=== PATIENT | female | born 1960 | race Caucasian/White ===

== ENCOUNTER 2020-10-05 09:58 | Outpatient (CLI) | payer MEDICARE, MEDICAID, SELFPAY ==
[2020-10-05 11:24] LABS: Add Urine Microscopic? YES; Appearance Urine Clear (Clear); Bacteria Urine Trace /hpf; Bilirubin Urine Negative (Negative); Blood Urine Negative (Negative); Color Urine Yellow (Yellow); Glucose Urine UA Negative (Negative); Ketones Urine Negative (Negative); Leukocyte Esterase Ur 2+ LEU/UL (NEGATIVE); Nitrate Urine Negative (Negative); Protein Urine 3+ mg/dL (Negative); RBC Urine 0-2 /hpf (0-2); Specific Grav Ur 1.016 (1.001-1.035); Squamous Epithelial Cell Urine Rare /hpf (Few); Urobilinogen Urine Negative mg/dL (<2.0); WBC Urine 51-75 /hpf (0-3)
[2020-10-05 11:36] LABS: Anion Gap 4 mmol/L (8-16); Blood Urea Nitrogen 38 mg/dL (7-17); Calcium 8.7 mg/dL (8.4-10.2); Carbon Dioxide 32 mmol/L (22-30); Chloride 105 mmol/L (98-107); Estimated Glomerular Filt Rate 42; Glucose 157 mg/dL (65-105); Potassium 4.9 mmol/L (3.4-5.0); Sodium 141 mmol/L (137-145)
[2020-10-05 22:34] LABS: Creatinine Urine 92.1 mg/dL
[2020-10-06 00:41] LABS: Microalbumin Urine Random > 1140.0 mg/L (0-16.7)
== END 2020-10-05 09:59 | disposition home or self-care (01) ==
PROVIDERS: Visit Provider Internal Medicine Nephrology
DX: E11.21 Type 2 diabetes mellitus with diabetic nephropathy (principal); E78.5 Hyperlipidemia, unspecified; R80.9 Proteinuria, unspecified
CPT/HCPCS: 36415; 80048; 81001; 82043

== ENCOUNTER 2021-01-26 10:49 | Outpatient (CLI) | payer MEDICARE, MEDICAID, SELFPAY ==
--- NOTE | ~2021-01-26 | US_ITS ---
EXAMINATION: US carotid duplex BI DATE: 01/26/2021 11:21 INDICATION: Bilateral carotid bruits TECHNIQUE: Grayscale, color Doppler, and pulsed Doppler images of the cervical carotid arteries were obtained. The degree of vessel stenosis is placed in one of the following categories: normal, <50%, 5 0-69%, >=70% but less than near-occlusion, near-occlusion, or total occlusion. Note that percent sten osis relative to normal distal artery lumen diameter is indirectly measured from velocity measurement s as described by Marcus, et al. Radiology 2003; [id number]. COMPARISON: None. FINDINGS: Cardiac arrhythmias present. RIGHT: The right common carotid artery (CCA) peak systolic velocity (PSV) is 83 cm/s. The right internal car otid artery (ICA) PSV is 93 cm/s. The right ICA end-diastolic velocity (EDV) is 23 cm/s. The right IC A/CCA PSV ratio is 1.1. Grayscale and color Doppler images yield an estimate of <50% diameter reducti on from plaque in the ICA. The external carotid artery (ECA) PSV is 159 cm/s. There is antegrade flow in the right vertebral artery. LEFT: The left CCA PSV is 72 cm/s. The left ICA PSV is 139 cm/s. The left ICA EDV is 31 cm/s. The left ICA/ CCA PSV ratio is 1.9. Grayscale and color Doppler images yield an estimate of <50% diameter reduction from plaque in the ICA. The ECA PSV is 185 cm/s. There is antegrade flow in the left vertebral arter y. IMPRESSION: 1. <50% stenosis in the right internal carotid artery. 2. 50-69% stenosis in the left internal carotid artery. 3. Cardiac arrhythmia is present. Reviewed, dictated and finalized at location A.
== END 2021-01-26 10:50 | disposition home or self-care (01) ==
PROVIDERS: Visit Provider Internal Medicine Cardiovascular Disease
DX: R09.89 Other specified symptoms and signs involving the circulatory and respiratory systems (principal); I65.23 Occlusion and stenosis of bilateral carotid arteries; I49.9 Cardiac arrhythmia, unspecified
CPT/HCPCS: 93880

== ENCOUNTER 2021-02-03 13:31 | Outpatient (CLI) | payer MEDICARE, MEDICAID, SELFPAY ==
--- NOTE | 2021-02-03 17:50 | WPDPFTINT ---
PFT Interpretation This is a pulmonary function test with spirometry, plethysmography and diffusing capacity. The test was performed and results interpreted in accordance with the 2019 and 2005 ATS/ERS Task Force guidelines respectively using the Global Lung Function Initiative-2012 reference equations. Patient demonstrated good effort and cooperation. Reproducibility criteria were met. The quality of the pre bronchodilator spirometry maneuver was Grade A. Findings: Spirometry: There is decreased maximal expiratory airflow at low lung volumes with a mildly concave expiratory flow tracing. The FVC is 2.21 L, 67% predicted. The FEV1 is 1.74 L, 67% predicted. The FEV1: FVC ratio is 79%. Plethysmography: The total lung capacity is 4.39 L, 85% predicted. The functional residual capacity is 2.46 L, 83% predicted. The residual volume is 2.15 L, 107% predicted. Diffusing capacity: The absolute diffusion capacity is 12.5, 56% predicted. The diffusing capacity corrected for alveolar volume is 3.34, 76% predicted. Impression: There is a combined obstructive and restrictive ventilatory abnormality. There are no guidelines to assign the severity of obstruction and restriction with a combined abnormality. In my opinion, given the mildly concave expiratory flow tracing and normal FEV1:FVC ratio with a mild restrictive abnormality I would state there is a mild obstructive abnormality and a mild restrictive abnormality resulting in a moderately decreased FEV1. The diffusing capacity is moderately decreased but normalizes when corrected for alveolar volume. There are no prior studies for comparison PFT Procedure Performed PFT Procedure Performed Plethysmography (Lung Vol) Diffusing Cap (DLCO) Spirometry w/o Bronchodil
== END 2021-02-03 13:32 | disposition home or self-care (01) ==
LOC: ANHPFT 13:33
PROVIDERS: PCP Internal Medicine Cardiovascular Disease; Visit Provider Internal Medicine Cardiovascular Disease
DX: Z72.0 Tobacco use (principal); R94.2 Abnormal results of pulmonary function studies
CPT/HCPCS: 94375; 94726; 94729

== ENCOUNTER 2021-02-08 09:24 | Outpatient (CLI) | payer MEDICARE, MEDICAID, SELFPAY ==
[2021-02-08 10:12] LABS: Basophils Absolute Auto 0.1 K/mm3 (0.0-0.1); Basophils Percent Auto 0.5 % (0.2-1.2); Eosinophils Absolute Auto 0.4 K/mm3 (0-0.3); Eosinophils Percent Auto 4.3 % (0-4.4); Hematocrit 42.3 % (37.0-47.0); Hemoglobin 14.2 g/dL (12.0-15.0); Immature Granulocyte Absolute 0.07 K/mm3 (0.00-0.031); Immature Granulocyte Percent A 0.8 % (0-0.5); Lymphocytes Absolute Auto 1.11 K/mm3 (0.9-3.2); Mean Corpuscular HGB Conc 33.6 g/dl (32-36); Mean Corpuscular Hemoglobin 30.3 pg (26-34); Mean Corpuscular Volume 90.4 fl (80-100); Mean Platelet Volume 8.8 fl (7.4-10.4); Monocytes Absolute Auto 0.4 K/mm3 (0.1-0.6); Neutrophils Absolute Auto 7.3 K/mm3 (1.3-6.7); Neutrophils Percent Auto 78.4 % (45.5-73.1); Platelet Count Result 248 k/mm3 (150-375); Red Blood Count 4.68 M/mm3 (4.2-5.4); Red Cell Distribution Width 15.6 % (11.5-14.5); White Blood Count 9.3 K/mm3 (4.5-10.0)
[2021-02-08 10:13] LABS: Appearance Urine Clear (Clear); Bilirubin Urine Negative (Negative); Blood Urine Negative (Negative); Color Urine Yellow (Yellow); Glucose Urine UA Trace mg/dL (Negative); Ketones Urine Negative (Negative); Leukocyte Esterase Ur 1+ LEU/UL (NEGATIVE); Nitrate Urine Negative (Negative); Protein Urine 3+ mg/dL (Negative); Urobilinogen Urine 0.2 mg/dL (<2.0)
[2021-02-08 10:23] LABS: Anion Gap 6 mmol/L (8-16); Blood Urea Nitrogen 28 mg/dL (7-17); Calcium 9.6 mg/dL (8.4-10.2); Carbon Dioxide 33 mmol/L (22-30); Chloride 98 mmol/L (98-107); Estimated Glomerular Filt Rate 38; Glucose 274 mg/dL (65-105); Phosphorus 4.8 mg/dL (2.5-4.5); Potassium 4.4 mmol/L (3.4-5.0); Sodium 137 mmol/L (137-145)
[2021-02-08 10:28] LABS: Creatinine Urine 72.9 mg/dL
[2021-02-08 10:34] LABS: Parathyroid Intact 11.9 pg/mL (7.5-53.5)
[2021-02-08 11:11] LABS: Add Urine Microscopic? YES
[2021-02-08 11:19] LABS: Squamous Epithelial Cell Urine Rare /hpf (Few)
[2021-02-08 11:57] LABS: Microalbumin Urine Random > 1140.0 mg/L (0-16.7)
== END 2021-02-08 09:25 | disposition home or self-care (01) ==
PROVIDERS: PCP Internal Medicine Cardiovascular Disease
DX: N18.32 Chronic kidney disease, stage 3b (principal)
CPT/HCPCS: 36415; 80069; 81001; 82043; 83970; 85025

== ENCOUNTER 2021-06-05 09:02 | Emergency (ER) | payer MEDICARE, MEDICAID, SELFPAY ==
[2021-06-05 09:14] VITALS: BP 130/73; PULSE 50; RESP 20; TEMP 35.8; O2SAT 97
--- NOTE | 2021-06-05 10:18 | ED.NECK ---
HPI - Neck Pain/Injury General Chief Complaint: Neck Pain/Injury Stated Complaint: Stiff Neck Time Seen by Provider: 06/05/21 10:11 Source: patient and RN notes reviewed Mode of arrival: ambulatory Limitations: no limitations History of Present Illness HPI Narrative: Patient presents today complaining of neck pain and stiffness x2 weeks. Denies numbness or tingling in the arms or hands. States she does frequent crafts, and spends a lot of time looking at the TV and down at her phone because she is disabled, so she knows she has poor neck position for most of the day. She currently rates her pain 06/07 and has been taking ibuprofen and applying icy hot and Aspercreme without relief. MD complaint: neck pain Related Data Home Medications Medication Instructions Recorded Confirmed albuterol sulfate 2 inh INHALATION Q4-6H PRN 10/24/19 10/24/19 amlodipine [Norvasc] 10 mg PO DAILY 10/24/19 10/24/19 atenolol [Tenormin] 50 mg PO BID 10/24/19 10/24/19 atorvastatin 20 mg PO DAILY 10/24/19 10/24/19 fluticasone propionate [Flonase 1 spray INTRANASAL DAILY 10/24/19 10/24/19 Allergy Relief] furosemide [Lasix] 40 mg PO DAILY 10/24/19 10/24/19 gabapentin [Neurontin] 300 mg PO TID 10/24/19 10/24/19 glipizide 10 mg PO BID 10/24/19 10/24/19 hydralazine 25 mg PO BID 10/24/19 10/24/19 hydrocodone-acetaminophen 1 tablet PO Q6-8H PRN 10/24/19 10/24/19 levothyroxine 175 mcg PO DAILY 10/24/19 10/24/19 lisinopril 20 mg PO BID 10/24/19 10/24/19 metformin 1,000 mg PO BID 10/24/19 10/24/19 Allergies Allergy/AdvReac Type Severity Reaction Status Date / Time No Known Allergies Allergy Verified 10/24/19 12:26 Review of Systems Review of Systems: CONSTITUTIONAL: Denies body aches, fever, chills, or sweats. EYES: Denies visual changes, redness, or discharge. ENT: Denies rhinorrhea, congestion, sore throat, or otalgia. CARDIOVASCULAR: Denies chest pain, palpitations, or edema. RESPIRATORY: Denies cough or dyspnea. GASTROINTESTINAL: Denies abdominal pain, nausea, vomiting, or diarrhea. GENITOURINARY: Denies dysuria or hematuria. SKIN: Denies rash, itching, or wounds. MUSCULOSKELETAL: Denies back pain, joint pain, or myalgia.+ Neck pain and stiffness NEUROLOGIC: Denies headache, numbness, tingling, or weakness. PSYCH: Denies depression or anxiety. [facility] Past Medical History Medical History (Updated 06/05/21 @ 10:23 by Nadine Perdomo, [facility], ) Coronary artery disease CVA (cerebral vascular accident) Diabetes High cholesterol Hypertension Surgical History Surgical History (Updated 06/05/21 @ 10:20 by Nadine Perdomo, [facility], ) H/O thyroidectomy History of cholecystectomy Comments At time of signature, I have reviewed and agree with nursing past medical, surgical, social and family history unless otherwise noted. Please see nursing chart for further information. There is no relevant family history pertinent to the presenting complaint Exam Narrative: GENERAL: Well-appearing, well-nourished, and in no acute distress. HEAD: Normocephalic, atraumatic. EYES: EOMI. No redness or drainage. Conjunctivae normal. ENT: Mucous membranes pink and moist. NECK: Normal AROM in all directions. Tenderness to the left cervicals paraspinals muscles. Distal sensation intact bilaterally. Capillary refill normal. Radial pulses normal. CHEST: No respiratory distress. EXTREMITIES: Normal range of motion. No edema. SKIN: Warm, dry, no rash. Capillary refill normal. Normal skin turgor. NEURO: No focal deficits. Alert and oriented x3. Gait steady. PSYCH: Normal affect. No signs of depression or anxiety. Course Vital Signs Vital signs: Vital Signs Temperature 96.4 F L 06/05/21 09:14 Pulse Rate 50 L 06/05/21 09:14 Respiratory Rate 20 06/05/21 09:14 Blood Pressure 130/73 06/05/21 09:14 Pulse Oximetry 97 06/05/21 09:14 Temperature 96.4 F L 06/05/21 09:14 Pulse Rate 50 L 06/05/21 09:14 Respiratory Rate 20 06/05/21 09:
== END 2021-06-05 10:47 | disposition home or self-care (01) ==
PROVIDERS: Emergency Provider Nurse Practitioner; PCP Family Medicine
DX: S16.1XXA Strain of muscle, fascia and tendon at neck level, initial encounter (principal); X50.1XXA Overexertion from prolonged static or awkward postures, initial encounter; I25.10 Atherosclerotic heart disease of native coronary artery without angina pectoris; E78.00 Pure hypercholesterolemia, unspecified; I10 Essential (primary) hypertension; Z86.73 Personal history of transient ischemic attack (TIA), and cerebral infarction without residual deficits
CPT/HCPCS: 99213; G0463

== ENCOUNTER 2021-07-23 10:50 | Outpatient (CLI) | payer MEDICARE, SELFPAY ==
[2021-07-23 11:18] LABS: Basophils Percent Auto 0.5 % (0.2-1.2); Eosinophils Absolute Auto 0.3 K/mm3 (0-0.3); Eosinophils Percent Auto 3.1 % (0-4.4); Hematocrit 39.4 % (37.0-47.0); Hemoglobin 12.9 g/dL (12.0-15.0); Immature Granulocyte Absolute 0.05 K/mm3 (0.00-0.031); Immature Granulocyte Percent A 0.6 % (0-0.5); Lymphocytes Absolute Auto 1.04 K/mm3 (0.9-3.2); Lymphocytes Percent Auto 11.9 % (18.3-44.2); Mean Corpuscular HGB Conc 32.7 g/dl (32-36); Mean Corpuscular Hemoglobin 31.4 pg (26-34); Mean Corpuscular Volume 95.9 fl (80-100); Mean Platelet Volume 8.6 fl (7.4-10.4); Monocytes Absolute Auto 0.4 K/mm3 (0.1-0.6); Monocytes Percent Auto 4.8 % (2.6-8.5); Neutrophils Absolute Auto 6.9 K/mm3 (1.3-6.7); Neutrophils Percent Auto 79.1 % (45.5-73.1); Platelet Count Result 233 k/mm3 (150-375); Red Blood Count 4.11 M/mm3 (4.2-5.4); Red Cell Distribution Width 15.3 % (11.5-14.5); White Blood Count 8.7 K/mm3 (4.5-10.0)
[2021-07-23 11:29] LABS: Albumin Level 4.2 g/dL (3.5-5.1); Anion Gap 5 mmol/L (8-16); Blood Urea Nitrogen 33 mg/dL (7-17); Calcium 9.5 mg/dL (8.4-10.2); Carbon Dioxide 30 mmol/L (22-30); Chloride 105 mmol/L (98-107); Estimated Glomerular Filt Rate 38; Glucose 217 mg/dL (65-110); Phosphorus 4.4 mg/dL (2.5-4.5); Potassium 4.5 mmol/L (3.4-5.0); Sodium 140 mmol/L (137-145)
[2021-07-23 11:30] LABS: Add Urine Microscopic? YES; Appearance Urine Cloudy (Clear); Bacteria Urine Trace /hpf; Bilirubin Urine Negative (Negative); Blood Urine Negative (Negative); Color Urine Yellow (Yellow); Glucose Urine UA 1+ mg/dL (Negative); Ketones Urine Negative (Negative); Leukocyte Esterase Ur 3+ LEU/UL (NEGATIVE); Mucus Urine Rare /lpf; Nitrate Urine Negative (Negative); Protein Urine 3+ mg/dL (Negative); Specific Grav Ur 1.015 (1.001-1.035); Squamous Epithelial Cell Urine Many /hpf (Few); Urobilinogen Urine Negative mg/dL (<2.0); WBC Urine >75 /hpf (0-3)
[2021-07-23 11:41] LABS: Parathyroid Intact 17.4 pg/mL (7.5-53.5)
[2021-07-23 12:05] LABS: Creatinine Urine 108.2 mg/dL
[2021-07-23 13:58] LABS: MALB Creatinine Ratio 1053.6 mg/g (0-30); Microalbumin Urine Random > 1140.0 mg/L (0-16.7)
== END 2021-07-23 10:51 | disposition home or self-care (01) ==
PROVIDERS: PCP Family Medicine
DX: N18.32 Chronic kidney disease, stage 3b (principal); R80.9 Proteinuria, unspecified
CPT/HCPCS: 36415; 80069; 81001; 82043; 83970; 85025

== ENCOUNTER 2021-11-10 11:47 | Outpatient (CLI) | payer OTHER, SELFPAY ==
--- NOTE | ~2021-11-10 | XR_ITS ---
EXAMINATION: XR hip LT 2V w AP pelvis EXAM DATE: 11/10/2021 12:18 INDICATION: Chronic Pain In Left Hip, Posterior/Sciatic Pain, No Injury. TECHNIQUE: Left hip frontal, 'frog leg' projections for interpretation. Frontal projection pelvis. There is no prior study for comparison. FINDINGS: There is mild to moderate symmetric bilateral hip primary osteoarthritis. Advanced lower l umbar disc disease. 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 There are no acute pelvic or left hip fra ctures or dislocations identified. There is no subcutaneous gas. Some scattered arterial sclerosis. There are no radiopaque foreign bodies. IMPRESSION: 1. 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 2. Mild to moderate hip osteoarthritis. 3. Advanced lower lumbar spondylosis. Reviewed, dictated and finalized at location A. AND SADDLE REPAIR PERSON
[2021-11-10 12:04] LABS: Basophils Percent Auto 0.3 % (0.2-1.2); Eosinophils Absolute Auto 0.2 K/mm3 (0-0.3); Hematocrit 36.5 % (37.0-47.0); Hemoglobin 11.8 g/dL (12.0-15.0); Immature Granulocyte Absolute 0.04 K/mm3 (0.00-0.031); Immature Granulocyte Percent A 0.6 % (0-0.5); Lymphocytes Absolute Auto 1.09 K/mm3 (0.9-3.2); Lymphocytes Percent Auto 17.3 % (18.3-44.2); Mean Corpuscular HGB Conc 32.3 g/dl (32-36); Mean Corpuscular Hemoglobin 29.5 pg (26-34); Mean Corpuscular Volume 91.3 fl (80-100); Mean Platelet Volume 8.5 fl (7.4-10.4); Monocytes Absolute Auto 0.7 K/mm3 (0.1-0.6); Monocytes Percent Auto 10.3 % (2.6-8.5); Neutrophils Absolute Auto 4.3 K/mm3 (1.3-6.7); Neutrophils Percent Auto 68.5 % (45.5-73.1); Platelet Count Result 229 k/mm3 (150-375); Red Cell Distribution Width 16.4 % (11.5-14.5); White Blood Count 6.3 K/mm3 (4.5-10.0)
[2021-11-10 12:20] LABS: Anion Gap 11 mmol/L (8-16); Blood Urea Nitrogen 43 mg/dL (7-17); Carbon Dioxide 28 mmol/L (22-30); Chloride 99 mmol/L (98-107); Estimated Glomerular Filt Rate 31; Glucose 238 mg/dL (65-110); Phosphorus 3.8 mg/dL (2.5-4.5); Potassium 3.8 mmol/L (3.4-5.0); Sodium 138 mmol/L (137-145)
[2021-11-10 12:29] LABS: Parathyroid Intact 8.8 pg/mL (7.5-53.5)
== END 2021-11-10 11:48 | disposition home or self-care (01) ==
PROVIDERS: PCP Family Medicine
DX: N18.32 Chronic kidney disease, stage 3b (principal); S32.502 Unspecified fracture of left pubis; M16.12 Unilateral primary osteoarthritis, left hip; M47.816 Spondylosis without myelopathy or radiculopathy, lumbar region
CPT/HCPCS: 36415; 73502; 80069; 83970; 85025

== ENCOUNTER 2022-02-14 10:43 | Outpatient (CLI) | payer OTHER, SELFPAY ==
[2022-02-14 11:13] LABS: Basophils Percent Auto 0.5 % (0.2-1.2); Eosinophils Absolute Auto 0.2 K/mm3 (0-0.3); Eosinophils Percent Auto 3.2 % (0-4.4); Hematocrit 33.8 % (37.0-47.0); Hemoglobin 9.1 g/dL (12.0-15.0); Immature Granulocyte Absolute 0.02 K/mm3 (0.00-0.031); Immature Granulocyte Percent A 0.3 % (0-0.5); Lymphocytes Absolute Auto 0.68 K/mm3 (0.9-3.2); Lymphocytes Percent Auto 11.5 % (18.3-44.2); Mean Corpuscular HGB Conc 26.9 g/dl (32-36); Mean Corpuscular Hemoglobin 23.6 pg (26-34); Mean Corpuscular Volume 87.8 fl (80-100); Mean Platelet Volume 8.9 fl (7.4-10.4); Monocytes Absolute Auto 0.4 K/mm3 (0.1-0.6); Monocytes Percent Auto 6.6 % (2.6-8.5); Neutrophils Absolute Auto 4.6 K/mm3 (1.3-6.7); Neutrophils Percent Auto 77.9 % (45.5-73.1); Platelet Count Result 226 k/mm3 (150-375); Red Blood Count 3.85 M/mm3 (4.2-5.4); Red Cell Distribution Width 17.6 % (11.5-14.5); White Blood Count 5.9 K/mm3 (4.5-10.0)
[2022-02-14 11:28] LABS: Albumin Level 3.6 g/dL (3.5-5.1); Anion Gap 5 mmol/L (8-16); Blood Urea Nitrogen 35 mg/dL (7-17); Calcium 8.8 mg/dL (8.4-10.2); Carbon Dioxide 32 mmol/L (22-30); Chloride 102 mmol/L (98-107); Estimated Glomerular Filt Rate 38; Glucose 132 mg/dL (65-110); Phosphorus 4.6 mg/dL (2.5-4.5); Potassium 4.4 mmol/L (3.4-5.0); Sodium 139 mmol/L (137-145)
[2022-02-14 11:33] LABS: Appearance Urine Clear (Clear); Bilirubin Urine Negative (Negative); Blood Urine Negative (Negative); Color Urine Yellow (Yellow); Glucose Urine UA Negative (Negative); Ketones Urine Negative (Negative); Leukocyte Esterase Ur 1+ LEU/UL (NEGATIVE); Nitrate Urine Negative (Negative); Protein Urine Trace mg/dL (Negative); Specific Grav Ur 1.015 (1.001-1.035); Urobilinogen Urine 0.2 mg/dL (<2.0); pH Urine 6.5 (5.0-9.0)
[2022-02-14 11:36] LABS: Parathyroid Intact 31.3 pg/mL (7.5-53.5)
[2022-02-14 11:38] LABS: Mucus Urine Rare /lpf; RBC Urine 0-2 /hpf (0-2); Transitional Epi Cells Urine Rare /hpf (None Seen)
[2022-02-14 11:42] LABS: Hypochromasia 1+ (NORMAL); Platelet Estimate Adequate (Adequate)
[2022-02-14 11:43] LABS: Anisocytosis 1+ (NORMAL)
[2022-02-14 11:48] LABS: Add Urine Microscopic? YES; Creatinine Urine 20.6 mg/dL
[2022-02-14 11:53] LABS: MALB Creatinine Ratio 637.4 mg/g (0-30); Microalbumin Urine Random 131.3 mg/L (0-16.7)
== END 2022-02-14 10:44 | disposition home or self-care (01) ==
LOC: ANHLAB 10:49
PROVIDERS: PCP Family Medicine
DX: N18.32 Chronic kidney disease, stage 3b (principal)
CPT/HCPCS: 36415; 80069; 81001; 82043; 83970; 85025

== ENCOUNTER 2022-03-10 10:13 | Emergency (ER) | payer OTHER, SELFPAY ==
--- NOTE | ~2022-03-10 | XR_ITS ---
EXAMINATION: XR hip RT min 2V DATE: 03/10/2022 10:44 INDICATION: Right hip pain TECHNIQUE: Two views of right hip were obtained. COMPARISON: 11/10/2021 FINDINGS: There is moderate osteoarthritis of the right hip. No hip fracture is identified. There is a chronic fracture of the right pubic symphysis with nonunion. Phleboliths are noted in the pelvis. T here is calcified atherosclerosis. IMPRESSION: 1. No acute osseous abnormality. Reviewed, dictated and finalized at location A.
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
[2022-03-10 10:29] VITALS: BP 145/46; PULSE 66; RESP 18; TEMP 36.1; O2SAT 95
== END 2022-03-10 11:05 | disposition home or self-care (01) ==
PROVIDERS: Emergency Provider Nurse Practitioner; PCP Family Medicine
DX: M54.31 Sciatica, right side (principal); I25.10 Atherosclerotic heart disease of native coronary artery without angina pectoris; E11.9 Type 2 diabetes mellitus without complications; E78.00 Pure hypercholesterolemia, unspecified; I10 Essential (primary) hypertension; Z86.73 Personal history of transient ischemic attack (TIA), and cerebral infarction without residual deficits; E89.0 Postprocedural hypothyroidism
CPT/HCPCS: 73502; 99213; G0463

== ENCOUNTER 2022-10-08 08:43 | Emergency (ER) | payer OTHER, SELFPAY ==
[2022-10-08 08:49] VITALS: BP 201/88; PULSE 89; RESP 18; TEMP 36.4; O2SAT 93
[2022-10-08 08:59] VITALS: BP 201/88; PULSE 89; RESP 16; TEMP 36.3; O2SAT 92
--- NOTE | 2022-10-08 09:03 | ED.EXTPRO ---
HPI - Extremity Problem General Chief complaint: Extremity Injury, Lower Stated complaint: L ankle and foot pain and swelling Time Seen by Provider: 10/08/22 09:02 Source: patient and RN notes reviewed Mode of arrival: wheelchair Limitations: no limitations History of Present Illness MD Complaint: extremity pain and extremity swelling Onset (ago): day(s) (2) Pain Consistency: constant Location: left and lower extremity Severity scale (1-10): 4 Quality: burning, aching, dull and constant Radiation: distal Relieving factors: nothing Exacerbating factors: weight bearing, walking and palpation Associated symptoms: denies other symptoms Related Data Home Medications Medication Instructions Recorded Confirmed albuterol sulfate 90 mcg/actuation 1 inh inhalation DAILY 10/08/22 10/08/22 aerosol inhaler (Ventolin HFA) aspirin 81 mg tablet,delayed 90 mg PO DAILY 10/08/22 10/08/22 release bupropion HCl (smoking deter) 150 150 mg PO BID 10/08/22 10/08/22 mg tablet,12 hr sustained-release(smoking deterrent) carvedilol 25 mg tablet 25 mg PO BID 10/08/22 10/08/22 empagliflozin 10 mg tablet 10 mg PO DAILY 10/08/22 10/08/22 (Jardiance) furosemide 40 mg tablet 40 mg PO DAILY 10/08/22 10/08/22 glipizide 10 mg tablet 10 mg PO BID 10/08/22 10/08/22 hydralazine 25 mg tablet 25 mg PO BID 10/08/22 10/08/22 levothyroxine 175 mcg tablet 175 mcg PO DAILY 10/08/22 10/08/22 metformin 1,000 mg tablet 1,000 mg PO DAILY 10/08/22 10/08/22 ropinirole 1 mg tablet 1 mg PO TID 10/08/22 10/08/22 rosuvastatin 40 mg tablet 40 mg PO DAILY 10/08/22 10/08/22 sacubitril 97 mg-valsartan 103 mg 1 tablet PO BID 10/08/22 10/08/22 tablet (Entresto) tramadol 50 mg tablet 50 mg PO DAILY 10/08/22 10/08/22 Allergies Allergy/AdvReac Type Severity Reaction Status Date / Time No Known Allergies Allergy Verified 10/08/22 09:03 Review of Systems Review of Systems: All systems reviewed & are unremarkable except as noted in HPI and below Constitutional: Constitutional: Denies chills and Denies fatigue Gastrointestinal: Gastrointestinal: Denies nausea and Denies vomiting [facility] Past Medical History Medical History (Updated 10/08/22 @ 10:43 by Charly Byrne MD) Congestive heart failure Coronary artery disease CVA (cerebral vascular accident) Diabetes High cholesterol Hypertension Hypothyroidism Surgical History Surgical History H/O thyroidectomy History of cholecystectomy Exam Const: General: healthy appearing, no acute distress and alert Nutritional Appearance: well nourished and obese morbidly obese Orientation/consciousness: patient oriented x3 Limitations: no limitations HENMT: Head: normal to inspection Ears: external ears normal Face and sinus: normal facial exam Eyes: Conjunctivae: conjunctivae normal Pupils: Equal, round and reactive pupils present EOM: EOMs intact bilaterally Neck: Neck: normal visual inspection Resp: Effort & Inspection: normal respiratory effort Auscultation: clear to auscultation bilaterally Cardio: Rate: regular rate Rhythm: regular rhythm GI: GI Palp: Yes Soft to palpation and No Tenderness to palpation present (GI) Auscultation: normal bowel sounds Back/Spine/Pelvis: Cervical Spine: cervical ROM normal Thoracic/Lumbar Spine: thoraco-lumbar ROM normal Neuro: General: patient oriented x3, moves all extremities, no focal motor deficits and CN's II-XI intact bilaterally Speech: normal speech Gait exam (Neuro): Normal gait present Extrem: General: normal exam except as noted, no clubbing, cyanosis or edema and no calf tenderness bilaterally Left lower extremity: lower leg Details: erythema Location: of the mid lower leg and of the distal lower leg ( all the way down on the ankle to the dorsal foot), tenderness ( soft tissue mild tenderness), localized swelling Location: of the mid lower leg and of the distal lower leg ( including ankle and
--- NOTE | 2022-10-08 09:15 | PC.NURSE ---
patient states she has not taken her blood pressure medication today yet that is why it is elevated.
[2022-10-08] MEDS: IPRATROPIUM 0.5 MG/ALBUTEROL SULFATE 2.5 MG AMPUL.NEB 3 ML INHALATION (09:58)
[2022-10-08 10:01] VITALS: PULSE 81; RESP 16
[2022-10-08 10:03] LABS: Basophils Absolute Auto 0.05 K/mm3 (0.00-0.10); Basophils Percent Auto 0.4 % (0.0-1.0); Eosinophils Absolute Auto 0.17 K/mm3 (0.02-0.50); Eosinophils Percent Auto 1.4 % (1.0-6.0); Hematocrit 40.2 % (35.0-49.0); Hemoglobin 11.7 g/dL (12.0-15.0); Immature Granulocyte Absolute 0.08 K/mm3 (0.00-0.00); Immature Granulocyte Percent A 0.7 % (0.0-0.0); Lymphocytes Absolute Auto 0.89 K/mm3 (1.10-4.50); Lymphocytes Percent Auto 7.4 % (18.0-42.0); Mean Corpuscular HGB Conc 29.1 g/dL (32.0-36.0); Mean Corpuscular Hemoglobin 25.2 pg (27.0-31.0); Mean Corpuscular Volume 86.6 fL (78.0-102.0); Mean Platelet Volume 8.1 fl (9.2-11.8); Monocytes Absolute Auto 0.53 K/mm3 (0.10-0.90); Monocytes Percent Auto 4.4 % (2.0-11.0); Neutrophils Absolute Auto 10.4 K/mm3 (1.7-7.2); Neutrophils Percent Auto 85.7 % (50.0-70.0); Platelet Count Result 245 K/mm3 (150-420); Red Blood Count 4.64 M/mm3 (4.20-5.40); Red Cell Distribution Width 21.3 % (11.6-14.4); White Blood Count 12.1 K/mm3 (4.8-10.8)
[2022-10-08 10:06] VITALS: PULSE 70; RESP 12
[2022-10-08 10:19] LABS: Lactic Acid Reflex 0.7 mmol/L (0.4-2.0)
[2022-10-08 10:28] LABS: Alanine Aminotransferase 14 U/L (14-59); Albumin Level 2.6 g/dL (3.4-5.0); Alkaline Phosphatase 105 U/L (46-116); Anion Gap 6 mmol/L (8-16); Aspartate Amino Transferase 14 U/L (15-37); Bilirubin,Total 0.4 mg/dL (0.00-1.00); Blood Urea Nitrogen 23 mg/dL (7-18); CRP 1.5 mg/dL (0.0-0.9); Calcium 8.3 mg/dL (8.5-10.1); Carbon Dioxide 33 mmol/L (21-32); Chloride 106 mmol/L (98-108); Estimated CRCL calculation 52 ml/min; Estimated Glomerular Filt Rate 44; Glucose 173 mg/dL (70-99); Osmolality Calculated 307 mOsm/kg (285-295); Potassium 3.3 mmol/L (3.5-5.1); Sodium 145 mmol/L (136-145)
[2022-10-08 10:52] VITALS: BP 191/81; PULSE 79; RESP 18; TEMP 36.9; O2SAT 90
== END 2022-10-08 11:00 | disposition home or self-care (01) ==
PROVIDERS: Emergency Provider Emergency Medicine; PCP Family Medicine
DX: L03.116 Cellulitis of left lower limb (principal)
CPT/HCPCS: 36415; 80053; 83605; 85025; 86140; 87040; 94640; 99284

== ENCOUNTER 2022-11-17 09:57 | Emergency (ER) | payer OTHER, SELFPAY ==
--- NOTE | ~2022-11-17 | XR_ITS ---
Left wrist Technique: PA, oblique, lateral, and ulnar deviation views were obtained. Clinical History: Pain, status post fall Findings: No acute fracture or dislocation is seen. Osseous alignment is anatomic. Joint spaces are p reserved. Soft tissues are unremarkable. Impression: Unremarkable left wrist radiographs. Reviewed, dictated and finalized at [facility]. ENDER HELPER Impression: Unremarkable left wrist radiographs.
[2022-11-17 09:57] VITALS: BP 175/69; PULSE 60; RESP 16; TEMP 37; O2SAT 99
--- NOTE | 2022-11-17 10:13 | ED.FALL ---
HPI - Fall General Chief Complaint: Fall Stated Complaint: left wrist/fall Time Seen by Provider: 11/17/22 10:12 Source: patient and RN notes reviewed Mode of arrival: ambulatory Limitations: no limitations History of Present Illness HPI Narrative: patient states she was outside last night take care of something outdoors and using a flashlight on her phone to see and she tripped falling on her extended left arm. Today it is swollen hurts with movement and range of motion. Pain is located in her left wrist. She has no other injuries there was no loss of consciousness. MD complaint: fall Onset (ago): day(s) (1) Fall from: standing Fall witnessed: no Place fall occurred: home Loss of consciousness: none Prolonged down time: no Symptoms prior to fall: none Context: tripped/slipped Location of injury - extremities: Left: forearm (wrist) Severity: moderate Quality: dull and aching Associated symptoms (after fall): denies Related Data Home Medications Medication Instructions Recorded Confirmed albuterol sulfate 90 mcg/actuation 1 inh inhalation DAILY 10/08/22 11/17/22 aerosol inhaler (Ventolin HFA) aspirin 81 mg tablet,delayed 90 mg PO DAILY 10/08/22 11/17/22 release bupropion HCl (smoking deter) 150 150 mg PO BID 10/08/22 11/17/22 mg tablet,12 hr sustained-release(smoking deterrent) carvedilol 25 mg tablet 25 mg PO BID 10/08/22 11/17/22 empagliflozin 10 mg tablet 10 mg PO DAILY 10/08/22 11/17/22 (Jardiance) furosemide 40 mg tablet 40 mg PO DAILY 10/08/22 11/17/22 glipizide 10 mg tablet 10 mg PO BID 10/08/22 11/17/22 hydralazine 25 mg tablet 25 mg PO BID 10/08/22 11/17/22 levothyroxine 175 mcg tablet 175 mcg PO DAILY 10/08/22 11/17/22 metformin 1,000 mg tablet 1,000 mg PO DAILY 10/08/22 11/17/22 ropinirole 1 mg tablet 1 mg PO TID 10/08/22 11/17/22 rosuvastatin 40 mg tablet 40 mg PO DAILY 10/08/22 11/17/22 sacubitril 97 mg-valsartan 103 mg 1 tablet PO BID 10/08/22 11/17/22 tablet (Entresto) tramadol 50 mg tablet 50 mg PO DAILY 10/08/22 11/17/22 ropinirole 2 mg tablet 4 mg PO HS 11/17/22 11/17/22 Allergies Allergy/AdvReac Type Severity Reaction Status Date / Time No Known Allergies Allergy Verified 10/08/22 09:03 Review of Systems Review of Systems: All systems reviewed & are unremarkable except as noted in HPI and below PMFSH Past Medical History Medical History Congestive heart failure Coronary artery disease CVA (cerebral vascular accident) Diabetes High cholesterol Hypertension Hypothyroidism Surgical History Surgical History H/O thyroidectomy History of cholecystectomy Exam Const: General: healthy appearing, no acute distress and alert Nutritional Appearance: well nourished and obese morbidly obese Orientation/consciousness: patient oriented x3 Limitations: no limitations HENMT: Head: normal to inspection Ears: external ears normal Face/Nose/Sinus: Normal external nose present Face and sinus: normal facial exam Mouth: Yes moist mucous membranes Eyes: Conjunctivae: conjunctivae normal Pupils: Equal, round and reactive pupils present EOM: EOMs intact bilaterally Neck: Neck: normal visual inspection Resp: Effort & Inspection: normal respiratory effort Auscultation: clear to auscultation bilaterally Cardio: Rate: regular rate Rhythm: regular rhythm GI: GI Palp: Yes Soft to palpation and No Tenderness to palpation present (GI) Auscultation: normal bowel sounds Back/Spine/Pelvis: Cervical Spine: cervical ROM normal Thoracic/Lumbar Spine: thoraco-lumbar ROM normal Skin: General skin exam: normal color Rashes: no rashes Neuro: General: patient oriented x3, moves all extremities, no focal motor deficits and CN's II-XI intact bilaterally Speech: normal speech Gait exam (Neuro): Normal gait present Extrem: General: no clubbing, cyanosis or edema Left upper extre
--- NOTE | 2022-11-17 10:17 | PC.NURSE ---
assist Dr with patient exam
[2022-11-17 11:01] VITALS: BP 168/64; PULSE 62; RESP 20; TEMP 36.9; O2SAT 99
== END 2022-11-17 11:03 | disposition home or self-care (01) ==
LOC: CHSED 10:47
PROVIDERS: Emergency Provider Emergency Medicine; PCP Family Medicine
DX: S63.502A Unspecified sprain of left wrist, initial encounter (principal); I11.0 Hypertensive heart disease with heart failure; I50.9 Heart failure, unspecified; I25.10 Atherosclerotic heart disease of native coronary artery without angina pectoris; E03.9 Hypothyroidism, unspecified; Z86.73 Personal history of transient ischemic attack (TIA), and cerebral infarction without residual deficits; Z79.82 Long term (current) use of aspirin; Z79.84 Long term (current) use of oral hypoglycemic drugs; Z79.891 Long term (current) use of opiate analgesic; W01.0XXA Fall on same level from slipping, tripping and stumbling without subsequent striking against object, initial encounter
CPT/HCPCS: 29125; 73110; 99283

== ENCOUNTER 2022-11-23 11:13 | Outpatient (CLI) | payer OTHER, SELFPAY ==
--- NOTE | ~2022-11-23 | XR_ITS ---
AP and lateral views of the right hip Clinical history: Pain Findings: No acute fracture or dislocation is seen. Osseous alignment is anatomic. Right hip and righ t SI joint are preserved. Soft tissues are unremarkable. Impression: No significant abnormality is seen. Reviewed, dictated and finalized at [facility]. GRAILS DEVELOPER Impression: No significant abnormality is seen.
[2022-11-23 12:17] LABS: Basophils Percent Auto 0.4 % (0.2-1.2); Eosinophils Absolute Auto 0.2 K/mm3 (0-0.3); Eosinophils Percent Auto 1.9 % (0-4.4); Hematocrit 42.5 % (37.0-47.0); Hemoglobin 13.3 g/dL (12.0-15.0); Immature Granulocyte Absolute 0.03 K/mm3 (0.00-0.031); Immature Granulocyte Percent A 0.3 % (0-0.5); Lymphocytes Absolute Auto 0.95 K/mm3 (0.9-3.2); Lymphocytes Percent Auto 9.7 % (18.3-44.2); Mean Corpuscular HGB Conc 31.3 g/dl (32-36); Mean Corpuscular Hemoglobin 27.8 pg (26-34); Mean Corpuscular Volume 88.7 fl (80-100); Mean Platelet Volume 8.8 fl (7.4-10.4); Monocytes Absolute Auto 0.4 K/mm3 (0.1-0.6); Monocytes Percent Auto 4.4 % (2.6-8.5); Neutrophils Absolute Auto 8.2 K/mm3 (1.3-6.7); Neutrophils Percent Auto 83.3 % (45.5-73.1); Platelet Count Result 227 k/mm3 (150-375); Red Blood Count 4.79 M/mm3 (4.2-5.4); Red Cell Distribution Width 18.5 % (11.5-14.5); White Blood Count 9.8 K/mm3 (4.5-10.0)
[2022-11-23 12:26] LABS: Albumin Level 3.7 g/dL (3.5-5.1); Anion Gap 4 mmol/L (8-16); Blood Urea Nitrogen 29 mg/dL (7-17); Calcium 8.6 mg/dL (8.4-10.2); Carbon Dioxide 29 mmol/L (22-30); Chloride 105 mmol/L (98-107); Estimated Glomerular Filt Rate 33; Glucose 137 mg/dL (65-110); Phosphorus 4.4 mg/dL (2.5-4.5); Potassium 3.6 mmol/L (3.4-5.0); Sodium 138 mmol/L (137-145)
[2022-11-23 12:35] LABS: Appearance Urine Cloudy (Clear); Bilirubin Urine Negative (Negative); Blood Urine 2+ (Negative); Color Urine Yellow (Yellow); Glucose Urine UA 2+ mg/dL (Negative); Ketones Urine Negative (Negative); Leukocyte Esterase Ur 1+ LEU/UL (NEGATIVE); Nitrate Urine Negative (Negative); Protein Urine 3+ mg/dL (Negative); Urobilinogen Urine 0.2 mg/dL (<2.0)
[2022-11-23 12:37] LABS: Parathyroid Intact 64.1 pg/mL (7.5-53.5)
[2022-11-23 12:49] LABS: Bacteria Urine Trace /hpf; RBC Urine >75 /hpf (0-2); WBC Urine >75 /hpf (0-3)
[2022-11-23 12:50] LABS: Creatinine Urine 19.1 mg/dL
[2022-11-23 12:58] LABS: Add Urine Microscopic? YES
[2022-11-23 13:00] LABS: Hemoglobin A1C 6.1 % (<5.7)
[2022-11-23 13:02] LABS: Iron 53 ug/dL (37-170)
[2022-11-23 13:12] LABS: Percent Iron Saturation 14 % (20-50)
[2022-11-23 19:45] LABS: Microalbumin Urine Random > 1140.0 mg/L (0-16.7)
== END 2022-11-23 11:14 | disposition home or self-care (01) ==
LOC: ANHLAB 11:17
PROVIDERS: PCP Family Medicine; Visit Provider Internal Medicine Nephrology
DX: M25.551 Pain in right hip (principal); N18.32 Chronic kidney disease, stage 3b; D64.9 Anemia, unspecified; E11.22 Type 2 diabetes mellitus with diabetic chronic kidney disease
CPT/HCPCS: 36415; 73502; 80069; 81001; 82043; 82728; 83036; 83540; 83550; 83970; 85025

== ENCOUNTER 2022-12-04 12:54 | Outpatient (CLI) | payer OTHER, SELFPAY ==
--- NOTE | ~2022-12-04 | US_ITS ---
EXAMINATION: US carotid duplex BI DATE: 12/04/2022 13:41 INDICATION: Moderate stenosis TECHNIQUE: Grayscale, color Doppler, and pulsed Doppler images of the cervical carotid arteries were obtained. The degree of vessel stenosis is placed in one of the following categories: normal, <50%, 5 0-69%, >=70% but less than near-occlusion, near-occlusion, or total occlusion. Note that percent sten osis relative to normal distal artery lumen diameter is indirectly measured from velocity measurement s as described by Marcus, et al. Radiology 2003; [id number]. COMPARISON: 01/26/2021 FINDINGS: RIGHT: The right common carotid artery (CCA) peak systolic velocity (PSV) is 78 cm/s. The right internal car otid artery (ICA) PSV is 117 cm/s. The right ICA end-diastolic velocity (EDV) is 23 cm/s. The right I CA/CCA PSV ratio is 1.5. Grayscale and color Doppler images yield an estimate of <50% diameter reduct ion from plaque in the ICA. The external carotid artery (ECA) PSV is 220 cm/s. There is antegrade neda w in the right vertebral artery. LEFT: The left CCA PSV is 81 cm/s. The left ICA PSV is 170 cm/s. The left ICA EDV is 39 cm/s. The left ICA/ CCA PSV ratio is 2.1. Grayscale and color Doppler images yield an estimate of 50-69% diameter reducti on from plaque in the ICA. The ECA PSV is 168 cm/s. There is antegrade flow in the left vertebral art jason. IMPRESSION: 1. <50% stenosis in the right internal carotid artery. 2. 50-69% stenosis in the left internal carotid artery. Reviewed, dictated and finalized at location A. STOCK RECORDER
== END 2022-12-04 12:55 | disposition home or self-care (01) ==
PROVIDERS: PCP Family Medicine; Visit Provider Internal Medicine Cardiovascular Disease
DX: I65.23 Occlusion and stenosis of bilateral carotid arteries (principal)
CPT/HCPCS: 93880

== ENCOUNTER 2022-12-08 11:34 | Outpatient (CLI) | payer OTHER, SELFPAY ==
[2022-12-08 12:20] LABS: Add Urine Microscopic? YES; Appearance Urine Clear (Clear); Bilirubin Urine Negative (Negative); Blood Urine 3+ (Negative); Color Urine Light Yellow (Yellow); Glucose Urine UA 2+ (Negative); Ketones Urine Negative (Negative); Leukocyte Esterase Ur 2+ (Negative); Nitrate Urine Negative (Negative); Protein Urine 3+ (Negative); Urobilinogen Urine 0.2 mg/dL (0.2-1.0)
[2022-12-08 12:34] LABS: Bacteria Urine 1+ /hpf; Squamous Epithelial Cell Urine None seen /hpf (Few); WBC Urine >75 /hpf (0-3)
== END 2022-12-08 11:35 | disposition home or self-care (01) ==
LOC: CHSLAB 11:36
PROVIDERS: PCP Family Medicine; Visit Provider Family Medicine
DX: R30.0 Dysuria (principal)
CPT/HCPCS: 81001; 87077; 87086; 87088; 87186

== ENCOUNTER 2023-03-10 14:04 | Emergency (ER) | payer OTHER, SELFPAY ==
--- NOTE | ~2023-03-10 | XR_ITS ---
EXAM: XR forearm RT 2V DATE: 03/10/2023 14:45 HISTORY: FALL 1 WK AGO, KNOT TO MIDPOSTERIOR FOREARM, BRUSING THRUOUT . COMPARISON: None available. FINDINGS: Normal mineralization. No fracture or dislocation. No lytic or blastic lesion. Joint space s and physes are maintained. No erosion or periosteal change. Soft tissue contusion over the posterio r aspect of the forearm soft tissues. Anterior displacement of the elbow joint fat pad and visualizat ion of the posterior fat pad indicative of a joint effusion. IMPRESSION: No acute osseous finding in the right forearm. Posterior soft tissue contusion. Right elb ow joint effusion, if clinical symptoms or mechanism of injury suggest elbow injury, consider dedicat ed elbow radiographs. Reviewed, dictated and finalized at location K. IMPRESSION: No acute osseous finding in the right forearm. Posterior soft tissu e contusion. Right elbow joint effusion, if clinical symptoms or mechanism of i njury suggest elbow injury, consider dedicated elbow radiographs.
--- NOTE | ~2023-03-10 | XR_ITS ---
EXAM: XR elbow RT min 3V DATE: 03/10/2023 15:40 HISTORY: elbow injury- FALL 1 WK AGO, BRUISING/PAIN THROUGHOUT . COMPARISON: None available. FINDINGS: Normal mineralization. Nondisplaced transverse lucency of the distal humerus. Slightly imp acted fracture of the radial head. No lytic or blastic lesion. Mild degenerative change at the elbow joint. Medial and lateral enthesopathy. No erosion or periosteal change. Moderate elbow joint effusio n. IMPRESSION: Nondisplaced transverse condylar fracture of the distal right humerus. Slightly impacted right radial head fracture. Reviewed, dictated and finalized at location K. IMPRESSION: Nondisplaced transverse condylar fracture of the distal right humer us. Slightly impacted right radial head fracture.
[2023-03-10 14:19] VITALS: BP 164/51; PULSE 54; RESP 17; TEMP 36.2; O2SAT 94
--- NOTE | 2023-03-10 15:49 | ED.UPPEXIN ---
HPI - Extremity Injury (Upper) General Chief Complaint: Extremity Injury, Upper Stated Complaint: fall Time Seen by Provider: 03/10/23 14:25 Source: patient Mode of arrival: ambulatory Limitations: no limitations History of Present Illness HPI narrative: this is a 62-year-old female with a history of CHF, diabetes hypertension presents after she had a fall about a week ago and injured her right arm causing bruising and hematoma has good range of motion but has tenderness in the the mid right forearm and elbow area with palpation as no numbness or tingling and has a good strong brisk radial pulse on the right. complaint: injury to: right Onset (ago): day(s) Other Extremity Injury: Right: elbow ( with a contusion and hematoma) Place: outdoors Severity: moderate Related Data Home Medications Medication Instructions Recorded Confirmed aspirin 81 mg tablet,delayed 90 mg PO DAILY 10/08/22 03/10/23 release bupropion HCl (smoking deter) 150 150 mg PO BID 10/08/22 03/10/23 mg tablet,12 hr sustained-release(smoking deterrent) carvedilol 25 mg tablet 25 mg PO BID 10/08/22 03/10/23 empagliflozin 10 mg tablet 10 mg PO DAILY 10/08/22 03/10/23 (Jardiance) furosemide 40 mg tablet 40 mg PO DAILY 10/08/22 03/10/23 glipizide 10 mg tablet 10 mg PO BID 10/08/22 03/10/23 hydralazine 25 mg tablet 25 mg PO BID 10/08/22 03/10/23 levothyroxine 175 mcg tablet 175 mcg PO DAILY 10/08/22 03/10/23 metformin 1,000 mg tablet 1,000 mg PO DAILY 10/08/22 03/10/23 rosuvastatin 40 mg tablet 40 mg PO DAILY 10/08/22 03/10/23 sacubitril 97 mg-valsartan 103 mg 1 tablet PO BID 10/08/22 03/10/23 tablet (Entresto) tramadol 50 mg tablet 50 mg PO DAILY 10/08/22 03/10/23 ropinirole 2 mg tablet 4 mg PO HS 11/17/22 03/10/23 amlodipine 5 mg tablet 5 mg PO DAILY 03/10/23 03/10/23 Allergies Allergy/AdvReac Type Severity Reaction Status Date / Time No Known Allergies Allergy Verified 03/10/23 14:16 Review of Systems Review of Systems: All systems reviewed & are unremarkable except as noted in HPI and below PMFSH Past Medical History Medical History Congestive heart failure Coronary artery disease CVA (cerebral vascular accident) Diabetes High cholesterol Hypertension Hypothyroidism Surgical History Surgical History H/O thyroidectomy History of cholecystectomy Exam Const: General: healthy appearing HENMT: Head: normal to inspection Eyes: Conjunctivae: conjunctivae normal Pupils: Equal, round and reactive pupils present Neck: Neck: normal visual inspection Chest: Chest palpation & inspection: normal inspection of the chest Resp: Effort & Inspection: normal respiratory effort Cardio: Rate: regular rate Rhythm: regular rhythm GI: GI Palp: Yes Soft to palpation : General: Yes bladder normal to palpation Back/Spine/Pelvis: Back: no CVA tenderness Skin: General skin exam: normal color Wounds: wounds noted Other: Bruising and hematoma right elbow and forearm area Neuro: General: patient oriented x3 Cranial nerves: Yes Nystagmus not present Speech: normal speech Extrem: General: normal to inspection Psych: Mental Status: mental status grossly normal Affect: normal affect Course Course Emergency Course: patient declined any pain medicine as some she is not in any pain at this moment but there is some tenderness with palpation of the right forearm and right elbow area x-ray performed and reviewed with patient. Vital Signs Vital signs: Vital Signs Temperature 36.2 C L 03/10/23 14:19 Pulse Rate 54 L 03/10/23 14:19 Respiratory Rate 17 03/10/23 14:19 Blood Pressure 164/51 H 03/10/23 14:19 Pulse Oximetry 94 03/10/23 14:19 Temperature 36.2 C L 03/10/23 14:19 Pulse Rate 54 L 03/10/23 14:19 Respiratory Rate 17 03/10/23 14:19 Blood Pressure 164/51 H 03/10/23 14:19
[2023-03-10 16:20] VITALS: BP 158/63; PULSE 59; RESP 17; TEMP 36.6; O2SAT 95
== END 2023-03-10 16:20 | disposition home or self-care (01) ==
PROVIDERS: Emergency Provider Emergency Medicine
DX: S42.401A Unspecified fracture of lower end of right humerus, initial encounter for closed fracture (principal); I11.0 Hypertensive heart disease with heart failure; I50.9 Heart failure, unspecified; I25.10 Atherosclerotic heart disease of native coronary artery without angina pectoris; E11.9 Type 2 diabetes mellitus without complications; E03.9 Hypothyroidism, unspecified; Z79.82 Long term (current) use of aspirin; Z79.84 Long term (current) use of oral hypoglycemic drugs; Z79.891 Long term (current) use of opiate analgesic; W19.XXXA Unspecified fall, initial encounter
CPT/HCPCS: 29105; 73080; 73090; 99284; A4565

== ENCOUNTER 2023-04-13 08:06 | Outpatient (CLI) | payer OTHER, SELFPAY ==
[2023-04-13 08:22] LABS: Basophils Absolute Auto 0.05 K/mm3 (0.00-0.10); Basophils Percent Auto 0.7 % (0.0-1.0); Eosinophils Absolute Auto 0.24 K/mm3 (0.02-0.50); Eosinophils Percent Auto 3.3 % (1.0-6.0); Hematocrit 40.7 % (35.0-49.0); Hemoglobin 12.6 g/dL (12.0-15.0); Immature Granulocyte Absolute 0.03 K/mm3 (0.00-0.00); Immature Granulocyte Percent A 0.4 % (0.0-0.0); Lymphocytes Absolute Auto 0.78 K/mm3 (1.10-4.50); Lymphocytes Percent Auto 10.7 % (18.0-42.0); Mean Corpuscular Hemoglobin 28.9 pg (27.0-31.0); Mean Corpuscular Volume 93.3 fL (78.0-102.0); Mean Platelet Volume 8.8 fl (9.2-11.8); Monocytes Absolute Auto 0.48 K/mm3 (0.10-0.90); Monocytes Percent Auto 6.6 % (2.0-11.0); Neutrophils Absolute Auto 5.7 K/mm3 (1.7-7.2); Neutrophils Percent Auto 78.3 % (50.0-70.0); Platelet Count Result 214 K/mm3 (150-420); Red Blood Count 4.36 M/mm3 (4.20-5.40); Red Cell Distribution Width 15.5 % (11.6-14.4); White Blood Count 7.3 K/mm3 (4.8-10.8)
[2023-04-13 08:40] LABS: Appearance Urine Clear (Clear); Bilirubin Urine Negative (Negative); Blood Urine Trace-Intact (Negative); Color Urine Yellow (Yellow); Glucose Urine UA 3+ (Negative); Ketones Urine Negative (Negative); Leukocyte Esterase Ur Negative (Negative); Nitrate Urine Negative (Negative); Protein Urine 3+ (Negative); Urobilinogen Urine 0.2 mg/dL (0.2-1.0); pH Urine 6.5 (5.0-8.0)
[2023-04-13 08:45] LABS: Add Urine Microscopic? YES; Bacteria Urine Rare /hpf; RBC Urine None seen /hpf (0-2); Squamous Epithelial Cell Urine Few /hpf (Few); WBC Urine None seen /hpf (0-3)
[2023-04-13 09:43] LABS: Anion Gap 6 mmol/L (8-16); Blood Urea Nitrogen 29 mg/dL (7-18); Carbon Dioxide 31 mmol/L (21-32); Chloride 105 mmol/L (98-108); Estimated Glomerular Filt Rate 40; Ferritin 37 ng/mL (8-252); Glucose 213 mg/dL (70-99); Iron 46 ug/dL (50-170); Osmolality Calculated 305 mOsm/kg (285-295); Percent Iron Saturation 13 % (12-57); Phosphorus 4.9 mg/dL (2.6-4.7); Potassium 4.1 mmol/L (3.5-5.1); Sodium 142 mmol/L (136-145)
[2023-04-13 11:44] LABS: MALB Creatinine Ratio 725.9 mg/g (0-30); Microalbumin Urine Random > 400.0 mg/L
[2023-04-20 11:42] LABS: Parathyroid Intact 49 pg/mL (14-64)
== END 2023-04-13 08:07 | disposition home or self-care (01) ==
LOC: CHSLAB 08:10
PROVIDERS: PCP Family Medicine; Visit Provider Nurse Practitioner Family
DX: N18.32 Chronic kidney disease, stage 3b (principal); D63.1 Anemia in chronic kidney disease
CPT/HCPCS: 36415; 80069; 81001; 82043; 82728; 83540; 83550; 83970; 85025

== ENCOUNTER 2023-05-28 13:09 | Outpatient (RCR) | payer OTHER, SELFPAY ==
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
--- NOTE | 2023-05-28 13:31 | OPREHPOC ---
Outpatient Therapy Plan of Care This is a Multidisciplinary Plan of Care that may contain components documented by all disciplines (PT, OT, and ST.) PT Problem 1 PT Problem #1 Knowledge Deficit PT Goal 1 Goal Pt. will be independent with a HEP addressing trunk mobility and core strength Target Visit 2 PT Problem 2 PT Problem #2 Impaired Gait PT Goal 1 Goal Pt. will demonstrate the ability to ambulate for 200-300' without an AD with equal right and left stance independently over level surface. Target Visit 12 PT Problem 3 PT Problem #3 Impaired Functional Mobil PT Goal 1 Goal Pt. will report being able to stand for 30-45 minutes with 5/10 pain at worst to complete all ADL's and participate in activities such as grocery shopping. Target Visit 12 PT Problem 4 PT Problem #4 Impaired Strength PT Goal 1 Goal Pt. will increase bilateral l.e. strength to 4+/5 or greater in all mm. groups to allow for improved endurance and stability with standing ADL's. Target Visit 12 PT Problem 5 PT Problem #5 Impaired Balance PT Goal 1 Goal Pt. will improve her tinetti score to 20 or greater indicating improved safety. Target Visit 12
== END 2023-06-04 15:26 | disposition home or self-care (01) ==
LOC: CHSPT 13:09
PROVIDERS: Visit Provider Family Medicine
DX: M54.50 Low back pain, unspecified (principal)
CPT/HCPCS: 97014; 97110; 97161; G0283

== ENCOUNTER 2023-07-16 13:30 | Outpatient (CLI) | payer OTHER, SELFPAY ==
--- NOTE | ~2023-07-16 | US_ITS ---
EXAMINATION: US carotid duplex BI DATE: 07/16/2023 14:57 INDICATION: Left carotid stenosis TECHNIQUE: Grayscale, color Doppler, and pulsed Doppler images of the cervical carotid arteries were obtained. The degree of vessel stenosis is placed in one of the following categories: normal, <50%, 5 0-69%, >=70% but less than near-occlusion, near-occlusion, or total occlusion. Note that percent sten osis relative to normal distal artery lumen diameter is indirectly measured from velocity measurement s as described by Marcus, et al. Radiology 2003; 229:340-346. Notes: Normal: Peak systolic velocity <125 centimeters/sec and no plaque <50%. Peak systolic velocity <125 ( EDV <40; ICA/CCA PSV ratio <2.0; used these factors only a tandem lesions or low cardiac output or co ntralateral disease) 50-69 %: PSV 125-230 (EDV 40-100; ratio 2-4) >= 70% but less than near occlusion: PSV greater than 230 (EDV > 100; ratio> 4.0) Near Occlusion: PSV that is variable; markedly narrowed lumen Occlusion: Absent flow on color/spectral Doppler and no lumen on latham scale. COMPARISON: None. FINDINGS: RIGHT: The right common carotid artery (CCA) peak systolic velocity (PSV) is 67 cm/s. The right internal car otid artery (ICA) PSV is 129 cm/s. The right ICA end-diastolic velocity (EDV) is 30 cm/s. The right I CA/CCA PSV ratio is 1.9. The external carotid artery (ECA) PSV is 132 cm/s. There is antegrade flow i n the right vertebral artery. LEFT: The left CCA PSV is 111 cm/s. The left ICA PSV is 297 cm/s. The left ICA EDV is 73 cm/s. The left ICA /CCA PSV ratio is 2.7. The ECA PSV is 160 cm/s. There is antegrade flow in the left vertebral artery . IMPRESSION: 1. 50-69% stenosis in the right internal carotid artery by sonographic criteria. 2. Greater than or equal to 70% stenosis in the left internal carotid artery by sonographic criteria. Reviewed, dictated and finalized at location A. IMPRESSION: 1. 50-69% stenosis in the right internal carotid artery by sonographic criteria . 2. Greater than or equal to 70% stenosis in the left internal carotid artery by sonographic criteria.
--- NOTE | ~2023-07-16 | US_ITS ---
US art doppler w press LE BI INDICATION: Lower extremity pain TECHNIQUE: Segmental pressures and plethysmographic and Doppler waveforms of the brachial and lower e xtremity arteries were obtained. COMPARISON: None. FINDINGS: Right and left brachial artery pressures of 172 mm Hg and 177 mm Hg, respectively, are concordant (no rmal difference <= 30 mmHg). The right ankle-brachial index (DEVAN) is 0.97 (normal >= 0.9-1.0). The right great toe-brachial index (TBI) is 0.11 (normal >= 0.60). The left DEVAN is 1.03. The left TBI is 0.35. IMPRESSION: 1. Normal bilateral ankle-brachial indices. 2: Diminished bilateral toe brachial indices, consistent with peripheral arterial disease. Reviewed, dictated and finalized at location A. IMPRESSION: 1. Normal bilateral ankle-brachial indices. 2: Diminished bilateral toe brachial indices, consistent with peripheral arter ial disease.
[2023-07-16 16:07] LABS: Hematocrit 41.5 % (37.0-47.0); Hemoglobin 13.2 g/dL (12.0-15.0); Mean Corpuscular HGB Conc 31.8 g/dl (32-36); Mean Corpuscular Volume 91.2 fl (80-100); Mean Platelet Volume 8.4 fl (7.4-10.4); Platelet Count Result 244 k/mm3 (150-375); Red Blood Count 4.55 M/mm3 (4.2-5.4); Red Cell Distribution Width 16.4 % (11.5-14.5); White Blood Count 12.7 K/mm3 (4.5-10.0)
[2023-07-16 16:20] LABS: Albumin Level 3.9 g/dL (3.5-5.1); Anion Gap 9 mmol/L (8-16); Blood Urea Nitrogen 34 mg/dL (7-17); Calcium 9.5 mg/dL (8.4-10.2); Carbon Dioxide 29 mmol/L (22-30); Chloride 105 mmol/L (98-107); Estimated Glomerular Filt Rate 35; Glucose 127 mg/dL (65-110); Potassium 3.4 mmol/L (3.4-5.0); Sodium 143 mmol/L (137-145)
[2023-07-16 16:27] LABS: Appearance Urine Cloudy (Clear); Bacteria Urine 4+ /hpf; Bilirubin Urine Negative (Negative); Blood Urine 1+ (Negative); Color Urine Yellow (Yellow); Glucose Urine UA 3+ mg/dL (Negative); Ketones Urine Negative (Negative); Leukocyte Esterase Ur 1+ LEU/UL (NEGATIVE); Nitrate Urine Positive (Negative); Non Pathogenic Casts 0-2; Protein Urine 3+ mg/dL (Negative); Specific Grav Ur 1.018 (1.001-1.035); Squamous Epithelial Cell Urine None seen /hpf (Few); Urobilinogen Urine 0.2 mg/dL (<2.0); WBC Urine >100 /hpf (0-3)
[2023-07-16 16:32] LABS: Add Urine Microscopic? YES
[2023-07-16 16:57] LABS: Parathyroid Intact 29.3 pg/mL (7.5-53.5)
[2023-07-16 17:01] LABS: Creatinine Urine 42.5 mg/dL
[2023-07-16 17:28] LABS: Iron 53 ug/dL (37-170)
[2023-07-16 17:47] LABS: Percent Iron Saturation 13 % (20-50)
[2023-07-16 21:03] LABS: Microalbumin Urine Random > 1140.0 mg/L (0-16.7)
== END 2023-07-16 13:31 | disposition home or self-care (01) ==
PROVIDERS: PCP Family Medicine; Referring Provider Nurse Practitioner Family; Visit Provider Internal Medicine Cardiovascular Disease
DX: N18.32 Chronic kidney disease, stage 3b (principal); D50.9 Iron deficiency anemia, unspecified; N39.0 Urinary tract infection, site not specified; I65.23 Occlusion and stenosis of bilateral carotid arteries; M79.661 Pain in right lower leg; M79.662 Pain in left lower leg; I73.9 Peripheral vascular disease, unspecified
CPT/HCPCS: 36415; 80069; 81001; 82043; 82728; 83540; 83550; 83970; 85027; 87086; 87088; 93880; 93923

== ENCOUNTER 2023-09-21 09:18 | Outpatient (CLI) | payer OTHER, SELFPAY ==
[2023-09-21 09:32] LABS: Bilirubin Urine Negative (Negative); Blood Urine 1+ (Negative); Color Urine Light Yellow (Yellow); Glucose Urine UA 3+ (Negative); Ketones Urine Negative (Negative); Leukocyte Esterase Ur 1+ (Negative); Nitrate Urine Positive (Negative); Protein Urine 3+ (Negative); Urobilinogen Urine 0.2 mg/dL (0.2-1.0)
[2023-09-21 09:42] LABS: Add Urine Microscopic? YES; Appearance Urine Cloudy (Clear); RBC Urine 0-2 /hpf (0-2); Renal Epithelial Cells Urine Few /hpf; Squamous Epithelial Cell Urine Rare /hpf (Few); WBC Urine >75 /hpf (0-3)
[2023-09-21 09:43] LABS: Bacteria Urine 3+ /hpf
== END 2023-09-21 09:19 | disposition home or self-care (01) ==
LOC: CHSLAB 09:20
PROVIDERS: Visit Provider Nurse Practitioner Family
DX: N39.0 Urinary tract infection, site not specified (principal)
CPT/HCPCS: 81001; 87077; 87086; 87088; 87186

== ENCOUNTER 2023-10-10 10:59 | Outpatient (CLI) | payer OTHER, SELFPAY ==
[2023-10-10 11:38] LABS: Appearance Urine Cloudy (Clear); Bilirubin Urine Negative (Negative); Blood Urine 2+ (Negative); Color Urine Light Yellow (Yellow); Glucose Urine UA 3+ (Negative); Ketones Urine Negative (Negative); Leukocyte Esterase Ur 1+ LEU/UL (Negative); Nitrate Urine Negative (Negative); Protein Urine 3+ (Negative); Urobilinogen Urine 0.2 mg/dL (0.2-1.0); pH Urine 6.5 (5.0-8.0)
[2023-10-10 11:43] LABS: Add Urine Microscopic? YES
[2023-10-10 11:44] LABS: Bacteria Urine Trace /hpf; Squamous Epithelial Cell Urine Rare /hpf (Few); WBC Urine 21-30 /hpf (0-3)
== END 2023-10-10 11:00 | disposition home or self-care (01) ==
PROVIDERS: PCP Family Medicine; Visit Provider Nurse Practitioner Family
DX: R80.9 Proteinuria, unspecified (principal); N39.0 Urinary tract infection, site not specified; R82.90 Unspecified abnormal findings in urine
CPT/HCPCS: 81001; 87086

== ENCOUNTER 2023-11-12 11:52 | Outpatient (CLI) | payer OTHER, SELFPAY ==
[2023-11-12 12:17] LABS: Basophils Absolute Auto 0.06 K/mm3 (0.00-0.10); Basophils Percent Auto 0.7 % (0.0-1.0); Eosinophils Absolute Auto 0.43 K/mm3 (0.02-0.50); Hemoglobin 13.7 g/dL (12.0-15.0); Immature Granulocyte Absolute 0.06 K/mm3 (0.00-0.00); Immature Granulocyte Percent A 0.7 % (0.0-0.0); Lymphocytes Absolute Auto 1.11 K/mm3 (1.10-4.50); Lymphocytes Percent Auto 12.8 % (18.0-42.0); Mean Corpuscular HGB Conc 31.9 g/dL (32.0-36.0); Mean Corpuscular Hemoglobin 29.4 pg (27.0-31.0); Mean Corpuscular Volume 92.3 fL (78.0-102.0); Monocytes Absolute Auto 0.46 K/mm3 (0.10-0.90); Monocytes Percent Auto 5.3 % (2.0-11.0); Neutrophils Absolute Auto 6.6 K/mm3 (1.7-7.2); Neutrophils Percent Auto 75.5 % (50.0-70.0); Platelet Count Result 246 K/mm3 (150-420); Red Blood Count 4.66 M/mm3 (4.20-5.40); Red Cell Distribution Width 15.6 % (11.6-14.4); White Blood Count 8.7 K/mm3 (4.8-10.8)
[2023-11-12 12:18] LABS: Appearance Urine Clear (Clear); Bilirubin Urine Negative (Negative); Blood Urine Trace-Intact (Negative); Color Urine Light Yellow (Yellow); Glucose Urine UA 3+ (Negative); Ketones Urine Negative (Negative); Leukocyte Esterase Ur 1+ (Negative); Nitrate Urine Negative (Negative); Protein Urine 2+ (Negative); Specific Grav Ur 1.015 (1.010-1.020); Urobilinogen Urine 0.2 mg/dL (0.2-1.0)
[2023-11-12 12:26] LABS: Add Urine Microscopic? YES; RBC Urine 0-2 /hpf (0-2)
[2023-11-12 12:27] LABS: Bacteria Urine Rare /hpf; Squamous Epithelial Cell Urine Few /hpf (Few)
[2023-11-12 12:36] LABS: Creatinine Urine 26.23 mg/dL (40-278)
[2023-11-12 13:05] LABS: Albumin Level 3.4 g/dL (3.4-5.0); Anion Gap 8 mmol/L (8-16); Blood Urea Nitrogen 22 mg/dL (7-18); Calcium 8.8 mg/dL (8.5-10.1); Carbon Dioxide 29 mmol/L (21-32); Chloride 102 mmol/L (98-108); Estimated Glomerular Filt Rate 40; Ferritin 76 ng/mL (8-252); Glucose 148 mg/dL (70-99); Iron 61 ug/dL (50-170); Osmolality Calculated 294 mOsm/kg (285-295); Percent Iron Saturation 21 % (12-57); Potassium 4.3 mmol/L (3.5-5.1); Sodium 139 mmol/L (136-145)
[2023-11-12 13:15] LABS: MALB Creatinine Ratio 1524.9 mg/g (0-30); Microalbumin Urine Random > 400.0 mg/L
[2023-11-15 20:11] LABS: Parathyroid Intact 26 pg/mL (14-64)
== END 2023-11-12 11:53 | disposition home or self-care (01) ==
LOC: CHSLAB 11:55
PROVIDERS: PCP Family Medicine; Visit Provider Nurse Practitioner Family
DX: N18.32 Chronic kidney disease, stage 3b (principal); D50.9 Iron deficiency anemia, unspecified
CPT/HCPCS: 36415; 80069; 81001; 82043; 82728; 83540; 83550; 83970; 85025

== ENCOUNTER 2023-12-11 14:21 | Outpatient (CLI) | payer OTHER, SELFPAY ==
--- NOTE | 2023-12-12 16:54 | P.PCNPFT_ITS ---
PFT Procedure Performed PFT Procedure Performed Plethysmography (Lung Vol) Diffusing Cap (DLCO) Flow Vol Loop Spirometry w/o Bronchodil PFT Interpretation Lung volumes were measured with the body plethysmography method. Lung volumes are unremarkable. Spirometry showed normal expiratory flow rates and a normal FEV1 to FVC ratio 78%. No post bronchodilator study was conducted. The flow- volume loop is unremarkable. Lung diffusion capacity was diminished at 52% predicted. The reduced capacity for lung diffusion, combined with a normal alveolar volume, might be associated with pulmonary vascular anomalies like pulmonary hypertension, emphysema with maintained lung volume, anemia, or initial stages of interstitial lung disease. It is recommended to establish a clinical correlation for further understanding. Impression: Spirometry and lung volumes within normal range. Moderately reduced lung diffusion capacity.
== END 2023-12-11 14:22 | disposition home or self-care (01) ==
LOC: ANHPFT 14:23
PROVIDERS: PCP Family Medicine; Visit Provider Internal Medicine Cardiovascular Disease
DX: R06.00 Dyspnea, unspecified (principal); Z72.0 Tobacco use
CPT/HCPCS: 94375; 94726; 94729

== ENCOUNTER 2024-03-21 12:55 | Outpatient (CLI) | payer OTHER, SELFPAY ==
[2024-03-21 13:22] LABS: Basophils Absolute Auto 0.1 K/mm3 (0.0-0.1); Basophils Percent Auto 0.7 % (0.2-1.2); Eosinophils Absolute Auto 0.3 K/mm3 (0-0.3); Eosinophils Percent Auto 3.3 % (0-4.4); Hematocrit 38.3 % (37.0-47.0); Hemoglobin 12.1 g/dL (12.0-15.0); Immature Granulocyte Absolute 0.08 K/mm3 (0.00-0.031); Immature Granulocyte Percent A 0.8 % (0-0.5); Lymphocytes Absolute Auto 1.11 K/mm3 (0.9-3.2); Lymphocytes Percent Auto 11.4 % (18.3-44.2); Mean Corpuscular HGB Conc 31.6 g/dl (32-36); Mean Corpuscular Hemoglobin 29.2 pg (26-34); Mean Corpuscular Volume 92.3 fl (80-100); Mean Platelet Volume 8.4 fl (7.4-10.4); Monocytes Absolute Auto 0.6 K/mm3 (0.1-0.6); Monocytes Percent Auto 5.8 % (2.6-8.5); Neutrophils Absolute Auto 7.6 K/mm3 (1.3-6.7); Platelet Count Result 266 k/mm3 (150-375); Red Blood Count 4.15 M/mm3 (4.2-5.4); Red Cell Distribution Width 14.9 % (11.5-14.5); White Blood Count 9.7 K/mm3 (4.5-10.0)
[2024-03-21 13:26] LABS: Appearance Urine Turbid (Clear); Bacteria Urine 1+ /hpf; Bilirubin Urine Negative (Negative); Blood Urine Non-Hemolyzed Trace (Negative); Color Urine Yellow (Yellow); Glucose Urine UA 3+ mg/dL (Negative); Ketones Urine Negative (Negative); Leukocyte Esterase Ur 2+ LEU/UL (Negative); Nitrate Urine Negative (Negative); Protein Urine 3+ mg/dL (Negative); Specific Grav Ur 1.017 (1.001-1.035); Squamous Epithelial Cell Urine Few /hpf (Few); WBC Urine >100 /hpf (0-3)
[2024-03-21 13:49] LABS: Albumin Level 3.7 g/dL (3.5-5.1); Anion Gap 5 mmol/L (4-12); Blood Urea Nitrogen 34 mg/dL (7-17); Calcium 8.8 mg/dL (8.4-10.2); Carbon Dioxide 28 mmol/L (22-30); Chloride 107 mmol/L (98-107); Estimated Glomerular Filt Rate 29; Glucose 109 mg/dL (65-110); Phosphorus 3.8 mg/dL (2.5-4.5); Potassium 3.7 mmol/L (3.4-5.0); Sodium 140 mmol/L (137-145)
[2024-03-21 13:52] LABS: Add Urine Microscopic? YES; Creatinine Urine 91.2 mg/dL
[2024-03-21 13:56] LABS: Parathyroid Intact 80.8 pg/mL (7.5-53.5)
[2024-03-21 15:43] LABS: Microalbumin Urine Random > 1140.0 mg/L (0-16.7)
[2024-03-21 16:02] LABS: Iron 53 ug/dL (37-170)
[2024-03-21 16:12] LABS: Percent Iron Saturation 20 % (20-50)
== END 2024-03-21 12:56 | disposition home or self-care (01) ==
LOC: ANHLAB 12:59
PROVIDERS: PCP Family Medicine; Visit Provider Nurse Practitioner Family
DX: D50.9 Iron deficiency anemia, unspecified (principal); N18.32 Chronic kidney disease, stage 3b
CPT/HCPCS: 36415; 80069; 81001; 82043; 82728; 83540; 83550; 83970; 85025

== ENCOUNTER 2024-05-03 00:08 | Emergency (ER) | payer OTHER, SELFPAY ==
[2024-05-03] VITALS (25 sets, daily range): BP systolic 110–168; BP diastolic 48–95; PULSE 67–74; RESP 14–33; TEMP 36.9; O2SAT 86–97
--- NOTE | ~2024-05-03 | XR_ITS ---
EXAMINATION: XR chest 1V portable DATE: 05/03/2024 00:48 INDICATION: Shortness of breath. Cough. TECHNIQUE: A single frontal view of the chest was obtained. COMPARISON: Chest 2 views 10/24/2019, chest CT 05/03/2024 FINDINGS: There is a diffuse interstitial pattern, consistent mild pulmonary edema. No pleural effusi on or pneumothorax. The heart size is normal. IMPRESSION: 1. Mild pulmonary edema. Reviewed, dictated and finalized at location A. IMPRESSION: 1. Mild pulmonary edema.
--- NOTE | ~2024-05-03 | CT_ITS ---
EXAMINATION: CTA chest PE protocol DATE: 05/03/2024 04:32 INDICATION: Shortness of breath. TECHNIQUE: Computed tomography angiography (CTA) of the chest was performed with 100 mL Omnipaque-350 intravenous contrast timed to evaluate the pulmonary arteries. Coronal maximum intensity projection 3D-reconstructions were created by the technologist. Automated exposure control and iterative reconst ruction technique were employed. The dose-length product was 880.17 mGy-cm. COMPARISON: CT abdomen 08/09/2012 FINDINGS: There is smooth septal thickening in the lungs, consistent mild pulmonary edema. There is m ild atelectasis bilaterally. There are trace pleural effusions. The heart size is normal. No pericard ial effusion. There is no pulmonary embolus. There is a ventral hernia in the abdomen containing live r and bowel. There is mild thoracic spondylosis. IMPRESSION: 1. No pulmonary embolus. 2. Mild pulmonary edema. 3. Abdominal ventral hernia. Reviewed, dictated and finalized at location A.
--- NOTE | 2024-05-03 00:16 | ED.SOB ---
HPI - SOB/Dyspnea General Chief Complaint: Shortness of Breath/Dyspnea Stated Complaint: shortness of breath Time Seen by Provider: 05/03/24 00:16 Source: patient Mode of arrival: EMS Limitations: no limitations History of Present Illness HPI Narrative: patient is a 63-year-old female with some shortness of breath for the past 3 days. Patient called EMS and they brought her to the emergency room with 6 L of oxygen and albuterol. MD elicited complaint: shortness of breath and cough Pertinent past history: congestive heart failure Onset (ago): day(s) (3) Timing: constant Severity: moderate Exacerbating factors: lying flat, coughing and inspiration Relieving factors: nothing Known history of: congestive heart failure Associated symptoms: denies other symptoms Treatment prior to arrival: oxygen and bronchodilator Related Data Home oxygen amount: none Home Medications Medication Instructions Recorded Confirmed aspirin 81 mg tablet,delayed 90 mg PO DAILY 10/08/22 05/03/24 release carvedilol 25 mg tablet 25 mg PO BID 10/08/22 05/03/24 empagliflozin 10 mg tablet 10 mg PO DAILY 10/08/22 05/03/24 (Jardiance) furosemide 40 mg tablet 40 mg PO DAILY 10/08/22 05/03/24 hydralazine 25 mg tablet 25 mg PO BID 10/08/22 05/03/24 rosuvastatin 40 mg tablet 40 mg PO DAILY 10/08/22 05/03/24 ropinirole 2 mg tablet 4 mg PO HS 11/17/22 05/03/24 amlodipine 10 mg tablet 10 mg PO DAILY 05/03/24 05/03/24 glipizide 5 mg tablet 5 mg PO DAILY 05/03/24 05/03/24 levothyroxine 200 mcg tablet 200 mcg PO DAILY 05/03/24 05/03/24 sacubitril 97 mg-valsartan 103 mg 1 tablet PO BID 05/03/24 05/03/24 tablet (Entresto) Allergies Allergy/AdvReac Type Severity Reaction Status Date / Time No Known Allergies Allergy Verified 05/03/24 02:32 Review of Systems Review of Systems: All systems reviewed & are unremarkable except as noted in HPI and below Constitutional: Constitutional: Reports no additional constitutional complaints Eyes: Eyes: Reports no additional eye complaints ENT: Reports system reviewed and no additional complaints, except as documented Cardiovascular: Cardiovascular: Reports no additional cardiovascular complaints Respiratory: Respiratory: Reports no additional respiratory complaints Gastrointestinal: Gastrointestinal: Reports no additional gastrointestinal complaints Genitourinary: Genitourinary: Reports no additional female genitourinary complaints Musculoskeletal: Musculoskeletal: Reports no additional musculoskeletal complaints Integumentary/Breasts: Skin/Breast: Reports system reviewed and no additional complaints, except as docu Neurologic: Reports system reviewed and no additional complaints, except as documented Psychiatric: Psychiatric: Reports no additional psychiatric complaints Endocrine: Endocrine: Reports no additional endocrine complaints Hematologic/Lymphatic: Hematologic/Lymphatic: Reports no additional hematologic/lymphatic complaints Allergic/Immunologic: Allergic/Immunologic: Reports no additional allergic/immunologic complaints PMFSH Past Medical History Medical History Congestive heart failure Coronary artery disease CVA (cerebral vascular accident) Depression Diabetes High cholesterol Hx of blood clots Hypertension Hypothyroidism Surgical History Surgical History H/O thyroidectomy History of cholecystectomy Family History Family History Father Diabetes mellitus Heart disease Mother Kidney failure Diabetes mellitus Other Hypertension Social History Social History Smoking status: Current every day smoker Tobacco type: cigarettes Additional occupation/education comments: disabled Exam Const: General: ill appearing Nutritional Appearance: well nou
--- NOTE | 2024-05-03 00:17 | ECG_ITS ---
Test Date: 2024-05-03 00:15:08 Measurements Intervals [place] Rate: 73 P: 67 MS: 165 QRS: 83 QRSD: 101 T: 87 QT: 412 QTc: 456 Interpretive Statements SINUS RHYTHM WITH SINUS ARRHYTHMIA DELAYED PRECORDIAL R/S TRANSITION BORDERLINE ST-T WAVE ABNORMALITY- INF/LAT LEADS BASELINE ARTIFACT- I, II, III, AVR, AVL, AVF BORDERLINE ECG No previous ECG available for comparison Electronically Signed On 05-03-2024 07:57:39 CDT by Fady Pepe D.O.
[2024-05-03] MEDS: IPRATROPIUM 0.5 MG/ALBUTEROL SULFATE 2.5 MG AMPUL.NEB 3 ML INHALATION (00:30)
[2024-05-03 00:46] LABS: Base Excess ABG 1.5 mmol/L (0-2); HCO3 ABG 27.2 mmol/L (23-29); Oxygen Saturation ABG 88.5 % (95-97); Oxyhemoglobin 84.9 % (94-100); PCO2 ABG 47.5 mmHg (35-45); PO2 ABG 57.2 mmHg (80-90); Total Hemoglobin 11.7 g/dL (12.0-18.0); pH ABG 7.38 (7.35-7.45)
[2024-05-03 00:47] LABS: Device NASAL CANNULA; Modified Allen's Test Pass; Site Drawn RIGHT RADIAL
[2024-05-03 00:49] LABS: Basophils Absolute Auto 0.06 K/mm3 (0.00-0.10); Basophils Percent Auto 0.5 % (0.0-1.0); Eosinophils Absolute Auto 0.41 K/mm3 (0.02-0.50); Eosinophils Percent Auto 3.2 % (1.0-6.0); Hematocrit 33.5 % (35.0-49.0); Hemoglobin 10.4 g/dL (12.0-15.0); Immature Granulocyte Absolute 0.13 K/mm3 (0.00-0.00); Lymphocytes Absolute Auto 0.81 K/mm3 (1.10-4.50); Lymphocytes Percent Auto 6.4 % (18.0-42.0); Mean Corpuscular Hemoglobin 28.5 pg (27.0-31.0); Mean Corpuscular Volume 91.8 fL (78.0-102.0); Mean Platelet Volume 8.7 fl (9.2-11.8); Monocytes Absolute Auto 0.58 K/mm3 (0.10-0.90); Monocytes Percent Auto 4.6 % (2.0-11.0); Neutrophils Percent Auto 84.3 % (50.0-70.0); Platelet Count Result 264 K/mm3 (150-420); Red Blood Count 3.65 M/mm3 (4.20-5.40); Red Cell Distribution Width 16.6 % (11.6-14.4); White Blood Count 12.7 K/mm3 (4.8-10.8)
[2024-05-03] MEDS: methylPREDNISolone SOD SUCC 125 MG VIAL IV PUSH (00:49)
[2024-05-03 01:07] LABS: Lactic Acid Reflex 0.7 mmol/L (0.4-2.0)
[2024-05-03 01:09] LABS: Influenza A QL RT-PCR Negative (Negative); Influenza B QL RT-PCR Negative (Negative); RSV RNA, RT-PCR Negative (Negative); SARS-CoV-2 RNA PCR Negative (Negative)
[2024-05-03 01:14] LABS: Alanine Aminotransferase 7 U/L (14-59); Albumin Level 2.9 g/dL (3.4-5.0); Alkaline Phosphatase 96 U/L (46-116); Anion Gap 6 mmol/L (4-12); Aspartate Amino Transferase 11 U/L (15-37); Blood Urea Nitrogen 17 mg/dL (7-18); Calcium 8.3 mg/dL (8.5-10.1); Carbon Dioxide 32 mmol/L (21-32); Chloride 103 mmol/L (98-108); Estimated CRCL calculation 48 ml/min; Estimated Glomerular Filt Rate 40; Glucose 198 mg/dL (70-99); Osmolality Calculated 299 mOsm/kg (285-295); Potassium 2.9 mmol/L (3.5-5.1); Sodium 141 mmol/L (136-145); Total Protein 6.8 g/dL (6.4-8.2); Troponin I 23.8 ng/L (0.00-60.4)
[2024-05-03 01:16] LABS: NT Pro B Type Natriuretic Pept 4924 pg/mL (0-125)
[2024-05-03] MEDS: POTASSIUM CHLORIDE 20 MEQ ER TABLET 40 MEQ PO (01:39)
[2024-05-03] MEDS: FUROSEMIDE INJ 40 MG/4 ML VIAL IV PUSH (01:40)
--- NOTE | 2024-05-03 02:56 | PC.NURSE ---
pt taken to commode. had 325mls out
[2024-05-03] MEDS: NITROGLYCERIN OINTMENT 1 INCH DOSE 0.5 INCH TRANSDERM (03:29)
[2024-05-03] MEDS: PIPERACILLN/TAZ 3.375GM/NS50ML 3.375 GM/50 ML BAG IVPB (06:34)
--- NOTE | 2024-05-09 13:52 | PC.NURSE ---
Final blood culture report: no growth after 5 days, no further action or treatment needed.
== END 2024-05-03 06:41 | disposition short-term general hospital (02) ==
PROVIDERS: Emergency Provider Emergency Medicine; PCP Family Medicine
DX: E87.6 Hypokalemia (principal); J44.1 Chronic obstructive pulmonary disease with (acute) exacerbation; I11.0 Hypertensive heart disease with heart failure; I50.23 Acute on chronic systolic (congestive) heart failure; E11.9 Type 2 diabetes mellitus without complications; I25.10 Atherosclerotic heart disease of native coronary artery without angina pectoris; E03.9 Hypothyroidism, unspecified; F17.210 Nicotine dependence, cigarettes, uncomplicated; Z79.82 Long term (current) use of aspirin; Z79.899 Other long term (current) drug therapy; Z86.73 Personal history of transient ischemic attack (TIA), and cerebral infarction without residual deficits; Z20.822 Contact with and (suspected) exposure to COVID-19
CPT/HCPCS: 36415; 36600; 71045; 71275; 80053; 82805; 83605; 83735; 83880; 84484; 85025; 85380; 87040; 87637; 93005; 94640; 96374; 96375; 99285; A9270; J1940; J2543; J2919; Q9967

== ENCOUNTER 2024-05-03 07:16 | Observation (INO) | payer OTHER, SELFPAY ==
[2024-05-03] VITALS (15 sets, daily range): BP systolic 149–157; BP diastolic 55–59; PULSE 56–95; RESP 16–24; TEMP 36.6–36.8; O2SAT 95–100; BMI 37.7
--- NOTE | 2024-05-03 | ECHO_ITS ---
Patient Info Name: Marah Ro Age: 63 years : 1960 Gender: Female Ht: 65 in Wt: 240 lbs BSA: 2.29 m2 HR: 67 bpm BP: 143 / 60 mmHg Heart Rhythm: Sinus Rhythm Technical Quality: Fair Exam Date: 05/03/2024 10:55 AM Exam Location: Echo Lab Patient Status: Outpatient Admit Date: 05/03/2024 Staff Ordering Physician: Judah Zamora APRN Planting Material Carrier: Tray Garza RDCS Attending Provider: Shefali James MD Referring Physician: Noah FLORES; Exam Type: CA echo dop color flow w con Study Info Indications - decomensated CHF Complete two-dimensional, color flow and Doppler transthoracic echocardiogram is performed with contrast to opacify the left ventricle and to improve the deliniation of the left ventricle endocardial borders. Contrast/Agitated Saline Contrast/Ag. Saline: Definity Amount: 5.00 ml Existing IV Access: Yes Summary 1. Technically challenging echocardiogram because of obesity, definity contrast utilized. 2. Moderate left ventricular hypertrophy with hyperdynamic systolic function and grade 2 diastolic noncompliance. 3. Left atrial enlargement. 4. Sclerotic aortic valve which is not stenotic. Left Ventricle Left ventricular chamber dimension is normal. Left ventricular systolic function is hyperdynamic, estimated at >70%. There is moderate concentric increased left ventricular wall thickness. The left ventricular diastolic function is grade II diastolic dysfunction. Right Ventricle Right ventricular chamber dimension is normal. Left Atria Left atrial chamber dimension is moderately enlarged. Right Atria Right atrial chamber dimension is normal. Aortic Valve The aortic valve is trileaflet. There is mild aortic valve sclerosis. Pulmonic Valve The pulmonic valve is not well visualized. Mitral Valve The mitral valve has normal leaflets. Tricuspid Valve The tricuspid valve leaflets are not well visualized. Pericardium/Pleural The pericardium appears normal. Aorta The aortic root size at the sinus of Valsalva is normal. Left Ventricular Outflow Tract Name Value Normal LVOT 2D LVOT Diameter 2.15 cm LVOT Doppler LVOT Peak Gradient 3 mmHg LVOT Mean Gradient 2 mmHg LVOT VTI 22.00 cm LVOT VTI/AV VTI Ratio 0.47 LVOT Stroke Volume 79.67 ml LVOT CO 5.07 l/min LVOT CI 2.22 L/min/m2 Pulmonic Valve Name Value Normal PV Doppler PV Peak Gradient 9 mmHg Mitral Valve Name Value Normal MV Doppler MV Peak Gradi
--- NOTE | ~2024-05-03 | US_ITS ---
EXAMINATION: US venous doppler [facility] DATE: 05/04/2024 10:39 INDICATION: Lower limb edema. TECHNIQUE: Grayscale ultrasound images without and with compression and Doppler ultrasound images of the bilateral lower extremity veins were obtained. COMPARISON: None. FINDINGS: The visualized portions of right common femoral vein, profunda (deep) femoral vein, femoral vein, pop liteal vein, peroneal veins, posterior tibial veins, and greater saphenous vein outflow are patent. The visualized portions of left common femoral vein, profunda femoral vein, femoral vein, popliteal v ein, peroneal veins, posterior tibial veins, and greater saphenous vein outflow are patent. IMPRESSION: 1. No deep venous thrombosis. Reviewed, dictated and finalized at location E.
--- NOTE | 2024-05-03 07:15 | ADMGEN ---
This patient, Marah Ro, was admitted to IMU Room 231-01. Patient/family oriented to hospital policies and general routines including ID bracelet, bed and alarms, visiting hours, pain management, procedures, bathroom and other care routines, personal items, smoking policy, room service/diet, and visiting hours. Information on how to activate the Rapid Response Team has been discussed. Patient/Family are encouraged to report perceived risks to care and to ask questions if they do not understand what they are told or what they should do.
[2024-05-03 07:59] LABS: Basophils Percent Auto 0.2 % (0.2-1.2); Eosinophils Percent Auto 0.1 % (0-4.4); Hematocrit 38.5 % (37.0-47.0); Hemoglobin 11.7 g/dL (12.0-15.0); Immature Granulocyte Absolute 0.13 K/mm3 (0.00-0.031); Immature Granulocyte Percent A 1.3 % (0-0.5); Lymphocytes Absolute Auto 0.43 K/mm3 (0.9-3.2); Lymphocytes Percent Auto 4.5 % (18.3-44.2); Mean Corpuscular HGB Conc 30.4 g/dl (32-36); Mean Corpuscular Volume 92.1 fl (80-100); Mean Platelet Volume 8.8 fl (7.4-10.4); Monocytes Absolute Auto 0.1 K/mm3 (0.1-0.6); Monocytes Percent Auto 0.8 % (2.6-8.5); Neutrophils Percent Auto 93.1 % (45.5-73.1); Platelet Count Result 257 k/mm3 (150-375); Red Blood Count 4.18 M/mm3 (4.2-5.4); Red Cell Distribution Width 16.7 % (11.5-14.5); White Blood Count 9.7 K/mm3 (4.5-10.0)
[2024-05-03 08:08] LABS: Anion Gap 10 mmol/L (4-12); Blood Urea Nitrogen 21 mg/dL (7-17); Calcium 8.6 mg/dL (8.4-10.2); Carbon Dioxide 27 mmol/L (22-30); Chloride 105 mmol/L (98-107); Estimated Glomerular Filt Rate 38; Glucose 284 mg/dL (65-110); Magnesium 2.1 mg/dL (1.6-2.3); Potassium 3.8 mmol/L (3.4-5.0); Sodium 142 mmol/L (137-145)
--- NOTE | 2024-05-03 08:48 | PM.IMHP ---
H&P: HPI History of Present Illness Date/Time: 05/03/24 08:48 Chief Complaint: Dyspnea Narrative: This is a 63-year-old female patient longstanding history of hypertension diastolic congestive heart failure who was taken to an outside emergency department by EMS last night for difficulty breathing ongoing for the past 3 nights with associated orthopnea. Patient has smoked 1 pack per day for at least 20 years throughout lifetime, majority for the last 16 years as well as in early adulthood. She does not wear oxygen at home. Patient was on 6 L oxygen at outside facility. She was found to have pulmonary edema. ER workup also revealed elevated D-dimer, CTA chest negative PE shows some pulmonary edema. Patient was given Lasix and nitroglycerin paste at outlying facility with improvement in dyspnea and now we are able to titrate oxygen down to 4 liters/minute on arrival. Patient has been of her Entresto for a couple of weeks. She also a history kidney disease. Her renal function appears to be at baseline. Patient did receive a dose of IV Zosyn outlying facility for presumed COPD exacerbation/pneumonia. She does have wheezing noted. Patient has a history of diabetes and blood glucose is noted to be elevated. She is started on steroids for wheezing as well as DuoNebs. Cardiology consulted upon patient arrival. Echocardiogram ordered. Home medications restarted as able to be verified. Patient is a full code and elects her daughter Rylee Crowder as her surrogate decision maker. Encouraged patient to formalize these decisions with an Advance directive. Review of Systems Review of Systems: All systems reviewed & are unremarkable except as noted in HPI and below PMFSH Past Medical History Medical History Congestive heart failure Coronary artery disease CVA (cerebral vascular accident) Depression Diabetes High cholesterol Hx of blood clots Hypertension Hypothyroidism Surgical History Surgical History H/O thyroidectomy History of cholecystectomy Family History Family History Father Diabetes mellitus Heart disease Mother Kidney failure Diabetes mellitus Other Hypertension Social History Social History Social History: Patient is a full code and elects her daughter Rylee Crowder as her surrogate decision maker. Encouraged patient to formalize these decisions with an Advance directive. Smoking packs per day: 1 Smoking cigarettes per day: 20.0 Years smoked: 20 Smoking pack-years: 20.00 Smoking status: Current every day smoker Tobacco type: cigarettes Do You Feel Safe in your Home?: Yes Lack of Transportation: No Lack of Food: Never True Current Housing: I Have Housing Concerned About Future Housing: No Difficulty Paying Gas/Electric Bills: No Difficulty Paying for Meds: No Currently Unemployed: No Education: Don't Know Difficulty w/ Childcare or Family Care: No Living arrangements: with family Additional occupation/education comments: disabled Gender identity (if verbalized by the patient): Female Sexual Orientation (if Verbalized by the Patient): Straight or Heterosexual Spiritual care concerns: No Meds Home Medications and Allergies Home Medications Medication Instructions Recorded Confirmed Type aspirin 81 mg tablet,delayed 90 mg PO DAILY 10/08/22 05/03/24 History release carvedilol 25 mg tablet 25 mg PO BID 10/08/22 05/03/24 History empagliflozin 10 mg tablet 10 mg PO DAILY 10/08/22 05/03/24 History (Jardiance) furosemide 40 mg tablet 40 mg PO DAILY 10/08/22 05/03/24 History hydralazine 25 mg tablet 25 mg PO BID 10/08/22 05/03/24 History rosuvastatin 40 mg tablet 40 mg PO DAILY 10/08/22 05/03/24 History ropinirole 2 mg tablet
[2024-05-03] MEDS: IPRATROPIUM 0.5 MG/ALBUTEROL SULFATE 2.5 MG AMPUL.NEB 3 ML INHALATION ×3 (08:54→20:50)
[2024-05-03 09:02] LABS: Thyroid Stimulating Hormone Reflex 0.051 uIU/mL (0.465-4.68)
[2024-05-03 09:41] LABS: Free T4 Free Thyroxine Reflex 1.81 ng/dL (0.78-2.19)
[2024-05-03] MEDS: ASPIRIN 81 MG ENTERIC TABLET PO (09:43)
[2024-05-03] MEDS: carvediloL 25 MG TABLET PO ×2 (09:43→21:13)
[2024-05-03] MEDS: FUROSEMIDE INJ 40 MG/4 ML VIAL IV PUSH ×2 (09:43→17:28)
[2024-05-03] MEDS: EMPAGLIFLOZIN 10 MG TABLET PO (09:43)
[2024-05-03] MEDS: DOCUSATE SODIUM 100 MG CAPSULE PO (09:43)
[2024-05-03] MEDS: LEVOTHYROXINE SODIUM 100 MCG TABLET 200 MCG PO (09:43)
[2024-05-03] MEDS: rOPINIRole HCL 1 MG TABLET PO (09:43)
[2024-05-03] MEDS: methylPREDNISolone SOD SUCC 40 MG VIAL IV PUSH (09:43)
[2024-05-03 09:44] LABS: Glucose Point of Care 296 mg/dl (65-105)
[2024-05-03] MEDS: INSULIN ASPART (*BKC) 100 UNITS/ML SUB-Q ×3 (09:47→17:28)
[2024-05-03] MEDS: NITROGLYCERIN OINTMENT 1 INCH DOSE TRANSDERM (09:47)
[2024-05-03 10:24] LABS: Total Triiodothyronine (T3) 0.79 NG/ML (0.97-1.69)
[2024-05-03] MEDS: PERFLUTREN LIPID MICROSPHERES 1.5 ML VIAL DILUTED TO 10 ML TOTAL VOLUME IV PUSH (11:25)
--- NOTE | 2024-05-03 11:25 | IVDEFINITY ---
Prior to administration of IV Definity the patient was educated on the risks and benefits of the imaging enhancing agent including potential adverse side effects. The patient verbalized understanding. Allergies were verified. No exclusion criteria were identified and at least one of the following inclusion criteria were met: 1) physician request, 2) patient technically difficult to image (per the [place] [employer] guidelines of two or more segments not discernable within the apical view), or 3) questionable left ventricular function. ?
[2024-05-03 11:45] LABS: Glucose Point of Care 311 mg/dl (65-105)
--- NOTE | 2024-05-03 12:27 | PM.CNCAR ---
Assessment and Plan Assessment and plan (1) Acute exacerbation of CHF (congestive heart failure): Qualifiers: Heart failure type: systolic Qualified Code(s): I50.23 - Acute on chronic systolic (congestive) heart failure Code(s): I50.9 - Heart failure, unspecified Status: Acute Plan This is a 63-year-old patient who is followed by my partner for a history of diastolic heart failure who presents with an exacerbation of her CHF. The likelihood is that her exacerbation is related to being off her Entresto for a couple of weeks. She unfortunately has had no success in getting refills of her medication authorized through the office and therefore has been out of it for a couple of weeks. The medication has been appropriately resumed. She is receiving her furosemide intravenously which seems to be helping. At this point I would continue her medication and diuresis until she is achieved state of euvolemia which will probably be no more than 48 hours or so. I will ensure that timely follow-up in the office as scheduled and I will try to look into the issue regarding her medication refill when the office is open on Sunday so that this issue can be hopefully avoided in the future Cameron Talley MD [facility] History of Present Illness History of Present Illness Consult date/time: 05/03/24 12:27 Reason For Visit: pulmonary edema Narrative: This is a 63-year-old lady I am seeing at the request of the hospitalist today because of shortness of breath and evidence of a CHF decompensation with which she was admitted to the hospital last evening. Patient is unknown to me but apparently is known to and follows with my partner, Dr. Chen. She says that she came to the hospital because she has been gradually having difficulty with increasing dyspnea over the last week to 10 days this is associated with increasing lower extremity edema difficulty with orthopnea she has been having difficulty lying flat in bed to go to sleep in the last couple of nights has had to sleep in a recliner in her home. She is not having any chest pain pressure or heaviness she is not known to have coronary artery disease. Patient is feeling significantly better after receiving some intravenous furosemide in the emergency last evening. She still has some conversational dyspnea but is pleased that her breathing is seemingly improved. She follows with my partner, Dr. Villalpando for history of congestive heart failure that has been attributed to diastolic left ventricular dysfunction. She also has morbid obesity, type 2 diabetes and ongoing history of cigarette smoking. The patient is on a complex medical regimen for this and blood pressure control including amlodipine, carvedilol, Jardiance, furosemide, hydralazine, and Entresto. She is currently taking a high dose of Entresto and inform me that she has not been on the medication for about 2 weeks because her prescription ran out, she had no refills and was having no success in contacting the office to get refilled authorized. The rest of her medications she has been taking. Review of Systems Constitutional: Constitutional: Reports fatigue Eyes: Eyes: Reports no additional eye complaints ENT: Reports system reviewed and no additional complaints, except as documented Cardiovascular: Cardiovascular: Reports as per HPI and Reports leg edema Respiratory: Respiratory: Reports dyspnea Gastrointestinal: Gastrointestinal: Reports no additional gastrointestinal complaints Musculoskeletal: Musculoskeletal: Reports no additional musculoskeletal complaints Integumentary/Breasts: Skin/Breast: Reports system reviewed and no additional complaints, except as docu Neurologic: Reports system reviewed and no additional complaints, except as documented Endocrine: Endocrine: Reports no additional endocrine complaints Hematologic/Lymphatic: Hematologic/Lymphatic: Reports no additional hematologic/lymphatic complaints Allergic/
[2024-05-03] MEDS: glipiZIDE 5 MG TABLET PO ×2 (12:35→17:28)
[2024-05-03] MEDS: SACUBITRIL/VALSARTAN 97-103 MG TABLET 1 TAB PO ×2 (12:35→22:07)
[2024-05-03 16:03] LABS: Glucose Point of Care 390 mg/dl (65-105)
--- NOTE | 2024-05-03 21:10 | PC.NURSE ---
This patient, Marah Ro, was transferred to [facility] on 05/03/24 at 2015. Personal belongings sent with patient. Report given to My [facility]. Appropriate documentation sent with patient.
[2024-05-03] MEDS: rOPINIRole HCL 1 MG TABLET 4 MG PO (21:13)
[2024-05-03] MEDS: hydrALAZINE HCL 25 MG TABLET PO (21:14)
[2024-05-03] MEDS: ROSUVASTATIN 20 MG TABLET 40 MG PO (21:14)
[2024-05-03 22:10] LABS: Glucose Point of Care 358 mg/dl (65-105)
[2024-05-04] VITALS (18 sets, daily range): BP systolic 122–142; BP diastolic 45–52; PULSE 49–79; RESP 16–24; TEMP 36.4–36.7; O2SAT 92–99
[2024-05-04 05:10] LABS: Basophils Percent Auto 0.1 % (0.2-1.2); Hematocrit 32.4 % (37.0-47.0); Immature Granulocyte Percent A 0.9 % (0-0.5); Lymphocytes Absolute Auto 0.68 K/mm3 (0.9-3.2); Mean Corpuscular HGB Conc 30.9 g/dl (32-36); Mean Corpuscular Hemoglobin 28.4 pg (26-34); Mean Platelet Volume 9.1 fl (7.4-10.4); Monocytes Absolute Auto 0.7 K/mm3 (0.1-0.6); Monocytes Percent Auto 6.1 % (2.6-8.5); Neutrophils Absolute Auto 9.9 K/mm3 (1.3-6.7); Neutrophils Percent Auto 86.9 % (45.5-73.1); Platelet Count Result 263 k/mm3 (150-375); Red Blood Count 3.52 M/mm3 (4.2-5.4); Red Cell Distribution Width 16.5 % (11.5-14.5); White Blood Count 11.3 K/mm3 (4.5-10.0)
[2024-05-04 05:32] LABS: Alanine Aminotransferase 8 U/L (6-35); Albumin Level 3.5 g/dL (3.5-5.1); Alkaline Phosphatase 81 U/L (38-126); Anion Gap 3 mmol/L (4-12); Aspartate Amino Transferase 13 U/L (14-36); Bilirubin,Total 0.5 mg/dL (0.2-1.3); Blood Urea Nitrogen 33 mg/dL (7-17); Calcium 8.8 mg/dL (8.4-10.2); Carbon Dioxide 34 mmol/L (22-30); Chloride 102 mmol/L (98-107); Estimated CRCL calculation 42 ml/min; Estimated Glomerular Filt Rate 35; Glucose 208 mg/dL (65-110); Magnesium 2.3 mg/dL (1.6-2.3); Potassium 3.5 mmol/L (3.4-5.0); Sodium 139 mmol/L (137-145)
[2024-05-04] MEDS: LEVOTHYROXINE SODIUM 100 MCG TABLET 200 MCG PO (06:00)
[2024-05-04] MEDS: IPRATROPIUM 0.5 MG/ALBUTEROL SULFATE 2.5 MG AMPUL.NEB 3 ML INHALATION ×2 (07:16→13:43)
[2024-05-04 08:12] LABS: Glucose Point of Care 168 mg/dl (65-105)
--- NOTE | 2024-05-04 08:37 | PM.PNCARD ---
Progress Note: A&P Assessment and Plan (1) Congestive heart failure: Code(s): I50.9 - Heart failure, unspecified Status: Acute Plan 63-year-old lady with diastolic dysfunction admitted with a decompensation CHF. Suspect this is due to the fact that she was out of her Entresto for a couple of weeks. That needs to be looked into in my office. Since she appears to be euvolemic I will transition her back to her baseline p.o. dose of furosemide today. If she is well oxygenated later today on room air she can probably be discharged. If she still in the hospital I will see her again tomorrow. I will ensure that appropriate follow-up in my office occurs with Dr. Chen. Cameron Talley MD [facility] Subjective Date/time seen: date of service:05/04/24 08:37 Interval history: Follow-up visit in this 63-year-old lady with: Decompensation of congestive heart failure. She today feels better her edema has essentially resolved she is no longer short of breath. FiO2 is down to 1 L per nasal cannula. Exam Const: General: comfortable and no acute distress Other: Pleasant obese lady comfortable watching television in no distress HENMT: Mouth: Yes moist mucous membranes Eyes: Sclera: sclerae normal Neck: Neck: supple and no JVD Resp: Effort & Inspection: normal respiratory effort Auscultation: clear to auscultation bilaterally Other: pulmonary rales have resolved Cardio: Rate: regular rate Rhythm: regular rhythm Skin: General skin exam: normal color Neuro: Other: normal mentation Extrem: Other: no perceptible edema any longer Objective Data Vital Signs Vital Signs: Vital Signs - 24 hr 05/03/24 08:54 05/03/24 08:54 05/03/24 09:01 Temperature Pulse Rate 85 67 Respiratory Rate 20 20 Blood Pressure Pulse Oximetry 96 Oxygen Delivery High Flow Nasal Cannula Oxygen Flow Rate 4 05/03/24 09:43 05/03/24 11:46 05/03/24 12:00 Temperature Pulse Rate 67 Respiratory Rate Blood Pressure Pulse Oximetry 95 95 Oxygen Delivery Nasal Cannula Nasal Cannula Oxygen Flow Rate 4 4 05/03/24 12:00 05/03/24 12:00 05/03/24 13:32 Temperature 36.6 C Pulse Rate 60 67 68 Respiratory Rate 24 H 20 Blood Pressure 153/58 H Pulse Oximetry 95 Oxygen Delivery Oxygen Flow Rate 05/03/24 13:39 05/03/24 14:00 05/03/24 16:00 Temperature 36.8 C Pulse Rate 71 64 58 L Respiratory Rate 20 16 Blood Pressure 153/55 H Pulse Oximetry 100 Oxygen Delivery Oxygen Flow Rate 05/03/24 16:00 05/03/24 20:00 05/03/24 20:50 Temperature 36.7 C Pulse Rate 56 L 71 Respiratory Rate 18 Blood Pressure 149/58 H Pulse Oximetry 100 98 Oxygen Delivery High Flow Nasal Cannula Oxygen Flow Rate 4 05/03/24 20:50 05/03/24 20:57 05/03/24 21:13 Temperature Pulse Rate 95 91 88 Respiratory Rate 18 18 Blood Pressure Pulse Oximetry Oxygen Delivery Oxygen Flow Rate 05/03/24 21:23 05/03/24 20:00 05/04/24 00:00 Temperature 36.7 C Pulse Rate 70 69 51 L Respiratory Rate 20 Blood Pressure 157/59 H Pulse Oximetry 95 Oxygen Delivery Oxygen Flow Rate 05/04/24 04:00 05/04/24 04:00 05/04/24 07:17 Temperature 36.4 C L Pulse Rate 65 60 Respiratory Rate 18 Blood Pressure 122/45 L Pulse Oximetry 99 98 Oxygen Delivery High Flow Nasal Cannula Oxygen Flow Rate 4 05/04/24 07:17 05/04/24 07:30 05/04/24 08:00 Temperature 36.4 C L Pulse Rate 62 62 50 L Respiratory Rate 18 18 24 H Blood Pressure 142/48 H Pulse Oximetry 96 Oxygen Delivery Oxygen Flow Rate 05/04/24 08:00 05/04/24 08:25 Temperature Pulse Rate 50 L Respiratory Rate Blood Pressure Pulse Oximetry 97 Oxygen Delivery High Flow Nasal Cannula Oxygen Flow Rate 2 Intake/Output Intake/Output: Intake & Output 05/01/24 05/02/24 05/03/24 05/04/24 23:59 23:59 23:59 23:59 Intake Total 127
[2024-05-04] MEDS: ENOXAPARIN 40 MG/0.4 ML SYRINGE SUB-Q (09:19)
[2024-05-04] MEDS: glipiZIDE 5 MG TABLET PO (09:20)
[2024-05-04] MEDS: rOPINIRole HCL 1 MG TABLET 2 MG PO (09:20)
[2024-05-04] MEDS: carvediloL 25 MG TABLET PO (09:21)
[2024-05-04] MEDS: DOCUSATE SODIUM 100 MG CAPSULE PO (09:21)
[2024-05-04] MEDS: SACUBITRIL/VALSARTAN 97-103 MG TABLET 1 TAB PO (09:21)
[2024-05-04] MEDS: ASPIRIN 81 MG ENTERIC TABLET PO (09:21)
[2024-05-04] MEDS: EMPAGLIFLOZIN 10 MG TABLET PO (09:21)
[2024-05-04] MEDS: FUROSEMIDE 40 MG TABLET PO (10:30)
[2024-05-04 12:11] LABS: Glucose Point of Care 200 mg/dl (65-105)
--- NOTE | 2024-05-04 14:41 | PCRCNOTE ---
Home oxygen evaluation completed; Pt. does not require home oxygen. Brenda Chandler PA-C and Chris. both notified of the results.
--- NOTE | 2024-05-04 14:48 | PM.DS ---
DS: Admitting Diagnosis Discharge Date 05/04/24 Admitting Diagnosis Acute CHF exacerbation DS: Discharge Diagnosis Discharge Diagnosis (1) Acute exacerbation of CHF (congestive heart failure): Qualifiers: Heart failure type: diastolic Qualified Code(s): I50.33 - Acute on chronic diastolic (congestive) heart failure Code(s): I50.9 - Heart failure, unspecified Status: Inactive (2) Smoker: Code(s): F17.200 - Nicotine dependence, unspecified, uncomplicated Status: Acute (3) Diabetes: Code(s): E11.9 - Type 2 diabetes mellitus without complications Status: Acute (4) Hypertension: Code(s): I10 - Essential (primary) hypertension Status: Acute (5) Morbid obesity: Code(s): E66.01 - Morbid (severe) obesity due to excess calories Status: Acute DS: Summary Hospital Course Hospital Course: Patient is a 63-year-old female who has a past medical history of diastolic heart failure, diabetes and who smokes who presented emergency room for shortness of breath and orthopnea requiring multiple L of oxygen at outside facility. Her D-dimer was elevated and a CTA chest revealed no PE and the lower extremity ultrasounds did not reveal any blood. It did show some pulmonary edema and she was given Lasix which improved her symptoms greatly. She noted that she had been out of her Entresto for a couple weeks. She did have some wheezing on admission and she was given IV steroids and antibiotics but no pneumonia suspected and these were not continued. She was seen by Cardiology here in the hospital who recommended she go back on her home medications and I have refilled her Entresto. She did have some mild bradycardia that was not symptomatic specially at rest. She is going to talk to her primary care doctor about getting a sleep study. Her TSH was mildly abnormal (a little low) so I recommended that this get recheck in 4 weeks by her primary care provider and she is going to talk to him about that. She did a walking study to see if she needed any oxygen the day of discharge and she did well and did not become hypoxic during her walk. She is feeling back to her baseline and ready to go. She has an inhaler at home if she has problems with wheezing which is a chronic thing for her. We discussed the worrisome signs and symptoms to come back to emergency room for and patient was discharged in stable condition. She has follow-up scheduled with her primary care on the 10th of this month. We had a long discussion about quitting smoking and she said she is going to try. Time Spent with Patient Time attestation: Total time spent providing and/or coordinating discharge services: Exam Narrative: General: Well developed well nourished patient in NAD HEENT: normocephalic Neck: supple Neuro: Alert and oriented x4 CV:RRR Resp:slight expiratory wheeze on exam bilaterally. No crackles or rhonchi Abd: Soft, non distended. No pain to palpation. Positive bowel sounds Extremities: No swelling, erythema, or pain to palpation. DS: Data Data Completed and Pending Labs on day of discharge: Labs from last 24 hours 05/04/24 05/04/24 05/04/24 12:00 07:44 04:38 WBC 11.3 H RBC 3.52 L Hgb 10.0 L Hct 32.4 L MCV 92.0 MCH 28.4 MCHC 30.9 L RDW 16.5 H Plt Count 263 MPV 9.1 Immature Gran % (Auto) 0.9 H Neut % (Auto) 86.9 H Lymph % (Auto) 6.0 L [place] % (Auto) 6.1 Eos % (Auto) 0.0 Baso % (Auto) 0.1 L Lymph # (Auto) 0.68 L [place] # (Auto) 0.7 H Eos # (Auto) 0.0 Baso # (Auto) 0.0 Abs Immat Gran (auto) 0.10 H Absolute Neuts (auto) 9.9 H Absolute Nucleated RBC 0.000 Nucleated RBC % 0.0 Sodium 139 Potassium 3.5 Chloride 102 Carbon Dioxide 34 H Anion Gap 3 L BUN 33 H D Creatinine 1.50 H Estim Creat Clear Calc 42 Estimated GFR 35 L Glucose 208 H POC Capillary Glucose 200 H 168 H Ca
--- NOTE | 2024-05-04 14:49 | PC.NURSE ---
reviewed charting completed by Charly Sanchez RNLP.
== END 2024-05-04 15:50 | disposition home or self-care (01) ==
LOC: ANHIMU 15:08 → ANH2MED 05-04 06:51 → ANHIMU 05-06 08:12
PROVIDERS: Nurse Practitioner; Admitting Provider General Practice; PCP Family Medicine; Visit Provider Physician Assistant
DX: I11.0 Hypertensive heart disease with heart failure (principal); I50.33 Acute on chronic diastolic (congestive) heart failure; R06.02 Shortness of breath; E11.9 Type 2 diabetes mellitus without complications; E78.00 Pure hypercholesterolemia, unspecified; I25.10 Atherosclerotic heart disease of native coronary artery without angina pectoris; E89.0 Postprocedural hypothyroidism; Z86.73 Personal history of transient ischemic attack (TIA), and cerebral infarction without residual deficits; Z86.718 Personal history of other venous thrombosis and embolism; Z79.82 Long term (current) use of aspirin; Z79.84 Long term (current) use of oral hypoglycemic drugs; F17.210 Nicotine dependence, cigarettes, uncomplicated; E66.01 Morbid (severe) obesity due to excess calories; Z68.41 Body mass index [BMI] 40.0-44.9, adult
CPT/HCPCS: 36415; 80048; 80053; 82948; 83735; 84439; 84443; 84480; 85025; 93970; 94618; 94640; 96372; 96374; 96375; 96376; A9270; C8929; G0378; J1650; J1815; J1940; J2919; Q9957

== ENCOUNTER 2024-05-15 12:13 | Inpatient (IN) | payer OTHER, SELFPAY ==
[2024-05-15] VITALS (22 sets, daily range): BP systolic 146–175; BP diastolic 47–73; PULSE 61–77; RESP 16–29; TEMP 36.6; O2SAT 74–99; BMI 40.0
--- NOTE | ~2024-05-15 | CT_ITS ---
EXAMINATION: CTA chest PE protocol DATE: 05/15/2024 14:07 INDICATION: Shortness of breath. Elevated d-dimer. TECHNIQUE: Computed tomography (CT) pulmonary angiogram of the chest was performed with 100 mL Omnipa que-350 intravenous contrast. Additional 3D reconstructions utilizing coronal maximum intensity proje ction (MIP) were performed. Automated exposure control and iterative reconstruction technique were em ployed. The dose-length product was 902.74 mGy-cm. COMPARISON: None FINDINGS: No pulmonary embolism. Diffuse groundglass opacities throughout both lungs with some associated anais h septal line thickening primarily in the lower lungs consistent with mild pulmonary edema. There are small bilateral pleural effusions. Heart size is normal. Atherosclerotic coronary artery calcificati on. No pericardial effusion.Thoracic aorta is normal in caliber with no dissection. Mild mediastinal lymphadenopathy which is most likely reactive including a 2.6 x 1.5 cm lymph node at the AP window. P artially visualized large ventral hernia in the subcostal right upper quadrant which contains a porti on of the liver and segment of colon. Cholecystectomy clips the gallbladder fossa. Mild to moderate t horacic spondylosis. IMPRESSION: 1. No pulmonary embolism. 2. Diffuse mild pulmonary edema and small bilateral pleural effusions. 3. Nonspecific mild mediastinal lymphadenopathy most likely reactive differential including less like ly lymphoma or metastatic disease. 4. Large right upper quadrant ventral hernia containing portion of the liver and colon. Reviewed, dictated and finalized at location A. IMPRESSION: 1. No pulmonary embolism. 2. Diffuse mild pulmonary edema and small bilateral pleural effusions. 3. Nonspecific mild mediastinal lymphadenopathy most likely reactive differenti al including less likely lymphoma or metastatic disease. 4. Large right upper quadrant ventral hernia containing portion of the liver an d colon.
--- NOTE | ~2024-05-15 | XR_ITS ---
XR chest 1V portable 05/15/2024 12:34 Indication: Shortness of breath Procedure: AP portable chest Comparison: 05/03/2024 Findings: Borderline heart size. Mild interstitial edema. No pleural effusion or pneumothorax. Impression: 1: Mild interstitial edema. Reviewed, dictated and finalized at location B. Impression: 1: Mild interstitial edema.
--- NOTE | 2024-05-15 12:19 | ED.SOB ---
HPI - SOB/Dyspnea General Chief Complaint: Shortness of Breath/Dyspnea Stated Complaint: SOB History of Present Illness HPI Narrative: 63-year-old white female with history of CHF, diabetes, hypertension, hypercholesterolemia, longstanding and ongoing smoking, gets bronchospasm with bronchitis, uses metered-dose inhaler as needed, was seen about 2 weeks ago here for CHF, transferred to [facility] where he spent about 3 or 4 days in the hospital, and was discharged a week ago Sunday. She returns now with 3 day history of gradually worsening shortness of breath, dyspnea on exertion, and just can not catch her breath. She reports it is to the point today she had trouble getting to the bathroom due to her shortness of breath. She denies any episodes of chest pain, fever or chills, reports she has a smoker's cough. Denies abdominal pain, nausea vomiting, diarrhea or constipation, dysuria urgency or frequency. Related Data Home Medications Medication Instructions Recorded Confirmed aspirin 81 mg tablet,delayed 90 mg PO DAILY 10/08/22 05/15/24 release carvedilol 25 mg tablet 12.5 mg PO BID 10/08/22 05/15/24 empagliflozin 10 mg tablet 10 mg PO DAILY 10/08/22 05/15/24 (Jardiance) furosemide 40 mg tablet 40 mg PO DAILY 10/08/22 05/15/24 hydralazine 25 mg tablet 25 mg PO BID 10/08/22 05/15/24 rosuvastatin 40 mg tablet 40 mg PO DAILY 10/08/22 05/15/24 ropinirole 2 mg tablet 4 mg PO HS 11/17/22 05/15/24 amlodipine 10 mg tablet 10 mg PO DAILY 05/03/24 05/15/24 glipizide 5 mg tablet 5 mg PO BID 05/03/24 05/15/24 levothyroxine 200 mcg tablet 200 mcg PO DAILY 05/03/24 05/15/24 ropinirole 2 mg tablet 2 mg PO DAILY 05/03/24 05/15/24 Allergies Allergy/AdvReac Type Severity Reaction Status Date / Time No Known Allergies Allergy Verified 05/03/24 02:32 [facility] Past Medical History Medical History Congestive heart failure Coronary artery disease CVA (cerebral vascular accident) Depression Diabetes High cholesterol Hx of blood clots Hypertension Hypothyroidism Surgical History Surgical History H/O thyroidectomy History of cholecystectomy Family History Family History Father Diabetes mellitus Heart disease Mother Kidney failure Diabetes mellitus Other Hypertension Social History Social History Social History: Patient is a full code and elects her daughter Rylee Crowder as her surrogate decision maker. Encouraged patient to formalize these decisions with an Advance directive. Smoking packs per day: 0.5 Smoking cigarettes per day: 10.0 Years smoked: 16 Smoking pack-years: 8.00 Smoking status: Current some day smoker Tobacco type: cigarettes Alcohol intake: former Substance use: never Do You Feel Safe in your Home?: Yes Lack of Transportation: No Lack of Food: Never True Current Housing: I Have Housing Concerned About Future Housing: No Difficulty Paying Gas/Electric Bills: No Difficulty Paying for Meds: No Currently Unemployed: No Education: High School Diploma/GED Difficulty w/ Childcare or Family Care: No Living arrangements: with family Additional occupation/education comments: disabled Gender identity (if verbalized by the patient): Female Sexual Orientation (if Verbalized by the Patient): Straight or Heterosexual Spiritual care concerns: No Exam Narrative: patient is awake, alert, well oriented, pleasant, appears mildly dyspneic, morbidly obese, and has 2+ pitting edema of the lower extremity Const: General: healthy appearing, no acute distress, alert and well nourished Nutritional Appearance: well nourished Orientation/consciousness: patient oriented x3 Limitations: no limitations HENMT: Head: normal to inspection Ears: externa
--- NOTE | 2024-05-15 12:25 | ECG_ITS ---
Test Date: 2024-05-15 12:52:17 Measurements Intervals [place] Rate: 64 P: 74 [place]: 163 QRS: 85 QRSD: 110 T: 80 QT: 442 QTc: 457 Interpretive Statements SINUS RHYTHM WITH SINUS ARRHYTHMIA INCOMPLETE LEFT BUNDLE BRANCH BLOCK BORDERLINE ST ABNORMALITY- INF/LAT LEADS BASELINE ARTIFACT- V4-V6 ABNORMAL ECG Compared to ECG 05/03/2024 00:15:08 INCOMPLETE LEFT BUNDLE BRANCH BLOCK NOW PRESENT Electronically Signed On 05-15-2024 16:41:37 CDT by Fady Pepe D.O.
[2024-05-15] MEDS: IPRATROPIUM 0.5 MG/ALBUTEROL SULFATE 2.5 MG AMPUL.NEB 3 ML INHALATION (12:40)
[2024-05-15] MEDS: ALBUTEROL SULFATE NEB 2.5 MG/3 ML INH 7.5 MG INHALATION (12:40)
[2024-05-15 12:49] LABS: Basophils Absolute Auto 0.04 K/mm3 (0.00-0.10); Basophils Percent Auto 0.4 % (0.0-1.0); Eosinophils Absolute Auto 0.18 K/mm3 (0.02-0.50); Eosinophils Percent Auto 1.7 % (1.0-6.0); Hemoglobin 10.6 g/dL (12.0-15.0); Immature Granulocyte Absolute 0.14 K/mm3 (0.00-0.00); Immature Granulocyte Percent A 1.3 % (0.0-0.0); Lymphocytes Absolute Auto 0.77 K/mm3 (1.10-4.50); Lymphocytes Percent Auto 7.3 % (18.0-42.0); Mean Corpuscular HGB Conc 30.3 g/dL (32-36); Mean Corpuscular Hemoglobin 27.7 pg (27.0-31.0); Mean Corpuscular Volume 91.4 fL (78.0-102.0); Mean Platelet Volume 8.6 fl (9.2-11.8); Monocytes Absolute Auto 0.39 K/mm3 (0.10-0.90); Monocytes Percent Auto 3.7 % (2.0-11.0); Neutrophils Absolute Auto 9.09 K/mm3 (1.70-7.20); Neutrophils Percent Auto 85.6 % (50.0-70.0); Nucleated Red Blood Cells Absolute Auto 0.04 K/mm3 (0.00-0.00); Nucleated Red Blood Cells Perc 0.4 % (0-0.0); Platelet Count Result 242 K/mm3 (150-420); Red Blood Count 3.83 M/mm3 (4.20-5.40); Red Cell Distribution Width 18.3 % (11.6-14.4); White Blood Count 10.6 K/mm3 (4.8-10.8)
[2024-05-15] MEDS: FUROSEMIDE INJ 40 MG/4 ML VIAL 80 MG IV PUSH (12:56)
[2024-05-15 13:04] LABS: Partial Thromboplastin Time 25.6 Sec (23.9-30.70); Prothrombin Time 10.9 Seconds (9.50-12.1)
[2024-05-15 13:07] LABS: D Dimer 1.78 mg/L (0.19-0.50)
[2024-05-15 13:11] LABS: Lactic Acid Reflex 0.6 mmol/L (0.4-2.0)
[2024-05-15 13:17] LABS: Alanine Aminotransferase 11 U/L (14-59); Alkaline Phosphatase 102 U/L (46-116); Anion Gap 10 mmol/L (4-12); Aspartate Amino Transferase 10 U/L (15-37); Bilirubin,Total 1.1 mg/dL (0.00-1.00); Blood Urea Nitrogen 22 mg/dL (7-18); Calcium 9.4 mg/dL (8.5-10.1); Carbon Dioxide 31 mmol/L (21-32); Chloride 101 mmol/L (98-108); Estimated CRCL calculation 49 ml/min; Estimated Glomerular Filt Rate 42; Glucose 175 mg/dL (70-99); Magnesium 2.3 mg/dL (1.8-2.4); NT Pro B Type Natriuretic Pept 5940 pg/mL (0-125); Osmolality Calculated 301 mOsm/kg (285-295); Potassium 3.3 mmol/L (3.5-5.1); Sodium 142 mmol/L (136-145); Total Protein 7.1 g/dL (6.4-8.2); Troponin I 19.1 ng/L (0.00-60.4)
[2024-05-15 16:01] LABS: Troponin I 19.2 ng/L (0.00-60.4)
[2024-05-15 18:57] LABS: Appearance Urine Clear (Clear); Bilirubin Urine Negative (Negative); Blood Urine Trace-intact (Negative); Color Urine Light Yellow (Yellow); Glucose Urine UA 2+ (Negative); Ketones Urine Negative (Negative); Leukocyte Esterase Ur Negative LEU/UL (Negative); Nitrate Urine Positive (Negative); Protein Urine 2+ (Negative); Urobilinogen Urine 0.2 mg/dL (0.2-1.0)
--- NOTE | 2024-05-15 19:00 | PC.NURSE ---
assumed care. report received from Marycruz M[facility].
[2024-05-15 19:05] LABS: Add Urine Microscopic? YES; Bacteria Urine Trace /hpf; RBC Urine 0-2 /hpf (0-2); Squamous Epithelial Cell Urine Few /hpf (Few); WBC Urine 0-3 /hpf (0-3)
--- NOTE | 2024-05-15 20:10 | PC.NURSE ---
patient in resting on stretcher. reports that she is feeling better than when on arrival. Oxygen at 2L NC. WOB labored when moving. Denies any needs at this time. Call light is in reach
--- NOTE | 2024-05-15 20:12 | PC.NURSE ---
notified floor of admission status. Floor will call back with room assignment
--- NOTE | 2024-05-15 20:25 | PC.NURSE ---
room assignment 226. Registration was notified
--- NOTE | 2024-05-15 21:43 | ADMGEN ---
This patient, Marah Ro, was admitted to 2nd Floor Room 226-1. Patient oriented to hospital policies and general routines including ID bracelet, bed and alarms, visiting hours, pain management, procedures, bathroom and other care routines, personal items, smoking policy, room service/diet, and visiting hours. Information on how to activate the Rapid Response Team has been discussed. Patient are encouraged to report perceived risks to care and to ask questions if they do not understand what they are told or what they should do.
[2024-05-15] MEDS: rOPINIRole HCL 1 MG TABLET 4 MG PO (23:01)
[2024-05-16] VITALS (17 sets, daily range): BP systolic 99–150; BP diastolic 42–66; PULSE 59–86; RESP 16–18; TEMP 35.6–36.7; O2SAT 83–98
[2024-05-16 05:21] LABS: Basophils Absolute Auto 0.04 K/mm3 (0.00-0.10); Basophils Percent Auto 0.5 % (0.0-1.0); Eosinophils Absolute Auto 0.28 K/mm3 (0.02-0.50); Eosinophils Percent Auto 3.3 % (1.0-6.0); Hematocrit 31.2 % (35.0-49.0); Hemoglobin 9.2 g/dL (12.0-15.0); Immature Granulocyte Absolute 0.07 K/mm3 (0.00-0.00); Immature Granulocyte Percent A 0.8 % (0.0-0.0); Lymphocytes Absolute Auto 0.93 K/mm3 (1.10-4.50); Lymphocytes Percent Auto 10.9 % (18.0-42.0); Mean Corpuscular HGB Conc 29.5 g/dL (32-36); Mean Corpuscular Hemoglobin 27.3 pg (27.0-31.0); Mean Corpuscular Volume 92.6 fL (78.0-102.0); Mean Platelet Volume 8.4 fl (9.2-11.8); Monocytes Percent Auto 5.8 % (2.0-11.0); Neutrophils Absolute Auto 6.74 K/mm3 (1.70-7.20); Neutrophils Percent Auto 78.7 % (50.0-70.0); Platelet Count Result 219 K/mm3 (150-420); Red Blood Count 3.37 M/mm3 (4.20-5.40); Red Cell Distribution Width 18.5 % (11.6-14.4); White Blood Count 8.6 K/mm3 (4.8-10.8)
[2024-05-16 05:30] LABS: Anion Gap 7 mmol/L (4-12); Blood Urea Nitrogen 23 mg/dL (7-18); Calcium 8.4 mg/dL (8.5-10.1); Carbon Dioxide 32 mmol/L (21-32); Chloride 103 mmol/L (98-108); Estimated CRCL calculation 49 ml/min; Estimated Glomerular Filt Rate 41; Glucose 112 mg/dL (70-99); Osmolality Calculated 298 mOsm/kg (285-295); Potassium 2.9 mmol/L (3.5-5.1); Sodium 142 mmol/L (136-145)
[2024-05-16] MEDS: KCL 20 MEQ/SW 100 ML 100 ML 50 MEQ IVPB ×2 (07:28→09:06)
[2024-05-16] MEDS: ENOXAPARIN 40 MG/0.4 ML SYRINGE SUB-Q (09:07)
--- NOTE | 2024-05-16 09:46 | PCCPR ---
Received order for consultation and review of eligibility for enrollment into the cardiac rehab program. This patient is being treated for Chronic/Congestive Heart Failure. To qualify for enrollment under this diagnosis, the patient would be required to have an ejection fraction of 35% or less. Review of ECHO results from05/03/24 reveal an EF% of >70%. Unfortunately, this patient will not qualify for phase 2 cardiac rehab at this time.
[2024-05-16] MEDS: POTASSIUM CHLORIDE 20 MEQ PACKET (FOR LIQUID) 40 MEQ PO (11:20)
[2024-05-16] MEDS: FUROSEMIDE INJ 40 MG/4 ML VIAL IV PUSH (11:20)
[2024-05-16] MEDS: SACUBITRIL/VALSARTAN 97-103 MG TABLET 1 TAB PO ×2 (11:20→20:56)
[2024-05-16] MEDS: methylPREDNISolone SOD SUCC 40 MG VIAL IV PUSH ×2 (11:20→20:57)
[2024-05-16] MEDS: rOPINIRole HCL 1 MG TABLET 2 MG PO (11:21)
[2024-05-16] MEDS: AZITHROMYCIN 250 MG TABLET 500 MG PO (11:21)
[2024-05-16] MEDS: carvediloL 12.5 MG TABLET PO ×2 (11:21→20:56)
[2024-05-16] MEDS: ASPIRIN 81 MG ENTERIC TABLET PO (11:21)
--- NOTE | 2024-05-16 12:16 | PM.IMHP ---
H&P: HPI History of Present Illness Date/Time: 05/16/24 12:16 Chief Complaint: SOB Narrative: Patient is a 63-year-old female who presented to the emergency department with complaints shortness of breath. Patient states shortness breath began about 2 days prior to arrival and has gotten increasingly worse. Patient states symptoms are worse with exertion activity and has been taking her more time to recover at rest. The patient has a past medical history of CHF, diabetes, hypertension, hypercholesterolemia, tobacco dependency, and COPD. Patient was recently discharged from [facility] following treatment for acute on chronic diastolic heart failure. Patient reports she was compliant with her Entresto following discharge however day of admission she did not take it. Patient had reported she when outside and had a cigarette in upon entry back to her home she could barely make it to bathroom due to increased respiratory distress. Initial findings in the emergency department did shows some small bilateral pleural effusions and chest x-ray consistent with some pulmonary edema however on assessment wheezing was also noted on auscultation. BNP was mildly elevated and 1+ pitting edema BLE. Patient was also found to be hypoxic at Spo2 at 74%, CTA was negative for PE. Patient's UA was also nitrate positive initiated treatment for UTI pending cultures. Patient was given 1 dose of IV Lasix in the emergency department and was admitted to the medical unit for further evaluation treatment. Will continue treatment for acute respiratory failure with hypoxia multifocal CHF and COPD exacerbation. Review of Systems Review of Systems: All systems reviewed & are unremarkable except as noted in HPI and below PMFSH Past Medical History Medical History (Updated 05/16/24 @ 12:34 by Ruba Perez APRN) Congestive heart failure Coronary artery disease CVA (cerebral vascular accident) Depression Diabetes High cholesterol Hx of blood clots Hypertension Hypothyroidism Surgical History Surgical History H/O thyroidectomy History of cholecystectomy Family History Family History Father Diabetes mellitus Heart disease Mother Kidney failure Diabetes mellitus Other Hypertension Social History Social History Social History: Patient is a full code and elects her daughter Rylee Crowder as her surrogate decision maker. Encouraged patient to formalize these decisions with an Advance directive. Smoking packs per day: 0.5 Smoking cigarettes per day: 10.0 Years smoked: 16 Smoking pack-years: 8.00 Smoking status: Current some day smoker Tobacco type: cigarettes Alcohol intake: former Substance use: never Do You Feel Safe in your Home?: Yes Lack of Transportation: No Lack of Food: Never True Current Housing: I Have Housing Concerned About Future Housing: No Difficulty Paying Gas/Electric Bills: No Difficulty Paying for Meds: No Currently Unemployed: No Education: High School Diploma/GED Difficulty w/ Childcare or Family Care: No Living arrangements: with family Additional occupation/education comments: disabled Gender identity (if verbalized by the patient): Female Sexual Orientation (if Verbalized by the Patient): Straight or Heterosexual Spiritual care concerns: No Meds Home Medications and Allergies Home Medications Medication Instructions Recorded Confirmed Type aspirin 81 mg tablet,delayed 90 mg PO DAILY 10/08/22 05/15/24 History release carvedilol 25 mg tablet 12.5 mg PO BID 10/08/22 05/15/24 History empagliflozin 10 mg tablet 10 mg PO DAILY 10/08/22 05/15/24 History (Jardiance) furosemide 40 mg tablet 40 mg PO DAILY 10/08/22 05/15/24 History hydralazine 25 mg tablet 25 mg PO BID
[2024-05-16] MEDS: IPRATROPIUM 0.5 MG/ALBUTEROL SULFATE 2.5 MG AMPUL.NEB 3 ML INHALATION ×3 (12:42→23:52)
--- NOTE | 2024-05-16 13:51 | HOMEO2EVAL ---
Evaluation was performed at [facility] Home Oxygen Evaluation RC: Home Oxygen (O2) Evaluation Start: 05/16/24 13:19 Freq: ONCE Status: Active Protocol: RPE Activity Type Activity Date Activity User E-sign Co-sign Detail Recorded Client Recorded Date Recorded By Document 05/16/24 13:30 [email or web address] 05/16/24 13:51 SJB Document 05/16/24 13:31 [email or web address] 05/16/24 13:51 SJB Document 05/16/24 13:33 [email or web address] [email or web address] 05/16/24 13:51 SJB Document 05/16/24 13:37 [email or web address] [email or web address] 05/16/24 13:51 SJB 05/16/24 05/16/24 05/16/24 13:30 13:31 13:33 Home O2 Evaluation [Oxygen] -Test Phase Resting Resting Exercise -Oxygen Delivery Room Air Nasal Cannula Nasal Cannula -Oxygen Flow Rate (L/min) 1 1 [Pulse Oximetry] -Pulse Oximetry (90-100 %) 83 L 97 86 L [Pulse Rate] -Pulse Rate (60-100 beats/min) 63 60 73 [Evaluation] -Activity Tolerance Good -Rating of Perceived Dyspnea (PD) +1 Mild, Noticeable to the Participant but Not to an Observer -Rate of Perceived Exertion (PE) 11 Fairly light Query Text:Click the Protocol Button to View the RPE Scale [Exercise] -Ambulation Distance (feet) 100 -Ambulation Distance (meters) 30.47 [Comments] -Home Oxygen Evaluation Comments At rest Sp02 83 Will start walk After approx % on r/a. Will on 1 lpm 100 ft on 1 lpm start on 1 lpm pushing w/c. , patients Sp02 . dropped to 86% . Will increase to 2 lpm. PLB encouraged. [Charges] -Evaluation Charges 05/16/24 13:37 Home O2 Evaluation [Oxygen] -Test Phase Exercise -Oxygen Delivery Nasal Cannula -Oxygen Flow Rate (L/min) 2 [Pulse Oximetry] -Pulse Oximetry (90-100 %) 90 [Pulse Rate] -Pulse Rate (60-100 beats/min) 86 [Evaluation] -Activity Tolerance Good -Rating of Perceived Dyspnea (PD) +2 Mild, Some Difficulty, Noticeable to the Observer -Rate of Perceived Exertion (PE) 12 Query Text:Click the Protocol Button to View the RPE Scale [Exercise] -Ambulation Distance (feet) 300 -Ambulation Distance (meters) 91.43 [Comments] -Home Oxygen Evaluation Comments Pt walked a total of 400 ft , finishing on 2 lpm, with Sp02 staying at 90% and above. Tolerated PLB very well. Walks fast and has to be reminded to slow down. [Charges] -Evaluation Charges O2 Evaluation Charge
[2024-05-16] MEDS: hydrALAZINE HCL 25 MG TABLET PO (17:38)
--- NOTE | 2024-05-16 19:20 | PC.NURSE ---
Elevator Service Technician from [place] [facility] here with portable O2 tank to teach patient on use, will also go to patient home, where Ex- is available for education.
[2024-05-16] MEDS: rOPINIRole HCL 1 MG TABLET 4 MG PO (20:57)
[2024-05-17] VITALS (8 sets, daily range): BP systolic 140–149; BP diastolic 57–64; PULSE 60–65; RESP 16–18; TEMP 36.1–36.3; O2SAT 95–99
[2024-05-17 05:40] LABS: Hematocrit 32.9 % (35.0-49.0); Hemoglobin 9.7 g/dL (12.0-15.0); Mean Corpuscular HGB Conc 29.5 g/dL (32-36); Mean Corpuscular Hemoglobin 26.9 pg (27.0-31.0); Mean Corpuscular Volume 91.4 fL (78.0-102.0); Mean Platelet Volume 9.5 fl (9.2-11.8); Platelet Count Result 242 K/mm3 (150-420); White Blood Count 9.5 K/mm3 (4.8-10.8)
[2024-05-17] MEDS: IPRATROPIUM 0.5 MG/ALBUTEROL SULFATE 2.5 MG AMPUL.NEB 3 ML INHALATION (05:52)
[2024-05-17] MEDS: LEVOTHYROXINE SODIUM 100 MCG TABLET 200 MCG PO (05:52)
[2024-05-17 06:03] LABS: Alanine Aminotransferase 11 U/L (14-59); Albumin Level 2.8 g/dL (3.4-5.0); Alkaline Phosphatase 94 U/L (46-116); Anion Gap 5 mmol/L (4-12); Aspartate Amino Transferase < 10 U/L (15-37); Bilirubin,Total 0.7 mg/dL (0.00-1.00); Blood Urea Nitrogen 29 mg/dL (7-18); Calcium 8.7 mg/dL (8.5-10.1); Carbon Dioxide 31 mmol/L (21-32); Chloride 99 mmol/L (98-108); Estimated CRCL calculation 49 ml/min; Estimated Glomerular Filt Rate 41; Glucose 296 mg/dL (70-99); Osmolality Calculated 296 mOsm/kg (285-295); Potassium 4.5 mmol/L (3.5-5.1); Sodium 135 mmol/L (136-145); Total Protein 6.6 g/dL (6.4-8.2)
[2024-05-17] MEDS: FUROSEMIDE INJ 40 MG/4 ML VIAL IV PUSH (09:35)
[2024-05-17] MEDS: POTASSIUM CHLORIDE 20 MEQ PACKET (FOR LIQUID) 40 MEQ PO (09:36)
[2024-05-17] MEDS: rOPINIRole HCL 1 MG TABLET 2 MG PO (09:36)
[2024-05-17] MEDS: ENOXAPARIN 40 MG/0.4 ML SYRINGE SUB-Q (09:36)
[2024-05-17] MEDS: hydrALAZINE HCL 25 MG TABLET PO (09:36)
[2024-05-17] MEDS: methylPREDNISolone SOD SUCC 40 MG VIAL IV PUSH (09:36)
[2024-05-17] MEDS: SACUBITRIL/VALSARTAN 97-103 MG TABLET 1 TAB PO (09:36)
[2024-05-17] MEDS: EMPAGLIFLOZIN 10 MG TABLET PO (09:36)
[2024-05-17] MEDS: PANTOPRAZOLE 40 MG TABLET PO (09:37)
[2024-05-17] MEDS: ASPIRIN 81 MG ENTERIC TABLET PO (09:37)
[2024-05-17] MEDS: amLODIPine BESYLATE 5 MG TABLET 10 MG PO (09:37)
[2024-05-17] MEDS: DOCUSATE SODIUM 100 MG CAPSULE PO (09:37)
[2024-05-17] MEDS: AZITHROMYCIN 250 MG TABLET PO (09:37)
[2024-05-17] MEDS: carvediloL 12.5 MG TABLET PO (09:37)
[2024-05-17] MEDS: ROSUVASTATIN 10 MG TABLET 40 MG PO (09:37)
--- NOTE | 2024-05-17 09:51 | PM.DS ---
DS: Admitting Diagnosis Discharge Date Admitting Diagnosis Congestive Heart Failure, COPD exacerbation DS: Discharge Diagnosis Discharge Diagnosis (1) Chronic kidney disease: Code(s): N18.9 - Chronic kidney disease, unspecified Status: Acute (2) Hypokalemia: Code(s): E87.6 - Hypokalemia Status: Acute Assessment and Plan: sent home on oral potassium (3) Acute exacerbation of chronic obstructive pulmonary disease: Code(s): J44.1 - Chronic obstructive pulmonary disease with (acute) exacerbation Status: Acute Assessment and Plan: Albuterol inhaler (4) Acute respiratory failure with hypoxia: Code(s): J96.01 - Acute respiratory failure with hypoxia Status: Acute (5) UTI (urinary tract infection): Code(s): N39.0 - Urinary tract infection, site not specified Status: Acute Assessment and Plan: Azithromycin DS: Summary Hospital Course Reason for hospitalization: Hypoxia , Acute Kidney injury, Hospital Course: This is a year old female admitted with COPD exacerbation while here patient has continue to require oxygen. Oxygen walk study has revealed that patient is in need of home oxygen 1l at rest and 2l with activity. Patient has been given IV steroids, IV antibiotics, breathing treatment. Patient has continued to improve but she will go home on oral antibiotics and steroids. Patient will continue to use breathing treatments. Patient will follow up with Dr. Cornejo she has had oxygen delivered already and she will continue her oral medication. Patient she keep all previously scheduled appointments. Refilled all medication that patient was in need of refills of as well. Patient instructed on how to utilize pulse ox. Time Spent with Patient Time attestation: Total time spent providing and/or coordinating discharge services: Exam Narrative: Physical Exam: GENERAL: Pleasant obese female. Alert and oriented x 3. No acute distress. EYES: EOMI. No scleral icterus. PERRLA. HEENT: Moist mucous membranes. LUNGS: diminisheded throughout with crackles to bilateral lower lobe on auscultation . No accessory muscle use. CARDIOVASCULAR: Regular rate and rhythm. No murmur. No JVD. S1-S2 ABDOMEN: Soft, non tenderness and non-distended. No palpable masses. EXTREMITIES: 1+ BLE. Non-tender SKIN: No rashes or lesions. Skin warm, dry. NEUROLOGIC: No focal neurological deficits. CN II-XII grossly intact PSYCHIATRIC: Appropriate mood and affect. Good judgement and insight. No visual or auditory hallucinations. No suicidal or homicidal ideation. DS: Data Data Completed and Pending Labs on day of discharge: Labs from last 24 hours 05/17/24 05:13 WBC 9.5 RBC 3.60 L Hgb 9.7 L Hct 32.9 L MCV 91.4 MCH 26.9 L MCHC 29.5 L RDW 18.0 H Plt Count 242 MPV 9.5 Sodium 135 L Potassium 4.5 Chloride 99 Carbon Dioxide 31 Anion Gap 5 BUN 29 H Creatinine 1.32 H Estim Creat Clear Calc 49 Estimated GFR 41 L Glucose 296 H Calculated Osmolality 296 H Calcium 8.7 Total Bilirubin 0.7 AST < 10 L ALT 11 L Alkaline Phosphatase 94 Total Protein 6.6 Albumin 2.8 L Preliminary micro results at discharge 05/15/24 12:44 Blood Culture - Preliminary Blood 05/15/24 12:35 Blood Culture - Preliminary Blood Discharge Plan Discharge Attending physician on discharge: Narciso Calixto Consulting providers: Ruba Perez; Leora Ordoñez; Fady Pepe; Wesley Winston; Bautista Edmondson Discharging Clinician: Leora Ordoñez Anticipated Discharge Date/Time: 05/17/24 09:43 Patient Disposition: Home, Self-Care Activity: may shower and no preference Diet: regular and other - see discharge instructions Wound Care Instructions: follow printed instructions Discharge Instructions: I have discussed with you that you are not able to continue to smoke with oxygen on . Yo
--- NOTE | 2024-05-17 12:00 | PC.NURSE ---
Discharge instructions reviewed with patient and family, they verbalized understanding. Patient escorted out per wheelchair to private vehicle
--- NOTE | 2024-05-26 09:33 | PC.NURSE ---
discharge call back no answer
--- NOTE | 2024-05-29 10:50 | PC.NURSE ---
unable to complete dc call back due to no answer
== END 2024-05-17 12:05 | disposition home or self-care (01) | DRG 291 ==
LOC: CHSED 19:43 → CHS2ND 20:27
PROVIDERS: Admitting Provider Internal Medicine; Emergency Provider Emergency Medicine; PCP Family Medicine; Visit Provider Nurse Practitioner Family
DX: I11.0 Hypertensive heart disease with heart failure (principal); I50.9 Heart failure, unspecified; I25.10 Atherosclerotic heart disease of native coronary artery without angina pectoris; E78.00 Pure hypercholesterolemia, unspecified; E11.9 Type 2 diabetes mellitus without complications; E03.9 Hypothyroidism, unspecified; F32.A Depression, unspecified; Z79.82 Long term (current) use of aspirin; Z86.73 Personal history of transient ischemic attack (TIA), and cerebral infarction without residual deficits; Z79.899 Other long term (current) drug therapy; I50.33 Acute on chronic diastolic (congestive) heart failure; J96.01 Acute respiratory failure with hypoxia; J44.1 Chronic obstructive pulmonary disease with (acute) exacerbation; N39.0 Urinary tract infection, site not specified; Z68.41 Body mass index [BMI] 40.0-44.9, adult; N18.30 Chronic kidney disease, stage 3 unspecified; E11.22 Type 2 diabetes mellitus with diabetic chronic kidney disease; E87.6 Hypokalemia; E66.01 Morbid (severe) obesity due to excess calories; G25.81 Restless legs syndrome
CPT/HCPCS: 36415; 71045; 71275; 80048; 80053; 81001; 83605; 83735; 83880; 84484; 85025; 85027; 85380; 85610; 85730; 87040; 87086; 93005; 94618; 94640; 96374; 99285; A9270; J0696; J1650; J1940; J2919; J3480; Q9967

== ENCOUNTER 2024-06-30 13:55 | Emergency (ER) | payer OTHER, SELFPAY ==
--- NOTE | ~2024-06-30 | XR_ITS ---
EXAMINATION: XR tibia fibula RT 2V DATE: 06/30/2024 16:42 INDICATION: Right lower leg injury TECHNIQUE: AP and lateral views of the right tibia and fibula were obtained. COMPARISON: None. FINDINGS: Bone alignment is normal. No fracture. Tricompartmental osteoarthritis at the right knee. There appea rs to be moderate joint space. The medial lateral compartments on the lateral projection however the joint spaces not well profiled and could also be underestimated on nonweightbearing imaging. Right an kle joint space and visualized portion of the talonavicular and subtalar joints appear normal. No ank le or knee joint effusions. Prominent soft tissue swelling at the anteromedial aspect of the proximal right lower leg. IMPRESSION: 1. No acute osseous abnormality. 2. Tricompartmental osteoarthritis at the right knee likely of at least moderate severity. Reviewed, dictated and finalized at location [facility]. IMPRESSION: 1. No acute osseous abnormality. 2. Tricompartmental osteoarthritis at the right knee likely of at least moderat e severity.
[2024-06-30 14:15] VITALS: BP 142/54; PULSE 60; RESP 20; TEMP 36.4; O2SAT 94
--- NOTE | 2024-06-30 15:37 | ED.ANIMALBIT ---
HPI - Animal Bite General Stated Complaint: right leg pain Time Seen by Provider: 06/30/24 15:37 Related Data Home Medications Medication Instructions Recorded Confirmed aspirin 81 mg tablet,delayed 90 mg PO DAILY 10/08/22 05/15/24 release carvedilol 25 mg tablet 12.5 mg PO BID 10/08/22 05/15/24 empagliflozin 10 mg tablet 10 mg PO DAILY 10/08/22 05/15/24 (Jardiance) furosemide 40 mg tablet 40 mg PO DAILY 10/08/22 05/15/24 hydralazine 25 mg tablet 25 mg PO BID 10/08/22 05/15/24 rosuvastatin 40 mg tablet 40 mg PO DAILY 10/08/22 05/15/24 ropinirole 2 mg tablet 4 mg PO HS 11/17/22 05/15/24 amlodipine 10 mg tablet 10 mg PO DAILY 05/03/24 05/15/24 glipizide 5 mg tablet 5 mg PO BID 05/03/24 05/15/24 levothyroxine 200 mcg tablet 200 mcg PO DAILY 05/03/24 05/15/24 ropinirole 2 mg tablet 2 mg PO DAILY 05/03/24 05/15/24 Allergies Allergy/AdvReac Type Severity Reaction Status Date / Time No Known Allergies Allergy Verified 05/03/24 02:32 [facility] Past Medical History Medical History (Updated 05/17/24 @ 09:56 by Leora Ordoñez NP) Congestive heart failure Coronary artery disease CVA (cerebral vascular accident) Depression Diabetes High cholesterol Hx of blood clots Hypertension Hypothyroidism Surgical History Surgical History H/O thyroidectomy History of cholecystectomy Family History Family History Father Diabetes mellitus Heart disease Mother Kidney failure Diabetes mellitus Other Hypertension Social History Social History Social History: Patient is a full code and elects her daughter Rylee Crowder as her surrogate decision maker. Encouraged patient to formalize these decisions with an Advance directive. Smoking packs per day: 0.5 Smoking cigarettes per day: 10.0 Years smoked: 16 Smoking pack-years: 8.00 Smoking status: Current some day smoker Tobacco type: cigarettes Alcohol intake: former Substance use: never Do You Feel Safe in your Home?: Yes Lack of Transportation: No Lack of Food: Never True Current Housing: I Have Housing Concerned About Future Housing: No Difficulty Paying Gas/Electric Bills: No Difficulty Paying for Meds: No Currently Unemployed: No Education: High School Diploma/GED Difficulty w/ Childcare or Family Care: No Living arrangements: with family Additional occupation/education comments: disabled Gender identity (if verbalized by the patient): Female Sexual Orientation (if Verbalized by the Patient): Straight or Heterosexual Spiritual care concerns: No Course Vital Signs Vital signs: Vital Signs Temperature 36.4 C L 06/30/24 14:15 Pulse Rate 60 06/30/24 14:15 Respiratory Rate 20 06/30/24 14:15 Blood Pressure 142/54 H 06/30/24 14:15 Pulse Oximetry 94 06/30/24 14:15 Oxygen Delivery Room Air 06/30/24 14:15 Temperature 36.4 C L 06/30/24 14:15 Pulse Rate 60 06/30/24 14:15 Respiratory Rate 20 06/30/24 14:15 Blood Pressure 142/54 H 06/30/24 14:15 Pulse Oximetry 94 06/30/24 14:15 Oxygen Delivery Room Air 06/30/24 14:15 Discharge Plan Discharge Prescriptions: No Action furosemide 40 mg tablet 40 mg PO DAILY carvedilol 25 mg tablet 12.5 mg PO BID hydralazine 25 mg tablet 25 mg PO BID aspirin 81 mg tablet,delayed release (DR/EC) 90 mg PO DAILY rosuvastatin 40 mg tablet 40 mg PO DAILY Jardiance 10 mg tablet 10 mg PO DAILY ropinirole 2 mg tablet 4 mg PO HS amlodipine 10 mg tablet 10 mg PO DAILY levothyroxine 200 mcg tablet 200 mcg PO DAILY glipizide 5 mg tablet 5 mg PO BID azithromycin [Zithromax] 250 mg Tablet 250 mg PO DAILY Qty: 4 0RF potassium chloride 20 mEq Packet 20 meq PO DAILY Qty: 7 0RF sertraline
--- NOTE | 2024-06-30 15:54 | ED.LOWEXIN ---
HPI - Extremity Injury (Lower) General Chief Complaint: Extremity Injury, Lower Stated Complaint: right leg pain Time Seen by Provider: 06/30/24 15:37 Source: patient Mode of arrival: ambulatory Limitations: no limitations History of Present Illness HPI Narrative: 63-year-old female, with a history of COPD, CKD, hypertension was holding her dog and trying to separate him from getting into a fight. In the process the patient sustained -- right leg hematoma and swelling of the calf. No knee or ankle injury/ restriction. unsure as to how she got it. She thinks it was caused by the dog chain pushing on her knee. no head injury or loss of consciousness no leg or back pain MD complaint: leg injury Onset (ago): hour(s) ( ) Type of Injury: blunt Place: home Severity: moderate Relieving factors: nothing Exacerbating factors: nothing Related Data Home Medications Medication Instructions Recorded Confirmed aspirin 81 mg tablet,delayed 81 mg PO DAILY 10/08/22 06/30/24 release carvedilol 25 mg tablet 25 mg PO BID 10/08/22 06/30/24 empagliflozin 10 mg tablet 10 mg PO DAILY 10/08/22 06/30/24 (Jardiance) furosemide 40 mg tablet 40 mg PO DAILY 10/08/22 06/30/24 rosuvastatin 40 mg tablet 40 mg PO HS 10/08/22 06/30/24 ropinirole 2 mg tablet 4 mg PO HS 11/17/22 06/30/24 amlodipine 10 mg tablet 10 mg PO DAILY 05/03/24 06/30/24 glipizide 5 mg tablet 5 mg PO BID 05/03/24 06/30/24 levothyroxine 200 mcg tablet 200 mcg PO DAILY 05/03/24 06/30/24 ropinirole 2 mg tablet 2 mg PO DAILY 05/03/24 06/30/24 dulaglutide 4.5 mg/0.5 mL 4.5 mg subcut WEEKLY 06/30/24 06/30/24 subcutaneous pen injector (Trulicity) Allergies Allergy/AdvReac Type Severity Reaction Status Date / Time No Known Allergies Allergy Verified 06/30/24 15:58 Review of Systems Review of Systems: All systems reviewed & are unremarkable except as noted in HPI and below Constitutional: Constitutional: Reports as per HPI and Reports no additional constitutional complaints Eyes: Eyes: Reports as per HPI and Reports no additional eye complaints ENT: Reports system reviewed and no additional complaints, except as documented and Reports as per HPI Cardiovascular: Cardiovascular: Reports as per HPI and Reports no additional cardiovascular complaints Respiratory: Respiratory: Reports as per HPI and Reports no additional respiratory complaints Gastrointestinal: Gastrointestinal: Reports as per HPI and Reports no additional gastrointestinal complaints Genitourinary: Genitourinary: Reports no additional female genitourinary complaints Musculoskeletal: Musculoskeletal: Reports no additional musculoskeletal complaints Comments: Right leg pain /swelling Integumentary/Breasts: Comments: large contusion in right proximal leg over the hill Neurologic: Reports system reviewed and no additional complaints, except as documented and Reports as per HPI Psychiatric: Psychiatric: Reports no additional psychiatric complaints and Reports as per HPI Endocrine: Endocrine: Reports no additional endocrine complaints and Reports as per HPI Hematologic/Lymphatic: Hematologic/Lymphatic: Reports no additional hematologic/lymphatic complaints and Reports as per HPI Allergic/Immunologic: Allergic/Immunologic: Reports no additional allergic/immunologic complaints PMFSH Past Medical History Medical History Congestive heart failure Coronary artery disease CVA (cerebral vascular accident) Depression Diabetes High cholesterol Hx of blood clots Hypertension Hypothyroidism Surgical History Surgical History H/O thyroidectomy History of cholecystectomy Family History Family History Father Diabetes mellitus Heart disease Mother Kidney failure Diabetes mellitus Other Hypertension Social Histo
[2024-06-30 16:35] VITALS: BP 151/36; PULSE 70; RESP 18; O2SAT 97
[2024-06-30] MEDS: HYDROcodone/acetaminophen (*CRX) 5-325 MG TABLET 1 TAB PO (17:56)
== END 2024-06-30 18:02 | disposition home or self-care (01) ==
PROVIDERS: Emergency Provider Internal Medicine Critical Care Medicine; PCP Family Medicine
DX: S80.11XA Contusion of right lower leg, initial encounter (principal); J44.9 Chronic obstructive pulmonary disease, unspecified; I25.10 Atherosclerotic heart disease of native coronary artery without angina pectoris; I13.0 Hypertensive heart and chronic kidney disease with heart failure and stage 1 through stage 4 chronic kidney disease, or unspecified chronic kidney disease; I50.9 Heart failure, unspecified; N18.9 Chronic kidney disease, unspecified; E11.22 Type 2 diabetes mellitus with diabetic chronic kidney disease; E03.9 Hypothyroidism, unspecified; F17.210 Nicotine dependence, cigarettes, uncomplicated; Z86.73 Personal history of transient ischemic attack (TIA), and cerebral infarction without residual deficits; W22.8XXA Striking against or struck by other objects, initial encounter
CPT/HCPCS: 73590; 99283; A9270

== ENCOUNTER 2024-07-06 13:33 | Emergency (ER) | payer OTHER, SELFPAY ==
--- NOTE | ~2024-07-06 | CT_ITS ---
CT tibia/fibula RT wo con DATE: 07/06/2024 14:41 INDICATION: Lower leg pain and swelling for one week TECHNIQUE: Axial images through the lower leg, with sagittal and coronal reconstructions COMPARISON: 06/30/2024 tibia-fibula FINDINGS: There is an approximately 2 x 6 cm anteromedial subcutaneous soft tissue mass or hematoma a t the proximal lower leg. There is edema of the lower leg and foot. There is tricompartment osteoarthritis of the knee. Chondrocalcinosis is noted at the medial and lateral compartments of the knee joint. There is moderate knee joint effusion. No fracture, dislocation, periosteal reaction or bone destruction of the distal femur, patella or tib ia or fibula. The talus and calcaneus and included portions of the navicular and cuneiform bones are unremarkable. Prominent plantar and mild posterior calcaneal enthesopathy. IMPRESSION: Proximal anteromedial subcutaneous left lower lobe and probably 2 x 6 cm soft tissue mass or hematoma Edema of the lower leg and foot Tricompartment osteoarthritis Chondrocalcinosis of the knee joint Reviewed, dictated and finalized at [facility]. Reviewed, dictated and finalized at location [facility].
[2024-07-06 13:33] VITALS: BP 149/49; PULSE 70; RESP 20; TEMP 36.1; O2SAT 92
--- NOTE | 2024-07-06 13:47 | ED.LOWEXIN ---
HPI - Extremity Injury (Lower) General Chief Complaint: Extremity Injury, Lower Stated Complaint: right leg redness and swelling Time Seen by Provider: 07/06/24 13:41 Source: patient Mode of arrival: ambulatory Limitations: no limitations History of Present Illness HPI Narrative: patient is a 63-year-old female with an injury to the right lower extremity of the tib-fib mid shaft after stopping dogs from fighting and the injury occurred from leashes. she is here today due to a 2nd ER visit having some slight redness around the area and worsening hematoma formation. Pain is about the same. Pain is not worse and in fact could be slightly better. MD complaint: leg injury ( Right tib-fib midshaft) Onset (ago): week(s) (1) Type of Injury: blunt Place: home and street/outdoors Severity: mild Severity scale (1-10): 3 Relieving factors: nothing Exacerbating factors: nothing Context: direct blow Associated symptoms: swelling and ambulatory Other symptoms: none Treatments prior to arrival: cold therapy and NSAIDS Related Data Home Medications Medication Instructions Recorded Confirmed aspirin 81 mg tablet,delayed 81 mg PO DAILY 10/08/22 07/06/24 release carvedilol 25 mg tablet 25 mg PO BID 10/08/22 07/06/24 furosemide 40 mg tablet 40 mg PO DAILY 10/08/22 07/06/24 rosuvastatin 40 mg tablet 40 mg PO HS 10/08/22 07/06/24 amlodipine 10 mg tablet 5 mg PO DAILY 05/03/24 07/06/24 levothyroxine 200 mcg tablet 175 mcg PO DAILY 05/03/24 07/06/24 ropinirole 2 mg tablet 2 mg PO BID 05/03/24 07/06/24 dulaglutide 4.5 mg/0.5 mL 4.5 mg subcut WEEKLY 06/30/24 07/06/24 subcutaneous pen injector (Trulicity) hydralazine 25 mg tablet 25 mg PO BID 07/06/24 07/06/24 Allergies Allergy/AdvReac Type Severity Reaction Status Date / Time No Known Allergies Allergy Verified 07/06/24 13:42 Review of Systems Review of Systems: All systems reviewed & are unremarkable except as noted in HPI and below Constitutional: Constitutional: Reports no additional constitutional complaints Eyes: Eyes: Reports no additional eye complaints ENT: Reports system reviewed and no additional complaints, except as documented Cardiovascular: Cardiovascular: Reports no additional cardiovascular complaints Respiratory: Respiratory: Reports no additional respiratory complaints Gastrointestinal: Gastrointestinal: Reports no additional gastrointestinal complaints Genitourinary: Genitourinary: Reports no additional female genitourinary complaints Musculoskeletal: Musculoskeletal: Reports no additional musculoskeletal complaints Integumentary/Breasts: Skin/Breast: Reports system reviewed and no additional complaints, except as docu Neurologic: Reports system reviewed and no additional complaints, except as documented Psychiatric: Psychiatric: Reports no additional psychiatric complaints Endocrine: Endocrine: Reports no additional endocrine complaints Hematologic/Lymphatic: Hematologic/Lymphatic: Reports no additional hematologic/lymphatic complaints Allergic/Immunologic: Allergic/Immunologic: Reports no additional allergic/immunologic complaints PMFSH Past Medical History Medical History Congestive heart failure Coronary artery disease CVA (cerebral vascular accident) Depression High cholesterol Hx of blood clots Hypertension Hypothyroidism Surgical History Surgical History H/O thyroidectomy History of cholecystectomy Family History Family History Father Diabetes mellitus Heart disease Mother Kidney failure Diabetes mellitus Other Hypertension Social History Social History Social History: Patient is a full code and elects her daughter Rylee Crowder as her surrogate decision maker. Encouraged patient to formalize these
[2024-07-06 15:25] VITALS: BP 135/60; PULSE 64; RESP 18; O2SAT 93
[2024-07-06] MEDS: CEPHALEXIN 500 MG CAPSULE PO (16:34)
== END 2024-07-06 16:35 | disposition home or self-care (01) ==
PROVIDERS: Emergency Provider Emergency Medicine; PCP Family Medicine
DX: S80.11XA Contusion of right lower leg, initial encounter (principal); L03.115 Cellulitis of right lower limb; I25.10 Atherosclerotic heart disease of native coronary artery without angina pectoris; I11.0 Hypertensive heart disease with heart failure; I50.9 Heart failure, unspecified; E03.9 Hypothyroidism, unspecified; F17.210 Nicotine dependence, cigarettes, uncomplicated; Z79.899 Other long term (current) drug therapy; Z79.82 Long term (current) use of aspirin; W22.8XXA Striking against or struck by other objects, initial encounter; Y92.008 Other place in unspecified non-institutional (private) residence as the place of occurrence of the external cause
CPT/HCPCS: 73700; 99284; A9270

== ENCOUNTER 2024-08-19 11:47 | Inpatient (IN) | payer OTHER, SELFPAY ==
[2024-08-19] VITALS (22 sets, daily range): BP systolic 111–157; BP diastolic 55–62; PULSE 55–69; RESP 9–25; TEMP 36.1–36.4; O2SAT 88–100; BMI 41.1
--- NOTE | ~2024-08-19 | CT_ITS ---
EXAMINATION: CTA chest PE protocol DATE: 08/19/2024 13:43 INDICATION: Shortness of breath. TECHNIQUE: Computed tomography angiography (CTA) of the chest was performed with 100 mL Omnipaque-350 intravenous contrast timed to evaluate the pulmonary arteries. Coronal maximum intensity projection 3D-reconstructions were created by the technologist. Automated exposure control and iterative reconst ruction technique were employed. The dose-length product was 857.29 mGy-cm. COMPARISON: Chest CT 05/15/2024 FINDINGS: There are small pleural effusions. No pneumonia. The heart size is normal. There are hamilton ry artery calcifications. No pericardial effusion. There is no pulmonary embolus. There is mild media stinal lymphadenopathy, likely reactive. There is a small volume of perihepatic ascites. There are ch anges of thyroidectomy. There is mild thoracic spondylosis. IMPRESSION: 1. No pulmonary embolus. 2. Small pleural effusions. 3. Small volume of perihepatic ascites. Reviewed, dictated and finalized at location A.
--- NOTE | ~2024-08-19 | US_ITS ---
EXAMINATION: US venous doppler [facility] DATE: 08/19/2024 13:29 INDICATION: Left lower limb swelling. TECHNIQUE: Grayscale ultrasound images without and with compression and Doppler ultrasound images of the left lower extremity veins were obtained. COMPARISON: Ultrasound 05/04/2024 FINDINGS: The visualized portions of left common femoral vein, profunda (deep) femoral vein, femoral vein, popl iteal vein, peroneal veins, posterior tibial veins, and greater saphenous vein outflow are patent. IMPRESSION: 1. No deep venous thrombosis. Reviewed, dictated and finalized at location A.
--- NOTE | ~2024-08-19 | CT_ITS ---
EXAMINATION: CT tibia/fibula RT wo con DATE: 08/20/2024 09:29 INDICATION: Right lower leg nonhealing wound draining pus. TECHNIQUE: Computed tomography (CT) of the right lower leg was performed without intravenous contrast . Automated exposure control and iterative reconstruction technique were employed. The dose-length pr oduct was 824.46 mGy-cm. COMPARISON: CT 07/06/2024, radiographs 06/30/2024 FINDINGS: Bone alignment is normal. No fracture. Right knee demonstrates moderate osteoarthritis of t he medial and patellofemoral compartments and mild osteoarthritis of the lateral compartment. There i s a small knee joint effusion. There is widespread edema in the right lower leg. In the right lower l eg anteriorly, there is a 6.0 x 6.1 x 1.4 cm mass centered at the skin with irregularity of the super ficial margin. No drainable abscess. IMPRESSION: 1. Mass centered at the anterior skin of the right lower leg, likely chronic hematoma. No drainable a bscess. Malignancy is not excluded by imaging. Reviewed, dictated and finalized at location A. IMPRESSION: 1. Mass centered at the anterior skin of the right lower leg, likely chronic he matoma. No drainable abscess. Malignancy is not excluded by imaging.
--- NOTE | ~2024-08-19 | XR_ITS ---
EXAMINATION: XR chest 1V portable DATE: 08/19/2024 12:10 INDICATION: Shortness of breath. TECHNIQUE: A single frontal view of the chest was obtained. COMPARISON: Chest single view 05/15/2024, chest CT 05/15/2024 FINDINGS: There is no pneumonia, pleural effusion, or pneumothorax. The heart size is normal. IMPRESSION: 1. No acute cardiopulmonary disease. Reviewed, dictated and finalized at location A.
--- NOTE | 2024-08-19 12:00 | ED.GENADULT ---
HPI - General Adult General Chief complaint: Extremity Problem,Nontraumatic Stated complaint: leg swelling Time Seen by Provider: 08/19/24 12:00 Source: patient Mode of arrival: ambulatory Limitations: no limitations History of Present Illness HPI narrative: 64 YEARS OLD WHITE FEMALE CAME TO THE ED BY CAR COMPLAINING OF IS FEELING WELL, HER FRIEND TOLD HER THAT SHE LOOKS PALE WITH SWOLLEN FACE. PATIENT DENIES ANY FEVER, CHILLS, NAUSEA, VOMITING, OR CHEST PAIN. PATIENT REPORTS DYSPNEA ON EXERTION , MORE SWELLING AT THE LEFT LOWER EXTREMITY OVER THE LAST 2 WEEKS/ MONTHS WITHOUT PAIN. HISTORY OF DIABETES, HYPERTENSION, HYPERLIPIDEMIA, CHF, HYPOTHYROIDISM. PATIENT CURRENTLY ON BABY ASPIRIN ONCE A DAY, SHE DOES SMOKE CIGARETTES, DENIES ALCOHOL OR DRUG ABUSE PATIENT HAVE A WOUND AT THE RIGHT LOWER LEG ANTERIORLY FOR 2 MONTHS, WAS SEEN BY HER FAMILY PHYSICIAN NUMEROUS OF TIME FOR IT AND SCHEDULED TO GO TO [facility] COMING SUNDAY. PATIENT DENIES ANY NEW CHANGES ABOUT HER WOUND COMPARED TO LAST FEW WEEKS. PATIENT REPORTS HISTORY OF INCISIONAL ABDOMINAL HERNIA FOR YEARS AND WAS SCHEDULED FOR SURGERY IF SHE LOSE 40 LB. PATIENT IS SUPPOSED TO BE ON 2 L NASAL CANNULA NEEDED. CAME TO THE ED WITHOUT OXYGEN Related Data Home Medications Medication Instructions Recorded Confirmed aspirin 81 mg tablet,delayed 81 mg PO DAILY 10/08/22 07/10/24 release carvedilol 25 mg tablet 25 mg PO BID 10/08/22 07/10/24 furosemide 40 mg tablet 40 mg PO DAILY 10/08/22 07/10/24 rosuvastatin 40 mg tablet 40 mg PO HS 10/08/22 07/10/24 amlodipine 10 mg tablet 5 mg PO DAILY 05/03/24 08/19/24 levothyroxine 200 mcg tablet 175 mcg PO DAILY 05/03/24 07/10/24 ropinirole 2 mg tablet 2 mg PO BID 05/03/24 07/10/24 dulaglutide 4.5 mg/0.5 mL 4.5 mg subcut WEEKLY 06/30/24 07/10/24 subcutaneous pen injector ([facility]) hydralazine 25 mg tablet 25 mg PO BID 07/06/24 07/10/24 Allergies Allergy/AdvReac Type Severity Reaction Status Date / Time No Known Allergies Allergy Verified 08/19/24 11:48 Review of Systems Review of Systems: All systems reviewed & are unremarkable except as noted in HPI and below PMFSH Past Medical History Medical History Congestive heart failure Coronary artery disease CVA (cerebral vascular accident) Depression High cholesterol Hx of blood clots Hypertension Hypothyroidism Surgical History Surgical History H/O thyroidectomy History of cholecystectomy Family History Family History Father Diabetes mellitus Heart disease Mother Kidney failure Diabetes mellitus Other Hypertension Social History Social History Social History: Patient is a full code and elects her daughter Rylee Crowder as her surrogate decision maker. Encouraged patient to formalize these decisions with an Advance directive. Smoking packs per day: 0.5 Smoking cigarettes per day: 10.0 Years smoked: 16 Smoking pack-years: 8.00 Smoking status: Current some day smoker Tobacco type: cigarettes Alcohol intake: former Substance use: never Do You Feel Safe in your Home?: Yes Lack of Transportation: No Lack of Food: Never True Current Housing: I Have Housing Concerned About Future Housing: No Difficulty Paying Gas/Electric Bills: No Difficulty Paying for Meds: No Currently Unemployed: No Education: High School Diploma/GED Difficulty w/ Childcare or Family Care: No Living arrangements: with family Additional occupation/education comments: disabled Gender identity (if verbalized by the patient): Female Sexual Orientation (if Verbalized by the Patient): Straight or Heterosexual Spiritual care concerns: No Exam Narrative: GENERAL APPEARANCE: WELL-DEVELOPED, WELL-NOURISHED SKIN: P
--- NOTE | 2024-08-19 12:02 | ECG_ITS ---
Test Date: 2024-08-19 12:16:02 Measurements Intervals [place] Rate: 60 P: 85 NH: 170 QRS: 102 QRSD: 110 T: 91 QT: 425 QTc: 425 Interpretive Statements SINUS RHYTHM WITH OCCASIONAL SUPRAVENTRICULAR PREMATURE COMPLEXES PATTERN CONSISTENT WITH PULMONARY DISEASE POSSIBLE RIGHT VENTRICULAR HYPERTROPHY [SOME/ALL OF: PROMINENT R IN V1, LATE TRANSITION, RAD, VALENTIN, SSS] NONSPECIFIC ST & T-WAVE ABNORMALITY ABNORMAL ECG Compared to ECG 05/15/2024 12:52:17 T-wave abnormality now present Sinus arrhythmia no longer present Left bundle-branch block no longer present Electronically Signed On 08-20-2024 10:26:19 CDT by Andrew Hilton M.D.
[2024-08-19 12:31] LABS: HCO3 ABG 29.8 mmol/L (23-29); Oxygen Content ABG 12.1 %vol (16.0-22.0); Oxygen Saturation ABG 82.5 % (95-97); Oxyhemoglobin 76.6 % (94-100); PCO2 ABG 45.2 mmHg (35-45); PO2 ABG 46.8 mmHg (80-90); pH ABG 7.44 (7.35-7.45)
[2024-08-19 12:32] LABS: Basophils Absolute Auto 0.03 K/mm3 (0.00-0.10); Basophils Percent Auto 0.4 % (0.0-1.0); Eosinophils Absolute Auto 0.07 K/mm3 (0.02-0.50); Hematocrit 37.7 % (35.0-49.0); Hemoglobin 9.9 g/dL (12.0-15.0); Immature Granulocyte Absolute 0.05 K/mm3 (0.00-0.00); Immature Granulocyte Percent A 0.7 % (0.0-0.0); Lymphocytes Absolute Auto 0.56 K/mm3 (1.10-4.50); Lymphocytes Percent Auto 8.3 % (18.0-42.0); Mean Corpuscular HGB Conc 26.3 g/dL (32-36); Mean Corpuscular Hemoglobin 20.9 pg (27.0-31.0); Mean Corpuscular Volume 79.5 fL (78.0-102.0); Mean Platelet Volume 8.9 fl (9.2-11.8); Monocytes Absolute Auto 0.29 K/mm3 (0.10-0.90); Monocytes Percent Auto 4.3 % (2.0-11.0); Neutrophils Absolute Auto 5.72 K/mm3 (1.70-7.20); Neutrophils Percent Auto 85.3 % (50.0-70.0); Platelet Count Result 239 K/mm3 (150-420); Red Blood Count 4.74 M/mm3 (4.20-5.40); Red Cell Distribution Width 20.4 % (11.6-14.4); White Blood Count 6.7 K/mm3 (4.8-10.8)
[2024-08-19 12:37] LABS: Device ROOM AIR; Modified Allen's Test Pass; Site Drawn RIGHT RADIAL
[2024-08-19 12:44] LABS: INR 1.1; Partial Thromboplastin Time 25.1 Sec (23.9-30.70); Prothrombin Time 12.4 Seconds (9.50-12.1)
[2024-08-19 12:51] LABS: D Dimer 1.23 mg/L (0.19-0.50)
[2024-08-19 12:54] LABS: Alanine Aminotransferase 7 U/L (14-59); Albumin Level 2.8 g/dL (3.4-5.0); Alkaline Phosphatase 87 U/L (46-116); Anion Gap 8 mmol/L (4-12); Aspartate Amino Transferase < 10 U/L (15-37); Blood Urea Nitrogen 24 mg/dL (7-18); Calcium 8.3 mg/dL (8.5-10.1); Carbon Dioxide 33 mmol/L (21-32); Chloride 102 mmol/L (98-108); Estimated CRCL calculation 40 ml/min; Estimated Glomerular Filt Rate 32; Glucose 188 mg/dL (70-99); NT Pro B Type Natriuretic Pept 12712 pg/mL (0-125); Osmolality Calculated 305 mOsm/kg (285-295); Sodium 143 mmol/L (136-145); Total Protein 6.4 g/dL (6.4-8.2); Troponin I 30.6 ng/L (0.00-60.4)
[2024-08-19 12:55] LABS: Potassium 2.4 mmol/L (3.5-5.1)
[2024-08-19 13:08] LABS: SARS-CoV-2 RNA PCR Negative (Negative)
[2024-08-19 13:09] LABS: Influenza A QL RT-PCR Negative (Negative); Influenza B QL RT-PCR Negative (Negative); RSV RNA, RT-PCR Negative (Negative)
[2024-08-19] MEDS: POTASSIUM CHLORIDE 20 MEQ ER TABLET 40 MEQ PO (13:46)
[2024-08-19] MEDS: KCL 40 MEQ/0.9% SOD CHL 1,000 ML 100 ML IV CONT (13:47)
--- NOTE | 2024-08-19 15:27 | ADMGEN ---
This patient, Marah Ro, was admitted to 2nd Floor Room 204-2 as inpatient. Patient/family oriented to hospital policies and general routines including ID bracelet, bed and alarms, visiting hours, pain management, procedures, bathroom and other care routines, personal items, smoking policy, room service/diet, and visiting hours. Information on how to activate the Rapid Response Team has been discussed. Patient/Family are encouraged to report perceived risks to care and to ask questions if they do not understand what they are told or what they should do.
[2024-08-19] MEDS: KCL 20 MEQ/SW 100 ML 100 ML 50 MEQ IVPB ×2 (16:03→19:30)
[2024-08-19 16:05] LABS: Alanine Aminotransferase 7 U/L (14-59); Albumin Level 2.7 g/dL (3.4-5.0); Alkaline Phosphatase 82 U/L (46-116); Anion Gap 8 mmol/L (4-12); Aspartate Amino Transferase < 10 U/L (15-37); Bilirubin,Total 0.8 mg/dL (0.00-1.00); Blood Urea Nitrogen 23 mg/dL (7-18); Carbon Dioxide 32 mmol/L (21-32); Chloride 104 mmol/L (98-108); Estimated CRCL calculation 41 ml/min; Estimated Glomerular Filt Rate 33; Glucose 145 mg/dL (70-99); Osmolality Calculated 304 mOsm/kg (285-295); Sodium 144 mmol/L (136-145); Total Protein 6.1 g/dL (6.4-8.2)
[2024-08-19 16:08] LABS: Potassium 2.5 mmol/L (3.5-5.1)
[2024-08-19] MEDS: hydrALAZINE HCL 25 MG TABLET PO (16:30)
[2024-08-19] MEDS: FUROSEMIDE INJ 40 MG/4 ML VIAL IV PUSH (16:30)
[2024-08-19 16:43] LABS: Folic Acid 3.3 ng/mL (8.6->20); Iron 26 ug/dL (50-170); Percent Iron Saturation 6 % (12-57); Vitamin B12 488 pg/mL (193-986)
[2024-08-19] MEDS: rOPINIRole HCL 1 MG TABLET 2 MG PO (20:05)
[2024-08-19] MEDS: ROSUVASTATIN 10 MG TABLET 40 MG PO (20:05)
[2024-08-19] MEDS: carvediloL 12.5 MG TABLET 25 MG PO (20:06)
[2024-08-19] MEDS: SACUBITRIL/VALSARTAN 97-103 MG TABLET 1 TAB PO (20:07)
[2024-08-20] VITALS (8 sets, daily range): BP systolic 115–129; BP diastolic 50–68; PULSE 53–60; RESP 16–18; TEMP 35.8–36.3; O2SAT 90–97
[2024-08-20 05:09] LABS: Basophils Absolute Auto 0.03 K/mm3 (0.00-0.10); Basophils Percent Auto 0.4 % (0.0-1.0); Eosinophils Percent Auto 1.5 % (1.0-6.0); Hematocrit 33.9 % (35.0-49.0); Hemoglobin 8.9 g/dL (12.0-15.0); Immature Granulocyte Absolute 0.04 K/mm3 (0.00-0.00); Immature Granulocyte Percent A 0.6 % (0.0-0.0); Lymphocytes Percent Auto 10.4 % (18.0-42.0); Mean Corpuscular HGB Conc 26.3 g/dL (32-36); Mean Corpuscular Hemoglobin 21.2 pg (27.0-31.0); Mean Corpuscular Volume 80.9 fL (78.0-102.0); Mean Platelet Volume 8.6 fl (9.2-11.8); Monocytes Absolute Auto 0.42 K/mm3 (0.10-0.90); Monocytes Percent Auto 6.2 % (2.0-11.0); Neutrophils Absolute Auto 5.45 K/mm3 (1.70-7.20); Neutrophils Percent Auto 80.9 % (50.0-70.0); Platelet Count Result 185 K/mm3 (150-420); Red Blood Count 4.19 M/mm3 (4.20-5.40); Red Cell Distribution Width 20.2 % (11.6-14.4); White Blood Count 6.7 K/mm3 (4.8-10.8)
[2024-08-20 05:19] LABS: Hemoglobin A1C 6.8 % (<5.7)
[2024-08-20 05:21] LABS: Magnesium 2.1 mg/dL (1.8-2.4)
[2024-08-20] MEDS: LEVOTHYROXINE SODIUM 100 MCG TABLET 200 MCG PO (06:38)
[2024-08-20 08:05] LABS: Albumin Level 2.6 g/dL (3.4-5.0); Alkaline Phosphatase 77 U/L (46-116); Anion Gap 10 mmol/L (4-12); Aspartate Amino Transferase < 10 U/L (15-37); Bilirubin,Total 0.7 mg/dL (0.00-1.00); Blood Urea Nitrogen 23 mg/dL (7-18); Carbon Dioxide 30 mmol/L (21-32); Chloride 103 mmol/L (98-108); Estimated CRCL calculation 41 ml/min; Estimated Glomerular Filt Rate 32; Glucose 146 mg/dL (70-99); Osmolality Calculated 302 mOsm/kg (285-295); Potassium 3.1 mmol/L (3.5-5.1); Sodium 143 mmol/L (136-145); Total Protein 5.9 g/dL (6.4-8.2)
[2024-08-20 08:20] LABS: Alanine Aminotransferase 8 U/L (14-59)
[2024-08-20] MEDS: FLUTICASONE/UMECLIDIN/VILANTER 100-62.5-25 MCG ELLIPTA 1 PUFF INHALATION (09:58)
[2024-08-20] MEDS: SACUBITRIL/VALSARTAN 97-103 MG TABLET 1 TAB PO ×2 (10:00→20:36)
[2024-08-20] MEDS: carvediloL 12.5 MG TABLET 25 MG PO ×2 (10:00→20:37)
[2024-08-20] MEDS: hydrALAZINE HCL 25 MG TABLET PO ×2 (10:00→17:53)
[2024-08-20] MEDS: FOLIC ACID 1 MG TABLET PO (10:00)
[2024-08-20] MEDS: ASPIRIN 81 MG ENTERIC TABLET PO (10:00)
[2024-08-20] MEDS: rOPINIRole HCL 1 MG TABLET 2 MG PO ×2 (10:00→20:36)
[2024-08-20] MEDS: ENOXAPARIN 40 MG/0.4 ML SYRINGE SUB-Q (10:01)
[2024-08-20] MEDS: FERROUS SULFATE 325 MG TABLET DR PO ×2 (10:01→17:53)
[2024-08-20 12:20] LABS: Glucose Point of Care 187 mg/dl (65-105)
--- NOTE | 2024-08-20 13:40 | PM.IMHP ---
H&P: HPI History of Present Illness Date/Time: 08/20/24 13:40 Chief Complaint: Generalized weakness/SOB Narrative: Patient is a 64-year-old female who presented to the emergency department with complaints of generalized weakness patient states for the last few days she has had general malaise and decreased energy levels. Patient also stated she has had increased shortness breath and her face was swollen for about 2 days prior to arrival. Patient states symptoms are worse with exertion activity and has been taking her more time to recover at rest. The patient has a past medical history of CHF, diabetes, hypertension, hypercholesterolemia, tobacco dependency, and COPD. Patient does report she wears 2 L supplemental oxygen at home but still continues to smoke. In the emergency department patient was found to be in acute on chronic respiratory failure with hypoxia for recovered quickly after placing her back on her 2 L supplemental oxygen CTA showed no PE. Patient was also found to be hypokalemic with lower right nonhealing wound other labs unremarkable. Patient was admitted to medical unit for further treatment of acute on chronic respiratory failure with hypoxia. Review of Systems Review of Systems: All systems reviewed & are unremarkable except as noted in HPI and below PMFSH Past Medical History Medical History Congestive heart failure Coronary artery disease CVA (cerebral vascular accident) Depression High cholesterol Hx of blood clots Hypertension Hypothyroidism Surgical History Surgical History H/O thyroidectomy History of cholecystectomy Family History Family History Father Diabetes mellitus Heart disease Mother Kidney failure Diabetes mellitus Other Hypertension Social History Social History Social History: Patient is a full code and elects her daughter Rylee Crowder as her surrogate decision maker. Encouraged patient to formalize these decisions with an Advance directive. Smoking packs per day: 1 Smoking cigarettes per day: 20.0 Years smoked: 40 Smoking pack-years: 40.00 Smoking status: Current every day smoker Tobacco type: cigarettes Second hand tobacco smoke exposure: Yes Additional smoking assessment comments: off and on for last 40+ but continuios last 20 years Alcohol intake: never Substance use: never Do You Feel Safe in your Home?: Yes Lack of Transportation: No Lack of Food: Never True Current Housing: I Have Housing Concerned About Future Housing: No Difficulty Paying Gas/Electric Bills: No Difficulty Paying for Meds: No Currently Unemployed: No Education: High School Diploma/GED Difficulty w/ Childcare or Family Care: No Living arrangements: with family Additional occupation/education comments: disabled Gender identity (if verbalized by the patient): Female Sexual Orientation (if Verbalized by the Patient): Straight or Heterosexual Spiritual care concerns: No Meds Home Medications and Allergies Home Medications Medication Instructions Recorded Confirmed Type aspirin 81 mg tablet,delayed 81 mg PO DAILY 10/08/22 08/19/24 History release carvedilol 25 mg tablet 25 mg PO BID 10/08/22 08/19/24 History furosemide 40 mg tablet 40 mg PO DAILY 10/08/22 08/19/24 History rosuvastatin 40 mg tablet 40 mg PO HS 10/08/22 08/19/24 History amlodipine 10 mg tablet 5 mg PO DAILY 05/03/24 08/19/24 History levothyroxine 200 mcg tablet 175 mcg PO DAILY 05/03/24 08/19/24 History ropinirole 2 mg tablet 2 mg PO BID 05/03/24 08/19/24 History sacubitril 97 mg-valsartan 103 mg 1 tablet PO BID #60 tabs 05/04/24 08/19/24 Rx tablet (Entresto) albuterol sulfate 90 mcg/actuation 2 puff inhalation QID PRN
[2024-08-20] MEDS: COLLAGENASE OINT 30 GM TUBE 1 APPLIC TOPICAL (13:50)
[2024-08-20 17:06] LABS: Glucose Point of Care 137 mg/dl (65-105)
[2024-08-20] MEDS: ROSUVASTATIN 10 MG TABLET 40 MG PO (20:36)
[2024-08-20 20:46] LABS: Glucose Point of Care 187 mg/dl (65-105)
[2024-08-21] VITALS: BP 130/53; PULSE 60; PULSE 66; RESP 18; TEMP 36.6; O2SAT 90
[2024-08-21 04:00] VITALS: BP 122/57; PULSE 62; PULSE 69; RESP 16; TEMP 36.3; O2SAT 95
[2024-08-21 05:21] LABS: Basophils Absolute Auto 0.03 K/mm3 (0.00-0.10); Basophils Percent Auto 0.5 % (0.0-1.0); Eosinophils Absolute Auto 0.12 K/mm3 (0.02-0.50); Eosinophils Percent Auto 1.9 % (1.0-6.0); Hematocrit 34.1 % (35.0-49.0); Hemoglobin 8.9 g/dL (12.0-15.0); Immature Granulocyte Absolute 0.04 K/mm3 (0.00-0.00); Immature Granulocyte Percent A 0.6 % (0.0-0.0); Lymphocytes Absolute Auto 0.65 K/mm3 (1.10-4.50); Lymphocytes Percent Auto 10.1 % (18.0-42.0); Mean Corpuscular HGB Conc 26.1 g/dL (32-36); Mean Corpuscular Volume 80.6 fL (78.0-102.0); Mean Platelet Volume 9.4 fl (9.2-11.8); Monocytes Absolute Auto 0.31 K/mm3 (0.10-0.90); Monocytes Percent Auto 4.8 % (2.0-11.0); Neutrophils Percent Auto 82.1 % (50.0-70.0); Platelet Count Result 189 K/mm3 (150-420); Red Blood Count 4.23 M/mm3 (4.20-5.40); Red Cell Distribution Width 20.2 % (11.6-14.4); White Blood Count 6.5 K/mm3 (4.8-10.8)
[2024-08-21 05:39] LABS: Alanine Aminotransferase 10 U/L (14-59); Albumin Level 2.6 g/dL (3.4-5.0); Alkaline Phosphatase 86 U/L (46-116); Anion Gap 4 mmol/L (4-12); Aspartate Amino Transferase < 10 U/L (15-37); Bilirubin,Total 0.7 mg/dL (0.00-1.00); Blood Urea Nitrogen 22 mg/dL (7-18); Calcium 8.4 mg/dL (8.5-10.1); Carbon Dioxide 36 mmol/L (21-32); Chloride 103 mmol/L (98-108); Estimated CRCL calculation 40 ml/min; Estimated Glomerular Filt Rate 32; Glucose 135 mg/dL (70-99); Osmolality Calculated 301 mOsm/kg (285-295); Potassium 3.3 mmol/L (3.5-5.1); Sodium 143 mmol/L (136-145); Total Protein 6.1 g/dL (6.4-8.2)
[2024-08-21] MEDS: LEVOTHYROXINE SODIUM 100 MCG TABLET 200 MCG PO (06:06)
[2024-08-21 08:00] VITALS: BP 115/48; PULSE 56; PULSE 57; RESP 17; TEMP 35.8; O2SAT 90
[2024-08-21] MEDS: POTASSIUM CHLORIDE 20 MEQ ER TABLET 40 MEQ PO (09:08)
[2024-08-21] MEDS: SACUBITRIL/VALSARTAN 97-103 MG TABLET 1 TAB PO (09:08)
[2024-08-21 09:09] VITALS: PULSE 59
[2024-08-21] MEDS: ASPIRIN 81 MG ENTERIC TABLET PO (09:09)
[2024-08-21] MEDS: FOLIC ACID 1 MG TABLET PO (09:09)
[2024-08-21] MEDS: carvediloL 12.5 MG TABLET 25 MG PO (09:09)
[2024-08-21] MEDS: rOPINIRole HCL 1 MG TABLET 2 MG PO (09:09)
[2024-08-21] MEDS: hydrALAZINE HCL 25 MG TABLET PO (09:09)
[2024-08-21] MEDS: FERROUS SULFATE 325 MG TABLET DR PO (09:09)
[2024-08-21] MEDS: FLUTICASONE/UMECLIDIN/VILANTER 100-62.5-25 MCG ELLIPTA 1 PUFF INHALATION (09:10)
[2024-08-21] MEDS: COLLAGENASE OINT 30 GM TUBE 1 APPLIC TOPICAL (09:10)
--- NOTE | 2024-08-21 10:49 | PM.DS ---
DS: Admitting Diagnosis Discharge Date 08/21/2024 Admitting Diagnosis acute on chronic respiratory failure with hypoxia DS: Discharge Diagnosis Discharge Diagnosis (1) Acute and chronic respiratory failure with hypoxia: Code(s): J96.21 - Acute and chronic respiratory failure with hypoxia Status: Acute (2) Acute hypokalemia: Code(s): E87.6 - Hypokalemia Status: Acute (3) COPD (chronic obstructive pulmonary disease): Code(s): J44.9 - Chronic obstructive pulmonary disease, unspecified Status: Acute (4) Leg wound, right: Code(s): S81.801A - Unspecified open wound, right lower leg, initial encounter Status: Acute (5) Congestive heart failure: Code(s): I50.9 - Heart failure, unspecified Status: Acute (6) Smoker: Code(s): F17.200 - Nicotine dependence, unspecified, uncomplicated Status: Acute (7) Acute on chronic renal failure: Code(s): N17.9 - Acute kidney failure, unspecified; N18.9 - Chronic kidney disease, unspecified Status: Acute (8) Type II diabetes mellitus: Code(s): E11.9 - Type 2 diabetes mellitus without complications Status: Acute (9) Iron deficiency anemia: Code(s): D50.9 - Iron deficiency anemia, unspecified Status: Acute Plan Disposition: DS: Summary Hospital Course Reason for hospitalization: acute on chronic respiratory failure with hypoxia Hospital Course: Patient was a 64-year-old female who presented to the emergency department with complaints of generalized weakness patient states for the last few days she has had general malaise and decreased energy levels. Patient also stated she has had increased shortness breath and her face was swollen for about 2 days prior to arrival. Patient states symptoms are worse with exertion activity and has been taking her more time to recover at rest. The patient has a past medical history of CHF, diabetes, hypertension, hypercholesterolemia, tobacco dependency, and COPD. Patient does report she wears 2 L supplemental oxygen at home but still continues to smoke. In the emergency department patient was found to be in acute on chronic respiratory failure with hypoxia for recovered quickly after placing her back on her 2 L supplemental oxygen and given IV lasix. CTA showed no PE. Patient was also found to be hypokalemic with lower right nonhealing wound other labs unremarkable. Patient was admitted to medical unit for further treatment of acute on chronic respiratory failure with hypoxia. Patient was continued on IV lasix x 3 doses then transition back to her Entresto with improvement in respiratory status. I had spoke with general surgery regarding patient leg wound and no need for emergent I&D at this time she could go to her follow-up appointment at the wound clinic 08/24 fopr further wound care instructions but will need O/P debridement. Patient worked-well with PT/OT and felt back to her baseline, was weaned back to her 2L [place] supplemental oxygen she wears at home. Patient was discharged home with home health orders for continued physical therapy. Status at Discharge Functional status at discharge: uses cane/walker Time Spent with Patient Time attestation: Total time spent providing and/or coordinating discharge services: Time spent: Less than 30 minutes Exam Narrative: Physical Exam: GENERAL: Alert and oriented x 3 pleasant female. No acute distress. EYES: EOMI. No scleral icterus. PERRLA. HEENT: Moist mucous membranes. LUNGS: Clear to auscultation bilaterally. No accessory muscle use. CARDIOVASCULAR: Regular rate and rhythm. No murmur. No JVD. S1-S2 ABDOMEN: Soft, non tenderness and non-distended. No palpable masses. EXTREMITIES: 2+ bilateral edema. Non-tender SKIN: RT LE non-healing wound with purulent drainage, mild erythema, swelling and pain NEUROLOGIC: No focal neurological deficits. CN II-XII grossly intact PSY
[2024-08-21 12:00] VITALS: O2SAT 95
--- NOTE | 2024-08-21 12:01 | PC.NURSE ---
Discharge instructions reviewed with patient. All questions answered. Pt educated on dressing changes and wound care. Supplies sent with patient to last through the weekend. Pt transported via wheelchair and assisted into private vehicle.
== END 2024-08-21 11:40 | disposition home health service (06) | DRG 291 ==
LOC: CHSED 12:22 → CHS2ND 14:21
PROVIDERS: Nurse Practitioner Acute Care; Admitting Provider Internal Medicine; Emergency Provider Emergency Medicine; PCP Family Medicine; Visit Provider Nurse Practitioner Family
DX: I13.0 Hypertensive heart and chronic kidney disease with heart failure and stage 1 through stage 4 chronic kidney disease, or unspecified chronic kidney disease (principal); I11.0 Hypertensive heart disease with heart failure; J96.21 Acute and chronic respiratory failure with hypoxia; E11.9 Type 2 diabetes mellitus without complications; E78.5 Hyperlipidemia, unspecified; I50.9 Heart failure, unspecified; K43.2 Incisional hernia without obstruction or gangrene; I25.10 Atherosclerotic heart disease of native coronary artery without angina pectoris; N18.30 Chronic kidney disease, stage 3 unspecified; N17.9 Acute kidney failure, unspecified; E11.22 Type 2 diabetes mellitus with diabetic chronic kidney disease; E87.6 Hypokalemia; E03.9 Hypothyroidism, unspecified; Z20.822 Contact with and (suspected) exposure to COVID-19; Z79.82 Long term (current) use of aspirin; E78.00 Pure hypercholesterolemia, unspecified; J44.9 Chronic obstructive pulmonary disease, unspecified; S81.801A Unspecified open wound, right lower leg, initial encounter; D50.9 Iron deficiency anemia, unspecified; F32.A Depression, unspecified; F17.210 Nicotine dependence, cigarettes, uncomplicated; Z86.73 Personal history of transient ischemic attack (TIA), and cerebral infarction without residual deficits; Z99.81 Dependence on supplemental oxygen
CPT/HCPCS: 36415; 36600; 71045; 71275; 73700; 80053; 82607; 82746; 82805; 82948; 83036; 83540; 83550; 83735; 83880; 84484; 85018; 85025; 85380; 85610; 85730; 87070; 87181; 87205; 87637; 93005; 93971; 96365; 96366; 97161; 97165; 97530; 99285; A9270; J1650; J1940; J3480; Q9967

== ENCOUNTER 2024-08-29 12:43 | Outpatient (CLI) | payer OTHER, SELFPAY ==
[2024-08-29 12:56] LABS: Basophils Absolute Auto 0.03 K/mm3 (0.00-0.10); Basophils Percent Auto 0.5 % (0.0-1.0); Eosinophils Absolute Auto 0.12 K/mm3 (0.02-0.50); Eosinophils Percent Auto 1.9 % (1.0-6.0); Hematocrit 36.4 % (35.0-49.0); Hemoglobin 9.7 g/dL (12.0-15.0); Immature Granulocyte Absolute 0.05 K/mm3 (0.00-0.00); Immature Granulocyte Percent A 0.8 % (0.0-0.0); Lymphocytes Absolute Auto 0.59 K/mm3 (1.10-4.50); Lymphocytes Percent Auto 9.1 % (18.0-42.0); Mean Corpuscular HGB Conc 26.6 g/dL (32-36); Mean Corpuscular Hemoglobin 21.4 pg (27.0-31.0); Mean Corpuscular Volume 80.2 fL (78.0-102.0); Monocytes Absolute Auto 0.29 K/mm3 (0.10-0.90); Monocytes Percent Auto 4.5 % (2.0-11.0); Neutrophils Absolute Auto 5.38 K/mm3 (1.70-7.20); Neutrophils Percent Auto 83.2 % (50.0-70.0); Platelet Count Result 210 K/mm3 (150-420); Red Blood Count 4.54 M/mm3 (4.20-5.40); Red Cell Distribution Width 21.3 % (11.6-14.4); White Blood Count 6.5 K/mm3 (4.8-10.8)
[2024-08-29 13:58] LABS: Anion Gap 10 mmol/L (4-12); Carbon Dioxide 30 mmol/L (21-32); Chloride 105 mmol/L (98-108); Potassium 2.9 mmol/L (3.5-5.1); Sodium 145 mmol/L (136-145)
[2024-08-29 13:59] LABS: Blood Urea Nitrogen 23 mg/dL (7-18); Calcium 8.6 mg/dL (8.5-10.1); Estimated Glomerular Filt Rate 35; Glucose 146 mg/dL (70-99); Osmolality Calculated 306 mOsm/kg (285-295)
[2024-08-29 14:10] LABS: Alanine Aminotransferase 13 U/L (14-59); Albumin Level 2.9 g/dL (3.4-5.0); Alkaline Phosphatase 87 U/L (46-116); Aspartate Amino Transferase 10 U/L (15-37); Bilirubin,Total 0.9 mg/dL (0.00-1.00); Total Protein 6.3 g/dL (6.4-8.2)
[2024-08-29 15:32] LABS: Ferritin 36 ng/mL (8-252); Iron 25 ug/dL (50-170); Percent Iron Saturation 7 % (12-57)
== END 2024-08-29 12:44 | disposition home or self-care (01) ==
LOC: CHSLAB 12:46
PROVIDERS: PCP Family Medicine
DX: D50.9 Iron deficiency anemia, unspecified (principal); N18.9 Chronic kidney disease, unspecified; L97.212 Non-pressure chronic ulcer of right calf with fat layer exposed
CPT/HCPCS: 36415; 80053; 82728; 83540; 83550; 85025

== ENCOUNTER 2025-04-03 15:50 | Outpatient (CLI) | payer OTHER, SELFPAY ==
--- OUTSIDE RECORDS SUMMARY | 2025-04-03 15:55 | XMS_ITS | Encounter Summary ---
Author Organization [facility] Address [address] [place] [phone] Phone Care Team Providers Care Gypsum Calciner Name Role Phone Iker Mendez MD Primary Care Provider [phone] Reason for Visit * Reason Comments Med Refill Encounter Details Date Type Department Care Team ([facility] Contact Info) Description 10/11/2020 Refill [facility] [address] [place] [address] Anshul Miranda MD [address] [phone] Social History Tobacco Use Types Packs/Day Years Used Date Smoking Tobacco: Heavy Smoker Smokeless Tobacco: Never Alcohol Use Standard Drinks/Week Comments No 0 (1 standard drink = 0.6 oz pur e alcohol) Comments Unknown Sex and Gender Information Value Date Recorded Sex Assigned at Not on file Legal Sex Female 8:55 AM MST Gender Identity Not on file Sexual Orientation Not on file documented as of this encounter Plan of Treatment Upcoming Encounters Date Type Department Care Team ([facility] Contact Info) Description 05/07/2025 2:40 PM CDT Office Visit [facility] [address] [address] Alexandra Samuel NP [address] [address] documented as of this encounter Visit Diagnoses Not on filedocumented in this encounter Care Teams Gypsum Calciner Relationship Specialty Start Date End Date Iker Mendez MD [address] [place] [phone] PCP - General Family Medicine 03/05/19 documented as of this encounter
--- OUTSIDE RECORDS SUMMARY | 2025-04-03 15:55 | XMS_ITS | Encounter Summary ---
Author Organization [facility] Address [address] [place] [phone] Phone Care Team Providers Care Continuous Washer Operator Name Role Phone Iker Mendez MD Primary Care Provider Reason for Visit * Reason Comments Med Refill Encounter Details Date Type Department Care Team ([facility] Contact Info) Description 07/30/2019 Refill [facility] [address] [place] [address] Anshul Miranda MD [address] [phone] Social History Tobacco Use Types Packs/Day Years [...] Upcoming Encounters Date Type Department Care Team ([facility] Contact Info) Description 05/07/2025 2:40 PM CDT Office Visit [facility] [address] [place] [address] Alexandra Samuel NP [address] [address] documented as of this encounter Visit Diagnoses Not on filedocumented in this encounter Care Teams Continuous Washer Operator Relationship Specialty Start Date End Date Iker Mendez MD [address] [place] [phone] PCP - General Family Medicine 03/05/19 documented as of this encounter
--- OUTSIDE RECORDS SUMMARY | 2025-04-03 15:55 | XMS_ITS | Encounter Summary ---
Author Organization [facility] Address [address] [place] [address] Phone Care Team Providers Care Dope Mixer Name Role Phone Iker Mendez MD Primary Care Provider [phone] Reason for Visit * Reason Comments Med Refill Encounter Details Date Type Department Care Team ([facility] Contact Info) Description 09/12/2020 Refill [facility] [address] [address] Anshul Miranda MD [address] [address] Social History Tobacco Use Types Packs/Day Years [...] on file documented as of this encounter Miscellaneous Notes * Telephone Encounter - Amanda Quintero RN - 09/13/2020 8:54 AM CST Med refill denied pt needs to schedule an appt documented in this encounter Plan of Treatment Upcoming Encounters Date Type Department Care Team ([facility] Contact Info) Description 05/07/2025 2:40 PM CDT Office Visit [facility] [address] [facility] [place], [place] [phone] Alexandra Samuel, TOY PACKER [address] [address] documented as of this encounter Visit Diagnoses Not on filedocumented in this encounter Care Teams Dope Mixer Relationship Specialty Start Date End Date Iker Mendez MD [address] [place] [address] PCP - General Family Medicine 03/05/19 documented as of this encounter
--- OUTSIDE RECORDS SUMMARY | 2025-04-03 15:55 | XMS_ITS | Data Portability ---
Author Organization [facility] Lita [facility] Address [address] [place] [address] Care Team Providers Care Central Scheduler Name Role Phone SERJIO TORRES Primary Care Provider GANDHI OTOLARYNGOLOGY Artist Consultant KING SANDHU It Applications Developer [phone] ROXANN CONTRERAS Sponge Fisherman ABDIRIZAK AGUILAR Thinner Sprayer Assessment No assessment recorded. Plan of Treatment Reminders Order Date Submit Date Provider Last Modified By Organization Details Last Modified Time Details Appointments None recorded. Lab glucose, fingerstick , blood 2023 024 [email or web address] In-Office Order, Internal Use Only DO Not Attach Compendium DO Not Attach Compendium, Do Not Delete/merge, [id number] 4 17:15:38 glucose, fingerstick , blood 2023 024 [email or web address] In-Office Order, Internal Use Only DO Not Attach Compendium DO Not Attach Compendium, Do Not Delete/merge, [id number] 4 15:42:59 HbA1c (hemoglobin A1c), blood 2023 024 [facility], [address], [address], [place], [address], 4 08:24:58 TSH + free T4, serum 2023 024 [facility], [address] [facility], [address], [place], [address], 4 08:24:57 Referral general surgeon referral 2023 024 [facility] - General Surgery, [address] [place] [address] [address], [place], [address], 4 18:56:44 physical therapist referral - no images 2022 023 [facility] (Outpatient Physical Therapy), [address], [place], [address], 3 15:02:15 Procedures None recorded. Surgeries None recorded. Imaging None recorded. Medication Orders albuterol sulfate 2.5 mg/3 mL (0.083 %) solution for nebulizatio n 2023 024 [id number], [address] [place] [address], [address], 4 15:10:47 Trulicity 4.5 mg/0.5 mL subcutaneou s pen injector 2023 024 [id number], [address] [place] [address], [address], 4 17:15:40 ropinirole 2 mg tablet 2023 024 [facility], [address] [place], [address], 4 15:39:51 glipizide 5 mg tablet 2023 024 [facility], [address] [place], [address], 4 15:39:52 Trulicity 4.5 mg/0.5 mL subcutaneou s pen injector 2023 024 [facility] [address] [place], [address], 4 17:04:52 amlodipine 10 mg tablet 2023 024 [facility], [address] [place], [address], 4 17:10:59 levothyroxi ne 200 mcg tablet 2023 024 [facility], [address] , [place], [address], 4 17:04:45 Trulicity 0.75 mg/0.5 mL subcutaneou s pen injector 2022 023 dlebeau [facility], [facility] [place], [address], 3 17:40:00 Patient TargetsNo targets recorded. Patient Instructions Encounter Date Encounter Id Patient Instructions Last Modified By Organization Details Last Modified Time 05/16/2023 [id number] When You Want to Lose Weight: Care Instructions [email or web address] Not available 05/16/2023 15:42:58 learning about high blood pressure [email or web address] Not available 05/16/2023 15:42:58 Talk to your legal manager about starting lisinopril for better blood pressure control. [email or web address] Not available 05/16/2023 15:43:57 12/26/2023 [id number] hernia: care instructions [email or web address] Not available 12/26/2023 17:06:50 Follow up in one month for a blood pressure check. [email or web address] Not available 12/26/2023 17:09:55 01/23/2024 [id number] When You Want to Lose Weight: Care Instructions [email or web address] Not available 01/23/2024 15:39:44 learning about high blood pressure dlebeau Not available 01/23/2024 15:39:44 05/07/2024 [id number] When You Want to Lose Weight: Care Instructions [email or web address] Not available 05/07/2024 17:15:38 learning about high blood pressure dlebeau Not available 05/07/2024 17:15:38 hypothyroidism: care instructions [email or web address] Not available 05/07/2024 17:15:38 Follow up in 3 months for a blood pressure check. [email or web address] Not available 05/07/2024 17:16:17 05/22/2024 [id number] When You Want to Lose Weight: Care Instructions [email or web address] Not available 05/22/2024 15:10:45 learning about high blood pressure dlebeau Not available 05/22/2024 15:10:45 chronic obstructive pulmonary disease (COPD): care instructions dlebeau Not available 05/22/2024 15:10:45 learning about copd and how to prevent lung infections dlebeau Not available 05/22/2024 15:10:45 heart failure: care instructions dlebeau Not available 05/22/2024 15:10:45 learning about heart failure dlebeau Not available 05/22/2024 15:10:44 Reason for Referral Physical Therapist Referral for Chronic low back pain no images Referring Physician: Serjio Torres [facility], Encounter Date: 05/16/2023 General Surgeon Referral for Hernia of anterior abdominal wall Referring Physician: Serjio Torres [facility], Encounter Date: 12/26/2023 Results Created Date Observation Date Name Description Value Unit Range Abnormal Flag Note LastModifiedBy Organization Detail LastModifiedTime 12/26/1912/27/2023 TSH+F REE T4 TSH 4.500 uIU/m L 0.450- 4.500 Not Available [facility] ([facility]) [address] [place], [address], 12/27/2023 08:24:57 12/26/1912/27/2023 TSH+F REE T4 T4,free(dire ct) 1.20 NG/dL 0.82-1 .77 Not Available [facility] ([facility]) [address] [place], [address], 12/27/2023 08:24:57 12/26/19 24 12/27/2023 HEMOG LOBIN A1C hemoglobin A1C 7.2 % 4.8-5. 6 above high normal Predi abete s: 5.7 - 6.4 Diabe baljit: >6.4 Glyce sandra contr ol for adult s with diabe baljit: <7.0 Not Available [facility] ([facility]) [address] [facility], [place], [address], 12/27/2023 08:24:57 01/23/20 24 01/23/2024 gluco se, finge rstic k, blood Blood Glucose: mg/dl 111 Not Available In-Off ice Order Internal Use Only DO Not Attach Compendium DO Not Attach Compendium, Do Not Delete/merge, [id number] 01/23/2024 15:16:01 05/07/20 24 05/07/2024 gluco se, finge rstic k, blood Blood Glucose: mg/dl 169 Not Available In-Off ice Order Internal Use Only DO Not Attach Compendium DO Not Attach Compendium, Do Not Delete/merge, [id number] 05/07/2024 16:43:20 05/08/20 23 05/08/2023 elect romyo gram + nerve condu ction study No observ ation record ed. [facility] PT, OT, Speech Therapy [address] [facility] , [place], [address], 05/17/2023 12:38:36 07/16/20 23 07/16/2023 US, mikal x, bjornt id arter y No observ ation record ed. [address] [facility], [place], [address], 12/26/2023 16:53:04 07/16/20 23 07/16/2023 ankle brach ial index No observ ation record ed. [place] [id number] [facility] [address], [place], [address], 12/26/2023 16:53:04 12/12/19 24 12/12/2023 MAMMO , scree stephan, digit al, bilat eral No observ ation record ed. [facility] [address] [place], [address], 01/23/2024 15:25:22 12/12/19 24 12/11/2023 PFT, compl ete No observ ation record ed. [place] [id number] [facility] [address], [place], [address], 12/26/2023 16:53:03 05/03/20 24 05/03/2024 XR, chest No observ ation record ed. [facility] [address] [place], [address], 05/07/2024 17:08:14 05/03/20 24 05/03/2024 CT, angio gram, chest , w/ contr ast No observ ation record ed. [facility] [address] [place], [address], 05/07/2024 17:08:14 05/03/20 24 05/03/2024 US, doppl er echoc ardio gram, w/ color flow No observ ation record ed. [address], [place], [address], 05/07/2024 17:08:14 05/03/20 24 05/03/2024 US, doppl er echoc ardio gram, w/ color flow No observ ation record ed. [address], [place], [address], 05/07/2024 17:08:14 05/04/20 24 05/04/2024 US, doppl er, venou s No observ ation record ed. [place] [id number] [facility] [address], [place], [address], 05/07/2024 17:08:14 05/15/20 24 05/15/2024 XR, chest No observ [facility] ed[facility] [address] [place], [address], 05/22/2024 15:09:04 05/15/20 24 05/15/2024 CT, angio gram, chest , w/ contr ast No observ [facility]ion [facility] ed. [facility] [address] [place], [address], 05/22/2024 15:09:04 06/30/20 24 06/30/2024 XR, tibia + fibul a No observ ation record ed. [email or web address] [facility] [address] [place], [address], 07/03/2024 13:41:09 Result Notes None recorded. Problems Name Problem SNOMED Code Status Onset Date Resolution Date Notes Provider Name and Address Organization Details Recorded Time Diastasi s recti 67211840 Active 2019 Serjio Torres MD Attn: Mariana rajput,[address] [facility], [place], [address], [facility] 3 15:44:28 Restless legs 76202622 Active 2019 Serjio Torres MD Attn: Mariana rajput,[address] [place], [address], [facility] 3 15:44:28 Diabetes mellitus 94365678 Active Serjio Torres MD Attn: Mariana rajput,[address] [facility], [place], [address], [facility] 3 15:44:28 [facility]entia l hyperten robert 86852730 Active 2020 Serjio Torres MD Attn: Mariana rajput,[address] [place], [address], [facility] 2 11:44:56 Obesity 203565370 Active Serjio Torres MD Attn: Mariana rajput,[address] [facility], [place], [address], [place] [facility] 3 15:44:28 Hypercho lesterol emia 72061798 Active Serjio Torres MD Attn: Andidonya rajput,[address] [facility], [place], [address], [place] [facility] 3 15:44:28 Goiter 2194909 Active Serjio Torres MD Attn: Mariana regulo,[address] [facility], [place], [address], [place] [facility] 3 15:44:28 Diastoli c dysfunct ion 2423298 Active 2020 Serjio Torres MD Attn: Mariana regulo,[address] [facility], [place], [address], [place] [facility] 3 15:44:28 Multinod ular goiter 688752838 Completed 201401/13/2015 Serjio Torres MD Attn: Mariana regulo,[address] [facility], [place], [address], [place] [facility] 4 10:09:35 Renal impairme nt 988674147 Active 2020 Serjio Torres MD Attn: Mariana rajput,[address] [facility], [place], [address], [place] [facility] 1 12:13:43 Congesti ve heart failure 18869147 Active 2020 Serjio Torres MD Attn: Mariana rajput,[address] [facility], [place], [address], [place] [facility] 2 11:44:49 Dyspnea on exertion 82344977 Active 2020 Serjio Torres MD Attn: Mariana rajput,[address] [facility], [place], [address], [place] [facility] 1 12:13:44 Body mass index 30+ - obesity 744218935 Active 2020 Serjio Torres MD Attn: Mariana rajput,[address] [facility], [place], [address], [place] [facility] 1 12:13:44 Acute on chronic diastoli c heart failure 087243999 Active 2020 Serjio Torres MD Attn: Accountdonya g,[address] [facility], [place], [address], [place] [facility] 1 12:13:44 Mixed hyperlip idemia 116994654 Active 2020 Serjio Torres MD Attn: Accountin g,[address] [facility], [place], [address], [place] [facility] 1 12:13:44 Carotid artery stenosis 23661017 Completed 201404/06/2015 Serjio Torres MD Attn: Accountdonya g,[address] [facility], [place], [address], [place] [facility] 4 10:09:35 Body mass index 40+ - severely obese 180880790 Active 2021 Serjio Torres MD Attn: Accountin g,[address] [facility], [place], [address], [place] [facility] 2 10:39:35 Chronic kidney disease stage 3 751338228 Active 2021 Serjio Torres MD Attn: Accountdonya g,[address] [facility], [place], [address], [place] [facility] 2 10:39:36 Morbid obesity 155878719 Active 2021 Serjio Torres MD Attn: Accountin g,[address] [facility], [place], [address], [place] [facility] 2 10:39:36 Smoker 73930001 Active 2022 Serjio Torres MD Attn: Accountdonya g,[address] [facility], [place], [address], [place] [facility] 3 15:44:28 Cervical intraepi thelial neoplasi a grade III with severe dysplasi a 086229665 Active 2022 Serjio Torres MD Attn: Mariana rajput,[address] [facility], [place], [address] [place] [address] 2, [place] [facility] 3 15:44:28 Abnormal histolog ical finding in specimen from female genital organ 330422856 Active 2022 Serjio Torres MD Attn: Mariana rajput,[address] [facility], [place], [address] [place] [address] 2, [place] [facility] 3 15:44:28 History of procedur e 503209618 Active 2022 Serjio Torres MD Attn: Mariana rajput,[address] [place], [place], [address] [place] [address] 2, [place] [facility] 3 15:44:28 Recurren t urinary tract infectio n 108655398 Active 2023 Serjio Torres MD Attn: Mariana rajput,[address] [place], [place], [address] [place] [address] 2, [place] [facility] 4 10:09:18 Obesity caused by energy imbalanc e 163606085 Active 2021 Serjio Torres MD Attn: Mariana rajput,[address] [place], [place], [address] [place] [address] 2, [place] [facility] 4 10:09:19 Proteinu gardenia 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 Active 2017 Serjio Torres MD Attn: Mariana rajput,[address] [place], [address], [place] [facility] 4 15:05:50 Iron deficien cy anemia 22161839 Active 2022 Serjio Torres MD Attn: Mariana rajput,[address] [place], [address], [place] [facility] 4 15:05:50 Hypothyr oidism 76449528 Active Serjio Torres MD Attn: Mariana regulo,[address] [place], [place], [address] [place] [address] 2, [place] [facility] 3 15:44:28 Medullar y thyroid carcinom a 651377559 Active thyroidec nancy Serjio Torres MD Attn: Mariana rajput,[address] [facility], [place], [address], [place] [facility] 3 15:44:28 Foot-jeny p 3983665 Active Serjio Torres MD Attn: Mariana rajput,[address] [facility], [place], [address] [place] [address] 2, [place] [facility] 3 15:44:28 Pain of hip region 32852027 Active Serjio Torres MD Attn: Mariana rajput,[address] [facility], [place], [address] [place] [address] 2, [place] [facility] 3 15:44:28 HPV - Human papillom avirus test positive Active Serjio Torres MD Attn: Mariana rajput,[address] [facility], [place], [address] [place] [address] 2, [place] [facility] 3 15:44:28 Dysuria 22011101 Active Serjio Torres MD Attn: Mariana rajput,[address] [facility], [place], [address] [place] [address] 2, [place] [facility] 3 15:44:28 Urinary tract infectio us disease 93552082 Active Serjio Torres MD Attn: Mariana rajput,[address] [facility], [place], [address] [place] [address] 2, [place] [facility] 3 15:44:28 Tobacco dependen ce syndrome 80533386 Active Serjio Torres MD Attn: Mariana g,[address] [facility], [place], [address] [place] [address] 2, [place] [facility] 3 15:44:28 Cough 70711655 Active Serjio Torres MD Attn: Mariana g,[address] [facility], [place], [address] [place] [address] 2, [place] [facility] 3 15:44:28 Low back pain 317817496 Active Serjio Torres MD Attn: Mariana rajput,[address], [place], [address], [facility] 3 15:44:28 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 Please review this document and add these problems to the patient's chart manually as needed. Problem Notes None recorded. Procedures Surgical History Date Name Laterality Status Provider Name and Address Organization Details Recorded Time 03/20/20 23 Colposcopy completed ELEANOR MONTENEGRO Attn: Accounting,[address] [facility], [place], [address], [facility] 03/20/2023 17:21:22 10/13/20 15 Colposcopy completed Derrek Unger DO Attn: Accounting,[address] , [place], [address], [facility] 10/13/2015 13:11:08 04/06/20 15 Thyroid Surgery completed Manuel Nickerson RN [place] [facility] 05/04/2015 10:41:59 cataract surgery completed Elliott Adan MA [place] [facility] 10/11/2021 11:11:47 Cholecystectomy completed Amparo Che MA [place] [facility] 12/21/2014 11:23:48 Imaging Results None recorded. Procedure Notes None recorded. Medical Equipment None Reported. Allergies Allergen ID Allergen Name Allergen Category Reaction Reaction Severity Criticality Documentation Date Start Date Code Code System Note Provider Name and Address Organization Details Recorded Time [id number] metformin medicatio n Not available Not available Not available 02/23/2023 6809 RxNorm conta indic ated in ckd Serjio Torres MD Attn: Mariana rajput,[address] [facility], [place], [address], [facility] 3 15:44:11 Medications Name Sig Start Date Stop Date Status Note LastModified by Organization Details LastModified Time antacid chw 500mg active Not Available Not Available Not Available cyclobenzap rine 10 mg tablet TAKE 1 TABLET BY MOUTH THREE TIMES DAILY NEEDED FOR MUSCLE SPASM 11/20 completed Not Available Not Available Not Available amoxicillin 500 mg capsule 01/18 completed Not Available Not Available Not Available pramipexole 1 mg tablet TAKE 1 TABLET BY MOUTH ONCE DAILY IN THE MORNING 11/20 completed Not Available Not Available Not Available furosemide 40 mg tablet TAKE 1 TABLET BY MOUTH ONCE DAILY active Not Available Not Available No t Available atorvastati n 40 mg tablet 40 mg by oral route. 01/20 completed Not Available Not Available Not Available levothyroxi ne 175 mcg tablet TAKE 1 TABLET BY MOUTH ONCE DAILY 03/20 completed Not Available Not Available Not Available bupropion HCl SR 150 mg tablet,12 hr sustained-r elease Take 1 tablet twice a day by oral route. 12/26 completed Not Available Not Available Not Available atorvastati n 80 mg tablet TAKE ONE TABLET BY MOUTH ONCE DAILY. 08/31 completed Not Available Not Available Not Available carvedilol 25 mg tablet TAKE 1 TABLET BY MOUTH TWICE DAILY active Not Available Not Available No t Available doxycycline hyclate 100 mg capsule 01/18 completed Not Available Not Available Not Available atorvastati n 20 mg tablet Take 1 tablet by mouth once daily 05/12 completed Not Available Not Available Not Available carvedilol 12.5 mg tablet Take 1 tablet twice a day by oral route. 12/26 completed Not Available Not Available Not Available ropinirole 1 mg tablet TAKE 1 TABLET BY MOUTH THREE TIMES DAILY 11/20 completed Not Available Not Available Not Available clindamycin HCl 300 mg capsule TAKE 1 CAPSULE BY MOUTH EVERY 8 HOURS FOR 10 DAYS 11/20 completed Not Available Not Available Not Available albuterol sulfate 2.5 mg/3 mL (0.083 %) solution for nebulizatio n INHALE 3 ML 3 TIMES A DAY BY NEBULIZAT ION ROUTE NEEDED, FOR WHEEZING AND SHORTNESS OF BREATH. active Not Available Not Available No t Available lisinopril 20 mg-hydrochl orothiazide 12.5 mg tablet Take 2 tablets every day by oral route. 07/15 completed Not Available Not Available Not Available azithromyci n 250 mg tablet TAKE 2 TABLETS (500 MG) BY ORAL ROUTE ONCE DAILY FOR 1 DAY THEN 1 TABLET (250 MG) BY ORAL ROUTE ONCE DAILY FOR 4 DAYS 05/22 completed Not Available Not Available Not Available Lidocaine Viscous 2 % mucosal solution 12/03 completed Not Available Not Available Not Available ofloxacin 0.3 % eye drops INSTILL 1 DROP THREE TIMES DAILY BEGINNING 2 DAYS BEFORE SURGERY 11/20 completed Not Available Not Available Not Available levothyroxi ne 300 mcg tablet Take 1 tablet every day by oral route. 06/19 completed Not Available Not Available Not Available atenolol 100 mg tablet Take 1 tablet every day by oral route. 08/21 completed Not Available Not Available Not Available ampicillin 500 mg capsule 12/26 completed Not Available Not Available Not Available clarithromy chevy 500 mg tablet active Not Available Not Available Not Available hydrocodone 5 mg-acetamin ophen 325 mg tablet Take 1 tablet every 6 hours by oral route as needed. 01/18 completed Not Available Not Available Not Available sucralfate 1 gram tablet active Not Available Not Available Not Available lisinopril 20 mg tablet TAKE 1 TABLET BY MOUTH TWICE DAILY 11/21 completed Not Available Not Available Not Available glipizide 10 mg tablet TAKE 1 TABLET BY MOUTH TWICE DAILY 01/22 completed Not Available Not Available Not Available Pyridium 200 mg tablet Take 1 tablet 3 times a day by oral route for 2 days. 06/19 completed Not Available Not Available Not Available hydralazine 25 mg tablet TAKE 1 TABLET BY MOUTH TWICE DAILY active Not Available Not Available No t Available Klor-Con 20 mEq oral packet active Not Available Not Available Not Available amlodipine 5 mg tablet TAKE 1 TABLET BY MOUTH ONCE DAILY 12/26 completed Not Available Not Available Not Available ciprofloxac in 500 mg tablet Take 1 tablet every 12 hours by oral route for 7 days. 06/19 completed Not Available Not Available Not Available sulfamethox azole 800 mg-trimetho prim 160 mg tablet Take 1 tablet every 12 hours by oral route for 7 days. 02/14 completed Not Available Not Available Not Available aspirin 81 mg tablet,nicole yed release TAKE 1 TABLET BY MOUTH ONCE DAILY active Not Available Not Available No t Available tramadol 50 mg tablet TAKE 1 TABLET BY MOUTH ONCE DAILY AT BEDTIME 12/26 completed Not Available Not Available Not Available ketorolac 10 mg tablet active Not Available Not Available Not Available levothyroxi ne 75 mcg tablet Take 1 tablet every day by oral route. active Not Available Not Available No t Available ketorolac 0.5 % eye drops INSTILL 1 DROP INTO AFFECTED EYE 4 TIMES DAILY BEGINNING 2 DAYS BEFORE SURGERY 04/13 completed Not Available Not Available Not Available oxycodone-a cetaminophe n 5 mg-325 mg tablet active Not Available Not Available No t Available calcium 600 mg (as calcium carbonate 1,500 mg) tablet Take 2 tablets every day by oral route, for calcium deficienc y. 2023 active Not Available Not Available Not Avai lable clonidine HCl 0.2 mg tablet TAKE 1 TABLET BY MOUTH THREE TIMES DAILY 11/20 completed Not Available Not Available Not Available prednisolon e acetate 1 % eye drops,suspe nsion 04/13 completed Not Available Not Available Not Available furosemide 80 mg tablet TAKE 1 TABLET BY MOUTH ONCE DAILY 01/10 completed Not Available Not Available Not Available OneTouch Ultra Test strips USE DIRECTED ONCE DAILY active Not Available Not Available No t Available baclofen 10 mg tablet TAKE 1 TABLET BY MOUTH THREE TIMES DAILY 11/20 completed Not Available Not Available Not Available amlodipine 10 mg tablet TAKE 1 TABLET BY MOUTH ONCE DAILY active Not Available Not Available No t Available hydrocodone 7.5 mg-acetamin ophen 325 mg tablet active Not Available Not Available No t Available ropinirole 2 mg tablet TAKE 1 TABLET BY MOUTH IN THE MORNING AND 2 AT BEDTIME active Not Available Not Available No t Available cephalexin 500 mg capsule TAKE 1 CAPSULE BY MOUTH THREE TIMES A DAY FOR 10 DAYS active Not Available Not Available No t Available simvastatin 20 mg tablet Take 1 tablet every day by oral route. active Not Available Not Available No t Available metformin 1,000 mg tablet Take 1 tablet by mouth twice daily 02/23 completed Not Available Not Available Not Available polymyxin B sulfate 10,000 unit-trimet hoprim 1 mg/mL eye drops 06/19 completed Not Available Not Available Not Available levothyroxi ne 150 mcg tablet active Not Available Not Available Not Available gabapentin 300 mg capsule TAKE 1 CAPSULE BY MOUTH THREE TIMES DAILY DIRECTED 01/10 completed Not Available Not Available Not Available sertraline 25 mg tablet active Not Available Not Available Not Available omeprazole 20 mg capsule,del ayed release active Not Available Not Available Not Available levothyroxi ne 200 mcg tablet TAKE 1 TABLET BY MOUTH ONCE DAILY active Not Available Not Available No t Available hydrochloro thiazide 25 mg tablet TAKE 1 TABLET BY MOUTH ONCE DAILY 01/10 completed Not Available Not Available Not Available estradiol 0.01% (0.1 mg/gram) vaginal cream active Not Available Not Available Not Available albuterol sulfate HFA 90 mcg/actuati on aerosol inhaler INHALE 2 PUFFS 4 TIMES A DAY NEEDED FOR SHORTNESS OF BREATH OR FOR WHEEZE active Not Available Not Available No t Available lisinopril 40 mg tablet TAKE ONE TABLET BY MOUTH ONCE DAILY 12/03 completed Not Available Not Available Not Available fluticasone propionate 50 mcg/actuati on nasal spray,suspe nsion 01/18 completed Not Available Not Available Not Available sertraline 50 mg tablet TAKE 1 TABLET BY MOUTH EVERY DAY active Not Available Not Available No t Available dicyclomine 10 mg capsule active Not Available Not Available Not Available atenolol 50 mg tablet TAKE 1 TABLET BY MOUTH TWICE DAILY 07/12 completed Not Available Not Available Not Available glipizide 5 mg tablet TAKE 1 TABLET BY MOUTH TWICE DAILY active Not Available Not Available No t Available amoxicillin 500 mg-potassiu m clavulanate 125 mg tablet 12/26 completed Not Available Not Available Not Available nicotine 21mg/24hr-1 4mg/24hr-7m g/24hr daily transderm patches,seq uentl Apply 1 patch every day by transderm al route. 01/18 completed Not Available Not Available Not Available ciprofloxac in ER 500 mg tablet,exte nded release 24hr mphase Take 1 tablet every day by oral route for 3 days. 10/09 completed Not Available Not Available Not Available apple cider vinegar 500 mg tablet 500 mg twice a day by oral route. active Not Available Not Available No t Available rosuvastati n 40 mg tablet TAKE 1 TABLET BY MOUTH ONCE DAILY active Not Available Not Available No t Available Klor-Con M20 mEq tablet,exte nded release Take 1 tablet twice a day by oral route for 30 days. 09/10 completed Not Available Not Available Not Available Alcohol Prep Pads Apply 1 pad every day by topical route in the morning. 2020 active Not Available Not Available Not Avai lable nitrofurant oin monohydrate /macrocryst als 100 mg capsule Take 1 capsule every 12 hours by oral route for 7 days. 02/14 completed Not Available Not Available Not Available cinnamon bark 500 mg capsule 500 mg twice a day by oral route. 2017 active Not Available Not Available Not Avai lable calcium 500 mg (as carbonate)- vit D3 10 mcg (400 unit) chewable tablet Take 1 {tbl} twice a day by oral route. 12/26 completed Not Available Not Available Not Available potassium chloride active Not Available Not Available Not Available Chantix Starting Month Box 0.5 mg (11)-1 mg (42) tablets in dose pack TAKE BY MOUTH DIRECTED ON INSIDE OF PACKAGE 05/12 completed Not Available Not Available Not Available Anoro Ellipta 62.5 mcg-25 mcg/actuati on powder for inhalation INHALE 1 PUFF BY MOUTH ONCE DAILY 11/20 completed Not Available Not Available Not Available Jardiance 10 mg tablet TAKE 1 TABLET BY MOUTH EVERY DAY active Not Available Not Available No t Available Trulicity 1.5 mg/0.5 mL subcutaneou s pen injector Inject 0.5 mL every week by subcutane ous route. 07/10 completed Not Available Not Available Not Available Trulicity 0.75 mg/0.5 mL subcutaneou s pen injector Inject 0.5 mL every week by subcutane ous route. 06/12 completed Not Available Not Available Not Available Entresto 97 mg-103 mg tablet TAKE 1 TABLET BY MOUTH TWICE DAILY active Not Available Not Available No t Available Entresto 49 mg-51 mg tablet TAKE 1 TABLET BY MOUTH TWICE DAILY 11/20 completed Not Available Not Available Not Available bupropion HCl 150 mg tablet,12 hr sustained-r elease(smok ing deterrent) TAKE 1 TABLET BY MOUTH TWICE DAILY 12/26 completed Not Available Not Available Not Available OneTouch Ultra Blue Test Strip USE DIRECTED ONCE DAILY 04/13 completed Not Available Not Available Not Available OneTouch Delica Plus Lancet 33 gauge USE DIRECTED ONCE DAILY active Not Available Not Available No t Available Trulicity 3 mg/0.5 mL subcutaneou s pen injector Inject 0.5 mL every week by subcutane ous route. 08/15 completed Not Available Not Available Not Available Trulicity 4.5 mg/0.5 mL subcutaneou s pen injector INJECT 1 SYRINGE SUBCUTANE OUSLY ONCE A WEEK 2023 active Not Available Not Available Not Avai lable Vitals Date Recorded Body height Respiratory rate Body mass index (BMI) Body weight Heart rate Body temperature Oxygen saturation Oxygen saturation in Arterial blood by Pulse oximetry Systolic blood pressure Diastolic blood pressure Provider Name and Address Organization Details Last Updated DateTime 4 162.56 cm 18 /min 42.1 kg/m2 986389. 13 g 66 /min 97.7 [degF] 96 % 96 % 163 mm[Hg] 76 mm[Hg] Kelsey Samuel MA [facility] 4 16:34:49 Date Recorded Body height Body mass index (BMI) Body weight Respiratory rate Body temperature Heart rate Oxygen saturation Oxygen saturation in Arterial blood by Pulse oximetry Systolic blood pressure Diastolic blood pressure Provider Name and Address Organization Details Last Updated DateTime 4 162.56 cm 42.5 kg/m2 702579. 51 g 18 /min 97.9 [degF] 61 /min 99 % 99 % 132 mm[Hg] 81 mm[Hg] Elliott Adan MA [place] - [facility] 4 15:17:24 Date Recorded Body height Body mass index (BMI) Body weight Respiratory rate Body temperature Heart rate Systolic blood pressure Diastolic blood pressure Provider Name and Address Organization Details Last Updated DateTime 4 162.56 cm 41.2 kg/m2 827118. 57 g 18 /min 98.5 [degF] 68 /min 146 mm[Hg] 51 mm[Hg] Elliott Adan MA [facility] 4 16:45:49 Date Recorded Body height Body mass index (BMI) Body weight Respiratory rate Body temperature Heart rate Oxygen saturation Oxygen saturation in Arterial blood by Pulse oximetry Systolic blood pressure Diastolic blood pressure Provider Name and Address Organization Details Last Updated DateTime 3 162.56 cm 42.5 kg/m2 450173. 51 g 18 /min 97.6 [degF] 59 /min 91 % 91 % 168 mm[Hg] 69 mm[Hg] Elliott Adan MA [facility] 3 15:10:16 Date Recorded Body height Body mass index (BMI) Body weight Respiratory rate Oxygen saturation Oxygen saturation in Arterial blood by Pulse oximetry Heart rate Body temperature Systolic blood pressure Diastolic blood pressure Provider Name and Address Organization Details Last Updated DateTime 4 162.56 cm 40.2 kg/m2 042902. 01 g 16 /min 91 % 91 % 74 /min 97.7 [degF] 133 mm[Hg] 71 mm[Hg] Kelsey Samuel MA [facility] 4 14:26:49 Social History Question Answer Notes LastModified by Organizat ion Details LastModified Time Tobacco Smoking Status Current Some Day Smoker Kelsey Samuel MA [facility], [facility] 05/22/2024 14:24:44 Are You Blind Or Do You Have Difficulty Seeing? No Information not available 02/14/2023 What Is Your Level Of Caffeine Consumption? Occasional Coffee [email or web address] Information not available 12/21/2014 How Much Tobacco Do You Chew? None Information not available 12/21/2014 Are You Deaf Or Do You Have Serious Difficulty Hearing? No Information not available 02/14/2023 What Type Of Diet Are You Following? REGULAR Information not available 02/14/2023 Education 12 Information not available 12/21/2014 Hard Of Hearing Or Deaf In One Or Both Ears? No [email or web address] Information not available 12/21/2014 Legally Blind In One Or Both Eyes? No [email or web address] Information not available 12/21/2014 Live Alone Or With Others? With Others [email or web address] Information not available 12/21/2014 What Was The Date Of Your Most Recent Tobacco Screening? 05/22/2024 [email or web address] Information not available 05/22/2024 How Many Children Do You Have? 3 [email or web address] Information not available 12/21/2014 Do You Use Protection During Sex? No [email or web address] Information not available 12/21/2014 What Is Your Relationship Status? Information not available 02/14/2023 Are You Sexually Active? Yes [email or web address] Information not available 12/21/2014 Do You Have Smoke And Carbon Monoxide Detectors In Your Home? Yes Information not available 02/14/2023 Are You Passively Exposed To Smoke? Yes Information not available 02/14/2023 How Much Tobacco Do You Smoke? 0.25 PPD Information not available 05/07/2024 Has Tobacco Cessation Counseling Been Provided? Yes Information not available 02/14/2023 On What Date Was Tobacco Cessation Counseling Provided? 05/07/2024 Information not available 05/07/2024 Sex: Female Functional Status Question Answer Note LastModified by Organizat ion Details LastModified Time Do you use any illicit or recreational drugs? No Information not available 02/14/2023 Do you or have you ever used any other forms of tobacco or nicotine? Yes Information not available 01/23/2024 What is your level of alcohol consumption? None [email or web address] Information not available 12/21/2014 Do you or have you ever used smokeless tobacco? Never used smokeless tobacco Information not available 01/23/2024 Are you currently employed? No [email or web address] Information not available 12/21/2014 Are you able to care for yourself? Yes [email or web address] Information not available 12/21/2014 Do you or have you ever used e-cigarettes or vape? Former user of electronic cigarettes Information not available 01/23/2024 What is your exercise level? Occasional Information not available 02/14/2023 Mental Status None recorded. Family History Relationship Description Onset Age of this Age Resolved Age Notes LastModified by Organization Details LastModified Time Father Hypertensive disorder [email or web address] Not available 02/14 10:13:34 Father Diabetes mellitus [email or web address] Not available 02/14 10:13:41 Father Cardiopulmon renate bypass operation [email or web address] Not available 02/14 10:14:17 Father Heart disease [email or web address] Not available 02/14 10:14:24 Medical History Condition Response Coronary Artery Disease N Other Y Atrial Fibrillation N High Blood Pressure Y Kidney or Bladder Problems N Thyroid Problems Y GI Problems N Depression N COPD N Blood Clots N Skin Problems N Anemia N Heart Attack ([place]) N Anxiety Disorder N Diabetes Y Muscle, Joint, or Bone Problems N Seizures/Epilepsy N Acid Reflux (GERD) N Stroke Y Asthma N Allergies N High Cholesterol Y Hepatitis N Liver Disease N Headaches N Heart Failure N Osteoporosis N Gynecological History Statement/Question Response If Post Menopausal, Age at Menopause 53 Sexually Active? Y On BCP's at Conception? N Menses Monthly N STIs/STDs N HPV Vaccine N Sexual Problems? N Age at Menarche 14 Current Control Method Menopause Age at First Child 26 Obstetrics History GPAL:G 4 P 3 0 1 3 Type Value Multiple Births 0 Full Term 3 Induced 0 Spontaneous 1 Premature 0 Living 3 Ectopics 0 Total 4 Immunizations Vaccine Type Date Status Note Provider Nam e and Address Organization Details Recorded Time COVID-19, mRNA, LNP-S, PF, 100 mcg/0.5mL dose or 50 mcg/0.25mL dose 2 completed Serjio Torres MD Attn: [address] [place], [address], [place] [facility] 12/27/2023 10:10:09 pneumococcal polysaccharide PPV23 5 completed Serjio Torres MD Attn: [address] [place], [address], [place] [facility] 12/27/2023 10:10:09 Influenza, high-dose, trivalent, PF 7 completed Serjio Torres MD Attn: [address] [place], [address], [place] [facility] 05/22/2024 15:06:17 Influenza, split virus, trivalent, preservative 11/08/201 6 completed Serjio Torres MD Attn: [address]ing[address] [facility], [place], [address], [facility] 05/22/2024 15:06:17 Influenza, split virus, trivalent, preservative 4 completed Serjio Torres MD Attn: Accounting[address] [facility], [place], [address], [facility] 05/22/2024 15:06:17 pneumococcal polysaccharide PPV23 5 completed Not Available [facility] 12/10/2023 12:38:33 Influenza, split virus, quadrivalent, preservative 9 completed Not Available [facility] 11/15/2019 02:51:08 Influenza, split virus, quadrivalent, preservative 0 completed Diana Nickerson RN [facility], [facility] 07/12/2020 13:24:14 Influenza, split virus, quadrivalent, PF 2 completed Serjio Torres MD Attn: Accounting[address] [facility], [place], [address], [facility] 08/14/2022 17:40:51 Tdap 5 completed Not Available [facility] 11/15/2019 02:45:32 Past Encounters Encounter ID Performer Location Encounter Start Date Encounter Closed Date Diagnosis/Indication Diagnosis SNOMED-CT Code Diagnosis ICD10 Code Diagnosis Note [id number] LISETTE Wan e ([facility]) [address] [place] [address] 09/18/2014 11:06:43 09/18/2014 15:08:03 Low back pain [id number] MD Manuela Busby [facility] ([facility]) [address] [place] [address] 12/17/2014 09:51:44 12/22/2014 21:41:21 [id number] MD Manuela Busby e ([facility]) [address] [place] [address] 12/21/2014 10:41:41 12/22/2014 22:29:09 Diabetes mellitus 64350429 Essential hypertension 64597022 Obesity 981806420 Hypercholesterolemia 97333163 Adult heal th examination 571706079 Goiter 6014500 [id number] Serjio Torres MD [facility] ([facility]) [address] [place] [address] 8 03/03/2015 14:00:38 03/04/2015 10:41:58 Diabetes mellitus 54832812 Hypercholesterolemia 79459389 [id number] Serjio Torres MD [facility] (Family [facility]) [address] [place] [address] 8 04/26/2015 10:30:24 04/26/2015 13:16:16 [id number] Serjio Torres MD [facility] ([facility]) [address] [place] [address] 8 06/02/2015 14:26:23 06/03/2015 09:55:25 Diabetes mellitus 17386713 Essential hypertension 70750126 [id number] Serjio Torres MD [facility] ([facility]) [address] [place] [address] 8 07/12/2015 15:03:39 07/13/2015 13:05:00 Hypercholesterolemia 51157404 Essential hypertension 33873576 Diabetes mellitus 29657499 Low back pain 622235514 [id number] Derrek Unger DO [facility] ([employer]) [address] [place] [address] 8 09/21/2015 11:28:30 09/24/2015 12:39:04 Gynecologic examination 97230918 Z01.419 [id number] Serjio Torres MD [facility] ([facility]) [address] [place] [address] 10/04/2015 10:32:22 10/05/2015 10:26:35 Obesity 059537659 E66.9 Foot-drop 3355714 M21.37 9 Adult heal th examination 714300896 Z00.00 [id number] Serjio Torres MD [facility] ([facility]) [address] [place] [address] 8 10/11/2015 11:17:45 10/11/2015 14:39:40 Diabetes mellitus 39136365 E11.9 Obesity 889666790 E66.9 Foot-drop 4839828 M21.37 9 Pain of hip region 46603 002 M25.552 [id number] Derrek Unger [facility] ([employer]) [address] [place] [address] 8 10/13/2015 12:18:53 10/15/2015 12:18:35 HPV - Human papillomavirus test positive 654415543 R87.619 [id number] Serjio Torres MD [facility] (Family [facility]) [address] [place] [address] 8 01/10/2016 10:11:50 01/19/2016 15:43:00 Diabetes mellitus 56542376 E11.9 Hypercholesterolemia 136 09758 E78.0 Hypothyroidism 49424265 E03.9 [id number] Serjio Torres MD [facility] ([facility]) [address] [place] [address] 8 04/03/2016 10:33:36 04/03/2016 11:57:35 Dysuria 63933693 R30.0 [id number] Serjio Torres MD [facility] ([facility]) [address] [place] [address] 8 04/10/2016 10:32:03 04/13/2016 15:48:06 Diabetes mellitus 36477983 E11.9 Essential hypertension 04248107 I10 Hypothyroidism 02471331 E03.9 [id number] Serjio Torres MD [facility] ([facility]) [address] [place] [address] 8 05/17/2016 15:42:47 05/23/2016 03:47:44 Obesity 349316479 E66.9 Diabetes mellitus 199709 09 E11.9 Tobacco de pendence syndrome 22474826 F17.290 Cough 68580622 R05 [id number] MD Manuela Busby [facility] (Family Med) [address] [place] [address] 8 07/25/2016 09:57:08 07/25/2016 13:48:43 Dysuria 13271764 R30.0 [id number] MD Manuela Busby [facility] ([facility]) [address] [place] [address] 8 10/02/2016 10:28:27 10/02/2016 16:34:14 [id number] MD Manuela Busby [facility] ([facility]) [address] [place] [address] 8 10/09/2016 14:19:08 10/17/2016 15:34:43 Diabetes mellitus 68480329 E13.21 Obesity 835684747 E66.9 [id number] MD Manuela Busby [facility] ([facility]) [address] [place] [address] 02/12/2017 16:12:56 02/28/2017 12:31:19 Diabetes mellitus 67084715 E13.21 Chronic cough 81562836 R 05 Obesity 497214582 E66.9 Tobacco de pendence syndrome 43593786 F17.290 Essential hypertension 88639766 I10 [id number] MD Manuela Busby [facility] ([facility]) [address] [place] [address] 03/01/2017 11:04:17 03/06/2017 16:45:31 Diabetes mellitus 79958279 E13.21 Ventral in cisional hernia 532178788 K43.2 [id number] Himanshu Chand MD [facility] [address] [place] [phone] 05/31/2017 15:26:05 06/07/2017 15:38:56 Uncomplicated ventral incisional hernia 963956874 K43.2 PT HAS REDUCIBLE MILDLY SYMPTOMATI C RUQ SUBCOSTAL INCISIONAL HERNIA. SHE ALSO HAS DM AND HER HbA1C IS GENARO AT 7.5. SHE IS ALSO SMOKING AND HER BMI=44. ALL THESE RISK FACTORS FOR COMPLICATI ONS MAKE HER A HIGH RISK FOR ELECTIVE INCISIONAL HERNIA REPAIR WITH MESH AT THIS TIME. RECOMMED LOSING AT LEAST 50 LBS, GETTING DM UNDER CONTROL AND STOP SMOKING. IF SHE CAN DO THESE THINGS, THEN SHE CAN RETURN TO DISCUSS ELECTIVE INCISIONAL HERNIA REPAIR WITH MESH. [id number] MD Manuela Busby [facility] ([facility]) [address] [place] [address] 8 08/20/2017 09:59:23 08/20/2017 12:21:49 Type 2 diabetes mellitus 41647884 E11.9 Essential hypertension 56556576 I10 [id number] Serjio Torres MD [facility] ([facility]) [address] [place], [place] [address] 8 08/31/2017 11:56:56 09/13/2017 14:11:45 Diabetes mellitus 32430067 E11.9 Essential hypertension 56775924 I10 Hypothyroidism 51582240 E03.9 Obesity 980930409 E66.9 Weakness of back 3792122 07 M62.81 [id number] MD Manuela Busby [facility] ([facility]) [address] [place] [address] 8 11/26/2017 10:20:27 11/29/2017 16:55:51 [id number] MD Manuela Busby [facility] ([facility]) [address] [place] [address] 8 12/03/2017 10:33:09 12/19/2017 10:24:43 Diabetes mellitus 42728063 E13.21 Obesity 467349128 E66.9 Essential hypertension 54184063 I10 [id number] Serjio Torres MD [facility] ([facility]) [address] [place] [address] 8 03/06/2018 12:07:13 03/08/2018 10:56:43 Hypothyroidism 22327452 E03.9 Obesity 942770475 E66.9 Diabetes mellitus 733534 09 E13.21 Urinary tr act infectious disease 86541452 N39.0 [id number] MD Manuela Busby [facility] ([facility]) [address] [place], [place] [address] 8 06/19/2018 12:12:08 06/20/2018 15:41:04 Diabetes mellitus 71689419 E13.21 Hypothyroidism 36967698 E03.9 Adult heal th examination 368516209 Z00.00 Contusion of toe 3865899 0 S90.121A Postmenopausal state 764 58932 Z78.0 [id number] MD Manuela Busby [facility] ([facility]) [address] [address] 8 12/20/2018 15:27:07 12/23/2018 10:12:29 Type 2 diabetes mellitus 13670477 E11.9 Hypothyroidism 80168562 E03.9 [id number] Serjio Torres MD [facility] ([facility]) [address] [place] [address] 8 07/15/2019 15:16:03 07/16/2019 10:21:47 Diabetes mellitus 75576862 E13.21 Essential hypertension 38428005 I10 Hypothyroidism 78278795 E03.9 Hypercholesterolemia 136 75250 E78.00 Administra tion of influenza vaccine 47880614 Z23 Tobacco de pendence syndrome 05314360 F17.290 Strain of muscle of left shoulder 6536665177 0556669 S46.912A [id number] Serjio Torres MD [facility] ([facility]) [address] [place] [address] 8 08/14/2019 10:25:49 08/19/2019 11:36:48 Essential hypertension 31603650 I10 [id number] Serjio Torres MD [facility] ([facility]) [address] [place] [address] 8 09/10/2019 10:34:00 09/11/2019 11:16:52 Essential hypertension 74008325 I10 Tobacco de pendence syndrome 47930995 F17.290 Obesity 731790148 E66.9 Diabetes mellitus 271646 09 E13.21 [id number] Serjio Torres MD [facility] ([facility]) [address] [place] [address] 8 11/19/2019 14:20:33 11/20/2019 13:45:26 Exposure to streptococcal pharyngitis 8770816354 105 Z20.818 Tobacco de pendence syndrome 49605139 F17.290 Dyspnea on exertion 6084 5006 R06.09 Diabetes mellitus 599652 09 E13.21 Obesity 733184590 E66.9 Uniform ab dominal distention 697088772 R14.0 [id number] Serjio Torres MD [facility] ([facility]) [address] [place] [address] 8 01/19/2020 11:04:19 01/20/2020 11:56:22 Diabetes mellitus 40180472 E13.21 Essential hypertension 43968934 I10 Diastasis recti 92704319 M62.08 [id number] Serjio Torres MD [facility] ([facility]) [address] [place], [place] [address] 8 04/05/2020 10:50:03 04/06/2020 09:46:31 Essential hypertension 80248318 I10 Diabetes mellitus 366224 09 E13.21 [id number] Serjio Torres MD [facility] ([facility]) [address] [place] [address] 8 07/12/2020 11:07:49 07/13/2020 08:37:25 Diabetes mellitus 74998459 E13.21 Essential hypertension 21945007 I10 Tobacco de pendence syndrome 48951054 F17.290 Administra tion of influenza vaccine 60027867 Z23 Hypothyroidism 65034051 E03.9 [id number] Serjio Torres MD [facility] ([facility]) [address] [place] [address] 8 10/11/2020 11:10:59 10/12/2020 13:22:21 Essential hypertension 73648963 I10 Diabetes mellitus 037477 09 E13.21 Ventral in cisional hernia 115637660 K43.2 Restless legs 38293524 G 25.81 3+ pitting edema 0270820 05 R60.9 [id number] MD Manuela Busby [facility] ([facility]) [address] [place] [address] 8 01/10/2021 10:58:26 01/11/2021 11:30:04 Hypothyroidism 29492814 E03.9 Diabetes mellitus 716628 09 E13.21 Essential hypertension 00658029 I10 [id number] MD Manuela Busby [facility] ([facility]) [address] [place], [place] [address] 8 02/10/2021 10:46:53 02/13/2021 18:59:15 Diabetes mellitus 32864856 E13.21 Essential hypertension 34812527 I10 Screening for malignant neoplasm of breast 321425408 Z12.39 [id number] Serjio Torres MD [facility] ([facility]) [address] [place] [address] 05/12/2021 10:53:11 05/13/2021 11:02:42 Diabetes mellitus 22770186 E13.21 Essential hypertension 34364318 I10 Smoker 69092763 F17.488 [id number] Serjio Torres MD [facility] ([facility]) [address] [id number] 8 10/11/2021 11:01:49 10/12/2021 05:27:50 Hypothyroidism 94875723 E03.9 Obesity 997132732 E66.9 Tobacco de pendence syndrome 36506705 F17.290 Essential hypertension 67144420 I10 Diastolic dysfunction 35 31536 I51.9 Diabetes mellitus 688330 09 E13.21 Increased frequency of urination 349234987 R35.0 Pain of le ft hip joint 5902254014 13362 M25.552 Hepatitis C screening 41 7356743 Z11.59 [id number] Serjio Torres MD [facility] ([facility]) [address] [place] [address] 01/10/2022 11:04:04 01/11/2022 06:47:24 Diabetes mellitus 65736235 E13.21 Essential hypertension 07831739 I10 Pain of le ft hip joint 8926358519 12090 M25.552 Restless legs 05387141 G 25.81 [id number] Serjio Torres MD [facility] ([facility]) [address] [place] [address] 8 04/13/2022 11:19:47 04/14/2022 15:36:59 Body mass index 30+ - obesity 523188408 Z68.41 Diabetes mellitus 762247 09 E13.21 Essential hypertension 18818597 I10 Hypothyroidism 50725265 E03.9 Obesity [id number] E66.9 Smoker 17710504 F17.200 Pain of ri ght hip joint [id number] 11350 M25.654 [id number] Serjio Torres MD [facility] ([facility]) [address] [place] [address] 78504-810 8 08/14/2022 10:57:16 2022 08:18:36 Diabetes mellitus 95193565 E13.21 Obesity 221776530 E66.9 Pain of ri ght hip joint 0346076619 27806 M25.551 Smoker 11522406 F17.252 [id number] Serjio Torres MD [facility] ([facility]) [address] [place] [address] 17745-048 8 11/20/2022 15:07:28 11/21/2022 12:22:45 Diabetes mellitus 85132219 E13.21 Essential hypertension 50004162 I10 Type 2 nehemias betes mellitus 78215407 E11.9 Hypothyroidism 67122200 E03.9 Morbid obesity 179998549 E66.01 Smoker 65246700 F17.278 [id number] Dana Horne MD [facility] ([facility]) [address] [place] [address] 89820-472 8 02/14/2023 09:51:38 02/22/2023 09:52:32 Gynecologic examination 34740993 Z01.419 Normal gynecologi c exam today.Cerv ical cancer screening: Last Pap 09/21/2015 --NILM, +hrHPV. Updated todayBreas t cancer screening: Reviewed recommenda tions for initiation at age 40 with annual screening. Discussed SBEColonos copy: 01/26/2015S TI screening: Pt declines. Safe sex practices discussed. Contracept ion: MenopauseD iet/exerci se: Counseled regarding importance of physical activity, healthy diet and appropriat e calcium intake.RTC in 1yr Screening for malignant neoplasm of cervix 445496330 Z12.4 -Hx of abnormal-1 - -NILM, +hrHPV---N ILM, +hrHPV- colpo--no lesions, ECC with CHEVY 1 and 2. Offered LEEP or repeat pap in 1 year. Pt never followed up-Cervix grossly normal on exam-Tuan isidro updated today Screening for malignant neoplasm of breast 869617636 Z12.39 -Last mammogram 07/27/2021- -BIRADS 1-Denies breast complaints . No FMHx breast cancer-CBE unremarkab le-Mammogr am order provided. Morbid obesity 817928386 E66.01 BMI 41.5 [id number] Serjio Torres MD [facility] ([facility]) [address] [place] [address] 21495-390 8 02/22/2023 11:04:34 02/23/2023 15:06:44 Essential hypertension 91401356 I10 Smoker 55602141 F17.200 Diabetes mellitus 571664 09 E13.21 Hypothyroidism 35220052 E03.9 Morbid obesity 397227375 E66.01 Monoparesis - arm 608216 006 G83.21 [id number] Serjio Torres MD [facility] ([facility]) [address] [place] [address] 03/14/2023 13:55:20 03/15/2023 12:12:30 Diabetes mellitus 80572077 E13.21 Essential hypertension 62434188 I10 Obesity 646448679 E66.9 Closed fra cture of right elbow 8377757670 2835816 S42.401A [id number] [facility] ([facility]) [address] [place] [address] 55863-012 0 03/20/2023 12:18:58 03/21/2023 11:12:23 Atypical squamous cells of undetermined significance on cervical Papanicolaou smear 112113823 R87.610 Pap history:-- NILM, +hrHPV11/2 01/2015--NI LM, +hrHPV12/1 03/2015 colpo--no lesions, ECC with CHEVY 1 and 2. No treatment ASCUS, +hrHPVColp oscopy performed in office today with no complicati ons as detailed in the procedure note. Will call the patient with path results. Human lindsay lloma virus infection 746938722 B97.7 Counseled on HPV and safe sex practices. [id number] Serjio Torres MD [facility] ([facility]) [address] [place] [address] 04/17/2023 14:50:30 04/18/2023 10:11:15 Obesity 101536802 E66.9 Restless legs 75826028 G 25.81 Type 2 nehemias betes mellitus 87394284 E11.9 [id number] Serjio Torres MD [facility] ([facility]) [address] [place] [address] 34153-471 8 05/16/2023 14:54:29 05/17/2023 16:33:44 Essential hypertension 35195134 I10 Obesity 546480883 E66.9 Type 2 nehemias betes mellitus 04467046 E11.9 Chronic low back pain 27 0066199 M54.50 [id number] Serjio Torres MD [facility] ([facility]) [address] [place] [address] 61465-037 8 12/26/2023 16:13:13 12/27/2023 12:31:04 Type 2 diabetes mellitus 37671799 E11.9 Hypothyroidism 11392813 E03.9 Hernia of anterior abdominal wall 710510986 K43.9 Essential hypertension 19456350 I10 [id number] MD Manuela Busby [facility] ([facility]) [address] [place], [place] [address] 8 01/23/2024 14:54:45 01/24/2024 09:42:00 Essential hypertension 36001621 I10 Diabetes mellitus 534519 09 E13.21 Type 2 nehemias betes mellitus 46374521 E11.9 Restless legs 23840833 G 25.81 Obesity 655547150 E66.9 [id number] Serjio Torres MD [facility] ([facility]) [address] [place], [place] [address] 8 05/07/2024 15:53:59 05/08/2024 11:57:43 Essential hypertension 98036805 I10 Morbid obesity 816340339 E66.01 Mixed hyperlipidemia 267 091892 E78.2 Hypothyroidism 66841101 E03.9 Type 2 nehemias betes mellitus 30230989 E11.9 [id number] MD Manuela Busby [facility] ([facility]) [address] [place] [address] 05986-309 8 05/22/2024 13:42:48 05/26/2024 12:11:11 Congestive heart failure 92562087 I50.9 Essential hypertension 23305222 I10 Obesity 788678321 E66.9 Chronic ob structive pulmonary disease 17116493 J44.9 Health Concerns Section Related Observation LastModified by Organization Detai ls LastModified Time None Recorded Concern Status LastModified by Organization Details LastModified Time None Recorded Advance Directives Directive None Recorded Payers Encounter Date Sequence Insurance Name Policy Number Policy Arce Covered Member ID Arce Member ID Guarantor Name 05/16/2023 1 [employer] [facility] [place] (MEDICARE - MEDICAID REPLACEMENT HMO) [id number] Marah Mary Jane Jayjay [id number] Marah Mary Jane Jayjay 12/26/2023 1 [employer] [facility] [place] - MEDICAID REPLACEMENT HMO) [id number] Marah Mary Jane Jayjay [id number] Marah Mary Jane Jayjay 01/23/2024 1 [employer] [facility] [place] - MEDICAID REPLACEMENT HMO) [id number] Marah Mary Jane Jayjay [id number] Marah Mary Jane Jayjay 05/07/2024 1 [employer] [facility] [place]ARE - MEDICAID REPLACEMENT HMO) [id number] Marah Mary Jane Jayjay [id number] Marah Mary Jane Jayjay 05/22/2024 1 [employer] [facility] [place] - MEDICAID REPLACEMENT HMO) [id number] Marah Mary Jane Jayjay [id number] Marah Mary Jane Jayjay Notes Date Note Type Note Provider Name and Address Organization Details Recorded Time 05/16/2023 text/html Patient complain s of chronic low back pain., htn and diabetes. Serjio Torres MD Attn: Accounting, [address] [place], [address], [facility] 05/16/2023 16:09:45 12/26/2023 text/html Patient is here for htn and diabetes, hypothyroid. Abdominal hernia and needs to see a surgeon. Serjio Torres MD Attn: Accounting,[address] [place], [address], [facility] 12/27/2023 09:58:01 01/23/2024 text/html Patient is here for blood pressure check. Serjio Torres MD Attn: Accounting,[address] [place], [address], [place] [facility] 01/23/2024 15:41:37 05/07/2024 text/html Recently in the hospital for chf. No med changes, feeling much better. Htn and diabetes Serjio Torres MD Attn: Accounting,[address] [facility], [place], [address], [facility] 05/07/2024 17:20:13 05/22/2024 text/html Patient recently hospitalized for chf exacerbation and copd. On home oxygen but doing well. Serjio Torres MD Attn: Accounting,[address] [facility], [place], [address], [place] [facility] 05/22/2024 15:11:19 OBGyn Episode No OBEpisode recorded.
--- OUTSIDE RECORDS SUMMARY | 2025-04-03 15:55 | XMS_ITS | Encounter Summary ---
Author Organization [facility] Address [address] [place] [address] Phone Care Team Providers Care Refinery Operator Helper Cracking Unit Name Role Phone Iker Mendez MD Primary Care Provider [phone] Reason for Visit * Reason Comments Med Refill Encounter Details Date Type Department Care Team ([facility] Contact Info) Description 12/23/2019 Refill [facility] [address] [place] [address] Anshul Miranda MD [address] [id number] Social History Tobacco Use Types Packs/Day Years [...] Upcoming Encounters Date Type Department Care Team ([facility] Contact Info) Description 05/07/2025 2:40 PM CDT Office Visit [facility] [address] [place] [address] Alexandra Samuel NP [address] [address] documented as of this encounter Visit Diagnoses Not on filedocumented in this encounter Care Teams Refinery Operator Helper Cracking Unit Relationship Specialty Start Date End Date Iker Mendez MD [address] [place] [address] PCP - General Family Medicine 03/05/19 documented as of this encounter
--- OUTSIDE RECORDS SUMMARY | 2025-04-03 15:55 | XMS_ITS | Encounter Summary ---
Author Organization [facility] Address [address] [place] [address] Phone Care Team Providers Care Asphalt Distributor Operator Name Role Phone Iker Mendez MD Primary Care Provider [phone] Reason for Visit * Reason Comments Med Refill Encounter Details Date Type Department Care Team ([facility] Contact Info) Description 10/27/2020 Refill [facility] [address] [place] [address] Anshul Miranda MD [address] [phone] Social History Tobacco Use Types Packs/Day Years [...] Upcoming Encounters Date Type Department Care Team ([facility] Contact Info) Description 05/07/2025 2:40 PM CDT Office Visit [facility] [address] [address] Alexandra Samuel NP [address] [address] documented as of this encounter Visit Diagnoses Not on filedocumented in this encounter Care Teams Asphalt Distributor Operator Relationship Specialty Start Date End Date Iker Mendez MD [address] [place] [address] PCP - General Family Medicine 03/05/19 documented as of this encounter
--- OUTSIDE RECORDS SUMMARY | 2025-04-03 15:55 | XMS_ITS | Encounter Summary ---
Author Organization [facility] Address [address] [place] [address] Phone Care Team Providers Care Web Sizer Name Role Phone Iker Mendez MD Primary Care Provider [phone] Reason for Visit * Reason Comments Med Refill Encounter Details Date Type Department Care Team ([facility] Contact Info) Description 01/19/2022 Refill [facility] [address] [place] [address] Anshul Miranda MD [address] [phone] Social History Tobacco Use Types Packs/Day Years [...] Upcoming Encounters Date Type Department Care Team ([facility] Contact Info) Description 05/07/2025 2:40 PM CDT Office Visit [facility] [address] [address] Alexandra Samuel NP [address] [address] documented as of this encounter Visit Diagnoses Not on filedocumented in this encounter Care Teams Web Sizer Relationship Specialty Start Date End Date Iker Mendez MD [address] [place] [address] PCP - General Family Medicine 03/05/19 documented as of this encounter
--- OUTSIDE RECORDS SUMMARY | 2025-04-03 15:55 | XMS_ITS | Encounter Summary ---
Author Organization [facility] Address [address] [place] [address] Phone Care Team Providers Care Logistics Specialist Name Role Phone Iker Mendez MD Primary Care Provider [phone] Reason for Visit * Reason Comments Med Refill Encounter Details Date Type Department Care Team ([facility] Contact Info) Description 10/19/2021 Refill [facility] [address] [place] [address] Anshul Miranda MD [address] [phone] Social History Tobacco Use Types Packs/Day Years [...] Upcoming Encounters Date Type Department Care Team ([facility] Contact Info) Description 05/07/2025 2:40 PM CDT Office Visit [facility] [address] [address] Alexandra Samuel NP [address] [address] documented as of this encounter Visit Diagnoses Not on filedocumented in this encounter Care Teams Logistics Specialist Relationship Specialty Start Date End Date Iker Mendez MD [address] [place] [address] PCP - General Family Medicine 03/05/19 documented as of this encounter
--- OUTSIDE RECORDS SUMMARY | 2025-04-03 15:55 | XMS_ITS | Encounter Summary ---
Author Organization [facility] Address [address] [place] [address] Phone Care Team Providers Care Public Policy Associate Name Role Phone Iker Mendez MD Primary Care Provider [phone] Reason for Visit * Reason Comments Med Refill Encounter Details Date Type Department Care Team ([facility] Contact Info) Description 07/18/2021 Refill [facility] [address] [place] [address] Anshul Miranda MD [address] [phone] Social History Tobacco Use Types Packs/Day Years [...] Upcoming Encounters Date Type Department Care Team ([facility] Contact Info) Description 05/07/2025 2:40 PM CDT Office Visit [facility] [address] [address] Alexandra Samuel NP [address] [address] documented as of this encounter Visit Diagnoses Not on filedocumented in this encounter Care Teams Public Policy Associate Relationship Specialty Start Date End Date Iker Mendez MD [address] [place] [address] PCP - General Family Medicine 03/05/19 documented as of this encounter
--- OUTSIDE RECORDS SUMMARY | 2025-04-03 15:55 | XMS_ITS | Encounter Summary ---
Author Organization [facility] Address [address] [place] [address] Phone Care Team Providers Care Care Management Specialist Name Role Phone Iker Mendez MD Primary Care Provider [phone] Reason for Visit * Reason Comments Med Refill Encounter Details Date Type Department Care Team ([facility] Contact Info) Description 04/14/2021 Refill [facility] [address] [place] [address] Anshul Miranda MD [address] [phone] Social History Tobacco Use Types Packs/Day Years [...] Description 05/07/2025 2:40 PM CDT Office Visit [facility] [address] [address] Alexandra Samuel NP [address] [address] documented as of this encounter Visit Diagnoses Not on filedocumented in this encounter Care Teams Care Management Specialist Relationship Specialty Start Date End Date Iker Mendez MD [address] [place] [phone] PCP - General Family Medicine 03/05/19 documented as of this encounter
--- OUTSIDE RECORDS SUMMARY | 2025-04-03 15:55 | XMS_ITS | Encounter Summary ---
Author Organization [facility] Address [address] [place] [address] Phone Care Team Providers Care Marketing Writer Name Role Phone Iker Mendez MD Primary Care Provider Reason for Visit * Reason Comments Med Refill Encounter Details Date Type Department Care Team ([facility] Contact Info) Description 07/01/2019 Refill [facility] [address] [place] [address] Alexandra Samuel NP [address] [phone] Social History Tobacco Use Types Packs/Day Years [...] Department Care Team ([facility] Contact Info) Description 05/07/2025 2:40 PM CDT Office Visit [facility] [address] [place] [address] Alexandra Samuel NP [address] [address] documented as of this encounter Visit Diagnoses Not on filedocumented in this encounter Care Teams Marketing Writer Relationship Specialty Start Date End Date Iker Mendez MD [address] [place] [address] PCP - General Family Medicine 03/05/19 documented as of this encounter
--- OUTSIDE RECORDS SUMMARY | 2025-04-03 15:55 | XMS_ITS | Clinical Summary ---
Author Organization [facility] blackwell Address [address] [place] [address] Phone Care Team Providers Care [employer] Name Role Phone Iker Mendez MD Primary Care Provider [phone] Allergies No known active allergies Medications glipiZIDE (GLUCOTROL) 10 MG tablet 1 tablet two times daily 0 10/04/2016 Active aspirin (ASPIR-LOW) 81 MG EC tablet 1 tablet daily 0 10/04/2016 Active levothyroxine (SYNTHROID, LEVOTHROID) 175 MCG tablet 1 tab once daily 0 07/30/2018 Active Ventolin HFA 108 (90 Base) MCG/ACT inhaler INHALE 2 PUFFS BY MOUTH EVERY 4 HOURS 03/01/2021 Active carvedilol (COREG) 25 MG tablet Take 25 mg by mouth 2 (two) times a day 02/28/2021 Active hydrALAZINE (APRESOLINE) 25 MG tablet Take 25 mg by mouth 2 (two) times a day 03/22/2021 Active Entresto 97-103 MG per tablet Take 1 tablet by mouth in the morning and 1 tablet before bedtime. 01/01/2023 Active furosemide (LASIX) 40 MG tablet Take 1 tablet by mouth once daily 90 tablet 03/30/2023 Active metFORMIN (GLUCOPHAGE) 1000 MG tablet Take 1,000 mg by mouth in the morning and 1,000 mg in the evening. Take with meals. Active Empagliflozin (Jardiance) 10 MG tablet Take 10 mg by mouth 1 (one) time each day Active rosuvastatin (CRESTOR) 40 MG tablet Take 40 mg by mouth 1 (one) time each day Active amLODIPine (NORVASC) 5 MG tablet Take 5 mg by mouth 1 (one) time each day Active Calcium Carb-Cholecalci ferol (CALCIUM 600+D HIGH POTENCY PO) Take 600 mg by mouth 1 (one) time each day Active rOPINIRole (REQUIP) 2 MG tablet Take 4 mg by mouth every night Active Dulaglutide (Trulicity) 3 MG/0.5ML solution pen-injector Inject 3 mg under the skin per week Active Active Problems Problem Noted Date Diagnosed Date Iron deficiency anemia 07/16/2023 Stage 3b chronic kidney disease 06/06/2021 Proteinuria 07/30/2018 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 Resolved Problems Problem Noted Date Diagnosed Date Resolved Date Anemia in chronic kidney disease 05/19/2022 03/25/2024 Congestive heart failure 02/23/2022 Urinary tract infectious disease 02/20/2022 05/19/2022 Chronic kidney disease 03/04/202106/06 Hematuria of undiagnosed cause 04/26/2020 03/04/2021 Hyperkalemia 07/30/2018 03/04/2021 Edema 11/28/2017 04/26/2020 Stage 1 chronic kidney disease 11/08/2017 04/26/2020 Essential (primary) hypertension 10/04/2016 04/26/2020 Obesity 10/04/2016 04/26/2020 Immunizations Immunization Administration Dates Next Due Influenza Split High Dose Preservative Free IM 1 Influenza TIV (IM) 09/05/2016,10/07/2014 Family History Medical History Relation Comments Diabetes mellitus Father Diabetes mellitus Mother Relation Status Comments Father Mother Social History Tobacco Use Types Packs/Day Years Used Date Smoking Tobacco: Heavy Smoker Smokeless Tobacco: Never Tobacco Cessation:Ready to Q uit: Not Asked; Counseling Given: Not Answered Alcohol Use Standard Drinks/Week Comments No 0 (1 standard drink = 0.6 oz pur e alcohol) Comments Unknown Sex and Gender Information Value Date Recorded Sex Assigned at Not on file Legal Sex Female 8:55 AM [facility] Gender Identity Not on file Sexual Orientation Not on file Last Filed Vital Signs Vital Sign Reading Time Taken Comments Blood Pressure 163/72 03/27/2024 3:23 PM CDT Pulse 61 03/27/2024 3:23 PM CDT Temperature - - Respiratory Rate - - Oxygen Saturation 88% 04/19/2023 9:45 AM CDT provider aware Inhaled Oxygen Concentration - - Weight 108 kg (238 lb) 03/27/2024 3:23 PM CDT Height 165.1 cm (5' 5) 03/27/2024 3:23 PM CDT Body Mass Index 39.61 03/27/2024 3:23 PM CDT Plan of Treatment Upcoming Encounters Date Type Department Care Team (Late st Contact Info) Description 05/07/2025 2:40 PM CDT Office Visit [facility] [address] [facility] [place] [address] Alexandra Samuel, ROADS SUPERVISOR [address] [facility] [address] [place] [address] Health Maintenance Due Date Last Done Comments Diabetic Foot Exam 1971 Ophthalmology Exam 1971 Pneumococcal PPSV23 Highest Risk Adult (3 of 3 - PCV13) 04/15/2016 04/15/2015, 04/02/2015 COVID-19 Vaccine (2 - Modern a risk series) 04/14/2022 03/17/2022 Influenza Vaccine (Season Ended) 2025 08/14/2022, 07/12/2020, 07/15/2019, Additional history exists Insurance [facility] [place] [address] [address] [place] [address]/MEDIARE MULTIPLAN [facility]/MED[employer]ARE MULTIPLAN Care Teams [employer] Relationship Specialty Start Date End Date Iker Mendez MD [address] [place] [address] PCP - General Family Medicine 03/05/19
--- OUTSIDE RECORDS SUMMARY | 2025-04-03 15:55 | XMS_ITS | Encounter Summary ---
Author Organization [facility]ions Address [address] [place] [address] Phone Care Team Providers Care Dev Manager Name Role Phone Iker Mendez MD Primary Care Provider [phone] Reason for Visit * Reason Comments Med Refill Encounter Details Date Type Department Care Team ([facility] Contact Info) Description 04/03/2023 Refill [facility] [address] [place] [address] Anshul Miranda MD [address] [phone] Social History Tobacco Use Types Packs/Day Years [...] Upcoming Encounters Date Type Department Care Team ([facility] Contact Info) Description 05/07/2025 2:40 PM CDT Office Visit [facility] [address] [place] [address] Alexandra Samuel NP [address] [address] documented as of this encounter Visit Diagnoses Not on filedocumented in this encounter Care Teams Dev Manager Relationship Specialty Start Date End Date Iker Mendez MD [address] [place] [phone] PCP - General Family Medicine 03/05/19 documented as of this encounter
--- OUTSIDE RECORDS SUMMARY | 2025-04-03 15:55 | XMS_ITS | Encounter Summary ---
Author Organization [facility] Address [address] [place] [address] Phone Care Team Providers Care Adaptive Physical Educator Name Role Phone Iker Mendez MD Primary Care Provider [phone] Reason for Visit * Reason Comments Med Refill Encounter Details Date Type Department Care Team ([facility] Contact Info) Description 07/23/2019 Refill [facility] [address] [place] [address] Anshul Miranda MD [address] [phone] Social History Tobacco Use Types Packs/Day Years [...] Upcoming Encounters Date Type Department Care Team ([facility] Contact Info) Description 05/07/2025 2:40 PM CDT Office Visit [facility] [address] [address] Alexandra Samuel NP [address] [address] documented as of this encounter Visit Diagnoses Not on filedocumented in this encounter Care Teams Adaptive Physical Educator Relationship Specialty Start Date End Date Iker Mendez MD [address] [place] [address] PCP - General Family Medicine 03/05/19 documented as of this encounter
--- OUTSIDE RECORDS SUMMARY | 2025-04-03 15:55 | XMS_ITS | Encounter Summary ---
Author Organization [facility] Address [address] [place] [address] Phone Care Team Providers Care Mill Hand Name Role Phone Iker Mendez MD Primary Care Provider [phone] Reason for Visit * Reason Comments Med Refill Encounter Details Date Type Department Care Team ([facility] Contact Info) Description 04/25/2022 Refill [facility] [address] [place] [address] Alexandra Samuel NP [address] [phone] Social History Tobacco Use Types Packs/Day Years [...] Upcoming Encounters Date Type Department Care Team ([facility] Contact Info) Description 05/07/2025 2:40 PM CDT Office Visit [facility] [address] [address] Alexandra Samuel NP [address] [address] documented as of this encounter Visit Diagnoses Not on filedocumented in this encounter Care Teams Mill Hand Relationship Specialty Start Date End Date Iker Mendez MD [address] [place] [phone] PCP - General Family Medicine 03/05/19 documented as of this encounter
--- OUTSIDE RECORDS SUMMARY | 2025-04-03 15:55 | XMS_ITS | Clinical Summary ---
Author Organization [facility] Address [address] [facility] [address] Care Team Providers Care Earth Moving Technician Name Role Phone Unavailable Primary Care Provider Unavailabl e Source Comments [facility],non-owned Affiliates and Associated Physician Practices is amultiple site organization consisting of ambulatory clinics and hospital sitesin [place], [place], [place] and [place]. This disclosure is being madepursuant to the Care Everywhere program and may not contain all information available regarding this patient. Last updated 18.[employer] [facility] Allergies No known active allergies Medications * Be aware that medications may not be up to date on this document. Alwaysverify current medications with the patient. No known medications Active Problems Problem Noted Date Diagnosed Date Cerebral infarction 02/19/2015 Social History Tobacco Use Types Packs/Day Years Used Date Smoking Tobacco: Every Day Cigarettes Smokeless Tobacco: Never Alcohol Use Standard Drinks/Week Comments No 0 (1 standard drink = 0.6 oz pur e alcohol) AUDIT-C Answer Date Recorded Q1: How often do you have a drink containing alc ohol? Never 10/12/2021 Average Number of Drinks Not on file 021 Frequency of Binge Drinking Not on file 09/28 Comments No Sex and Gender Information Value Date Recorded Sex Assigned at Not on file Legal Sex Female 6:16 AM MECHANIC HELPER Gender Identity Not on file Sexual Orientation Not on file Last Filed Vital Signs Vital Sign Reading Time Taken Comments Blood Pressure 145/88 10/12/2021 4:45 PM MECHANIC HELPER Pulse 79 10/12/2021 4:45 PM MECHANIC HELPER Temperature 36.6 C (97.8 F) 10/12/2021 4:45 PM MECHANIC HELPER Respiratory Rate 16 10/12/2021 4:45 PM MECHANIC HELPER Oxygen Saturation 98% 10/12/2021 4:45 PM MECHANIC HELPER Inhaled Oxygen Concentration - - Weight 99.8 kg (220 lb) 10/12/2021 12:17 PM MECHANIC HELPER Height 165.1 cm (5' 5) 10/12/2021 12:17 PM MECHANIC HELPER Body Mass Index 36.61 10/12/2021 12:17 PM MECHANIC HELPER Plan of Treatment Health Maintenance Due Date Last Done Comments COLOGUARD (AGES 45-75) - COLON CA SCREENING 1961 COLON MONITORING 1961 COLONOSCOPY - COLON CA SCREENING 1961 CT COLONOGRAPHY - COLON CA SCREENING 1961 Colorectal Cancer Screening 1961 FIT - COLON CA SCREENING 1961 FLEX SIG - COLON CA SCREENING 1961 PAP SMEAR 1961 HIV SCREENING 1976 HEPATITIS C SCREENING 08/12/1979 DTAP/TDAP/TD VACCINES (1 - Tdap) 1980 PNEUMOCOCCAL VACCINE 50+ (1 of 2 - PCV) 1980 ZOSTER VACCINE (1 of 2) 2011 COVID-19 VACCINE (2 - season) 2024 03/17/2022 DEPRESSION SCREENING 10/29/2024 MEDICARE AWV CALENDAR YEAR 2024 INFLUENZA VACCINE (Season Ended) 2025 08/14/2022, 07/12/2020, 07/15/2019, Additional history exists MAMMOGRAM 12/12/2025 12/12/2023, 11/29, 07/27/2021, Additional history exists LIPID TESTING 11/21/2028 11/21/2023, 08/29, 02/19/2015 Respiratory Syncytial Virus (RSV) Vaccine Pt: or over 60 yrs (1 - 1-dose 75+ series) 2036 HEPATITIS B VACCINE Aged Out No longe r eligible based on patient's age to complete this topic HIB VACCINE Aged Out No longer eligi ble based on patient's age to complete this topic HPV VACCINE Aged Out No longer eligi ble based on patient's age to complete this topic MENINGOCOCCAL (Group B) VACCINE SHARED DECISION-MAKING Aged Out No longer eligible based on patient's age to complete this topic MENINGOCOCCAL GROUPS A/C/Y/W VACCINE Aged Out No longer eligible based on patient's age to complete this topic Procedures Procedure Name Priority Date/Time Associated Diagnosis Comments LIPID PROFILE Routine 02/19/2015 11:28 AM CDT from Last 3 Months or Most Recently Relevant to Health Maintenance Results * (ABNORMAL) LIPID PROFILE (02/19/2015 11:28 AM CDT) Cholesterol Total 152 <200 mg/dL [facility] HDL 36(L) >40 mg/dL [facility] Comment: ATP III Classification of HDL Cholesterol: <40 mg/dL: Considered a major risk factor. >60 mg/dL: Considered a negative risk factor. LDL Calculated 81 <100 mg/dL [facility] Comment: ATP III Classification of LDL Cholesterol: <100 mg/dL: Optimal 100 - 129 mg/dL: Near Optimal/Above Optimal 130 - 159 mg/dL: Borderline High 160 - 189 mg/dL: High >190 mg/dL: Very High Triglycerides 176(H) <150 mg/dL [facility] Comment: ATP III Classification of Triglycerides: <150 mg/dL: Normal 150 - 199 mg/dL: Borderline High 200 - 400 mg/dL: High >500 mg/dL: Very High Blood specimen (specimen) BLOOD SPECIMEN / Unknown 02/19/2015 11:28 AM CDT 02/19/2015 11:32 AM CDT Anya Isaac MD LAB - CHEMISTRY ORDERABLES Radha rendon Result Performing Organization Address [facility]/State/ZIP Co de Phone Number [address] [phone] from Last 3 Months or Most Recently Relevant to Health Maintenance Insurance [facility] [place] MEDICARE DUAL ADV [place]
--- OUTSIDE RECORDS SUMMARY | 2025-04-03 15:55 | XMS_ITS | Encounter Summary ---
Author Organization [facility] Address [address] [place] [address] Phone Care Team Providers Care Strip Tank Tender Name Role Phone Iker Mendez MD Primary Care Provider [phone] Reason for Visit * Reason Comments Med Refill Encounter Details Date Type Department Care Team ([facility] Contact Info) Description 03/09/2020 Refill [facility] [address] [place] [address] Anshul Miranda MD [address] [phone] Social History Tobacco Use Types Packs/Day Years [...] Upcoming Encounters Date Type Department Care Team ([facility] Contact Info) Description 05/07/2025 2:40 PM CDT Office Visit [facility] [address] [place] [address] Alexandra Samuel NP [address] [address] documented as of this encounter Visit Diagnoses Not on filedocumented in this encounter Care Teams Strip Tank Tender Relationship Specialty Start Date End Date Iker Mendez MD [address] [place] [phone] PCP - General Family Medicine 03/05/19 documented as of this encounter
--- OUTSIDE RECORDS SUMMARY | 2025-04-03 15:55 | XMS_ITS | Encounter Summary ---
Author Organization [facility] Address [address] [place] [address] Phone Care Team Providers Care Pit Slagman Name Role Phone Iker Mendez MD Primary Care Provider [phone] Reason for Visit * Reason Comments Med Refill Encounter Details Date Type Department Care Team ([facility] Contact Info) Description 12/08/2020 Refill [facility] [address] [place] [address] Anshul Miranda MD [address] [phone] Social History Tobacco Use Types Packs/Day Years [...] Upcoming Encounters Date Type Department Care Team ([facility] Contact Info) Description 05/07/2025 2:40 PM CDT Office Visit [facility] [address] [address] Alexandra Samuel NP [address] [address] documented as of this encounter Visit Diagnoses Not on filedocumented in this encounter Care Teams Pit Slagman Relationship Specialty Start Date End Date Iker Mendez MD [address] [place] [phone] PCP - General Family Medicine 03/05/19 documented as of this encounter
--- OUTSIDE RECORDS SUMMARY | 2025-04-03 15:55 | XMS_ITS | Encounter Summary ---
Author Organization [facility] Address [address] [place] [address] Phone Care Team Providers Care Rubber Belt Splicer Name Role Phone Iker Mendez MD Primary Care Provider [phone] Reason for Visit * Reason Comments Med Refill Encounter Details Date Type Department Care Team ([facility] Contact Info) Description 04/10/2020 Refill [facility] [address] [place] [address] Anshul Miranda MD [address] [phone] Social History Tobacco Use Types Packs/Day Years [...] Date Type Department Care Team ([facility] Contact Info) Description 05/07/2025 2:40 PM CDT Office Visit [facility] [address] [place] [address] Alexandra Samuel NP [address] [address] documented as of this encounter Visit Diagnoses Not on filedocumented in this encounter Care Teams Rubber Belt Splicer Relationship Specialty Start Date End Date Iker Mendez MD [address] [place] [phone] PCP - General Family Medicine 03/05/19 documented as of this encounter
--- OUTSIDE RECORDS SUMMARY | 2025-04-03 15:55 | XMS_ITS | Encounter Summary ---
Author Organization [facility] Address [address] [place] [address] Phone Care Team Providers Care Porcelain Waxer Name Role Phone Iker Mendez MD Primary Care Provider [phone] Reason for Visit * Reason Comments Med Refill Encounter Details Date Type Department Care Team ([facility] Contact Info) Description 12/24/2019 Refill [facility] [address] [place] [address] Anshul Miranda MD [address] [phone] Social History Tobacco Use Types Packs/Day Years [...] Upcoming Encounters Date Type Department Care Team ([facility] Contact Info) Description 05/07/2025 2:40 PM CDT Office Visit [facility] [address] [address] Alexandra Samuel NP [address] [address] documented as of this encounter Visit Diagnoses Not on filedocumented in this encounter Care Teams Porcelain Waxer Relationship Specialty Start Date End Date Iker Mendez MD [address] [place] [phone] PCP - General Family Medicine 03/05/19 documented as of this encounter
--- OUTSIDE RECORDS SUMMARY | 2025-04-03 15:55 | XMS_ITS | Encounter Summary ---
Author Organization [facility] Address [address] [place] [address] Phone Care Team Providers Care Calibrator Barometers Name Role Phone Iker Mendez MD Primary Care Provider [phone] Reason for Visit * Reason Comments Med Refill Encounter Details Date Type Department Care Team ([facility] Contact Info) Description 11/29/2019 Refill [facility] [address] [place] [address] Anshul Miranda MD [address] [phone] Social History Tobacco Use Types Packs/Day Years [...] Upcoming Encounters Date Type Department Care Team ([facility] Contact Info) Description 05/07/2025 2:40 PM CDT Office Visit [facility] [address] [address] Alexandra Samuel NP [address] [address] documented as of this encounter Visit Diagnoses Not on filedocumented in this encounter Care Teams Calibrator Barometers Relationship Specialty Start Date End Date Iker Mendez MD [address] [place] [phone] PCP - General Family Medicine 03/05/19 documented as of this encounter
[2025-04-03 16:22] LABS: Add Urine Microscopic? YES; Appearance Urine Clear (Clear); Basophils Absolute Auto 0.05 K/mm3 (0.00-0.10); Basophils Percent Auto 0.5 % (0.0-1.0); Bilirubin Urine Negative (Negative); Blood Urine Trace-intact (Negative); Color Urine Light Yellow (Yellow); Eosinophils Absolute Auto 0.41 K/mm3 (0.02-0.50); Eosinophils Percent Auto 4.2 % (1.0-6.0); Glucose Urine UA Trace (Negative); Hematocrit 36.5 % (35.0-49.0); Hemoglobin 11.2 g/dL (12.0-15.0); Immature Granulocyte Absolute 0.04 K/mm3 (0.00-0.00); Immature Granulocyte Percent A 0.4 % (0.0-0.0); Ketones Urine Negative (Negative); Leukocyte Esterase Ur 1+ (Negative); Lymphocytes Absolute Auto 1.19 K/mm3 (1.10-4.50); Lymphocytes Percent Auto 12.1 % (18.0-42.0); Mean Corpuscular HGB Conc 30.7 g/dL (32-36); Mean Corpuscular Hemoglobin 26.7 pg (27.0-31.0); Mean Corpuscular Volume 87.1 fL (78.0-102.0); Mean Platelet Volume 8.2 fl (9.2-11.8); Monocytes Absolute Auto 0.61 K/mm3 (0.10-0.90); Monocytes Percent Auto 6.2 % (2.0-11.0); Neutrophils Absolute Auto 7.53 K/mm3 (1.70-7.20); Neutrophils Percent Auto 76.6 % (50.0-70.0); Nitrate Urine Negative (Negative); Platelet Count Result 277 K/mm3 (150-420); Protein Urine 2+ (Negative); Red Blood Count 4.19 M/mm3 (4.20-5.40); Red Cell Distribution Width 19.3 % (11.6-14.4); Specific Grav Ur 1.015 (1.010-1.020); Urobilinogen Urine 0.2 mg/dL (0.2-1.0); White Blood Count 9.8 K/mm3 (4.8-10.8); pH Urine 5.5 (5.0-8.0)
[2025-04-03 16:30] LABS: Creatinine Urine 55.5 mg/dL; Total Protein Urine Random 120 mg/dL; Ur Ttl Prot Creatinine Ratio 2.16 mg/mg (0-0.20)
[2025-04-03 16:31] LABS: Bacteria Urine Trace /hpf; RBC Urine 0-2 /hpf (0-2); Squamous Epithelial Cell Urine Many /hpf (Few)
[2025-04-03 16:42] LABS: Anion Gap 8 mmol/L (4-12); Blood Urea Nitrogen 80 mg/dL (7-17); Calcium 9.1 mg/dL (8.4-10.2); Carbon Dioxide 24 mmol/L (22-30); Chloride 105 mmol/L (98-107); Estimated Glomerular Filt Rate 18; Glucose 74 mg/dL (65-110); Iron 54 ug/dL (37-170); Osmolality Calculated 307 mOsm/kg (285-295); Phosphorus 6.8 mg/dL (2.5-4.5); Potassium 5.5 mmol/L (3.4-5.0); Sodium 137 mmol/L (137-145)
[2025-04-03 16:51] LABS: Percent Iron Saturation 13 % (20-50)
[2025-04-05 04:23] LABS: Parathyroid Intact 68 pg/mL (16-77)
== END 2025-04-03 15:51 | disposition home or self-care (01) ==
PROVIDERS: PCP Nurse Practitioner Family; Visit Provider Nurse Practitioner Family
DX: N18.32 Chronic kidney disease, stage 3b (principal); D50.9 Iron deficiency anemia, unspecified
CPT/HCPCS: 36415; 80069; 81001; 82570; 82728; 83540; 83550; 83970; 84156; 85025

== ENCOUNTER 2025-07-02 10:00 | Outpatient (CLI) | payer OTHER, SELFPAY ==
[2025-07-02 10:19] LABS: Hematocrit 34.1 % (35.0-49.0); Hemoglobin 10.5 g/dL (12.0-15.0); Immature Granulocyte Percent A 0.5 % (0.0-0.0); Lymphocytes Absolute Auto 1.17 K/mm3 (1.10-4.50); Mean Corpuscular HGB Conc 30.8 g/dL (32-36); Mean Corpuscular Hemoglobin 28.2 pg (27.0-31.0); Mean Corpuscular Volume 91.4 fL (78.0-102.0); Nucleated Red Blood Cells Absolute Auto 0.00 K/mm3 (0.00-0.00); Nucleated Red Blood Cells Perc 0.0 % (0-0.0); Platelet Count Result 261 K/mm3 (150-420); Red Blood Count 3.73 M/mm3 (4.20-5.40); White Blood Count 10.3 K/mm3 (4.8-10.8)
--- OUTSIDE RECORDS SUMMARY | 2025-07-02 10:33 | XMS_ITS | Encounter Summary ---
Author Organization [facility] Address [address] [place] [address] Phone Care Team Providers Care Engineering Administrator Name Role Phone Iker Mendez MD Primary Care Provider [phone] Reason for Visit * Reason Comments Med Refill Encounter Details Date Type Department Care Team ([facility] Contact Info) Description 01/19/2022 Refill [facility] [address] [place] [address] Anshul Miranda MD [address] [address] Social History Tobacco Use Types [...] Encounters Date Type Department Care Team ([facility] Contact Info) Description 07/06/2025 9:00 AM CDT Clinical Support [facility] [address] [address] Alexandra Samuel NP [address] [address] documented as of this encounter Visit Diagnoses Not on filedocumented in this encounter Care Teams Engineering Administrator Relationship Specialty Start Date End Date Iker Mendez MD [address] [place] [phone] PCP - General Family Medicine 03/05/19 documented as of this encounter
--- OUTSIDE RECORDS SUMMARY | 2025-07-02 10:33 | XMS_ITS | Clinical Summary ---
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 (CMS/HCC HHS/HCC) Social History Tobacco Use Types Packs/Day Years Used Date Smoking Tobacco: Never Assessed Comments Unknown Sex and Gender Information Value Date Recorded Sex Assigned at Female 09/08/2024 2:54 PM ACADEMIC SERVICES COORDINATOR Legal Sex Female 5:36 PM CDT Gender Identity Female 09/08/2024 2:54 PM ACADEMIC SERVICES COORDINATOR Sexual Orientation Straight 09/08/2024 2: 54 PM ACADEMIC SERVICES COORDINATOR Plan of Treatment Health Maintenance Due Date Last Done Comments Cervical Cancer Screening Pa p Smear (Age 30 to 64) Every 3 Years 1961 Colorectal Cancer Screening Colonoscopy (10 Years) 1961 Annual Physical 1964 Hepatitis C 1979 Cervical Cancer Screening Pa p with HPV Testing (Age 30 to 64) Every 5 Years 1991 Cervical Cancer Screening wi th HPV 1991 Zoster Vaccines (1 of 2) 2011 Pneumococcal Vaccine: 50+ Years (2 of 2 - PCV) 04/15/2016 04/15/2015, 04/02/2015 COVID-19 Vaccine (2 - 2024-2 6 season) 2025 03/17/2022 DTaP, Tdap and Td Vaccines ( 2 - Td or Tdap) 10/04/2025 10/04/2015 Mammogram Screening 12/12/2025 12/12/2023, 07/27/2021, 06/25/2018 RSV Immunization or 60+ Years (1 - 1-dose 75+ series) 2036 Meningococcal B Vaccine Aged Out No l onger eligible based on patient's age to complete this topic Meningococcal Vaccine Aged Out No juan manuel janie eligible based on patient's age to complete this topic RSV Immunizations Under 20 Months Aged Out No longer eligible b ased on patient's age to complete this topic Additional Health Concerns Infection Onset Date Last Indicated MRSA 08/25/2024 08/25/2024 Insurance [employer] Member Subscriber Plan / Payer (Ef fective 2021-Present) Name:Marah Ro Relation to Subscriber:Self Name:Marah Ro Payer ID:[id number] ([facility]) Type:Not on file Address: [address] [address] Care Teams Industrial Production Manager Relationship Specialty Start Date End Date Iker Mendez MD PCP - General 11/19/15
--- OUTSIDE RECORDS SUMMARY | 2025-07-02 10:33 | XMS_ITS | Encounter Summary ---
Author Organization [facility] Address [address] [place] [address] Phone Care Team Providers Care Glass Products Inspector Name Role Phone Iker Mendez MD Primary Care Provider [phone] Reason for Visit * Reason Comments Med Refill Encounter Details Date Type Department Care Team ([facility] Contact Info) Description 04/25/2022 Refill [facility] [address] [place] [address] Alexandra Samuel NP [address] [address] Social History Tobacco Use Types [...] Description 07/06/2025 9:00 AM CDT Clinical Support [facility] [address] [place] [address] Alexandra Sameul NP [address] [address] documented as of this encounter Visit Diagnoses Not on filedocumented in this encounter Care Teams Glass Products Inspector Relationship Specialty Start Date End Date Iker Mendez MD [address] [place] [phone] PCP - General Family Medicine 03/05/19 documented as of this encounter
--- OUTSIDE RECORDS SUMMARY | 2025-07-02 10:33 | XMS_ITS | Clinical Summary ---
Author Organization [facility] [employer] Address [address] [facility] [place] [address] Care Team Providers Care Textile Colorist Dyer Name Role Phone Unavailable Primary Care Provider Unavailabl e Source Comments [facility] [employer],non-owned Affiliates and Associated Physician Practices is amultiple site organization consisting of ambulatory clinics and hospital sitesin [place], [place] and [place]. This disclosure is being madepursuant to the Care Everywhere program and may not contain all information available regarding this patient. Last updated [employer] Allergies No known active allergies Medications * [...] on file Legal Sex Female 6:16 AM PROGRAM ARCHITECT Gender Identity Not on file Sexual Orientation Not on file Last Filed Vital Signs Vital Sign Reading Time Taken Comments Blood Pressure 145/88 10/12/2021 4:45 PM PROGRAM ARCHITECT Pulse 79 10/12/2021 4:45 PM PROGRAM ARCHITECT Temperature 36.6 C (97.8 F) 10/12/2021 4:45 PM PROGRAM ARCHITECT Respiratory Rate 16 10/12/2021 4:45 PM PROGRAM ARCHITECT Oxygen Saturation 98% 10/12/2021 4:45 PM PROGRAM ARCHITECT Inhaled Oxygen Concentration - - Weight 99.8 kg (220 lb) 10/12/2021 12:17 PM PROGRAM ARCHITECT Height 165.1 cm (5' 5) 10/12/2021 12:17 PM PROGRAM ARCHITECT Body Mass Index 36.61 10/12/2021 12:17 PM PROGRAM ARCHITECT Plan of Treatment Health Maintenance Due Date Last Done Comments COLOGUARD (AGES 45-75) - COLON CA SCREENING 1961 COLON MONITORING 1961 COLONOSCOPY - COLON CA SCREENING 1961 CT COLONOGRAPHY - COLON CA SCREENING 1961 Colorectal Cancer Screening 1961 FIT - COLON CA SCREENING 1961 FLEX SIG - COLON CA SCREENING 1961 HIV SCREENING 1976 HEPATITIS C SCREENING 08/12/1979 DTAP/TDAP/TD VACCINES (1 - Tdap) 1980 PNEUMOCOCCAL VACCINE 50+ (1 of 2 - PCV) 1980 PAP SMEAR 1982 ZOSTER VACCINE (1 of 2) 2011 DEPRESSION SCREENING 10/29/2024 MEDICARE AWV CALENDAR YEAR 2024 COVID-19 VACCINE (2 - season) 2025 03/17/2022 INFLUENZA VACCINE (#1) 2025 , 07/12/2020, 07/15/2019, Additional history exists MAMMOGRAM 12/12/2025 [...] AM CDT) Cholesterol Total 152 <200 mg/dL [facility] HDL 36(L) >40 mg/dL [facility] Comment: ATP III Classification of HDL Cholesterol: <40 mg/dL: Considered a major risk factor. >60 mg/dL: Considered a negative risk factor. LDL Calculated 81 <100 mg/dL [facility] Comment: ATP III Classification of LDL Cholesterol: <100 mg/dL: Optimal 100 - 129 mg/dL: Near Optimal/Above Optimal 130 - 159 mg/dL: Borderline High 160 - 189 mg/dL: High >190 mg/dL: Very High Triglycerides 176(H) <150 mg/dL [facility] Comment: ATP III Classification of Triglycerides: <150 mg/dL: Normal 150 - 199 mg/dL: Borderline High 200 - 400 mg/dL: High >500 mg/dL: Very High Blood specimen (specimen) BLOOD SPECIMEN / Unknown 02/19/2015 11:28 AM CDT 02/19/2015 11:32 AM CDT Anya Isaac MD LAB - CHEMISTRY ORDERABLES Radha rendon Result [address] [phone] from Last 3 Months or Most Recently Relevant to Health Maintenance Insurance [facility] [place] MED[place]
--- OUTSIDE RECORDS SUMMARY | 2025-07-02 10:34 | XMS_ITS | Clinical Summary ---
Author Organization [facility] Address [address] [place] [address] Care Team Providers Care Cosmetic Surgeon Name Role Phone Iker Mendez MD Primary Care Provider [phone] Allergies No known active allergies Medications levothyroxine (SYNTHROID) 175 mcg tablet Take 1 tablet (175 mcg total) by mouth every morning 9 Active hydrALAZINE (APRESOLINE) 25 mg tablet Take 1 tablet (25 mg total) by mouth 2 (two) times a day 0 Active Ventolin HFA 90 mcg/actuation inhaler Inhale 2 puffs every 4 (four) hours as needed for wheezing or shortness of breath 0 Active carvediloL (COREG) 25 mg tablet Take 0.5 tablets (12.5 mg total) by mouth 2 (two) times a day with meals Take 1/2 tablet BID 1 Active calcium carbonate-vitam in D3 500 mg(1,250mg) -400 unit chewable tablet Take 1 tablet by mouth 2 (two) times a day Active empagliflozin (JARDIANCE) 10 mg tablet Take 1 tablet (10 mg total) by mouth daily 30 tablet 11 2 Active furosemide (LASIX) 40 mg tablet Take 1 tablet (40 mg total) by mouth every morning 2 Active rOPINIRole (REQUIP) 2 mg tablet Take 1 tablet (2 mg total) by mouth nightly 2 Active aspirin 81 mg enteric coated tablet Take 1 tablet by mouth once daily 100 tablet 3 2 Active Additional Information Patient taking differently: 81 mg oral Every morning, Indications: prevention of thrombosis, Informant: Self, Reported on 05/03/2023 amLODIPine (NORVASC) 5 mg tablet Take 1 tablet (5 mg total) by mouth daily 3 Active glipiZIDE (GLUCOTROL) 5 mg tablet Take 1 tablet (5 mg total) by mouth 2 (two) times a day before breakfast and lunch 4 Active sacubitriL-vals maxwell (Entresto) 97-103 mg tablet Take 1 tablet by mouth 2 (two) times a day 180 tablet 4 Active Trulicity 4.5 mg/0.5 mL pen injector 4 Active albuterol 2.5 mg /3 mL (0.083 %) nebulizer solution Take 3 mL (2.5 mg total) by nebulization every 4 (four) hours as needed for shortness of breath 4 Active rosuvastatin (CRESTOR) 40 mg tablet TAKE 1 TABLET BY MOUTH ONCE DAILY 90 tablet 5 Active Active Problems Problem Noted Date Diagnosed Date Recurrent UTI 11/09/2023 Overview (11/09/2023): Reports 4-5 UTIs this past year with persistent dysuria and urinary frequency. We discussed UTI prevention strategies including use of vaginal estrogen, voiding after intercourse, scheduled voiding every 2-3 hours. Prior culture data w/ pansusceptible E. 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 02/14/23: ASCUS/hrHPV+ 03/20/23: Colpo with CIN3 on cervical biopsy, CIN1 on ECC. 05/22/23: LEEP with CIN3 with positive ectocervical margins. 11/09/23: 6 mo post-LEEP NILM/HPV- Plan: [] 1 yr follow-up cotest (annually x 3 years) Morbid (severe) obesity due to excess calories 1 10/30/2021 Body mass index 40.0-44.9, adult ([facility]) 08/30 CKD (chronic kidney disease) stage 3, GFR 30-59 ml/min 04/17/2022 Dyspnea on exertion 09/14/2021 Acute on chronic diastolic congestive heart fail ure 09/14/2021 Essential hypertension 09/14/2021 Mixed hyperlipidemia 09/14/2021 Obesity (BMI 35.0-39.9 without comorbidity) 08/29 Renal insufficiency 09/14/2021 Congestive heart failure of unknown etiology Stenosis of carotid artery 04/06/2015 Multinodular goiter 01/13/2015 Surgical History Surgery Date Site/Laterality Comments IR FINE NEEDLE ASPIRATION W IMAGE GUIDANCE 01/27/2015 N/A biopsy thyriod CHOLECYSTECTOMY 10/29/1999 - 10/28/2000 THYROIDECTOMY 10/29/2017 - 10/28/2018 complete CATARACT EXTRACTION 10/29/2020 - 10/28/2021 Bilateral Medical History Medical History Date Comments Diabetes mellitus (HCC) Arthritis Thyroid disease Hypertension Thyroid cancer (HCC) Stroke (HCC) Family History Medical History Relation Name Comments Diabetes Father Hypertension Father Diabetes Mother Hypertension Mother Breast cancer Neg Hx Relation Name Status Comments Father Mother Social History Tobacco Use Types Packs/Day Years Used Date Smoking Tobacco: Every Day Cigarettes 0.7 48.7 Started: 1975 Smokeless Tobacco: Never Tobacco Cessation:Ready to Q uit: Not Asked; Counseling Given: Not Answered Alcohol Use Standard Drinks/Week Comments Not Currently 0 (1 standard drink = 0.6 oz pur e alcohol) Hunger Vital Sign Answer Date Recorded Within the past 12 months, y ou worried that your food would run out before you got the money to buy more. Patient declined Within the past 12 months, t he food you bought just didn't last and you didn't have money to get more. Patient declined 09/2024 Personal Safety Answer Date Recorded Have you ever been in or are you currently in a harmful physical or emotional relationship or is someone making you feel afraid or unsafe? Denies 05/22/2023 Comments No Sex and Gender Information Value Date Recorded Sex Assigned at Not on file Legal Sex Female 9:15 PM AGRICULTURAL EQUIPMENT DESIGN ENGINEER Gender Identity Not on file Sexual Orientation Not on file Obstetrics History Para Term AB IAB SAB Ectopic Multiple Livin g Live Births 3 3 3 Date Outcome GA Total Labor Labor/2nd/3rd Weight Sex Type Anes PTL Coby A1 A5 Name Clin Term Term Term Last Filed Vital Signs Vital Sign Reading Time Taken Comments Blood Pressure 130/58 06/20/2024 11:37 AM CDT Pulse 60 12/10/2023 9:26 AM AGRICULTURAL EQUIPMENT DESIGN ENGINEER Temperature 36.8 C (98.2 F) 12/10/2023 9:26 AM AGRICULTURAL EQUIPMENT DESIGN ENGINEER Respiratory Rate 16 05/22/2023 8:50 AM CDT Oxygen Saturation 95% 11/21/2023 11:43 AM AGRICULTURAL EQUIPMENT DESIGN ENGINEER Inhaled Oxygen Concentration - - Weight 108.9 kg (240 lb) 06/20/2024 11:10 AM CDT Height 165.1 cm (5' 5) 06/20/2024 11:10 AM CDT Body Mass Index 39.94 06/20/2024 11:10 AM CDT Plan of Treatment Health Maintenance Due Date Last Done Comments Colon Cancer Screening-Colonoscopy 1961 Depression Screening 1961 Hepatitis C Screening 1961 Hepatitis B Screening 1979 Regular Well Visit/Exam 18-64 1979 Zoster Vaccine (1 of 2) 2011 Pneumococcal vaccine <65 (3 of 3 - PCV20 or PCV21) 04/15/2020 04/15/2015, 04/15/2015, 04/02/2015 Cervical Cancer Screening 11/09/2024 11/09/2023, 09/2024 Breast Cancer Screening-Mammogram 12/12/2024 12/12/2023, 07/27/2021, 06/25/2018 Influenza Vaccine (#1) 2025 2, 07/12/2020, 07/15/2019, Additional history exists DTaP/Tdap/Td Vaccine (2 - Td or Tdap) 10/04/2025 10/04/2015 Procedures Procedure Name Priority Date/Time Associated Diagnosis Comments SCREENING MAMMOGRAM BILATERAL W ROME Schedule Routine, Read Routine (OP Routine) 12/12/2023 1:05 PM AGRICULTURAL EQUIPMENT DESIGN ENGINEER Screening mammogram, encounter for HIGH RISK HPV DNA DETECTION WITH GENOTYPING Routine 11/09/2023 1:30 PM AGRICULTURAL EQUIPMENT DESIGN ENGINEER High grade squamous intraepithelial lesion (HGSIL), grade 3 NELIA, on biopsy of cervix from Last 3 Months or Most Recently Relevant to Health Maintenance Results * Screening Mammogram Bilateral W [place] (12/12/2023 1:05 PM AGRICULTURAL EQUIPMENT DESIGN ENGINEER) Anatomical Region Laterality Modality Breast Bilateral Mammography Impressions 12/12/2023 1:10 PM AGRICULTURAL EQUIPMENT DESIGN ENGINEER BI-RADS ATLAS category (overall): 1 - Negative There is no mammographic evidence of malignancy. A 1 year screening mammogram is recommended. The patient has been or will be contacted. We recommend annual screening mammography for women at average risk of breast cancer beginning at age 40, based on guidelines of the [employer] (ACR Practice Parameter for the Performance of Screening and Diagnostic Mammography) and [employer]. For women with and elevated risk of breast cancer, please refer to the ACR Practice Parameter for specific screening recommendations. The patient will be entered into a reminder system with a target due date of 1 year for her next screening exam. Narrative 12/12/2023 1:10 PM AGRICULTURAL EQUIPMENT DESIGN ENGINEER Screening Mammogram Bilateral W Rome: 12/12/23 The study was acquired using full field digital technology and interpreted from soft copy. 2D digital mammographic views, as well as 3D digital tomosynthesis were performed in the CC and MLO projections. CLINICAL: Screening mammogram, encounter for Medical history includes thyroid cancer. History of breast cancer in Neg Hx. COMPARISONS: 07/27/2021 Screening Mammogram Bilateral W [place] 07/15/2018 Screening Mammogram Bilateral W [place] BREAST TISSUE: The breasts are almost entirely fatty. FINDINGS: There is no new suspicious finding in either breast on mammogram. us Iker Mendez MD IMG MAMMO PROCEDURES Final Re sult * High Risk HPV DNA Detection with Genotyping (Molecular component) (11/09/2023 1:30 PM AGRICULTURAL EQUIPMENT DESIGN ENGINEER) HPV HR 16 Not Detected Not Detected NELI TOUSSAINT HPV HR 18 Not Detected Not Detected NELI TOUSSAINT HPV HR Non 16/18 Not Detected Not Detected NELI TOUSSAINT Comment: Interpretive Data Nucleic acid amplification for detection of high-risk Human Papilloma virus (HPV) is performed by the Marcos Avinash 6800 HPV test. This assay specifically detects HPV-16 and HPV-18 genotypes. The following HPV genotypes are detected as high-risk HPV: HPV-31, 33, 35, ,39, 45, 51, 52, 56, 58, 59, 66, and 68. This assay has been approved by the [place] Food and Drug Administration for detection of HPV in cervical specimens collected by a physician using an endocervical brush/spatula or cervical broom and placed in the ThinPrep Pap Test PreservCyt collection containers. The performance characteristics of this test have been verified by the [facility] Molecular Infectious Disease laboratory. Correlate with separately reported cytology results, as applicable. Interpretive data last revised 23 Endocervical 11/09/2023 1:30 PM AGRICULTURAL EQUIPMENT DESIGN ENGINEER 11/12/2023 11:56 AM AGRICULTURAL EQUIPMENT DESIGN ENGINEER Narrative NELI [facility] - 11/12/2023 5:48 PM AGRICULTURAL EQUIPMENT DESIGN ENGINEER Clinical history and diagnosis->Hx LEEP with HSIL/CIN3 w/ +margins Testing type->Screening Last menstrual period (date if known)->unknown us Jannie Downs MD LAB BODY FLUIDS AND STOO LS ORDERABLES Final Result [facility] Department [place] [address] from Last 3 Months or Most Recently Relevant to Health Maintenance Insurance [facility] [place] Member Subscriber Plan / Payer (Ef fective 2021-Present) Name:Marah Ro Relation to Subscriber:Self Name:Jayjay Marah Jocelyne Payer ID:[id number] ([facility]) Type:MEDICARE RISK OTHER Address: [address] [facility] Member Subscriber Plan / Payer (Ef fective 2023-Present) Name:Jayjay Marah Jocelyne Relation to Subscriber:Self Name:Jayjay Marah Casanova Payer ID:[id number] ([facility]) Type:MEDICAID RISK OTHER Address: [address] [place] Care Teams Cosmetic Surgeon Relationship Specialty Start Date End Date Iker Mendez MD [address] [address] PCP - General 02/21/17
--- OUTSIDE RECORDS SUMMARY | 2025-07-02 10:34 | XMS_ITS | Encounter Summary ---
Author Organization [facility] Address [address] [place] [address] Phone Care Team Providers Care Tugger Operator Name Role Phone Iker Mendez MD Primary Care Provider [phone] Reason for Visit * Reason Comments Med Refill Encounter Details Date Type Department Care Team ([facility] Contact Info) Description 12/24/2019 Refill [facility] [address] [place] [address] Anshul Miranda MD [address] [phone] Social History Tobacco Use Types Packs/Day Years [...] Upcoming Encounters Date Type Department Care Team ([facility] Contact Info) Description 07/06/2025 9:00 AM CDT Clinical Support [facility] [address] [place] [address] Alexandra Samuel NP [address] [address] documented as of this encounter Visit Diagnoses Not on filedocumented in this encounter Care Teams Tugger Operator Relationship Specialty Start Date End Date Iker Mendez MD [address] [place] [phone] PCP - General Family Medicine 03/05/19 documented as of this encounter
--- OUTSIDE RECORDS SUMMARY | 2025-07-02 10:34 | XMS_ITS | Encounter Summary ---
Author Organization [facility] Address [address] [place] [address] Phone Care Team Providers Care Auto Rental Supervisor Name Role Phone Iker Mendez MD Primary Care Provider [phone] Reason for Visit * Reason Comments Med Refill Encounter Details Date Type Department Care Team ([facility] Contact Info) Description 04/03/2023 Refill [facility] [address] [place] [address] Anshul Miranda MD [address] [address] Social History Tobacco Use Types [...] Description 07/06/2025 9:00 AM CDT Clinical Support [facility] [address] [place] [address] Alexandra Samuel NP [address] [address] documented as of this encounter Visit Diagnoses Not on filedocumented in this encounter Care Teams Auto Rental Supervisor Relationship Specialty Start Date End Date Iker Mendez MD [address] [place] [phone] PCP - General Family Medicine 03/05/19 documented as of this encounter
--- OUTSIDE RECORDS SUMMARY | 2025-07-02 10:34 | XMS_ITS | Encounter Summary ---
Author Organization [facility] Address [address] [place] [address] Phone Care Team Providers Care Paper Processing Machine Helper Name Role Phone Iker Mendez MD Primary Care Provider [phone] Reason for Visit * Reason Comments Med Refill Encounter Details Date Type Department Care Team ([facility] Contact Info) Description 12/08/2020 Refill [facility] [address] [place] [address] Anshul Miranda MD [address] [address] Social History Tobacco Use Types [...] Description 07/06/2025 9:00 AM CDT Clinical Support [facility] [address] [address] Alexandra Samuel NP [address] [address] documented as of this encounter Visit Diagnoses Not on filedocumented in this encounter Care Teams Paper Processing Machine Helper Relationship Specialty Start Date End Date Iker Mendez MD [address] [place] [phone] PCP - General Family Medicine 03/05/19 documented as of this encounter
--- OUTSIDE RECORDS SUMMARY | 2025-07-02 10:34 | XMS_ITS | Clinical Summary ---
Author Organization [facility] Address [address] [place] [address] Phone Care Team Providers Care Rider Ticket Worker Name Role Phone Iker Mendez MD Primary Care Provider [phone] Allergies No known active allergies Medications aspirin (ASPIR-LOW) 81 MG EC tablet 1 tablet daily 0 10/04/2016 Active levothyroxine (SYNTHROID, LEVOTHROID) 175 MCG tablet 1 tab once daily 0 07/30/2018 Active Ventolin HFA 108 (90 Base) MCG/ACT inhaler 03/01/2021 Act tiffanie carvedilol (COREG) 25 MG tablet Take 25 mg by mouth in the morning and 25 mg before bedtime. 02/28/2021 Active hydrALAZINE (APRESOLINE) 25 MG tablet Take 25 mg by mouth in the morning and 25 mg before bedtime. 03/22/2021 Active Entresto 97-103 MG per tablet Take 1 tablet by mouth in the morning and 1 tablet before bedtime. 01/01/2023 Active furosemide (LASIX) 40 MG tablet Take 1 tablet by mouth once daily 90 tablet 03/30/2023 Active Empagliflozin (Jardiance) 10 MG tablet Take [...] mg under the skin per week Active ferrous sulfate 325 (65 Fe) MG tablet TAKE 1 TABLET BY MOUTH 1 TIME EACH DAY. 90 tablet 1 05/04/2025 Active Active Problems Problem Noted Date Diagnosed Date Iron deficiency anemia 07/16/2023 Stage 3b chronic kidney disease 06/06/2021 Chronic kidney disease stage 4 03/04/2021 Proteinuria 07/30/2018 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 Hypertension 10/04/2016 Resolved Problems Problem Noted Date Diagnosed Date Resolved Date Anemia in chronic kidney disease 05/19/2022 03/25/2024 Congestive heart failure 02/23/2022 Urinary tract infectious disease 02/20/2022 05/19/2022 Hematuria of undiagnosed cause 04/26/2020 03/04/2021 Hyperkalemia 07/30/2018 03/04/2021 Edema 11/28/2017 04/26/2020 Stage 1 chronic kidney disease 11/08/2017 04/26/2020 Obesity 10/04/2016 04/26/2020 Encounters Date Type Department Care Team Description 05/07/2025 2:40 PM CDT Office Visit [facility] [address] [place] [address] Alexandra Samuel NP Chronic kidney disease stage 4 ([facility]) (Primary Dx); Hypertension; Proteinuria, not otherwise specified; Type 2 diabetes mellitus with diabetic nephropathy ([facility]); Iron deficiency anemia, not otherwise specified 05/04/2025 Refill [facility] [address] [place] [address] Alexandra Samuel NP 04/09/2025 Refill [facility] [address] [place] [address] Amanda Chambers RN from Last 3 Months Immunizations Immunization Administration Dates Next Due Influenza [...] on file Legal Sex Female 8:55 AM [facility] Gender Identity Not on file Sexual Orientation Not on file Last Filed Vital Signs Vital Sign Reading Time Taken Comments Blood Pressure 138/49 05/07/2025 2:34 PM CDT Pulse 59 05/07/2025 2:34 PM CDT Temperature - - Respiratory Rate - - Oxygen Saturation 88% 04/19/2023 9:45 AM CDT provider aware Inhaled Oxygen Concentration - - Weight 108 kg (237 lb) 05/07/2025 2:34 PM CDT Height 165.1 cm (5' 5) 05/07/2025 2:34 PM CDT Body Mass Index 39.44 05/07/2025 2:34 PM CDT Plan of Treatment Upcoming Encounters Date Type Department Care Team ([facility] Contact Info) Description 07/06/2025 9:00 AM CDT Clinical Support [facility] [address] [facility] [address] [place] [address] Alexandra Samuel NP [address] [address] Health Maintenance Due Date Last Done Comments Diabetic Foot Exam 1971 Ophthalmology Exam 1971 Pneumococcal PPSV23 Highest Risk Adult (3 of 3 - PCV13) 04/15/2016 04/15/2015, 04/02/2015 COVID-19 Vaccine (2 - Modern a risk series) 04/14/2022 03/17/2022 Influenza Vaccine (#1) 2025 2, 07/12/2020, 07/15/2019, Additional history exists Insurance [facility] Care Teams Rider Ticket Worker Relationship Specialty Start Date End Date Iker Mendez MD [address] [place] [address] PCP - General Family Medicine 03/05/19
--- OUTSIDE RECORDS SUMMARY | 2025-07-02 10:34 | XMS_ITS ---
Author Organization [facility] Address [address] [place] [address] Care Team Providers Care Supervisor [place] Name Role Phone Iker Mendez MD Primary Care Provider [phone] Active Problems Problem Noted Date Diagnosed Date [...] 1 10/30/2021 Body mass index 40.0-44.9, adult ([facility]) 08/30 CKD (chronic kidney disease) stage 3, GFR 30-59 ml/min 04/17/2022 Dyspnea on exertion 09/14/2021 Acute on chronic diastolic congestive heart fail ure 09/14/2021 Essential hypertension 09/14/2021 Mixed hyperlipidemia 09/14/2021 Obesity (BMI 35.0-39.9 without comorbidity) 08/29 Renal insufficiency 09/14/2021 Congestive heart failure of unknown etiology Stenosis of carotid artery 04/06/2015 Multinodular goiter 01/13/2015 Current Treatment and Therapy Plans No current plan information found. Past Treatment and Therapy Plans No past plan information found. Lifetime Dose Tracking * Chemical Lifetime Dose Automatic Entry Manual Entr y DLP 482 mGycm 482 mGycm 0 mGycm
--- OUTSIDE RECORDS SUMMARY | 2025-07-02 10:34 | XMS_ITS | Encounter Summary ---
Author Organization [facility] Address [address] [place] [address] Phone Care Team Providers Care Strainer Mill Operator Name Role Phone Iker Mendez MD Primary Care Provider [phone] Reason for Visit * Reason Comments Med Refill Encounter Details Date Type Department Care Team ([facility] Contact Info) Description 07/23/2019 Refill [facility] [address] [place] [address] Anshul Miranda MD [address] [phone] Social History Tobacco Use Types Packs/Day Years [...] Upcoming Encounters Date Type Department Care Team ([facility] Contact Info) Description 07/06/2025 9:00 AM CDT Clinical Support [facility] [address] [place] [address] Alexandra Samuel NP [address] [address] documented as of this encounter Visit Diagnoses Not on filedocumented in this encounter Care Teams Strainer Mill Operator Relationship Specialty Start Date End Date Iker Mendez MD [address] [place] [phone] PCP - General Family Medicine 03/05/19 documented as of this encounter
--- OUTSIDE RECORDS SUMMARY | 2025-07-02 10:34 | XMS_ITS | Encounter Summary ---
Author Organization [facility] Address [address] [place] [address] Phone Care Team Providers Care Support Associate Name Role Phone Iker Mendez MD Primary Care Provider [phone] Reason for Visit * Reason Comments Med Refill Encounter Details Date Type Department Care Team ([facility] Contact Info) Description 07/30/2019 Refill [facility] [address] [place] [address] Anshul Miranda MD [address] [phone] Social History Tobacco Use Types Packs/Day Years [...] Upcoming Encounters Date Type Department Care Team ([facility] Contact Info) Description 07/06/2025 9:00 AM CDT Clinical Support [facility] [address] [place] [address] Alexandra Samuel NP [address] [address] documented as of this encounter Visit Diagnoses Not on filedocumented in this encounter Care Teams Support Associate Relationship Specialty Start Date End Date Iker Mendez MD [address] [place] [phone] PCP - General Family Medicine 03/05/19 documented as of this encounter
--- OUTSIDE RECORDS SUMMARY | 2025-07-02 10:34 | XMS_ITS | Encounter Summary ---
Author Organization [facility] Address [address] [place] [address] Phone Care Team Providers Care Supervisor Of Way Name Role Phone Iker Mendez MD Primary Care Provider [phone] Reason for Visit * Reason Comments Med Refill Encounter Details Date Type Department Care Team ([facility] Contact Info) Description 10/19/2021 Refill [facility] [address] [place] [address] Anshul Miranda MD [address] [address] Social History Tobacco Use Types [...] Description 07/06/2025 9:00 AM CDT Clinical Support [facility] [address] [address] Alexandra Samuel NP [address] [address] documented as of this encounter Visit Diagnoses Not on filedocumented in this encounter Care Teams Supervisor Of Way Relationship Specialty Start Date End Date Iker Mendez MD [address] [place] [phone] PCP - General Family Medicine 03/05/19 documented as of this encounter
--- OUTSIDE RECORDS SUMMARY | 2025-07-02 10:34 | XMS_ITS | Encounter Summary ---
Author Organization [facility] Address [address] [place] [address] Phone Care Team Providers Care Equipment Tech Name Role Phone Iker Mendez MD Primary Care Provider [phone] Reason for Visit * Reason Comments Med Refill Encounter Details Date Type Department Care Team ([facility] Contact Info) Description 11/29/2019 Refill [facility] [address] [place] [address] Anshul Miranda MD [address] [phone] Social History Tobacco Use Types Packs/Day Years [...] Upcoming Encounters Date Type Department Care Team ([facility] Contact Info) Description 07/06/2025 9:00 AM CDT Clinical Support [facility] [address] [place] [address] Alexandra Samuel NP [address] [address] documented as of this encounter Visit Diagnoses Not on filedocumented in this encounter Care Teams Equipment Tech Relationship Specialty Start Date End Date Iker Mendez MD [address] [place] [address] PCP - General Family Medicine 03/05/19 documented as of this encounter
--- OUTSIDE RECORDS SUMMARY | 2025-07-02 10:34 | XMS_ITS | Encounter Summary ---
Author Organization [facility] Address [address] [place] [address] Phone Care Team Providers Care Line Cook Name Role Phone Iker Mendez MD Primary Care Provider [phone] Reason for Visit * Reason Comments Med Refill Encounter Details Date Type Department Care Team ([facility] Contact Info) Description 10/27/2020 Refill [facility] [address] [place] [address] Anshul Miranda MD [address] [phone] Social History Tobacco Use Types Packs/Day Years [...] Department Care Team ([facility] Contact Info) Description 07/06/2025 9:00 AM CDT Clinical Support [facility] [address] [place] [address] Alexandra Samuel NP [address] [address] documented as of this encounter Visit Diagnoses Not on filedocumented in this encounter Care Teams Line Cook Relationship Specialty Start Date End Date Iker Mendez MD [address] [place] [address] PCP - General Family Medicine 03/05/19 documented as of this encounter
--- OUTSIDE RECORDS SUMMARY | 2025-07-02 10:34 | XMS_ITS | Encounter Summary ---
Author Organization [facility] Address [address] [place] [address] Phone Care Team Providers Care Brownfield Redevelopment Specialist Name Role Phone Iker Mendez MD Primary Care Provider [phone] Reason for Visit * Reason Comments Med Refill Encounter Details Date Type Department Care Team ([facility] Contact Info) Description 10/11/2020 Refill [facility] [address] [place] [address] Anshul Miranda MD [address] [phone] Social History Tobacco Use Types Packs/Day Years [...] Upcoming Encounters Date Type Department Care Team ([facility] Contact Info) Description 07/06/2025 9:00 AM CDT Clinical Support [facility] [address] [place] [address] Alexandra Samuel NP [address] [address] documented as of this encounter Visit Diagnoses Not on filedocumented in this encounter Care Teams Brownfield Redevelopment Specialist Relationship Specialty Start Date End Date Iker Mendez MD [address] [place] [address] PCP - General Family Medicine 03/05/19 documented as of this encounter
--- OUTSIDE RECORDS SUMMARY | 2025-07-02 10:34 | XMS_ITS | Encounter Summary ---
Author Organization [facility] Address [address] [place] [address] Phone Care Team Providers Care Credit Union Manager Name Role Phone Iker Mendez MD Primary Care Provider [phone] Reason for Visit * Reason Comments Med Refill Encounter Details Date Type Department Care Team ([facility] Contact Info) Description 04/14/2021 Refill [facility] [address] [place] [address] Anshul Miranda MD [address] [address] Social History Tobacco Use Types [...] Description 07/06/2025 9:00 AM CDT Clinical Support [facility] [address] [address] Alexandra Samuel NP [address] [address] documented as of this encounter Visit Diagnoses Not on filedocumented in this encounter Care Teams Credit Union Manager Relationship Specialty Start Date End Date Iker Mendez MD [address] [place] [address] PCP - General Family Medicine 03/05/19 documented as of this encounter
--- OUTSIDE RECORDS SUMMARY | 2025-07-02 10:34 | XMS_ITS | Encounter Summary ---
Author Organization [facility] Address [address] [place] [address] Phone Care Team Providers Care Electrical Assembly Supervisor Name Role Phone Iker Mendez MD Primary Care Provider [phone] Reason for Visit * Reason Comments Med Refill Encounter Details Date Type Department Care Team ([facility] Contact Info) Description 03/09/2020 Refill [facility] [address] [place] [address] Anshul Miranda MD [address] [phone] Social History Tobacco Use Types Packs/Day Years [...] Encounters Date Type Department Care Team ([facility] Contact Info) Description 07/06/2025 9:00 AM CDT Clinical Support [facility] [address] [place] [address] Alexandra Samuel NP [address] [address] documented as of this encounter Visit Diagnoses Not on filedocumented in this encounter Care Teams Electrical Assembly Supervisor Relationship Specialty Start Date End Date Iker Mendez MD [address] [place] [address] PCP - General Family Medicine 03/05/19 documented as of this encounter
--- OUTSIDE RECORDS SUMMARY | 2025-07-02 10:34 | XMS_ITS | Encounter Summary ---
Author Organization [facility] Address [address] [place] [address] Phone Care Team Providers Care Sales Facilitator Name Role Phone Iker Mendez MD Primary Care Provider [phone] Reason for Visit * Reason Comments Med Refill Encounter Details Date Type Department Care Team ([facility] Contact Info) Description 12/23/2019 Refill [facility] [address] [place] [address] Anshul Miranda MD [address] [phone] Social History Tobacco Use Types Packs/Day Years [...] Department Care Team ([facility] Contact Info) Description 07/06/2025 9:00 AM CDT Clinical Support [facility] [address] [place] [address] Alexandra Samuel NP [address] [address] documented as of this encounter Visit Diagnoses Not on filedocumented in this encounter Care Teams Sales Facilitator Relationship Specialty Start Date End Date Iker Mendez MD [address] [place] [address] PCP - General Family Medicine 03/05/19 documented as of this encounter
--- OUTSIDE RECORDS SUMMARY | 2025-07-02 10:34 | XMS_ITS | Encounter Summary ---
Author Organization [facility]ions Address [address] [place] [address] Phone Care Team Providers Care Color Expert Name Role Phone Iker Mendez MD Primary Care Provider [phone] Reason for Visit * Reason Comments Med Refill Encounter Details Date Type Department Care Team ([facility] Contact Info) Description 04/10/2020 Refill [facility] [address] [place] [address] Anshul Miranda MD [address] [phone] Social History Tobacco Use Types Packs/Day Years [...] Upcoming Encounters Date Type Department Care Team ([facility] Contact Info) Description 07/06/2025 9:00 AM CDT Clinical Support [facility] [address] [place] [address] Alexandra Samuel NP [address] [address] documented as of this encounter Visit Diagnoses Not on filedocumented in this encounter Care Teams Color Expert Relationship Specialty Start Date End Date Iker Mendez MD [address] [place] [address] PCP - General Family Medicine 03/05/19 documented as of this encounter
--- OUTSIDE RECORDS SUMMARY | 2025-07-02 10:34 | XMS_ITS | Encounter Summary ---
Author [facility] Address [address] [place] [address] Phone Care Team Providers Care Boarding Mother Name Role Phone Iker Mendez MD Primary Care Provider Reason for Visit * Reason Comments Med Refill Encounter Details Date Type Department Care Team ([facility] Contact Info) Description 07/01/2019 Refill [facility] [address] [place] [address] Alexandra Samuel NP [address] [phone] Social History Tobacco Use Types Packs/Day Years [...] Department Care Team ([facility] Contact Info) Description 07/06/2025 9:00 AM CDT Clinical Support [facility] [address] [place] [address] Alexandra Samuel NP [address] [address] documented as of this encounter Visit Diagnoses Not on filedocumented in this encounter Care Teams Boarding Mother Relationship Specialty Start Date End Date Iker Mendez MD [address] [place] [address] PCP - General Family Medicine 03/05/19 documented as of this encounter
--- OUTSIDE RECORDS SUMMARY | 2025-07-02 10:34 | XMS_ITS | Encounter Summary ---
Author Organization [facility]ions Address [address] [place] [address] Phone Care Team Providers Care Tree Scout Name Role Phone Iker Mendez MD Primary Care Provider Reason for Visit * Reason Comments Med Refill Encounter Details Date Type Department Care Team ([facility] Contact Info) Description 09/12/2020 Refill [facility] [address] [address] Anshul Miranda MD [address] [address] Social History Tobacco Use Types [...] Upcoming Encounters Date Type Department Care Team ([facility] Contact Info) Description 07/06/2025 9:00 AM CDT Clinical Support [facility] [address] [facility] [address] [place] [address] Alexandra Samuel, GHULAM [address] [address] documented as of this encounter Visit Diagnoses Not on filedocumented in this encounter Care Teams Tree Scout Relationship Specialty Start Date End Date Iker Mendez MD [address] [place] [address] PCP - General Family Medicine 03/05/19 documented as of this encounter
--- OUTSIDE RECORDS SUMMARY | 2025-07-02 10:34 | XMS_ITS | Encounter Summary ---
Author Organization [facility]ions Address [address] [place] [address] Phone Care Team Providers Care Molder Floor Name Role Phone Iker Mendez MD Primary Care Provider [phone] Reason for Visit * Reason Comments Med Refill Encounter Details Date Type Department Care Team ([facility] Contact Info) Description 07/18/2021 Refill [facility] [address] [place] [address] Anshul Miranda MD [address] [address] Social History Tobacco Use Types [...] Description 07/06/2025 9:00 AM CDT Clinical Support [facility] [address] [address] Alexandra Samuel NP [address] [address] documented as of this encounter Visit Diagnoses Not on filedocumented in this encounter Care Teams Molder Floor Relationship Specialty Start Date End Date Iker Mendez MD [address] [place] [address] PCP - General Family Medicine 03/05/19 documented as of this encounter
[2025-07-02 10:40] LABS: Iron 37 ug/dL (37-170)
[2025-07-02 10:42] LABS: Albumin Level 4.3 g/dL (3.5-5.1); Anion Gap 12 mmol/L (4-12); Blood Urea Nitrogen 65 mg/dL (7-17); Calcium 9.9 mg/dL (8.4-10.2); Carbon Dioxide 22 mmol/L (22-30); Chloride 112 mmol/L (98-107); Estimated Glomerular Filt Rate 29; Glucose 112 mg/dL (65-110); Osmolality Calculated 321 mOsm/kg (285-295); Potassium 5.0 mmol/L (3.4-5.0); Sodium 146 mmol/L (137-145)
[2025-07-02 10:50] LABS: Percent Iron Saturation 9 % (20-50)
[2025-07-02 11:17] LABS: Ferritin 20.00 ng/mL (11.1-264)
== END 2025-07-02 10:01 | disposition home or self-care (01) ==
LOC: CHSLAB 10:03
PROVIDERS: PCP Family Medicine; Visit Provider Nurse Practitioner Family
DX: N18.4 Chronic kidney disease, stage 4 (severe) (principal); D50.9 Iron deficiency anemia, unspecified
CPT/HCPCS: 36415; 80069; 82310; 82728; 83540; 83550; 83970; 85025

== ENCOUNTER 2025-07-16 09:00 | Outpatient (CLI) | payer OTHER, SELFPAY ==
[2025-07-16 09:05] VITALS: BMI 39.2
[2025-07-16 09:20] VITALS: BP 149/74; PULSE 68; RESP 14; TEMP 36.6; O2SAT 98
[2025-07-16] MEDS: IRON SUCROSE COMPLEX 300 MG in SODIUM CHLORIDE 0.9% IV 235 ML 125 MG IVPB (09:24)
--- OUTSIDE RECORDS SUMMARY | 2025-07-16 09:26 | XMS_ITS | Encounter Summary ---
Author Organization [facility]ions Address [address] [place] [address] Phone Care Team Providers Care Teachers Assistant Name Role Phone Iker Mendez MD Primary Care Provider [phone] Reason for Visit * Reason Comments Med Refill Encounter Details Date Type Department Care Team ([facility] Contact Info) Description 07/30/2019 Refill [facility] [address] [place] [address] Anshul Miranda MD [address] [phone] Social History Tobacco Use Types Packs/Day Years [...] Upcoming Encounters Date Type Department Care Team ([facility] Contact Info) Description 11/12/2025 1:20 PM BASEBALL SCOUT Office Visit [facility] [address] [place] [address] Alexandra Samuel NP [address] [address] documented as of this encounter Visit Diagnoses Not on filedocumented in this encounter Care Teams Teachers Assistant Relationship Specialty Start Date End Date Iker Mendez MD [address] [place] [address] PCP - General Family Medicine 03/05/19 documented as of this encounter
--- OUTSIDE RECORDS SUMMARY | 2025-07-16 09:26 | XMS_ITS | Encounter Summary ---
Author Organization [facility] utions Address [address] [place] [address] Phone Care Team Providers Care Tire Repair Mechanic Name Role Phone Iker Mendez MD Primary Care Provider [phone] Reason for Visit * Reason Comments Med Refill Encounter Details Date Type Department Care Team ([facility] Contact Info) Description 12/24/2019 Refill [facility] [address] [place] [address] Anshul Miranda MD [address] [phone] Social History Tobacco Use Types Packs/Day Years [...] ([facility] Contact Info) Description 11/12/2025 1:20 PM WIRE BRUSH MAKER Office Visit [facility] [address] [address] Alexandra Samuel NP [address] [address] documented as of this encounter Visit Diagnoses Not on filedocumented in this encounter Care Teams Tire Repair Mechanic Relationship Specialty Start Date End Date Iker Mendez MD [address] [place] [address] PCP - General Family Medicine 03/05/19 documented as of this encounter
--- OUTSIDE RECORDS SUMMARY | 2025-07-16 09:26 | XMS_ITS | Encounter Summary ---
Author Organization [facility]ions Address [address] [place] [address] Phone Care Team Providers Care Odd Bundle Worker Name Role Phone Iker Mendez MD Primary Care Provider [phone] Reason for Visit * Reason Comments Med Refill Encounter Details Date Type Department Care Team ([facility] Contact Info) Description 07/01/2019 Refill [facility] [address] [place] [phone] Alexandra Samuel NP [address] [address] Social History Tobacco Use Types [...] Care Team ([facility] Contact Info) Description 11/12/2025 1:20 PM RATE CLERK PASSENGER Office Visit [facility] [address] [place] [address] [phone] Alexandra Samuel NP [address] [address] documented as of this encounter Visit Diagnoses Not on filedocumented in this encounter Care Teams Odd Bundle Worker Relationship Specialty Start Date End Date Iker Mendez MD [address] [place] [address] PCP - General Family Medicine 03/05/19 documented as of this encounter
--- OUTSIDE RECORDS SUMMARY | 2025-07-16 09:26 | XMS_ITS | Encounter Summary ---
Author Organization [facility]ions Address [address] [place] [address] Phone Care Team Providers Care Automatic Spooler Operator Name Role Phone Iker Mendez MD Primary Care Provider [phone] Reason for Visit * Reason Comments Med Refill Encounter Details Date Type Department Care Team ([facility] Contact Info) Description 01/19/2022 Refill [facility] [address] [address] Anshul Miranda MD [address] [phone] Social History Tobacco Use Types Packs/Day Years [...] Encounters Date Type Department Care Team ([facility] Contact Info) Description 11/12/2025 1:20 PM WHOLESALE ACCOUNT EXECUTIVE Office Visit [facility] [address] [address] Alexandra Samuel NP [address] [address] documented as of this encounter Visit Diagnoses Not on filedocumented in this encounter Care Teams Automatic Spooler Operator Relationship Specialty Start Date End Date Iker Mendez MD [address] [place] [address] PCP - General Family Medicine 03/05/19 documented as of this encounter
--- OUTSIDE RECORDS SUMMARY | 2025-07-16 09:26 | XMS_ITS | Encounter Summary ---
Author Organization [facility]ions Address [address] [place] [address] Phone Care Team Providers Care Family Medicine Physician Name Role Phone Iker Mendez MD Primary Care Provider [phone] Reason for Visit * Reason Comments Med Refill Encounter Details Date Type Department Care Team ([facility] Contact Info) Description 07/23/2019 Refill [facility] [address] [place] [address] Anshul Miranda MD [address] [phone] Social History Tobacco Use Types Packs/Day Years [...] Upcoming Encounters Date Type Department Care Team ([facility] Contact Info) Description 11/12/2025 1:20 PM INSPECTOR PRECISION Office Visit [facility] [address] [address] Alexandra Samuel NP [address] [address] documented as of this encounter Visit Diagnoses Not on filedocumented in this encounter Care Teams Family Medicine Physician Relationship Specialty Start Date End Date Iker Mendez MD [address] [place] [address] PCP - General Family Medicine 03/05/19 documented as of this encounter
--- OUTSIDE RECORDS SUMMARY | 2025-07-16 09:26 | XMS_ITS | Encounter Summary ---
Author Organization [facility] utions Address [address] [place] [address] Phone Care Team Providers Care Relocation Specialist Name Role Phone Iker Mendez MD Primary Care Provider [phone] Reason for Visit * Reason Comments Med Refill Encounter Details Date Type Department Care Team ([facility] Contact Info) Description 12/23/2019 Refill [facility] [address] [place] [address] Anshul Miranda MD [address] [phone] Social History Tobacco Use Types Packs/Day Years [...] Encounters Date Type Department Care Team ([facility] Contact Info) Description 11/12/2025 1:20 PM EVENTS DIRECTOR Office Visit [facility] [address] [place] [address] Alexandra Samuel NP [address] [address] documented as of this encounter Visit Diagnoses Not on filedocumented in this encounter Care Teams Relocation Specialist Relationship Specialty Start Date End Date Iker Mendez MD [address] [place] [address] PCP - General Family Medicine 03/05/19 documented as of this encounter
--- OUTSIDE RECORDS SUMMARY | 2025-07-16 09:26 | XMS_ITS | Clinical Summary ---
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 (CMS/HCC HHS/HCC) Social History Tobacco Use Types Packs/Day Years Used Date Smoking Tobacco: Never Assessed Comments Unknown Sex and Gender Information Value Date Recorded Sex Assigned at Female 09/08/2024 2:54 PM PROJECT MANAGER RETAIL Legal Sex Female 5:36 PM CDT Gender Identity Female 09/08/2024 2:54 PM PROJECT MANAGER RETAIL Sexual Orientation Straight 09/08/2024 2: 54 PM PROJECT MANAGER RETAIL Plan of Treatment Health Maintenance Due Date [...] Last Indicated MRSA 08/25/2024 08/25/2024 Insurance [facility] Care Teams Inventory Control/Shipping Receiving Relationship Specialty Start Date End Date Iker Menedz MD PCP - General 11/19/15
--- OUTSIDE RECORDS SUMMARY | 2025-07-16 09:26 | XMS_ITS ---
Author Organization [facility] Address [address] [place] [address] Care Team Providers Care Senior Education Specialist Name Role Phone Iker Mendez MD Primary Care Provider [phone] Active Problems Problem Noted Date Diagnosed Date [...] 1 10/30/2021 Body mass index 40.0-44.9, adult ([facility]) 08/30 CKD (chronic kidney disease) stage [...]
--- OUTSIDE RECORDS SUMMARY | 2025-07-16 09:26 | XMS_ITS | Encounter Summary ---
Author Organization [facility] Address [address] [place] [address] Phone Care Team Providers Care Spool Salvager Name Role Phone Iker Mendez MD Primary Care Provider [phone] Reason for Visit * Reason Comments Med Refill Encounter Details Date Type Department Care Team ([facility] Contact Info) Description 04/25/2022 Refill [facility] [address] [place] [address] [phone] Alexandra Samuel NP [address] [phone] Social History Tobacco Use Types Packs/Day Years [...] Upcoming Encounters Date Type Department Care Team ([facility] Contact Info) Description 11/12/2025 1:20 PM QUAHOGGER Office Visit [facility] [address] [place] [address] [phone] Alexandra Samuel NP [address] [address] documented as of this encounter Visit Diagnoses Not on filedocumented in this encounter Care Teams Spool Salvager Relationship Specialty Start Date End Date Iker Mendez MD [address] [place] [address] PCP - General Family Medicine 03/05/19 documented as of this encounter
--- OUTSIDE RECORDS SUMMARY | 2025-07-16 09:26 | XMS_ITS | Clinical Summary ---
Author Organization [facility] [employer] Address [address] [facility] [place] [address] Care Team Providers Care Air Brush Decorator Name Role Phone Unavailable Primary Care Provider Unavailabl e Source Comments [facility] [employer],non-owned Affiliates and Associated Physician Practices is amultiple site organization consisting of ambulatory clinics and hospital sitesin [place], [place], [place] and [place]. This disclosure is being madepursuant to the Care Everywhere program and may not contain all information available regarding this patient. Last updated 18.[employer] Allergies No known active allergies Medications * [...] on file Legal Sex Female 6:16 AM TENNIS CAMP INSTRUCTOR Gender Identity Not on file Sexual Orientation Not on file Last Filed Vital Signs Vital Sign Reading Time Taken Comments Blood Pressure 145/88 10/12/2021 4:45 PM TENNIS CAMP INSTRUCTOR Pulse 79 10/12/2021 4:45 PM TENNIS CAMP INSTRUCTOR Temperature 36.6 C (97.8 F) 10/12/2021 4:45 PM TENNIS CAMP INSTRUCTOR Respiratory Rate 16 10/12/2021 4:45 PM TENNIS CAMP INSTRUCTOR Oxygen Saturation 98% 10/12/2021 4:45 PM TENNIS CAMP INSTRUCTOR Inhaled Oxygen Concentration - - Weight 99.8 kg (220 lb) 10/12/2021 12:17 PM TENNIS CAMP INSTRUCTOR Height 165.1 cm (5' 5) 10/12/2021 12:17 PM TENNIS CAMP INSTRUCTOR Body Mass Index 36.61 10/12/2021 12:17 PM TENNIS CAMP INSTRUCTOR Plan of Treatment Health Maintenance Due Date [...] AM CDT) Cholesterol Total 152 <200 mg/dL [facility] HDL 36(L) >40 mg/dL [facility] Comment: ATP III Classification of HDL Cholesterol: <40 mg/dL: Considered a major risk factor. >60 mg/dL: Considered a negative risk factor. LDL Calculated 81 <100 mg/dL [facility] Comment: ATP III Classification of LDL Cholesterol: <100 mg/dL: Optimal 100 - 129 mg/dL: Near Optimal/Above Optimal 130 - 159 mg/dL: Borderline High 160 - 189 mg/dL: High >190 mg/dL: Very High Triglycerides 176(H) <150 mg/dL [facility] Comment: ATP III Classification of Triglycerides: <150 mg/dL: Normal 150 - 199 mg/dL: Borderline High 200 - 400 mg/dL: High >500 mg/dL: Very High Blood specimen (specimen) BLOOD SPECIMEN / Unknown 02/19/2015 11:28 AM CDT 02/19/2015 11:32 AM CDT Anya Isaac MD LAB - CHEMISTRY ORDERABLES Radha rendon Result [address] [phone] from Last 3 Months or Most Recently Relevant to Health Maintenance Insurance [facility] [place] MEDICARE D[place]V [place]
--- OUTSIDE RECORDS SUMMARY | 2025-07-16 09:26 | XMS_ITS | Encounter Summary ---
Author Organization [facility] Address [address] [place] [address] Phone Care Team Providers Care Medical Physiologist Name Role Phone Iker Mendez MD Primary Care Provider [phone] Reason for Visit * Reason Comments Med Refill Encounter Details Date Type Department Care Team ([facility] Contact Info) Description 11/29/2019 Refill [facility] [address] [place] [address] Anshul Miranda MD [address] [phone] Social History Tobacco Use Types Packs/Day Years [...] Department Care Team ([facility] Contact Info) Description 11/12/2025 1:20 PM PRINTED CIRCUIT BOARDS INSPECTOR Office Visit [facility] [address] [place] [address] Alexandra Samuel NP [address] [address] documented as of this encounter Visit Diagnoses Not on filedocumented in this encounter Care Teams Medical Physiologist Relationship Specialty Start Date End Date Iker Mendez MD [address] [place] [phone] PCP - General Family Medicine 03/05/19 documented as of this encounter
--- OUTSIDE RECORDS SUMMARY | 2025-07-16 09:27 | XMS_ITS | Encounter Summary ---
Author Organization [facility] Address [address] [place] [address] Phone Care Team Providers Care It Technical Specialist Name Role Phone Iker Mendez MD Primary Care Provider [phone] Reason for Visit * Reason Comments Med Refill Encounter Details Date Type Department Care Team ([facility] Contact Info) Description 10/11/2020 Refill [facility] [address] [place] [address] Anshul Miranda MD [address] [phone] Social History Tobacco Use Types Packs/Day Years [...] Upcoming Encounters Date Type Department Care Team ([facility] Contact Info) Description 11/12/2025 1:20 PM CARPET RENOVATOR Office Visit [facility] [address] Alexandra Samuel NP [address] [address] documented as of this encounter Visit Diagnoses Not on filedocumented in this encounter Care Teams It Technical Specialist Relationship Specialty Start Date End Date Iker Mendez MD [address] [place] [phone] PCP - General Family Medicine 03/05/19 documented as of this encounter
--- OUTSIDE RECORDS SUMMARY | 2025-07-16 09:27 | XMS_ITS | Encounter Summary ---
Author Organization [facility] Address [address] [place] [address] Phone Care Team Providers Care Market Maker Name Role Phone Iker Mendez MD Primary Care Provider [phone] Reason for Visit * Reason Comments Med Refill Encounter Details Date Type Department Care Team ([facility] Contact Info) Description 07/18/2021 Refill [facility] [address] [place] [address] Anshul Miranda MD [address] [phone] Social History Tobacco Use Types Packs/Day Years [...] Upcoming Encounters Date Type Department Care Team ([facility] Contact Info) Description 11/12/2025 1:20 PM CUSTODIAL LABORER Office Visit [facility] [address] [address] Alexandra Samuel NP [address] [address] documented as of this encounter Visit Diagnoses Not on filedocumented in this encounter Care Teams Market Maker Relationship Specialty Start Date End Date Iker Mendez MD [address] [place] [phone] PCP - General Family Medicine 03/05/19 documented as of this encounter
--- OUTSIDE RECORDS SUMMARY | 2025-07-16 09:27 | XMS_ITS | Clinical Summary ---
Author Organization [facility] Address [address] [place] [address] Phone Care Team Providers Care Research Program Intern Name Role Phone Iker Mendez MD Primary Care Provider [phone] Allergies No known active allergies Medications aspirin (ASPIR-LOW) 81 MG EC tablet 1 tablet daily 0 6 Active Ventolin HFA 108 (90 Base) MCG/ACT inhaler 1 Active carvedilol (COREG) 25 MG tablet Take 25 mg by mouth in the morning and 25 mg before bedtime. 1 Active Entresto 97-103 MG per tablet Take 1 tablet by mouth in the morning and 1 tablet before bedtime. 3 Active Empagliflozin (Jardiance) 10 MG tablet Take 10 mg by mouth in the morning and 10 mg in the evening. Active rosuvastatin (CRESTOR) 40 MG tablet Take 40 mg by mouth 1 (one) time each day Active amLODIPine (NORVASC) 10 MG tablet Take 10 mg by mouth 1 (one) time each day Active rOPINIRole (REQUIP) 2 MG tablet Take 2 mg by mouth every night Active Dulaglutide (Trulicity) 3 MG/0.5ML solution pen-injector Inject 3 mg under the skin per week Active spironolactone (ALDACTONE) 50 MG tablet Take 50 mg by mouth 1 (one) time each day Active rOPINIRole (REQUIP) 5 MG tablet Take 5 mg by mouth every night Active torsemide (DEMADEX) 20 MG tablet Take 20 mg by mouth 1 (one) time each day Active levothyroxine (SYNTHROID) 200 MCG tablet Take 200 mcg by mouth 1 (one) time each day Active glipiZIDE (GLUCOTROL) 5 MG tablet Take 5 mg by mouth in the morning and 5 mg in the evening. Take before meals. Active sertraline (ZOLOFT) 50 MG tablet Take 50 mg by mouth 1 (one) time each day Active atorvastatin (LIPITOR) 40 MG tablet Take 40 mg by mouth 1 (one) time each day Active levothyroxine (SYNTHROID, LEVOTHROID) 175 MCG tablet 1 tab once daily 0 8 07/06/20 25 Discontinued hydrALAZINE (APRESOLINE) 25 MG tablet Take 25 mg by mouth in the morning and 25 mg before bedtime. 1 07/06/20 25 Discontinued furosemide (LASIX) 40 MG tablet Take 1 tablet by mouth once daily 90 tablet 3 07/06/20 25 Discontinued Calcium Carb-Cholecalc iferol (CALCIUM 600+D HIGH POTENCY PO) Take 600 mg by mouth 1 (one) time each day 07/06/20 25 Discontinued ferrous sulfate 325 (65 Fe) MG tablet TAKE 1 TABLET BY MOUTH 1 TIME EACH DAY. 90 tablet 1 5 07/06/20 25 Discontinued Active Problems Problem Noted Date Diagnosed Date [...] Encounters Date Type Department Care Team Description 07/06/2025 9:00 AM CDT Clinical Support [facility] [address] [place] [address] Alexandra Samuel, GHULAM Chronic kidney disease stage 4 (CMS-HCC) (Primary Dx); Proteinuria, not otherwise specified; Iron deficiency anemia, not otherwise specified; Hypertension; Type 2 diabetes mellitus with diabetic nephropathy ([facility]) 05/07/2025 2:40 PM CDT Office Visit [facility] [address] [place] [address] Alexandra Samuel NP Chronic kidney disease stage 4 ([facility]) (Primary Dx); Hypertension; Proteinuria, not otherwise specified; Type 2 diabetes mellitus with diabetic nephropathy ([facility]); Iron deficiency anemia, not otherwise specified 05/04/2025 Refill [facility] [address] [place] [address] Alexandra Samuel NP from Last 3 Months Immunizations Immunization Administration [...] on file Legal Sex Female 8:55 AM [facility] Gender Identity Not on file Sexual Orientation Not on file Last Filed Vital Signs Vital Sign Reading Time Taken Comments Blood Pressure 155/65 07/06/2025 9:15 AM CDT Pulse 78 07/06/2025 9:15 AM CDT Temperature - - Respiratory Rate - - Oxygen Saturation 88% 04/19/2023 9:45 AM CDT provider aware Inhaled Oxygen Concentration - - Weight 104 kg (230 lb) 07/06/2025 9:15 AM CDT pe r pt Height 165.1 cm (5' 5) 07/06/2025 9:15 AM CDT Body Mass Index 38.27 07/06/2025 9:15 AM CDT Plan of Treatment Upcoming Encounters Date Type Department Care Team (Late st Contact Info) Description 11/12/2025 1:20 PM LOCK UP WORKER Office Visit [facility] [address] [place] [address] Alexandra Samuel, GHULAM [address] [address] Health Maintenance Due Date Last Done Comments Diabetic Foot Exam 1971 Ophthalmology Exam 1971 Pneumococcal PPSV23 Highest Risk Adult (3 of 3 - PCV13) 04/15/2016 04/15/2015, 04/02/2015 COVID-19 Vaccine (2 - Modern a risk series) 04/14/2022 03/17/2022 Influenza Vaccine (#1) 2025 2, 07/12/2020, 07/15/2019, Additional history exists Insurance [facility] [employer]ARE MULT[employer]LAN Care Teams Research Program Intern Relationship Specialty Start Date End Date Iker Mendez MD [address] [place] [address] PCP - General Family Medicine 03/05/19
--- OUTSIDE RECORDS SUMMARY | 2025-07-16 09:27 | XMS_ITS | Clinical Summary ---
Author Organization [facility] Address [address] [place] [address] Care Team Providers Care Interstate Bus Driver Name Role Phone Iker Mendez MD Primary Care Provider [phone] Allergies No known active allergies Medications levothyroxine [...] 1 10/30/2021 Body mass index 40.0-44.9, adult ([facility]) 08/30 CKD (chronic kidney disease) stage 3, [...] on file Legal Sex Female 9:15 PM DIRECTOR ATHLETIC Gender Identity Not on file Sexual Orientation [...] AM CDT Pulse 60 12/10/2023 9:26 AM DIRECTOR ATHLETIC Temperature 36.8 C (98.2 F) 12/10/2023 9:26 AM DIRECTOR ATHLETIC Respiratory Rate 16 05/22/2023 8:50 AM CDT Oxygen Saturation 95% 11/21/2023 11:43 AM DIRECTOR ATHLETIC Inhaled Oxygen Concentration - - Weight 108.9 [...] Read Routine (OP Routine) 12/12/2023 1:05 PM DIRECTOR ATHLETIC Screening mammogram, encounter for HIGH RISK HPV DNA DETECTION WITH GENOTYPING Routine 11/09/2023 1:30 PM DIRECTOR ATHLETIC High grade squamous intraepithelial lesion (HGSIL), grade 3 NELIA, on biopsy of cervix from Last 3 Months or Most Recently Relevant to Health Maintenance Results * Screening Mammogram Bilateral W [place] (12/12/2023 1:05 PM DIRECTOR ATHLETIC) Anatomical Region Laterality Modality Breast Bilateral Mammography Impressions 12/12/2023 1:10 PM DIRECTOR ATHLETIC BI-RADS ATLAS category (overall): 1 - Negative There is no mammographic evidence of malignancy. A 1 year screening mammogram is recommended. The patient has been or will be contacted. We recommend annual screening mammography for women at average risk of breast cancer beginning at age 40, based on guidelines of the [place] [employer] (ACR Practice Parameter for the Performance of Screening and Diagnostic Mammography) and [place] [employer]etric[employer]nec[employer]. For women with and elevated risk of breast cancer, please refer to the ACR Practice Parameter for specific screening recommendations. The patient will be entered into a reminder system with a target due date of 1 year for her next screening exam. Narrative 12/12/2023 1:10 PM DIRECTOR ATHLETIC Screening Mammogram Bilateral W Rome: 12/12/23 The [...] with Genotyping (Molecular component) (11/09/2023 1:30 PM DIRECTOR ATHLETIC) HPV HR 16 Not Detected Not Detected [...] this test have been verified by the [facility] Molecular Infectious Disease laboratory. Correlate with separately reported cytology results, as applicable. Interpretive data last revised 23 Endocervical 11/09/2023 1:30 PM DIRECTOR ATHLETIC 11/12/2023 11:56 AM DIRECTOR ATHLETIC Narrative [facility] - 11/12/2023 5:48 PM DIRECTOR ATHLETIC Clinical history and diagnosis->Hx LEEP with HSIL/CIN3 w/ +margins Testing type->Screening Last menstrual period (date if known)->unknown us Jannie Downs MD LAB BODY FLUIDS AND STOO LS ORDERABLES Final Result [facility] Department [place] [address] from Last 3 Months or Most Recently Relevant to Health Maintenance Insurance [facility] [place]UAL [place] Member Subscriber Plan / Payer (Ef fective 2021-Present) Name:Marah Ro Relation to Subscriber:Self Name:Jayjay Marah Jocelyne Payer ID:[id number] ([facility]) Type:MEDICARE RISK OTHER Address: [address] [facility] Member Subscriber Plan / Payer (Ef fective 2023-Present) Name:Jayjay Marah Jocelyne Relation to Subscriber:Self Name:Jayjay Marah Casanova Payer ID:[id number] ([facility]) Type:MEDICAID RISK OTHER Address: [address] [place] Care Teams Interstate Bus Driver Relationship Specialty Start Date End Date Iker Mendez MD [address] [address] PCP - General 02/21/17
--- OUTSIDE RECORDS SUMMARY | 2025-07-16 09:27 | XMS_ITS | Encounter Summary ---
Author Organization [facility] Address [address] [place] [address] Phone Care Team Providers Care Assembly Manager Name Role Phone Iker Mendez MD Primary Care Provider [phone] Reason for Visit * Reason Comments Med Refill Encounter Details Date Type Department Care Team ([facility] Contact Info) Description 04/10/2020 Refill [facility] [address] [place] [address] Anshul Miranda MD [address] [phone] Social History Tobacco Use Types Packs/Day Years [...] Hospital Contact Info) Description 11/12/2025 1:20 PM COMMERCIAL HORTICULTURE INSTRUCTOR Office Visit [facility] [address] [place] [address] Alexandra Samuel NP [address] [address] documented as of this encounter Visit Diagnoses Not on filedocumented in this encounter Care Teams Assembly Manager Relationship Specialty Start Date End Date Iker Mendez MD [address] [place] [phone] PCP - General Family Medicine 03/05/19 documented as of this encounter
--- OUTSIDE RECORDS SUMMARY | 2025-07-16 09:27 | XMS_ITS | Encounter Summary ---
Author Organization [facility] Address [address] [place] [address] Phone Care Team Providers Care Supervisor Boat Outfitting Name Role Phone Iker Mendez MD Primary Care Provider Reason for Visit * Reason Comments Med Refill Encounter Details Date Type Department Care Team ([facility] Contact Info) Description 04/14/2021 Refill [facility] [address] [address] Anshul Miranda MD [address] [phone] Social History Tobacco Use Types Packs/Day Years [...] Upcoming Encounters Date Type Department Care Team ([facility] Contact Info) Description 11/12/2025 1:20 PM CAR RENTAL SERVICE ATTENDANT Office Visit [facility] [address] [address] Alexandra Samuel NP [address] [address] documented as of this encounter Visit Diagnoses Not on filedocumented in this encounter Care Teams Supervisor Boat Outfitting Relationship Specialty Start Date End Date Iker Mendez MD [address] [place] [phone] PCP - General Family Medicine 03/05/19 documented as of this encounter
--- OUTSIDE RECORDS SUMMARY | 2025-07-16 09:27 | XMS_ITS | Encounter Summary ---
Author Organization [facility] Address [address] [place] [address] Phone Care Team Providers Care Cloth Printer Name Role Phone Iker Mendez MD Primary Care Provider [phone] Reason for Visit * Reason Comments Med Refill Encounter Details Date Type Department Care Team ([facility] Contact Info) Description 12/08/2020 Refill [facility] [address] [address] Anshul Miranda MD [address] [phone] Social History Tobacco Use Types Packs/Day Years [...] ([facility] Contact Info) Description 11/12/2025 1:20 PM WAX COATING MACHINE TENDER Office Visit [facility] [address] [address] Alexandra Samuel NP [address] [address] documented as of this encounter Visit Diagnoses Not on filedocumented in this encounter Care Teams Cloth Printer Relationship Specialty Start Date End Date Iker Mendez MD [address] [place] [phone] PCP - General Family Medicine 03/05/19 documented as of this encounter
--- OUTSIDE RECORDS SUMMARY | 2025-07-16 09:27 | XMS_ITS | Encounter Summary ---
Author Organization [facility] Address [address] [place] [address] Phone Care Team Providers Care Line Maintenance Technician Name Role Phone Iker Mendez MD Primary Care Provider [phone] Reason for Visit * Reason Comments Med Refill Encounter Details Date Type Department Care Team ([facility] Contact Info) Description 10/19/2021 Refill [facility] [address] [address] Anshul Miranda MD [address] [phone] Social History Tobacco Use Types Packs/Day Years [...] Health Contact Info) Description 11/12/2025 1:20 PM KILN DOOR BUILDER Office Visit [facility] [address] [address] Alexandra Samuel NP [address] [address] documented as of this encounter Visit Diagnoses Not on filedocumented in this encounter Care Teams Line Maintenance Technician Relationship Specialty Start Date End Date Iker Mendez MD [address] [place] [address] PCP - General Family Medicine 03/05/19 documented as of this encounter
--- OUTSIDE RECORDS SUMMARY | 2025-07-16 09:27 | XMS_ITS | Encounter Summary ---
Author Organization [facility] Address [address] [place] [address] Phone Care Team Providers Care Matlab Developer Name Role Phone Iker Mendez MD Primary Care Provider [phone] Reason for Visit * Reason Comments Med Refill Encounter Details Date Type Department Care Team ([facility] Contact Info) Description 09/12/2020 Refill [facility] [address] [address] Anshul Miranda MD [address] [address] Social History Tobacco Use Types [...] Upcoming Encounters Date Type Department Care Team ([facility] Contact Info) Description 11/12/2025 1:20 PM FREIGHT SERVICE INSPECTOR Office Visit [facility] [address] [facility] [address] [place] [address] Alexandra Samuel, SHROUD LINE TIER [address] [address] documented as of this encounter Visit Diagnoses Not on filedocumented in this encounter Care Teams Matlab Developer Relationship Specialty Start Date End Date Iker Mendez MD [address] [place] [address] PCP - General Family Medicine 03/05/19 documented as of this encounter
--- OUTSIDE RECORDS SUMMARY | 2025-07-16 09:27 | XMS_ITS | Encounter Summary ---
Author Organization [facility] Address [address] [place] [address] Phone Care Team Providers Care Showroom Sales Consultant Name Role Phone Iker Mendez MD Primary Care Provider [phone] Reason for Visit * Reason Comments Med Refill Encounter Details Date Type Department Care Team ([facility] Contact Info) Description 10/27/2020 Refill [facility] [address] [place] [address] Anshul Miranda MD [address] [phone] Social History Tobacco Use Types Packs/Day Years [...] Date Type Department Care Team ([facility] Contact Info) Description 11/12/2025 1:20 PM BINDER SELECTOR Office Visit [facility] [address] [place] [address] Alexandra Samuel NP [address] [address] documented as of this encounter Visit Diagnoses Not on filedocumented in this encounter Care Teams Showroom Sales Consultant Relationship Specialty Start Date End Date Iker Mendez MD [address] [place] [phone] PCP - General Family Medicine 03/05/19 documented as of this encounter
--- OUTSIDE RECORDS SUMMARY | 2025-07-16 09:27 | XMS_ITS | Encounter Summary ---
Author Organization [facility] Address [address] [place] [address] Phone Care Team Providers Care Choke Reamer Name Role Phone Iker Mendez MD Primary Care Provider [phone] Reason for Visit * Reason Comments Med Refill Encounter Details Date Type Department Care Team ([facility] Contact Info) Description 04/03/2023 Refill [facility] [address] [place] [address] Anshul Miranda MD [address] [phone] Social History Tobacco Use Types Packs/Day Years [...] [facility] Description 11/12/2025 1:20 PM APPLICATION SECURITY CONSULTANT Office Visit [facility] [address] [place] [address] Alexandra Samuel NP [address] [address] documented as of this encounter Visit Diagnoses Not on filedocumented in this encounter Care Teams Choke Reamer Relationship Specialty Start Date End Date Iker Mendez MD [address] [place] [phone] PCP - General Family Medicine 03/05/19 documented as of this encounter
--- OUTSIDE RECORDS SUMMARY | 2025-07-16 09:27 | XMS_ITS | Encounter Summary ---
Author Organization [facility] Address [address] [place] [address] Phone Care Team Providers Care Sanitary Engineering Teacher Name Role Phone Iker Mendez MD Primary Care Provider [phone] Reason for Visit * Reason Comments Med Refill Encounter Details Date Type Department Care Team ([facility] Contact Info) Description 03/09/2020 Refill [facility] [address] [place] [address] Anshul Miranda MD [address] [phone] Social History Tobacco Use Types Packs/Day Years [...] Upcoming Encounters Date Type Department Care Team ([facility] Contact Info) Description 11/12/2025 1:20 PM BESSEMER BOTTOM MAKER Office Visit [facility] [address] [place] [address] Alexandra Samuel NP [address] [address] documented as of this encounter Visit Diagnoses Not on filedocumented in this encounter Care Teams Sanitary Engineering Teacher Relationship Specialty Start Date End Date Iker Mendez MD [address] [place] [id number] PCP - General Family Medicine 03/05/19 documented as of this encounter
[2025-07-16 11:45] VITALS: BP 123/62; PULSE 60; RESP 16; O2SAT 97
--- NOTE | 2025-07-16 12:29 | PC.NURSE ---
Tolerated #1 of 3 Venofer infusion well. SEE MAR/patient care notes.
== END 2025-07-16 09:01 | disposition home or self-care (01) ==
PROVIDERS: PCP Family Medicine
DX: D50.9 Iron deficiency anemia, unspecified (principal)
CPT/HCPCS: 96365; 96366; J1756; J7050

== ENCOUNTER 2025-07-23 08:55 | Outpatient (CLI) | payer OTHER, SELFPAY ==
[2025-07-23 09:02] VITALS: BMI 39.2
[2025-07-23] MEDS: IRON SUCROSE COMPLEX 300 MG in SODIUM CHLORIDE 0.9% IV 235 ML 125 MG IVPB (09:15)
--- OUTSIDE RECORDS SUMMARY | 2025-07-23 09:20 | XMS_ITS | Encounter Summary ---
Author Organization [facility] Address [address] [place] [address] Phone Care Team Providers Care Mannequin Sander And Finisher Name Role Phone Iker Mendez MD Primary Care Provider [phone] Reason for Visit * Reason Comments Med Refill Encounter Details Date Type Department Care Team ([facility] Contact Info) Description 10/11/2020 Refill [facility] [address] [place] [address] Anshul Miranda MD [address] [phone] Social History Tobacco Use Types Packs/Day Years [...] Upcoming Encounters Date Type Department Care Team ([facility] Contact Info) Description 11/12/2025 1:20 PM DIRECTOR OF STRATEGY & MOBILE Office Visit [facility] [address] [place] [address] Alexandra Samuel NP [address] [address] documented as of this encounter Visit Diagnoses Not on filedocumented in this encounter Care Teams Mannequin Sander And Finisher Relationship Specialty Start Date End Date Iker Mendez MD [address] [place] [phone] PCP - General Family Medicine 03/05/19 documented as of this encounter
--- OUTSIDE RECORDS SUMMARY | 2025-07-23 09:20 | XMS_ITS | Encounter Summary ---
Author Organization [facility] Address [address] [place] [address] Phone Care Team Providers Care Art History Professor Name Role Phone Iker Mendez MD Primary Care Provider [phone] Reason for Visit * Reason Comments Med Refill Encounter Details Date Type Department Care Team ([facility] Contact Info) Description 04/10/2020 Refill [facility] [address] [place] [address] Anshul Miranda MD [address] [phone] Social History Tobacco Use Types Packs/Day Years [...] [facility] Description 11/12/2025 1:20 PM BASEBALL PLAYER Office Visit [facility] [address] [place] [address] Alexandra Samuel NP [address] [address] documented as of this encounter Visit Diagnoses Not on filedocumented in this encounter Care Teams Art History Professor Relationship Specialty Start Date End Date Iker Mendez MD [address] [place] [address] PCP - General Family Medicine 03/05/19 documented as of this encounter
--- OUTSIDE RECORDS SUMMARY | 2025-07-23 09:20 | XMS_ITS | Encounter Summary ---
Author Organization [facility] Address [address] [place] [address] Phone Care Team Providers Care Base Brander Name Role Phone Iker Mendez MD Primary Care Provider [phone] Reason for Visit * Reason Comments Med Refill Encounter Details Date Type Department Care Team ([facility] Contact Info) Description 10/27/2020 Refill [facility] [address] [place] [address] Anshul Miranda MD [address] [phone] Social History Tobacco Use Types Packs/Day Years [...] Upcoming Encounters Date Type Department Care Team ([facility] Contact Info) Description 11/12/2025 1:20 PM MANAGER BILLING Office Visit [facility] [address] [place] [address] Alexandra Samuel NP [address] [address] documented as of this encounter Visit Diagnoses Not on filedocumented in this encounter Care Teams Base Brander Relationship Specialty Start Date End Date Iker Mendez MD [address] [place] [address] PCP - General Family Medicine 03/05/19 documented as of this encounter
--- OUTSIDE RECORDS SUMMARY | 2025-07-23 09:20 | XMS_ITS | Encounter Summary ---
Author Organization [facility] Address [address] [place] [address] Phone Care Team Providers Care Real Estate Sales Supervisor Name Role Phone Iker Mendez MD Primary Care Provider [phone] Reason for Visit * Reason Comments Med Refill Encounter Details Date Type Department Care Team ([facility] Contact Info) Description 07/30/2019 Refill [facility] [address] [place] [address] Anshul Miranda MD [address] [phone] Social History Tobacco Use Types Packs/Day Years [...] Date Type Department Care Team ([facility] Contact Info) Description 11/12/2025 1:20 PM PERMACULTURE DESIGNER Office Visit [facility] [address] [place] [address] Alexandra Samuel NP [address] [address] documented as of this encounter Visit Diagnoses Not on filedocumented in this encounter Care Teams Real Estate Sales Supervisor Relationship Specialty Start Date End Date Iker Mendez MD [address] [place] [address] PCP - General Family Medicine 03/05/19 documented as of this encounter
--- OUTSIDE RECORDS SUMMARY | 2025-07-23 09:20 | XMS_ITS | Encounter Summary ---
Author Organization [facility] Address [address] [place] [address] Phone Care Team Providers Care Client Specialist Name Role Phone Iker Mendez MD Primary Care Provider [phone] Reason for Visit * Reason Comments Med Refill Encounter Details Date Type Department Care Team ([facility] Contact Info) Description 12/24/2019 Refill [facility] [address] [place] [address] Anshul Miranda MD [address] [phone] Social History Tobacco Use Types Packs/Day Years [...] Hospital Contact Info) Description 11/12/2025 1:20 PM METAL PLATER Office Visit [facility] [address] [place] [address] Alexandra Samuel NP [address] [address] documented as of this encounter Visit Diagnoses Not on filedocumented in this encounter Care Teams Client Specialist Relationship Specialty Start Date End Date Iker Mendez MD [address] [place] [address] PCP - General Family Medicine 03/05/19 documented as of this encounter
--- OUTSIDE RECORDS SUMMARY | 2025-07-23 09:20 | XMS_ITS | Encounter Summary ---
Author Organization [facility] Address [address] [place] [address] Phone Care Team Providers Care Language Specialist Name Role Phone Iker Mendez MD Primary Care Provider [phone] Reason for Visit * Reason Comments Med Refill Encounter Details Date Type Department Care Team ([facility] Contact Info) Description 03/09/2020 Refill [facility] [address] [place] [address] Anshul Miranda MD [address] [phone] Social History Tobacco Use Types Packs/Day Years [...] ([facility] Contact Info) Description 11/12/2025 1:20 PM DIGITAL MARKETING COORDINATOR Office Visit [facility] [address] [place] [address] Alexadnra Samuel NP [address] [address] documented as of this encounter Visit Diagnoses Not on filedocumented in this encounter Care Teams Language Specialist Relationship Specialty Start Date End Date Iker Mendez MD [address] [place] [address] PCP - General Family Medicine 03/05/19 documented as of this encounter
--- OUTSIDE RECORDS SUMMARY | 2025-07-23 09:20 | XMS_ITS | Encounter Summary ---
Author Organization [facility] Address [address] [place] [address] Phone Care Team Providers Care Cut File Clerk Name Role Phone Iker Mendez MD Primary Care Provider [phone] Reason for Visit * Reason Comments Med Refill Encounter Details Date Type Department Care Team ([facility] Contact Info) Description 07/18/2021 Refill [facility] [address] [place] [address] Anshul Miranda MD [address] [phone] Social History Tobacco Use Types Packs/Day Years [...] Upcoming Encounters Date Type Department Care Team ([facility] Contact Info) Description 11/12/2025 1:20 PM TURF FARM WORKER Office Visit [facility] [address] [address] Alexandra Samuel NP [address] [address] documented as of this encounter Visit Diagnoses Not on filedocumented in this encounter Care Teams Cut File Clerk Relationship Specialty Start Date End Date Iker Mendez MD [address] [place] [address] PCP - General Family Medicine 03/05/19 documented as of this encounter
--- OUTSIDE RECORDS SUMMARY | 2025-07-23 09:20 | XMS_ITS | Encounter Summary ---
Author Organization [facility] Address [address] [place] [address] Phone Care Team Providers Care Patient Intake Coordinator Name Role Phone Iker Mendez MD Primary Care Provider [phone] Reason for Visit * Reason Comments Med Refill Encounter Details Date Type Department Care Team ([facility] Contact Info) Description 12/23/2019 Refill [facility] [address] [place] [address] Anshul Miranda MD [address] [phone] Social History Tobacco Use Types Packs/Day Years [...] [place] Contact Info) Description 11/12/2025 1:20 PM SENIOR ESTIMATOR Office Visit [facility] [address] [place] [address] Alexandra Samuel NP [address] [address] documented as of this encounter Visit Diagnoses Not on filedocumented in this encounter Care Teams Patient Intake Coordinator Relationship Specialty Start Date End Date Iker Mendez MD [address] [place] [address] PCP - General Family Medicine 03/05/19 documented as of this encounter
--- OUTSIDE RECORDS SUMMARY | 2025-07-23 09:20 | XMS_ITS | Clinical Summary ---
Author Organization [facility] Address [address] [place] [address] Care Team Providers Care Automatic Door Mechanic Name Role Phone Iker Mendez MD Primary Care Provider [phone] Allergies No known active allergies Medications levothyroxine [...] 1 10/30/2021 Body mass index 40.0-44.9, adult ([facility]) 08/30 CKD (chronic kidney disease) stage [...] History Medical History Date Comments Diabetes mellitus Arthritis Thyroid disease Hypertension Thyroid cancer (HCC) Stroke (HCC) Family History Medical History Relation Name Comments Diabetes Father Hypertension Father Diabetes Mother Hypertension Mother Breast cancer Neg Hx Relation Name Status Comments Father Mother Social History Tobacco Use Types Packs/Day Years Used Date Smoking Tobacco: Every Day Cigarettes 0.8 48.7 Started: 1975 Smokeless Tobacco: Never Tobacco [...] on file Legal Sex Female 9:15 PM GRINDER SET UP OPERATOR Gender Identity Not on file Sexual Orientation [...] AM CDT Pulse 60 12/10/2023 9:26 AM GRINDER SET UP OPERATOR Temperature 36.8 C (98.2 F) 12/10/2023 9:26 AM GRINDER SET UP OPERATOR Respiratory Rate 16 05/22/2023 8:50 AM CDT Oxygen Saturation 95% 11/21/2023 11:43 AM GRINDER SET UP OPERATOR Inhaled Oxygen Concentration - - Weight 108.9 [...] Read Routine (OP Routine) 12/12/2023 1:05 PM GRINDER SET UP OPERATOR Screening mammogram, encounter for HIGH RISK HPV DNA DETECTION WITH GENOTYPING Routine 11/09/2023 1:30 PM GRINDER SET UP OPERATOR High grade squamous intraepithelial lesion (HGSIL), grade 3 NELIA, on biopsy of cervix from Last 3 Months or Most Recently Relevant to Health Maintenance Results * Screening Mammogram Bilateral W [place] (12/12/2023 1:05 PM GRINDER SET UP OPERATOR) Anatomical Region Laterality Modality Breast Bilateral Mammography Impressions 12/12/2023 1:10 PM GRINDER SET UP OPERATOR BI-RADS ATLAS category (overall): 1 - Negative There is no mammographic evidence of malignancy. A 1 year screening mammogram is recommended. The patient has been or will be contacted. We recommend annual screening mammography for women at average risk of breast cancer beginning at age 40, based on guidelines of the [employer] (ACR Practice Parameter for the Performance of Screening and Diagnostic Mammography) and [employer]. For women with and elevated risk of breast cancer, please refer to the ACR Practice Parameter for specific screening recommendations. The patient will be entered into a reminder system with a target due date of 1 year for her next screening exam. Narrative 12/12/2023 1:10 PM GRINDER SET UP OPERATOR Screening Mammogram Bilateral W Rome: 12/12/23 The [...] with Genotyping (Molecular component) (11/09/2023 1:30 PM GRINDER SET UP OPERATOR) HPV HR 16 Not Detected Not Detected [facility] HPV HR 18 Not Detected Not Detected [...] this test have been verified by the [facility] Molecular Infectious Disease laboratory. Correlate with separately reported cytology results, as applicable. Interpretive data last revised 23 Endocervical 11/09/2023 1:30 PM GRINDER SET UP OPERATOR 11/12/2023 11:56 AM GRINDER SET UP OPERATOR Narrative [facility] - 11/12/2023 5:48 PM GRINDER SET UP OPERATOR Clinical history and diagnosis->Hx LEEP with HSIL/CIN3 w/ +margins Testing type->Screening Last menstrual period (date if known)->unknown us Jannie Downs MD LAB BODY FLUIDS AND STOO LS ORDERABLES Final Result [facility] Department [place] [address] from Last 3 Months or Most Recently Relevant to Health Maintenance Insurance [facility] [place] Member Subscriber Plan / Payer (Ef fective 2021-Present) Name:Marah Ro Relation to Subscriber:Self Name:Marah Ro Payer ID:[id number] (NAIC) Type:MEDICARE RISK OTHER Address: [address] [facility] [place] Care Teams Automatic Door Mechanic Relationship Specialty Start Date End Date Iker Mendez MD [address] [address] PCP - General 02/21/17
--- OUTSIDE RECORDS SUMMARY | 2025-07-23 09:20 | XMS_ITS ---
Author Organization [facility] Address [address] [place] [address] Care Team Providers Care Manufacturing Supervisor 2Nd Shift Name Role Phone Iker Mendez MD Primary Care Provider [phone] Active Problems Problem Noted Date Diagnosed Date [...] 1 10/30/2021 Body mass index 40.0-44.9, adult ([facility]) 08/30 CKD (chronic kidney disease) [...]
--- OUTSIDE RECORDS SUMMARY | 2025-07-23 09:20 | XMS_ITS | Encounter Summary ---
Author Organization [facility] Address [address] [place] [address] Phone Care Team Providers Care Regional Director Of Finance Name Role Phone Iker Mendez MD Primary Care Provider [phone] Reason for Visit * Reason Comments Med Refill Encounter Details Date Type Department Care Team ([facility] Contact Info) Description 11/29/2019 Refill [facility] [address] [place] [address] Anshul Miranda MD [address] [phone] Social History Tobacco Use Types Packs/Day Years [...] Upcoming Encounters Date Type Department Care Team ([facility] Contact Info) Description 11/12/2025 1:20 PM HEALTH CARE SANITARY TECHNICIAN Office Visit [facility] [address] [place] [address] Alexandra Samuel NP [address] [address] documented as of this encounter Visit Diagnoses Not on filedocumented in this encounter Care Teams Regional Director Of Finance Relationship Specialty Start Date End Date Iker Mendez MD [address] [place] [address] PCP - General Family Medicine 03/05/19 documented as of this encounter
--- OUTSIDE RECORDS SUMMARY | 2025-07-23 09:20 | XMS_ITS | Encounter Summary ---
Author Organization [facility] Address [address] [place] [address] Phone Care Team Providers Care Fisheries Technical Officer Name Role Phone Iker Mendez MD Primary Care Provider [phone] Reason for Visit * Reason Comments Med Refill Encounter Details Date Type Department Care Team ([facility] Contact Info) Description 09/12/2020 Refill [facility] [address] [address] Anshul Miranda MD [address] [address] Social History Tobacco Use Types [...] Team ([facility] Contact Info) Description 11/12/2025 1:20 PM DINING MANAGER Office Visit [facility] [address] [facility] [address] [place] [address] Alexandra Samuel, COMMUNICATIONS FIELD TECHNICIAN [address] [address] documented as of this encounter Visit Diagnoses Not on filedocumented in this encounter Care Teams Fisheries Technical Officer Relationship Specialty Start Date End Date Iker Mendez MD [address] [place] [address] PCP - General Family Medicine 03/05/19 documented as of this encounter
--- OUTSIDE RECORDS SUMMARY | 2025-07-23 09:20 | XMS_ITS | Encounter Summary ---
Author Organization [facility] Address [address] [place] [address] Phone Care Team Providers Care Accounts Receivable Representative Name Role Phone Iker Mendez MD Primary Care Provider [phone] Reason for Visit * Reason Comments Med Refill Encounter Details Date Type Department Care Team ([facility] Contact Info) Description 07/23/2019 Refill [facility] [address] [place] [address] Anshul Miranda MD [address] [phone] Social History Tobacco Use Types Packs/Day Years [...] Upcoming Encounters Date Type Department Care Team ([facility] Contact Info) Description 11/12/2025 1:20 PM FALSEWORK BUILDER Office Visit [facility] [address] [place] [address] Alexandra Samuel NP [address] [address] documented as of this encounter Visit Diagnoses Not on filedocumented in this encounter Care Teams Accounts Receivable Representative Relationship Specialty Start Date End Date Iker Mendez MD [address] [place] [address] PCP - General Family Medicine 03/05/19 documented as of this encounter
--- OUTSIDE RECORDS SUMMARY | 2025-07-23 09:20 | XMS_ITS | Encounter Summary ---
Author Organization [facility] Address [address] [place] [address] Phone Care Team Providers Care Seam Rubber Name Role Phone Iker Mendez MD Primary Care Provider [phone] Reason for Visit * Reason Comments Med Refill Encounter Details Date Type Department Care Team ([facility] Contact Info) Description 07/01/2019 Refill [facility] [address] [place] [phone] Alexandra Samuel NP [address] [address] Social History Tobacco Use Types [...] Upcoming Encounters Date Type Department Care Team ([facility] Contact Info) Description 11/12/2025 1:20 PM SUPERVISOR OF OFFICIALS Office Visit [facility] [address] [place] [address] [phone] Alexandra Samuel NP [address] [address] documented as of this encounter Visit Diagnoses Not on filedocumented in this encounter Care Teams Seam Rubber Relationship Specialty Start Date End Date Iker Mendez MD [address] [place] [address] PCP - General Family Medicine 03/05/19 documented as of this encounter
--- OUTSIDE RECORDS SUMMARY | 2025-07-23 09:21 | XMS_ITS | Encounter Summary ---
Author Organization [facility] Address [address] [place] [address] Phone Care Team Providers Care Drive In Theater Attendant Name Role Phone Iker Mendez MD Primary Care Provider [phone] Reason for Visit * Reason Comments Med Refill Encounter Details Date Type Department Care Team ([facility] Contact Info) Description 10/19/2021 Refill [facility] [address] [address] Anshul Miranda MD [address] [phone] Social History Tobacco Use Types Packs/Day Years [...] Upcoming Encounters Date Type Department Care Team ([facility] Contact Info) Description 11/12/2025 1:20 PM STERILIZER MACHINE OPERATOR Office Visit [facility] [address] [address] Alexandra Samuel NP [address] [address] documented as of this encounter Visit Diagnoses Not on filedocumented in this encounter Care Teams Drive In Theater Attendant Relationship Specialty Start Date End Date Iker Mendez MD [address] [place] [address] PCP - General Family Medicine 03/05/19 documented as of this encounter
--- OUTSIDE RECORDS SUMMARY | 2025-07-23 09:21 | XMS_ITS | Clinical Summary ---
Author Organization [facility] [employer] Address [address] [place] [address] Care Team Providers Care Volunteer Services Supervisor Name Role Phone Unavailable Primary Care Provider Unavailabl e Source Comments [facility] [employer],non-owned Affiliates and Associated Physician Practices is amultiple site organization consisting of ambulatory clinics and hospital sitesin [place], [place], [place]. This disclosure is being madepursuant to the Care Everywhere program and may not contain all information available regarding this patient. Last updated 18.[employer] Allergies No known active allergies Medications * [...] on file Legal Sex Female 6:16 AM MEDICARE SPECIALIST Gender Identity Not on file Sexual Orientation Not on file Last Filed Vital Signs Vital Sign Reading Time Taken Comments Blood Pressure 145/88 10/12/2021 4:45 PM MEDICARE SPECIALIST Pulse 79 10/12/2021 4:45 PM MEDICARE SPECIALIST Temperature 36.6 C (97.8 F) 10/12/2021 4:45 PM MEDICARE SPECIALIST Respiratory Rate 16 10/12/2021 4:45 PM MEDICARE SPECIALIST Oxygen Saturation 98% 10/12/2021 4:45 PM MEDICARE SPECIALIST Inhaled Oxygen Concentration - - Weight 99.8 kg (220 lb) 10/12/2021 12:17 PM MEDICARE SPECIALIST Height 165.1 cm (5' 5) 10/12/2021 12:17 PM MEDICARE SPECIALIST Body Mass Index 36.61 10/12/2021 12:17 PM MEDICARE SPECIALIST Plan of Treatment Health Maintenance Due Date [...] AM CDT) Cholesterol Total 152 <200 mg/dL [facility] HDL 36(L) >40 mg/dL [facility] Comment: ATP III Classification of HDL Cholesterol: <40 mg/dL: Considered a major risk factor. >60 mg/dL: Considered a negative risk factor. LDL Calculated 81 <100 mg/dL [facility] Comment: ATP III Classification of LDL Cholesterol: <100 mg/dL: Optimal 100 - 129 mg/dL: Near Optimal/Above Optimal 130 - 159 mg/dL: Borderline High 160 - 189 mg/dL: High >190 mg/dL: Very High Triglycerides 176(H) <150 mg/dL [facility] Comment: ATP III Classification of Triglycerides: <150 mg/dL: Normal 150 - 199 mg/dL: Borderline High 200 - 400 mg/dL: High >500 mg/dL: Very High Blood specimen (specimen) BLOOD SPECIMEN / Unknown 02/19/2015 11:28 AM CDT 02/19/2015 11:32 AM CDT Anya Isaac MD LAB - CHEMISTRY ORDERABLES Radha rendon Result [address] [phone] from Last 3 Months or Most Recently Relevant to Health Maintenance Insurance [facility] [place] MEDIC[place]V [place]
--- OUTSIDE RECORDS SUMMARY | 2025-07-23 09:21 | XMS_ITS | Encounter Summary ---
Author Organization [facility] Address [address] [place] [address] Care Team Providers Care Hopper Feeder Name Role Phone Iker Mendez MD Primary Care Provider [phone] Encounter Details Date Type Department Care Team ([facility] Contact Info) Description 10/08/2022 Orders Only 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 Gender Identity Not on file Sexual Orientation Not on file documented as of this encounter Plan of Treatment Not on file documented as of this encounter Procedures Procedure Name Priority Date/Time Associated Diagnosis Comments SCAN - LABS 10/08/2022 documented in this encounter Results * SCAN - LABS (10/08/2022) us Provider Scanning Final Result documented in this encounter Visit Diagnoses Not on filedocumented in this encounter Care Teams Hopper Feeder Relationship Specialty Start Date End Date Iker Mendez MD [address] [address] PCP - General 02/21/17 documented as of this encounter
--- OUTSIDE RECORDS SUMMARY | 2025-07-23 09:21 | XMS_ITS | Encounter Summary ---
Author Organization [facility] Address [address] [place] [phone] Phone Care Team Providers Care Gristmill Operator Name Role Phone Iker Mendez MD Primary Care Provider [phone] Reason for Visit * Reason Comments Med Refill Encounter Details Date Type Department Care Team ([facility] Contact Info) Description 12/08/2020 Refill [facility] [address] [address] Anshul Miranda MD [address] [phone] Social History Tobacco Use Types Packs/Day Years [...] Upcoming Encounters Date Type Department Care Team ([facility] Contact Info) Description 11/12/2025 1:20 PM [place] Office Visit [facility] [address] [address] Alexandra Samuel NP [address] [address] documented as of this encounter Visit Diagnoses Not on filedocumented in this encounter Care Teams Gristmill Operator Relationship Specialty Start Date End Date Iker Mendez MD [address] [place] [id number] PCP - General Family Medicine 03/05/19 documented as of this encounter
--- OUTSIDE RECORDS SUMMARY | 2025-07-23 09:21 | XMS_ITS | Data Portability ---
Author Organization [facility] Address [address] [place] [address] Care Team Providers Care Individual Pension Consultant Name Role Phone SERJIO TORRES Primary Care Provider [phone] [facility] Electrician Control Equipment KING SANDHU Applications Engineering Manager ROXANN CONTRERAS Tobacco Curer ABDIRIZAK AGUILAR It Operations Specialist Assessment No assessment recorded. Plan of Treatment Reminders Order Date Submit Date Provider Last Modified By Organization Details Last Modified Time Details Appointments None recorded. Lab glucose, fingerstick , blood 2023 024 [email or web address] In-Office Order, Internal Use Only DO Not Attach Compendium DO Not Attach Compendium, Do Not Delete/merge, [id number] 4 17:15:38 glucose, fingerstick , blood 2023 024 [email or web address] In-Office Order, Internal Use Only DO Not Attach Compendium DO Not Attach Compendium, Do Not Delete/merge, [id number] 4 15:42:59 HbA1c (hemoglobin A1c), blood 2023 024 [facility], [address] [place] [address], [address], [place], [address], 4 08:24:58 TSH + free T4, serum 2023 024 [facility], [address] [facility], [address], [place], [address], 4 08:24:57 Referral general surgeon referral 2023 024 [facility] - General Surgery, [address], [place], [address], 4 18:56:44 physical therapist referral - no images 2022 023 [facility] (Outpatient Physical Therapy), [address], [place], [address], 3 15:02:15 Procedures None recorded. Surgeries None recorded. Imaging None recorded. Medication Orders albuterol sulfate 2.5 mg/3 mL (0.083 %) solution for nebulizatio n 2023 024 [id number], [address] [place], [address], 4 15:10:47 Trulicity 4.5 mg/0.5 mL subcutaneou s pen injector 2023 024 [id number], [address] [place], [address], 4 17:15:40 ropinirole 2 mg tablet 2023 024 [facility], [address] [place], [address], 4 15:39:51 glipizide 5 mg tablet 2023 024 [facility], [address] [place], [address], 4 15:39:52 Trulicity 4.5 mg/0.5 mL subcutaneou s pen injector 2023 024 [facility], [address], [place], [address], 4 17:04:52 amlodipine 10 mg tablet 2023 024 [facility], [address], [place], [address], 4 17:10:59 levothyroxi ne 200 mcg tablet 2023 024 [facility], [address], [place], [address], 17:04:45 Trulicity 0.75 mg/0.5 mL subcutaneou s pen injector 2022 023 dlebeau [facility], [address] [place], [address], 17:40:00 Patient TargetsNo targets recorded. Patient Instructions Encounter Date Encounter Id Patient Instructions Last Modified By Organization Details Last Modified Time 05/16/2023 [id number] When You Want to Lose Weight: Care Instructions [email or web address] Not available 05/16/2023 15:42:58 learning about high blood pressure [email or web address] Not available 05/16/2023 15:42:58 Talk to your environmental programs manager about starting lisinopril for better blood pressure control. [email or web address] Not available 05/16/2023 15:43:57 12/26/2023 [id number] hernia: care instructions [email or web address] Not available 12/26/2023 17:06:50 Follow up in one month for a blood pressure check. [email or web address] Not available 12/26/2023 17:09:55 01/23/2024 [id number] When You Want to Lose Weight: Care Instructions [email or web address] Not available 01/23/2024 15:39:44 learning about high blood pressure dlebeau Not available 01/23/2024 15:39:44 05/07/2024 [id number] When You Want to Lose Weight: Care Instructions [email or web address] Not available 05/07/2024 17:15:38 learning about high blood pressure dlebeau Not available 05/07/2024 17:15:38 hypothyroidism: care instructions [email or web address] Not available 05/07/2024 17:15:38 Follow up in 3 months for a blood pressure check. [email or web address] Not available 05/07/2024 17:16:17 05/22/2024 [id number] When You Want to Lose Weight: Care [...] pain no images Referring Physician: Serjio Torres [facility], Encounter Date: 05/16/2023 General Surgeon Referral for Hernia of anterior abdominal wall Referring Physician: Serjio Torres [facility], Encounter Date: 12/26/2023 Results Created Date Observation Date Name Description Value Unit Range Abnormal Flag Note LastModifiedBy Organization Detail LastModifiedTime 12/26/19 24 12/27/2023 TSH+F REE T4 TSH 4.500 uIU/m L 0.450- 4.500 Not Available [facility] ([facility]) [address] [place], [address], 12/27/2023 08:24:57 12/26/1912/27/2023 TSH+F REE T4 T4,free(dire ct) 1.20 NG/dL 0.82-1 .77 Not Available [facility] ([facility]) [address] [place], [address], 12/27/2023 08:24:57 02/28/20 24 12/27/2023 HEMOG LOBIN A1C hemoglobin A1C 7.2 % 4.8-5. 6 above high normal Predi abete s: 5.7 - 6.4 Diabe baljit: >6.4 Glyce sandra contr ol for adult s with diabe baljit: <7.0 Not Available [facility] ([facility]) [address] [facility], [place], [address], 12/27/2023 08:24:57 01/23/20 24 01/23/2024 gluco se, finge rstic k, blood Blood Glucose: mg/dl 111 Not Available In-Off ice Order Internal Use Only DO Not Attach Compendium DO Not Attach Compendium, Do Not Delete/merge, [id number] 01/23/2024 15:16:01 05/07/20 24 05/07/2024 gluco se, finge rstic k, blood Blood Glucose: mg/dl 169 Not Available In-Off ice Order Internal Use Only DO Not Attach Compendium DO Not Attach Compendium, Do Not Delete/merge, [id number] 05/07/2024 16:43:20 08/25/2008/29/2024 Bacte gardenia ident ified in Wound by Aerob e cultu re specimen source identified LEG,RI GHT Not Available Not Available 10:35:09 08/25/20 24 08/29/2024 Bacte gardenia ident ified in Wound by Aerob e cultu re service comment NO SPECIA L REQUES T Not Available Not Available 10:35:09 08/25/20 24 08/29/2024 Bacte gardenia ident ified in Wound by Aerob e cultu re microscopic observation [identifier] in specimen by gram stain FEW GRAM POSITI VE COCCI Not Available Not Available 10:35:09 08/25/20 24 08/29/2024 Bacte gardenia ident ified in Wound by Aerob e cultu re bacteria identified in specimen by culture MODERA TE ENTERO COCCUS FAECAL IS Not Available Not Available 10:35:09 08/25/20 24 08/29/2024 Bacte gardenia ident ified in Wound by Aerob e cultu re bacteria identified in specimen by culture FEW METHIC ILLIN RESIST ANT STAPHY LOCOCC US AUREUS abnormal Not Available Not Available 10:35:09 08/25/20 24 08/29/2024 Bacte gardenia ident ified in Wound by Aerob e cultu re bacteria identified in specimen by culture MODERA TE BETA STREPT OCOCCU S GROUP B Not Available Not Available 10:35:09 08/25/20 24 08/29/2024 Bacte gardenia ident ified in Wound by Aerob e cultu re bacteria identified in specimen by culture MODERA TE PASTEU RELLA PNEUMO TROPIC A Not Available Not Available 10:35:09 08/25/20 24 08/29/2024 Bacte gardenia ident ified in Wound by Aerob e cultu re bacteria identified in specimen by culture MODERA TE STAPHY LOCOCC US, COAGUL ASE NEGATI VE Not Available Not Available 10:35:09 08/25/20 24 08/29/2024 Bacte gardenia ident ified in Wound by Aerob e cultu re interpretati on and review of laboratory results Abnorm al Not Available Not Available 10:35:09 05/08/20 23 05/08/2023 elect romyo gram + nerve condu ction study No observ ation record ed. [facility] [address] [facility] , [place], [address], 05/17/2023 12:38:36 07/16/20 23 07/16/2023 US, duple x, carot id arter y No observ ation record ed. [address], [place], [address], 12/26/2023 16:53:04 07/16/20 23 07/16/2023 ankle brach ial index No observ ation record ed. [place] [id number] [facility] [address], [place], [address], 12/26/2023 16:53:04 12/12/19 24 12/12/2023 MAMMO , scree stephan, digit al, bilat eral No observ ation record ed. [facility] [address] [place], [address], 01/23/2024 15:25:22 12/12/19 24 12/11/2023 PFT, compl ete No observ ation record ed. [address], [place], [address], 12/26/2023 16:53:03 05/03/20 24 05/03/2024 XR, chest No observ ation record ed. [facility] [address] [place], [address], 05/07/2024 17:08:14 05/03/20 24 05/03/2024 CT, angio gram, chest , w/ contr ast No observ ation record ed. [facility] [address] [place], [address], 05/07/2024 17:08:14 05/03/20 24 05/03/2024 US, doppl er echoc ardio gram, w/ color flow No observ ation record ed. [address], [place], [address], 05/07/2024 17:08:14 05/03/20 24 05/03/2024 US, doppl er echoc ardio gram, w/ color flow No observ ation record ed. [address], [place], [address], 05/07/2024 17:08:14 05/04/20 24 05/04/2024 US, doppl er, venou s No observ ation record ed. [place] [id number] [facility] [address], [place], [address], 05/07/2024 17:08:14 05/15/20 24 05/15/2024 XR, chest No observ ation record ed. [facility] [address] [place], [address], 05/22/2024 15:09:04 05/15/20 24 05/15/2024 CT, angio gram, chest , w/ contr ast No observ ation record ed. [facility] [address] [place], [address], 05/22/2024 15:09:04 06/30/20 24 06/30/2024 XR, tibia + fibul a No observ ation record ed. [email or web address] [address] [place], [address], 07/03/2024 13:41:09 Result Notes None recorded. Problems Name Problem SNOMED Code Status Onset Date Resolution Date Notes Provider Name and Address Organization Details Recorded Time Diabetes mellitus 30837914 Active Serjio Torres MD Attn: Mariana rajput,[address], [place], [address], [facility] 3 15:44:28 Obesity 830066079 Active Serjio Torres MD Attn: Mariana g,[address], [place], [address], [facility] 3 15:44:28 Hypercho lesterol emia 19701566 Active Serjio Torres MD Attn: Mariana g,[address], [place], [address], [facility] 3 15:44:28 Goiter 0030324 Active Serjio Torres MD Attn: Mariana g,[address], [place], [address], [facility] 3 15:44:28 Hypothyr oidism 13582754 Active Serjio Torres MD Attn: Mariana rajput,[address], [place], [address], [place] [facility] 3 15:44:28 Medullar y thyroid carcinom a 550968376 Active thyroidec nancy Serjio Torres MD Attn: Mariana rajput,[address], [place], [address], [place] [facility] 3 15:44:28 Foot-jeny p 7462894 Active Serjio Torres MD Attn: Mariana rajput,[address], [place], [address], [place] [facility] 3 15:44:28 Pain of hip region 28192674 Active Serjio Torres MD Attn: Mariana rajput,[address], [place], [address], [place] [facility] 3 15:44:28 HPV - Human papillom avirus test positive Active Serjio Torres MD Attn: Mariana rajput,[address], [place], [address] [place] [address], [place] [facility] 3 15:44:28 Dysuria 76934414 Active Serjio Torres MD Attn: Mariana rajput,[address], [place], [address], [place] [facility] 3 15:44:28 Urinary tract infectio us disease 71524775 Active Serjio Torres MD Attn: Mariana rajput,[address], [place], [address], [place] [facility] 3 15:44:28 Tobacco dependen ce syndrome 10888653 Active Serjio Torres MD Attn: Mariana rajput,[address], [place], [address], [place] [facility] 3 15:44:28 Cough 10783983 Active Serjio Torres MD Attn: Mariana rajput,[address], [place], [address], [place] [facility] 3 15:44:28 Low back pain 790339386 Active Serjio Torres MD Attn: Mariana rajput,[address] [place] [address], [address], [place] [facility] 3 15:44:28 Multinod ular goiter 006882939 Completed 201401/13/2015 Serjio Torres MD Attn: Mariana rajput,[address] [place] [address], [address], [place] [facility] 4 10:09:35 Carotid artery stenosis 85218376 Completed 201404/06/2015 Serjio Torres MD Attn: Mariana rajput,[address] [place] [address], [address], [place] [facility] 4 10:09:35 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 265433348 Active 2016 Serjio Torres MD Attn: Mariana rajput,[address] [place] [address], [address], [place] [facility] 3 15:44:28 Ventral incision al hernia 747876525 Active 2016 Serjio Torres MD Attn: Mariana rajput,[address] [place] [address], [address], [place] [facility] 3 15:44:28 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 2017 Serjio Torres MD Attn: Andidonya rajput,[address] [place] [address], [address], [place] [facility] 4 15:05:50 Diastasi s recti 26115683 Active 2019 Serjio Torres MD Attn: Andidonya rajput,[address] [place] [address], [address], [place] [facility] 3 15:44:28 Restless legs 50385657 Active 2019 Serjio Torres MD Attn: Mariana regulo,[address] [place] [address], [address], [place] [facility] 3 15:44:28 Essentia l hyperten robert 77502151 Active 2020 Serjio Torres MD Attn: Andidonya rajput,[address], [place], [address], [place] [facility] 2 11:44:56 Renal impairme nt 312277972 Active 2020 Serjio Torres MD Attn: Andidonya rajput,[address], [place], [address], [place] [facility] 1 12:13:43 Congesti ve heart failure 94798909 Active 2020 Serjio Torres MD Attn: Mariana rajput,[address], [place], [address], [place] [facility] 2 11:44:49 Dyspnea on exertion 37290272 Active 2020 Serjio Torres MD Attn: Mariana rajput,[address], [place], [address], [place] [facility] 1 12:13:44 Body mass index 30+ - obesity 185220620 Active 2020 Serjio Torres MD Attn: Mariana rajput,[address], [place], [address], [place] [facility] 1 12:13:44 Acute on chronic diastoli c heart failure 036554879 Active 2020 Serjio Torres MD Attn: Mariana rajput,[address], [place], [address], [place] [facility] 1 12:13:44 Mixed hyperlip idemia 469909404 Active 2020 Serjio Torres MD Attn: Mariana rajput,[address], [place], [address], [place] [facility] 1 12:13:44 Diastoli c dysfunct ion 5909289 Active 2020 Serjio Torres MD Attn: Mariana rajput,[address], [place], [address], [place] [facility] 3 15:44:28 Chronic kidney disease stage 3 196382154 Active 2021 Serjio Torres MD Attn: Mariana g,[address], [place], [address], [place] [facility] 2 10:39:36 Body mass index 40+ - severely obese 637402146 Active 2021 Serjio Torres MD Attn: Andidonya g,[address], [place], [address], [place] [facility] 2 10:39:35 Morbid obesity 930666928 Active 2021 Serjio Torres MD Attn: Mariana regulo,[address], [place], [address], [place] [facility] 2 10:39:36 Obesity caused by energy imbalanc e 893906342 Active 2021 Serjio Torres MD Attn: Andidonya g,[address], [place], [address], [place] [facility] 4 10:09:19 Smoker 58995522 Active 2022 Serjio Torres MD Attn: Mariana regulo,[address], [place], [address], [place] [facility] 3 15:44:28 Cervical intraepi thelial neoplasi a grade III with severe dysplasi a 297288336 Active 2022 Serjio Torres MD Attn: Accountdonya g,[address], [place], [address], [place] [facility] 3 15:44:28 Abnormal histolog ical finding in specimen from female genital organ 345459613 Active 2022 Serjio Torres MD Attn: Andidonya g,[address], [place], [address], [place] [facility] 3 15:44:28 History of procedur e 046319912 Active 2022 Serjio Torres MD Attn: Mariana rajput,[address], [place], [address], [facility] 3 15:44:28 Iron deficien cy anemia 83517170 Active 2022 Serjio Torres MD Attn: Mariana rajput,[address], [place], [address], [facility] 4 15:05:50 Recurren t urinary tract infectio n 414584335 Active 2023 eSrjio Torres MD Attn: Mariana rajput,[address], [place], [address], [facility] 4 10:09:18 Notes:Some problems listed i n Documents: #[id number], #[id number], #[id number] could not be added to this patient's chart. Please review these documents and add these problems to the patient's chart manually as needed. Problem Notes Documentation Provider Name and Address Organization Details Recorded Time Cardiology Note : This document (1 of 1) was received from [email or web address] [address] [employer] on 06/20/2024 through Direct Message along with the following message body content: Patient Name: ROSIAT GERMAN. Patient : 1960. Patient . Rachelle Hancock [facility] 07/29/2024 10:15:45 Procedures Surgical History Date Name Laterality Status Provider Name and Address Organization Details Recorded Time 03/20/20 23 Colposcopy completed ELEANOR MONTENEGRO Attn: Accounting,[address], [place], [address], [facility] 03/20/2023 17:21:22 10/13/20 15 Colposcopy completed Derrek Unger DO Attn: Accounting,[address], [place], [address], [facility] 10/13/2015 13:11:08 04/06/20 15 Thyroid Surgery completed Manuel Nickerson RN [facility] 05/04/2015 10:41:59 cataract surgery completed Elliott Adan MA [facility] 10/11/2021 11:11:47 Cholecystectomy completed Amparo Che MA [facility] 12/21/2014 11:23:48 Imaging Results None recorded. Procedure Notes None recorded. Medical Equipment None Reported. Allergies Allergen ID Allergen Name Allergen Category Reaction Reaction Severity Criticality Documentation Date Start Date Code Code System Note Provider Name and Address Organization Details Recorded Time 064885 metformin medicatio n Not available Not available Not available 02/23/2023 6809 RxNorm conta indic ated in ckd Serjio Torres MD Attn: Mariana rajput,[address], [place], [address], [facility] 15:44:11 Medications Name Sig Start Date Stop [...] tablet TAKE 1 TABLET BY MOUTH TWICE DAILYn o refill without an office visit 2024 active Not Available Not Available Not Avai lable doxycycline hyclate 100 mg capsule 01/18 completed [...] tablet TAKE 1 TABLET BY MOUTH ONCE DAILYN O REFILL WITHOUT AN OFFICE VISIT active Not Available Not Available No t Available hydrocodone 7.5 mg-acetamin ophen 325 mg tablet active Not Available Not Available No t Available ropinirole 2 mg tablet TAKE 1 TABLET BY MOUTH IN THE MORNING AND 2 AT BEDTIME *NO REFILL WITHOUT AN OFFICE VISIT active Not Available Not Available No t [...] tablet TAKE 1 TABLET BY MOUTH ONCE DAILYN O REFILL WITHOUT AN OFFICE VISIT active Not Available Not Available No t [...] in Arterial blood by Pulse oximetry Systolic And Diastolic Provider Name and Address Organization Details Last Updated DateTime 4 162.56 cm 18 /min 42.1 kg/m2 454067. 13 g 66 /min 97.7 [degF] 96 % 96 % 163/76 mm[Hg] Kelsey Samuel MA [facility] 4 16:34:49 Date Recorded Body height Body mass index (BMI) Body weight Respiratory rate Body temperature Heart rate Oxygen saturation Oxygen saturation in Arterial blood by Pulse oximetry Systolic And Diastolic Provider Name and Address Organization Details Last Updated DateTime 4 162.56 cm 42.5 kg/m2 973344. 51 g 18 /min 97.9 [degF] 61 /min 99 % 99 % 132/81 mm[Hg] Elliott Adan MA [facility] 4 15:17:24 Date Recorded Body height Body mass index (BMI) Body weight Respiratory rate Body temperature Heart rate Systolic And Diastolic Provider Name and Address Organization Details Last Updated DateTime 4 162.56 cm 41.2 kg/m2 736350. 57 g 18 /min 98.5 [degF] 68 /min 146/51 mm[Hg] Elliott Adan MA [facility] 4 16:45:49 Date Recorded Body height Body mass index (BMI) Body weight Respiratory rate Body temperature Heart rate Oxygen saturation Oxygen saturation in Arterial blood by Pulse oximetry Systolic And Diastolic Provider Name and Address Organization Details Last Updated DateTime 3 162.56 cm 42.5 kg/m2 845420. 51 g 18 /min 97.6 [degF] 59 /min 91 % 91 % 168/69 mm[Hg] Elliott Adan MA [facility] 3 15:10:16 Date Recorded Body height Body mass index (BMI) Body weight Respiratory rate Oxygen saturation Oxygen saturation in Arterial blood by Pulse oximetry Heart rate Body temperature Systolic And Diastolic Provider Name and Address Organization Details Last Updated DateTime 4 162.56 cm 40.2 kg/m2 387787. 01 g 16 /min 91 % 91 % 74 /min 97.7 [degF] 133/71 mm[Hg] Kelsey Samuel MA [facility] 4 14:26:49 Social History Question Answer Notes LastModified by Organizat ion Details LastModified Time Tobacco Smoking Status Current Some Day Smoker Kelsey Samuel MA null, [facility] 05/22/2024 14:24:44 Are You Blind Or Do You Have Difficulty Seeing? No Information not available 02/14/2023 What Is Your Level Of Caffeine Consumption? Occasional Coffee Information not available 12/21/2014 How Much Tobacco Do You Chew? None [email or web address] Information not available 12/21/2014 Are You Deaf Or Do You Have Serious Difficulty Hearing? No Information not available 02/14/2023 What Type Of Diet Are You Following? REGULAR Information not available 02/14/2023 Education 12 Information not available 12/21/2014 Hard Of Hearing Or Deaf In One Or Both Ears? No Information not available 12/21/2014 Legally Blind In One Or Both Eyes? No [email or web address] Information not available 12/21/2014 Live Alone Or With Others? With Others [email or web address] Information not available 12/21/2014 What Was The Date Of Your Most Recent Tobacco Screening? 05/22/2024 [email or web address] Information not available 05/22/2024 How Many Children Do You Have? 3 [email or web address] Information not available 12/21/2014 Do You Use Protection During Sex? No [email or web address] Information not available 12/21/2014 What Is Your Relationship Status? Information not available 02/14/2023 Are You Sexually Active? Yes [email or web address] Information not available 12/21/2014 Do You Have [...] is your level of alcohol consumption? None [email or web address] Information not available 12/21/2014 Do you or have you ever used smokeless tobacco? Never used smokeless tobacco Information not available 01/23/2024 Are you currently employed? No [email or web address] Information not available 12/21/2014 Are you able to care for yourself independently? Yes [email or web address] Information not available 12/21/2014 Do you or [...] Skin Problems N Anemia N Heart Attack (NE) N Anxiety Disorder N Diabetes Y Muscle, [...] completed Serjio Torres MD Attn: Accounting,[address], [place], [place], [address] [place] [address], [place] [facility] 12/27/2023 10:10:09 pneumococcal polysaccharide PPV23 5 completed Serjio Torres MD Attn: Accounting,[address], [place], [address] [place] [address], [place] [facility] 12/27/2023 10:10:09 Influenza, high-dose, trivalent, PF 7 completed Serjio Torres MD Attn: Accounting,[address], [place], [address] [place] [address], [place] [facility] 05/22/2024 15:06:17 Influenza, split virus, trivalent, preservative 6 completed Serjio Torres MD Attn: Accounting,[address], [place], [address] [place] [address], [place] [facility] 05/22/2024 15:06:17 Influenza, split virus, trivalent, preservative 4 completed Serjio Torres MD Attn: Accounting,[address], [place], [address] [place] [address], [place] [facility] 05/22/2024 15:06:17 pneumococcal polysaccharide PPV23 5 completed Not Available [facility] 12/10/2023 12:38:33 Influenza, split virus, quadrivalent, preservative 9 completed Not Available [facility] 11/15/2019 02:51:08 Influenza, split virus, quadrivalent, preservative 0 completed Diana Nickerson RN [facility], [place] [facility] 07/12/2020 13:24:14 Influenza, split virus, quadrivalent, PF 2 completed Serjio Torres MD Attn: Accounting,[address], [place], [address] [place] [address], [facility] [facility] 08/14/2022 17:40:51 Tdap 5 completed Not Available [facility] 11/15/2019 02:45:32 Past Encounters Encounter ID Performer Location Encounter Start Date Encounter Closed Date Diagnosis/Indication Diagnosis SNOMED-CT Code Diagnosis ICD10 Code Diagnosis IMO Codes Diagnosis Note [id number] Renae LISETTE Carter [facility] (Family Med) [address] [place] [address] 8 09/18/2014 11:06:43 09/18/2014 15:08:03 Low back pain [id number] Serjio Torres MD [facility] (Family Med) [address] [place] [address] 8 12/17/2014 09:51:44 12/22/2014 21:41:21 [id number] Serjio Torres MD [facility] (Family Med) [address] [place] [address] 8 12/21/2014 10:41:41 12/22/2014 22:29:09 Diabetes mellitus 40762997 Essential hypertension 48453520 Obesity 862635700 Hypercholesterolemia 07545503 Adult [facility] th examination 601235405 Goiter [id number] MD [facility] (Family Med) [address] [place] [address] 8 03/03/2015 14:00:38 03/04/2015 10:41:58 Diabetes mellitus 11167054 Hypercholesterolemia 27342296 [id number] Serjio Torres MD [facility] (Family Med) [address] [place] [address] 8 04/26/2015 10:30:24 04/26/2015 13:16:16 [id number] MD Manuela Busby [facility] (Family Med) [address] [place] [address] 8 06/02/2015 14:26:23 06/03/2015 09:55:25 Diabetes mellitus 38701464 Essential hypertension 33168972 [id number] MD Manuela Busby [facility] (Family Med) [address] [place] [address] 8 07/12/2015 15:03:39 07/13/2015 13:05:00 Hypercholesterolemia 46877267 Essential hypertension 87781531 Diabetes mellitus 34946101 Low back pain 208323599 [id number] Derrek Unger DO [facility] e (DOCK SUPERVISOR) [address] [place] [address] 8 09/21/2015 11:28:30 09/24/2015 12:39:04 Gynecologic examination 68504269 Z01.419 [id number] Serjio Torres MD [facility] (Family Med) [address] [place] [address] 8 10/04/2015 10:32:22 10/05/2015 10:26:35 Obesity 677869199 E66.9 Foot-drop 6908484 M21.37 9 Adult heal th examination 742409681 Z00.00 [id number] Serjio Torres MD [facility] (Family [facility]) [address] [place] [address] 8 10/11/2015 11:17:45 10/11/2015 14:39:40 Diabetes mellitus 85003194 E11.9 Obesity 008388452 E66.9 Foot-drop 8560274 M21.37 9 Pain of hip region 47213 002 M25.552 [id number] Derrek Unger DO [facility] (DOCK SUPERVISOR) [address] [place] [address] 8 10/13/2015 12:18:53 10/15/2015 12:18:35 HPV - Human papillomavirus test positive 251851336 R87.619 [id number] Serjio Torres MD [facility] (Family Med) [address] [place] [address] 8 01/10/2016 10:11:50 01/19/2016 15:43:00 Diabetes mellitus 03760624 E11.9 [facility] 136 82103 E78.0 [facility] 75547711 E03.9 [id number] Serjio Torres MD [facility] (Family Med) [address] [place] [address] 8 04/03/2016 10:33:36 04/03/2016 11:57:35 Dysuria 17224081 R30.0 [id number] MD Manuela Busby [facility] (Family [facility]) [address] [place] [address] 8 04/10/2016 10:32:03 04/13/2016 15:48:06 Diabetes mellitus 06369895 E11.9 Essential hypertension 06244847 I10 [facility] 78455534 E03.9 [id number] Serjio Torres MD [facility] (Family Med) [address] [place], [place] [address] 8 05/17/2016 15:42:47 05/23/2016 03:47:44 Obesity 684035551 E66.9 Diabetes mellitus 897319 09 E11.9 Tobacco de pendence syndrome 99327344 F17.290 Cough 59556021 R05 [id number] MD Manuela Busby [facility] (Family Med) [address] [place], [place] [address] 8 07/25/2016 09:57:08 07/25/2016 13:48:43 Dysuria 44285471 R30.0 [id number] MD [facility] (Family [facility]) [address] [place] [address] 8 10/02/2016 10:28:27 10/02/2016 16:34:14 [id number] MD Manuela Busby [facility] (Family Med) [address] [place], [place] [address] 8 10/09/2016 14:19:08 10/17/2016 15:34:43 Diabetes mellitus 36672690 E13.21 Obesity 310041718 E66.9 [id number] MD Manuela Busby [facility] (Family [facility]) [address] [place], [place] [address] 8 02/12/2017 16:12:56 02/28/2017 12:31:19 Diabetes mellitus 90853871 E13.21 Chronic cough 32809283 R 05 Obesity 356007462 E66.9 Tobacco de pendence syndrome 75604413 F17.290 Essential hypertension 33214341 I10 [id number] MD Manuela Busby [facility] (Family Med) [address] [place] [address] 8 03/01/2017 11:04:17 03/06/2017 16:45:31 Diabetes mellitus 50000812 E13.21 Ventral in cisional hernia 552739155 K43.2 [id number] Himanshu Chand MD [facility] [address] [place] [address] 05/31/2017 15:26:05 06/07/2017 15:38:56 Uncomplicated ventral incisional hernia 095686057 K43.2 PT HAS REDUCIBLE MILDLY SYMPTOMATI C [...] DISCUSS ELECTIVE INCISIONAL HERNIA REPAIR WITH MESH. [id number] MD [facility] ([facility]) [address] [place] [address] 8 08/20/2017 09:59:23 08/20/2017 12:21:49 Type 2 diabetes mellitus 34800572 E11.9 Essential hypertension 36114476 I10 [id number] MD [facility] Bus[facility] ([facility]) [address] [place] [address] 8 08/31/2017 11:56:56 09/13/2017 14:11:45 Diabetes mellitus 51352484 E11.9 Essential hypertension 26445020 I10 Hypothyroidism 09388631 E03.9 Obesity 616617729 E66.9 Weakness of back 4586354 07 M62.81 [id number] MD [place]a [facility]by [facility] ([facility]) [address] [place] [address] 8 11/26/2017 10:20:27 11/29/2017 16:55:51 [id number] MD [facility] ([facility]) [address] [place] [address] 8 12/03/2017 10:33:09 12/19/2017 10:24:43 Diabetes mellitus 96594694 E13.21 Obesity 381835674 E66.9 Essential hypertension 42609265 I10 [id number] MD [facility] Bus[facility] ([facility]) [address] [place] [address] 8 03/06/2018 12:07:13 03/08/2018 10:56:43 Hypothyroidism 78272899 E03.9 Obesity 287891947 E66.9 Diabetes mellitus 595837 09 E13.21 Urinary tr act infectious disease 65977939 N39.0 [id number] Serjio Torres MD [facility] ([facility]) [address] [place] [address] 8 06/19/2018 12:12:08 06/20/2018 15:41:04 Diabetes mellitus 04294082 E13.21 Hypothyroidism 76660407 E03.9 Adult heal th examination 514824657 Z00.00 Contusion of toe 6041441 0 S90.121A Postmenopausal state 764 41252 Z78.0 [id number] Serjio Torres MD [facility] ([facility]) [address] [place] [address] 8 12/20/2018 15:27:07 12/23/2018 10:12:29 Type 2 diabetes mellitus 35291124 E11.9 Hypothyroidism 97995866 E03.9 [id number] Serjio Torres MD [facility] ([facility]) [address] [place] [address] 8 07/15/2019 15:16:03 07/16/2019 10:21:47 Diabetes mellitus 07671460 E13.21 Essential hypertension 71178312 I10 Hypothyroidism 23395895 E03.9 Hypercholesterolemia 136 25034 E78.00 Administra tion of influenza vaccine 77556397 Z23 Tobacco de pendence syndrome 61246436 F17.290 Strain of muscle of left shoulder 6647782598 5097391 S46.912A [id number] Serjio Torres MD [facility] ([facility]) [address] [place] [address] 8 08/14/2019 10:25:49 08/19/2019 11:36:48 Essential hypertension 75472585 I10 [id number] Serjio Torres MD [facility] ([facility]) [address] [place] [address] 8 09/10/2019 10:34:00 09/11/2019 11:16:52 Essential hypertension 53397274 I10 Tobacco de pendence syndrome 17142373 F17.290 Obesity 739018196 E66.9 Diabetes mellitus 398960 09 E13.21 [id number] Serjio Torres MD [facility] ([facility]) [address] [place], [place] [address] 8 11/19/2019 14:20:33 11/20/2019 13:45:26 Exposure to streptococcal pharyngitis 4707640297 105 Z20.818 Tobacco de pendence syndrome 34186282 F17.290 Dyspnea on exertion 6084 5006 R06.09 Diabetes mellitus 977360 E13.21 Obesity 642121131 E66.9 Uniform ab dominal distention 685217390 R14.0 [id number] Serjio Torres MD [facility] ([facility]) [address] [place], [place] [address] 8 01/19/2020 11:04:19 01/20/2020 11:56:22 Diabetes mellitus 06333340 E13.21 Essential hypertension 50129876 I10 Diastasis recti 53886738 M62.08 [id number] Serjio Torres MD [facility] ([facility]) [address] [place], [place] [address] 8 04/05/2020 10:50:03 04/06/2020 09:46:31 Essential hypertension 33579219 I10 Diabetes mellitus 579534 E13.21 [id number] Serjio Torres MD [facility] ([facility]) [address] [place] [address] 8 07/12/2020 11:07:49 07/13/2020 08:37:25 Diabetes mellitus 37496289 E13.21 Essential hypertension 86799795 I10 Tobacco de pendence syndrome 23891383 F17.290 Administra tion of influenza vaccine 21498734 Z23 Hypothyroidism 55387573 E03.9 [id number] Serjio Torres MD [facility] ([facility]) [address] [place] [address] 8 10/11/2020 11:10:59 10/12/2020 13:22:21 Essential hypertension 55336185 I10 Diabetes mellitus 352659 E13.21 Ventral in cisional hernia 809130425 K43.2 Restless legs 34406444 G 25.81 3+ pitting edema 3768228 05 R60.9 [id number] Serjio Torres MD [facility] ([facility]) [address] [place] [address] 8 01/10/2021 10:58:26 01/11/2021 11:30:04 Hypothyroidism 21155256 E03.9 Diabetes mellitus 794015 09 E13.21 Essential hypertension 76810486 I10 [id number] Serjio Torres MD [facility] ([facility]) [address] [place] [address] 8 02/10/2021 10:46:53 02/13/2021 18:59:15 Diabetes mellitus 86232667 E13.21 Essential hypertension 46023900 I10 Screening for malignant neoplasm of breast 159634309 Z12.39 [id number] Serjio Torres MD [facility] ([facility]) [address] [place] [address] 8 05/12/2021 10:53:11 05/13/2021 11:02:42 Diabetes mellitus 00895590 E13.21 Essential hypertension 79880253 I10 Smoker 43045097 F17.709 [id number] Serjio Torres MD [facility] ([facility]) [address] [place] [address] 8 10/11/2021 11:01:49 10/12/2021 05:27:50 Hypothyroidism 93953579 E03.9 Obesity 894672621 E66.9 Tobacco de pendence syndrome 32057858 F17.290 Essential hypertension 33016584 I10 Diastolic dysfunction 35 71300 I51.9 Diabetes mellitus 998370 09 E13.21 Increased frequency of urination 894006799 R35.0 Pain of le ft hip joint 8114111380 64048 M25.552 Hepatitis C screening 41 4188070 Z11.59 [id number] Serjio Torres MD [facility] ([facility]) [address] [place] [address] 8 01/10/2022 11:04:04 01/11/2022 06:47:24 Diabetes mellitus 24885130 E13.21 Essential hypertension 93972747 I10 Pain of le ft hip joint 3228969172 20744 M25.552 Restless legs 06530758 G 25.81 [id number] Serjio Torres MD [facility] ([facility]) [address] [place] [address] 8 04/13/2022 11:19:47 04/14/2022 15:36:59 Body mass index 30+ - obesity 342270113 Z68.41 Diabetes mellitus 733617 09 E13.21 Essential hypertension 53694095 I10 Hypothyroidism 93286339 E03.9 Obesity 747228570 E66.9 Smoker 41173449 F17.200 Pain of ri ght hip joint 8340740784 73471 M25.042 [id number] eSrjio Torres MD [facility] ([facility]) [address] [place] [address] 8 08/14/2022 10:57:16 2022 08:18:36 Diabetes mellitus 40737202 E13.21 Obesity 735671244 E66.9 Pain of ri ght hip joint 9924582296 29370 M25.551 Smoker 96969953 F17.664 [id number] Serjio Torres MD [facility] ([facility]) [address] [place] [address] 8 11/20/2022 15:07:28 11/21/2022 12:22:45 Diabetes mellitus 54464877 E13.21 Essential hypertension 64737455 I10 Type 2 nehemias betes mellitus 15926462 E11.9 Hypothyroidism 61888047 E03.9 Morbid obesity 512478609 E66.01 Smoker 60081133 F17.228 [id number] Dana Horne MD [facility] (DOCK SUPERVISOR) [address] [place] [address] 8 02/14/2023 09:51:38 02/22/2023 09:52:32 Gynecologic examination 08705817 Z01.419 Normal gynecologi c exam today.Cerv ical [...] 1yr Screening for malignant neoplasm of cervix 849167842 Z12.4 -Hx of abnormal-1 - -NILM, +hrHPV---N ILM, +hrHPV- colpo--no lesions, ECC with CHEVY 1 and 2. Offered LEEP or repeat pap in 1 year. Pt never followed up-Cervix grossly normal on exam-Tuan isidro updated today Screening for malignant neoplasm of breast 787911741 Z12.39 -Last mammogram 07/27/2021- -BIRADS 1-Denies breast complaints . No FMHx breast cancer-CBE unremarkab le-Mammogr am order provided. Morbid obesity 885070915 E66.01 BMI 41.5 [id number] Serjio Torres MD [facility] (Family Med) [address] [place] [address] 8 02/22/2023 11:04:34 02/23/2023 15:06:44 Essential hypertension 54766549 I10 Smoker 50470831 F17.200 Diabetes mellitus 101286 09 E13.21 Hypothyroidism 59367986 E03.9 Morbid obesity 082605589 E66.01 Monoparesis - arm 379987 006 G83.21 [id number] Serjio Torres MD [facility] (Family Med) [address] [place] [address] 03/14/2023 13:55:20 03/15/2023 12:12:30 Diabetes mellitus 87381740 E13.21 Essential hypertension 62923350 I10 Obesity 088266094 E66.9 Closed fra cture of right elbow 4208397821 5416281 S42.401A [id number] [facility] (DOCK SUPERVISOR) [address] [place] [address] 0 03/20/2023 12:18:58 03/21/2023 11:12:23 Atypical squamous cells of undetermined significance on cervical Papanicolaou smear 441946194 R87.610 Pap history:-- NILM, +hrHPV11/2 01/2015--NI LM, +hrHPV12/1 03/2015 colpo--no lesions, ECC with CHEVY 1 and 2. No treatment ASCUS, +hrHPVColp oscopy performed in office today with no complicati ons as detailed in the procedure note. Will call the patient with path results. Human lindsay lloma virus infection 229818989 B97.7 Counseled on HPV and safe sex practices. [id number] Serjio Torres MD [facility] ([facility]) [address] [place] [address] 8 04/17/2023 14:50:30 04/18/2023 10:11:15 Obesity 123810665 E66.9 Restless legs 53020287 G 25.81 Type 2 nehemias betes mellitus 78894100 E11.9 [id number] Serjio Torres MD [facility] ([facility]) [address] [place] [address] 8 05/16/2023 14:54:29 05/17/2023 16:33:44 Essential hypertension 77491616 I10 Obesity 306531395 E66.9 Type 2 nehemias betes mellitus 08389639 E11.9 Chronic low back pain 27 5656704 M54.50 [id number] Serjio Torres MD [facility] ([facility]) [address] [place] [address] 8 12/26/2023 16:13:13 12/27/2023 12:31:04 Type 2 diabetes mellitus 82156723 E11.9 Hypothyroidism 52240267 E03.9 Hernia of anterior abdominal wall 937822446 K43.9 Essential hypertension 96761990 I10 [id number] Serjio Torres MD [facility] ([facility]) [address] [place] [address] 8 01/23/2024 14:54:45 01/24/2024 09:42:00 Essential hypertension 60971281 I10 Diabetes mellitus 666154 09 E13.21 Type 2 nehemias betes mellitus 11031711 E11.9 Restless legs 17024943 G 25.81 Obesity 117373802 E66.9 [id number] Serjio Torres MD [facility] ([facility]) [address] [place] [address] 05/07/2024 15:53:59 05/08/2024 11:57:43 Essential hypertension 47279392 I10 Morbid obesity 302033885 E66.01 Mixed hyperlipidemia 267 539739 E78.2 Hypothyroidism 33084879 E03.9 Type 2 nehemias betes mellitus 35370322 E11.9 [id number] Serjio Torres MD [facility] (Family [facility]) [address] [place] [address] 05/22/2024 13:42:48 05/26/2024 12:11:11 Congestive heart failure 05982764 I50.9 Essential hypertension 83275948 I10 Obesity 800354939 E66.9 Chronic ob structive pulmonary disease 08961033 J44.9 Health Concerns Section Related Observation LastModified by Organization Detai ls LastModified Time None Recorded Concern Status LastModified by Organization Details LastModified Time None Recorded Advance Directives Directive None Recorded Payers Insurance Date Sequence Insurance Name Policy Number Policy Arce Covered Member ID Arce Member ID Guarantor Name 10/11/2021 1 *SELF PAY* Do auraa Mary Jane German 01/23/2024 2 [place] Rosita German [id number] Rosita German 01/23/2024 2 [place] [facility] OF PUBLIC AID Rosita German [id number] Rosita German 01/23/2024 1 [place] Rosita German [id number] Rosita German 01/23/2024 1 [facility] - DUAL OPTIONS (MEDICARE - MEDICAID REPLACEMENT HMO) Rosita German [id number] Rosita German 01/23/2024 1 [facility] (MEDICAID HMO) Rosita German [id number] Rosita German 01/23/2024 1 [facility] (MEDICAID HMO) [id number] Rosita German [id number] Rosita German 01/23/2024 1 [place] [facility] OF [place] [facility] Rosita German [id number] Rosita German 01/23/2024 2 [facility] (MEDICAID HMO) [id number] Rosita German [id number] Rosita Mikeson 01/23/2024 1 [place] Rosita German [id number] Rosita German 01/23/2024 2 [facility] (MEDICAID HMO) [id number] Rosita German [id number] Rosita German 01/23/2024 2 [place]ARE OR MEDICARE REPLACEMENT PRIMARY) Rosita German [id number] Rosita German 08/04/2024 [place] [facility] Rosita German [id number] Rosita German 01/23/2024 1 [place] OR MEDIC[place] REPLACEMENT PRIMARY) Rosita German [id number] Rosita German 08/04/2024 1 [facility] - DUAL OPTIONS (MEDICARE - MEDICAID REPLACEMENT HMO) [id number] Rosita German [id number] Rosita German Notes Date Note Type Note Provider Name and Address Organization Details Recorded Time 05/16/2023 text/html Patient complains of chronic low back pain., htn and diabetes. Serjio Torres MD Attn: Accounting[address] [place], [address], [facility] 05/16/2023 16:09:45 12/26/2023 text/html Patient is here for htn and diabetes, hypothyroid. Abdominal hernia and needs to see a surgeon. Serjio Torres MD Attn: Accounting[address] [place], [address], [facility] 12/27/2023 09:58:01 01/23/2024 text/html Patient is here for blood pressure check. Serjio Torres MD Attn: Accounting[address] [place], [address], [facility] 01/23/2024 15:41:37 05/07/2024 text/html Recently in the hospital for chf. No med changes, feeling much better. Htn and diabetes Serjio Torres MD Attn: Accounting[address] [facility], [place], [address], [facility] 05/07/2024 17:20:13 05/22/2024 text/html Patient recently hospitalized for chf exacerbation and copd. On home oxygen but doing well. Serjio Torres MD Attn: Accounting[address] [facility], [place], [address], [facility] 05/22/2024 15:11:19 OBGyn Episode No OBEpisode recorded.
--- OUTSIDE RECORDS SUMMARY | 2025-07-23 09:21 | XMS_ITS | Encounter Summary ---
Author Organization [facility] Address [address] [place] [address] Phone Care Team Providers Care Limnology Teacher Name Role Phone Iker Mendez MD Primary Care Provider [phone] Reason for Visit * Reason Comments Med Refill Encounter Details Date Type Department Care Team ([facility] Contact Info) Description 04/14/2021 Refill [facility] [address] [address] Anshul Miranda MD [address] [phone] Social History Tobacco Use Types Packs/Day Years [...] Foundation Contact Info) Description 11/12/2025 1:20 PM CRANE MECHANIC Office Visit [facility] [address] [address] Alexandra Samuel NP [address] [address] documented as of this encounter Visit Diagnoses Not on filedocumented in this encounter Care Teams Limnology Teacher Relationship Specialty Start Date End Date Iker Mendez MD [address] [place] [phone] PCP - General Family Medicine 03/05/19 documented as of this encounter
--- OUTSIDE RECORDS SUMMARY | 2025-07-23 09:21 | XMS_ITS | Encounter Summary ---
Author Organization [facility] Address [address] [place] [address] Phone Care Team Providers Care Design Leader Name Role Phone Iker Mendez MD Primary Care Provider [phone] Reason for Visit * Reason Comments Med Refill Encounter Details Date Type Department Care Team ([facility] Contact Info) Description 04/25/2022 Refill [facility] [address] [place] [address] [phone] Alexandra Samuel NP [address] [phone] Social History Tobacco Use Types Packs/Day Years [...] Upcoming Encounters Date Type Department Care Team ([facility] Contact Info) Description 11/12/2025 1:20 PM SURETY BOND AGENT Office Visit [facility] [address] [place] [address] [phone] Alexandra Samuel NP [address] [address] documented as of this encounter Visit Diagnoses Not on filedocumented in this encounter Care Teams Design Leader Relationship Specialty Start Date End Date Iker Mendez MD [address] [place] [phone] PCP - General Family Medicine 03/05/19 documented as of this encounter
--- OUTSIDE RECORDS SUMMARY | 2025-07-23 09:21 | XMS_ITS | Encounter Summary ---
Author Organization [facility] Address [address] [place] [address] Phone Care Team Providers Care Production Hand Name Role Phone Iker Mendez MD Primary Care Provider [phone] Reason for Visit * Reason Comments Med Refill Encounter Details Date Type Department Care Team ([facility] Contact Info) Description 01/19/2022 Refill [facility] [address] [address] Anshul Miranda MD [address] [phone] Social History Tobacco Use Types Packs/Day Years [...] Team ([facility] Contact Info) Description 11/12/2025 1:20 PM ART INSTRUCTOR Office Visit [facility] [address] [address] Alexandra Samuel NP [address] [address] documented as of this encounter Visit Diagnoses Not on filedocumented in this encounter Care Teams Production Hand Relationship Specialty Start Date End Date Iker Mendez MD [address] [place] [phone] PCP - General Family Medicine 03/05/19 documented as of this encounter
--- OUTSIDE RECORDS SUMMARY | 2025-07-23 09:21 | XMS_ITS | Encounter Summary ---
Author Organization [facility] Healthcare Address [address] [place] [address] Care Team Providers Care Acid Tank Cleaner Name Role Phone Iker Mendez MD Primary Care Provider [phone] Encounter Details Date Type Department Care Team ([facility] st Contact Info) Description 12/04/2022 Orders Only [facility] Health Information Management [address] [place] [address] Scanning, Provider Social History Tobacco Use Types Packs/Day Years Used Date Smoking Tobacco: Every Day Cigarettes 0.8 40 Smokeless Tobacco: Never Alcohol Use Standard Drinks/Week Comments Not Currently 0 (1 standard drink = 0.6 oz pur e alcohol) Comments No Sex and Gender Information Value Date Recorded Sex Assigned at Not on file Legal Sex Female 9:15 PM POLICE RESERVES COMMANDER Gender Identity Not on file Sexual Orientation Not on file documented as of this encounter Plan of Treatment Not on file documented as of this encounter Procedures Procedure Name Priority Date/Time Associated Diagnosis Comments SCAN - RADIOLOGY/IMAGING 12/04/2022 documented in this encounter Results * SCAN - RADIOLOGY/IMAGING (12/04/2022) Anatomical Region Laterality Modality Other us Provider Scanning Final Result documented in this encounter Visit Diagnoses Not on filedocumented in this encounter Care Teams Acid Tank Cleaner Relationship Specialty Start Date End Date Iker Mendez MD [address] [facility] [address] [place] [address] PCP - General 02/21/17 documented as of this encounter
--- OUTSIDE RECORDS SUMMARY | 2025-07-23 09:21 | XMS_ITS | Clinical Summary ---
Author Organization [facility] Address [address] [place] [address] Phone Care Team Providers Care Sewing Pattern Layout Technician Name Role Phone Iker Mendez MD Primary Care Provider [phone] Allergies No known active allergies Medications aspirin [...] Description 07/06/2025 9:00 AM CDT Clinical Support [facility] [address] [place] [address] Alexandra Samuel, GHULAM Chronic kidney disease stage 4 (CMS-HCC) (Primary Dx); Proteinuria, not otherwise specified; Iron deficiency anemia, not otherwise specified; Hypertension; Type 2 diabetes mellitus with diabetic nephropathy ([facility]) 05/07/2025 2:40 PM CDT Office Visit [facility] [address] [place] [address] Alexandra Samuel NP Chronic kidney disease stage 4 ([facility]) (Primary Dx); Hypertension; Proteinuria, not otherwise specified; Type 2 diabetes mellitus with diabetic nephropathy ([facility]); Iron deficiency anemia, not otherwise specified 05/04/2025 Refill [facility] [address] [place] [address] Alexandra Samuel NP from Last 3 Months [...] on file Legal Sex Female 8:55 AM [facility] Gender Identity Not on file Sexual [...] st Contact Info) Description 11/12/2025 1:20 PM VIDEOGAME TESTER Office Visit [facility] [address] [place] [address] Alexandra Samuel, GHULAM [address] [address] Health Maintenance Due Date Last Done Comments Diabetic Foot Exam 1971 Ophthalmology Exam 1971 Pneumococcal PPSV23 Highest Risk Adult (3 of 3 - PCV13) 04/15/2016 04/15/2015, 04/02/2015 COVID-19 Vaccine (2 - Modern a risk series) 04/14/2022 03/17/2022 Influenza Vaccine (#1) 2025 2, 07/12/2020, 07/15/2019, Additional history exists Insurance [facility] M[employer]AN [facility]/MEDISHARE MULTIPLAN Care Teams Sewing Pattern Layout Technician Relationship Specialty Start Date End Date Iker Mendez MD [address] [place] [address] PCP - General Family Medicine 03/05/19
--- OUTSIDE RECORDS SUMMARY | 2025-07-23 09:21 | XMS_ITS | Encounter Summary ---
Author Organization [facility] Address [address] [place] [address] Phone Care Team Providers Care Tree Expert Name Role Phone Iker Mendez MD Primary Care Provider [phone] Reason for Visit * Reason Comments Med Refill Encounter Details Date Type Department Care Team ([facility] Contact Info) Description 04/03/2023 Refill [facility] [address] [place] [address] Anshul Miranda MD [address] [phone] Social History Tobacco Use Types Packs/Day Years [...] Upcoming Encounters Date Type Department Care Team ([facility] Contact Info) Description 11/12/2025 1:20 PM STUDENT SPECIALIST Office Visit [facility] [address] [place] [address] Alexandra Samuel NP [address] [address] documented as of this encounter Visit Diagnoses Not on filedocumented in this encounter Care Teams Tree Expert Relationship Specialty Start Date End Date Iker Mendez MD [address] [place] [address] PCP - General Family Medicine 03/05/19 documented as of this encounter
[2025-07-23 09:27] VITALS: BP 123/59; PULSE 68; RESP 16; TEMP 36.5; O2SAT 98
[2025-07-23 11:40] VITALS: BP 125/58; PULSE 68; RESP 14; O2SAT 97
--- NOTE | 2025-07-23 13:42 | PC.NURSE ---
1148 Patient tolerated #2 of 3 Venofer infusion well. SEE MAR/patient care notes.
== END 2025-07-23 08:56 | disposition home or self-care (01) ==
PROVIDERS: PCP Family Medicine; Visit Provider Nurse Practitioner Family
DX: D50.9 Iron deficiency anemia, unspecified (principal)
CPT/HCPCS: 96365; 96366; J1756; J7050

== ENCOUNTER 2025-07-30 08:56 | Outpatient (CLI) | payer OTHER, SELFPAY ==
[2025-07-30 09:18] VITALS: BP 129/58; PULSE 68; RESP 14; TEMP 36.6; O2SAT 97; BMI 39.2
--- OUTSIDE RECORDS SUMMARY | 2025-07-30 09:18 | XMS_ITS | Encounter Summary ---
Author Organization [facility] Address [address] [place] [address] Phone Care Team Providers Care Sand Shoveler Name Role Phone Iker Mendez MD Primary Care Provider [phone] Reason for Visit * Reason Comments Med Refill Encounter Details Date Type Department Care Team ([facility] Contact Info) Description 01/19/2022 Refill [facility] [address] [address] Anshul Miranda MD [address] [phone] Social History Tobacco Use Types Packs/Day Years [...] Encounters Date Type Department Care Team ([facility] Contact Info) Description 11/12/2025 1:20 PM FITNESS SERVICES MANAGER Office Visit [facility] [address] [address] Alexandra Samuel NP [address] [address] documented as of this encounter Visit Diagnoses Not on filedocumented in this encounter Care Teams Sand Shoveler Relationship Specialty Start Date End Date Iker Mendez MD [address] [place] [address] PCP - General Family Medicine 03/05/19 documented as of this encounter
--- OUTSIDE RECORDS SUMMARY | 2025-07-30 09:18 | XMS_ITS | Encounter Summary ---
Author Organization [facility] Address [address] [place] [address] Phone Care Team Providers Care Obstetrician Gynecologist Name Role Phone Iker Mendez MD Primary Care Provider [phone] Reason for Visit * Reason Comments Med Refill Encounter Details Date Type Department Care Team ([facility] Contact Info) Description 09/12/2020 Refill [facility] [address] [facility] 1 [place] [address] Anshul Miranda MD [address] [address] Social History Tobacco Use Types [...] Upcoming Encounters Date Type Department Care Team ([facility] Contact Info) Description 11/12/2025 1:20 PM ARTIFICIAL SNOW MAKING MACHINE OPERATOR Office Visit [facility] [address] [facility] [address] [place] [address] Alexandra Samuel, ART GALLERY INTERNSH[employer] [address] [address] documented as of this encounter Visit Diagnoses Not on filedocumented in this encounter Care Teams Obstetrician Gynecologist Relationship Specialty Start Date End Date Iker Mendez MD [address] [place] [address] PCP - General Family Medicine 03/05/19 documented as of this encounter
--- OUTSIDE RECORDS SUMMARY | 2025-07-30 09:18 | XMS_ITS | Encounter Summary ---
Author Organization [facility] Address [address] [place] [address] Phone Care Team Providers Care Auto Club Travel Counselor Name Role Phone Iker Mendez MD Primary Care Provider [phone] Reason for Visit * Reason Comments Med Refill Encounter Details Date Type Department Care Team ([facility] Contact Info) Description 07/01/2019 Refill [facility] [address] [place] [phone] Alexandra Samuel NP [address] [address] Social History Tobacco Use Types [...] Upcoming Encounters Date Type Department Care Team ([facility] Contact Info) Description 11/12/2025 1:20 PM ROLLER PRINTER Office Visit [facility] [address] [place] [address] [phone] Alexandra Samuel NP [address] [address] documented as of this encounter Visit Diagnoses Not on filedocumented in this encounter Care Teams Auto Club Travel Counselor Relationship Specialty Start Date End Date Iker Mendez MD [address] [place] [address] PCP - General Family Medicine 03/05/19 documented as of this encounter
--- OUTSIDE RECORDS SUMMARY | 2025-07-30 09:18 | XMS_ITS | Encounter Summary ---
Author Organization [facility] Address [address] [place] [address] Phone Care Team Providers Care Head Bellhop Captain Name Role Phone Iker Mendez MD Primary Care Provider [phone] Reason for Visit * Reason Comments Med Refill Encounter Details Date Type Department Care Team ([facility] Contact Info) Description 12/24/2019 Refill [facility] [address] [place] [address] Anshul Miranda MD [address] [phone] Social History Tobacco Use Types Packs/Day Years [...] Upcoming Encounters Date Type Department Care Team ([facility] Contact Info) Description 11/12/2025 1:20 PM INSPECTOR OPEN DIE Office Visit [facility] [address] [address] Alexandra Samuel NP [address] [address] documented as of this encounter Visit Diagnoses Not on filedocumented in this encounter Care Teams Head Bellhop Captain Relationship Specialty Start Date End Date Iker Mendez MD [address] [place] [phone] PCP - General Family Medicine 03/05/19 documented as of this encounter
--- OUTSIDE RECORDS SUMMARY | 2025-07-30 09:18 | XMS_ITS | Clinical Summary ---
Author Organization [facility] Address [address] [place] [address] Phone Care Team Providers Care Double End Tenoner Setter Name Role Phone Iker Mendez MD Primary Care Provider [phone] Allergies No known active allergies Medications aspirin [...] Description 07/06/2025 9:00 AM CDT Clinical Support [facility] [address] [place] [address] Alexandra Samuel, GHULAM Chronic kidney disease stage 4 (CMS-HCC) (Primary Dx); Proteinuria, not otherwise specified; Iron deficiency anemia, not otherwise specified; Hypertension; Type 2 diabetes mellitus with diabetic nephropathy ([facility]) 05/07/2025 2:40 PM CDT Office Visit [facility] [address] [place] [address] Alexandra Samuel NP Chronic kidney disease stage 4 ([facility]) (Primary Dx); Hypertension; Proteinuria, not otherwise specified; Type 2 diabetes mellitus with diabetic nephropathy ([facility]); Iron deficiency anemia, not otherwise specified 05/04/2025 Refill [facility] [address] [place] [address] Alexandra Samuel NP from Last 3 Months [...] file Legal Sex Female 8:55 AM [facility] Gender Identity Not on file [...] st Contact Info) Description 11/12/2025 1:20 PM DUST SAMPLER Office Visit [facility] [address] [place] [address] Alexandra Samuel, GHULAM [address] [address] Health Maintenance Due Date Last Done Comments Diabetic Foot Exam 1971 Ophthalmology Exam 1971 Pneumococcal PPSV23 Highest Risk Adult (3 of 3 - PCV13) 04/15/2016 04/15/2015, 04/02/2015 COVID-19 Vaccine (2 - Modern a risk series) 04/14/2022 03/17/2022 Influenza Vaccine (#1) 2025 2, 07/12/2020, 07/15/2019, Additional history exists Insurance [facility]/MEDISHARE MULTIPLAN [facility]MED[employer] MULTIPLAN Care Teams Double End Tenoner Setter Relationship Specialty Start Date End Date Iker Mendez MD [address] [place] [address] PCP - General Family Medicine 03/05/19
--- OUTSIDE RECORDS SUMMARY | 2025-07-30 09:18 | XMS_ITS ---
Author Organization [facility] Address [address] [place] [address] Care Team Providers Care Market Editor Name Role Phone Iker Mendez MD Primary Care Provider [phone] Active Problems Problem Noted Date Diagnosed Date [...] 1 10/30/2021 Body mass index 40.0-44.9, adult ([facility]) 08/30 CKD (chronic kidney disease) stage [...]
--- OUTSIDE RECORDS SUMMARY | 2025-07-30 09:18 | XMS_ITS | Clinical Summary ---
Author Organization [facility] Address [address] [place] [address] Care Team Providers Care Employee Communications Coordinator Name Role Phone Iker Mendez MD Primary Care Provider [phone] Allergies No known active allergies Medications levothyroxine [...] 1 10/30/2021 Body mass index 40.0-44.9, adult ([facility]) 08/30 CKD (chronic kidney disease) stage 3, [...] Date Smoking Tobacco: Every Day Cigarettes 0.8 48.8 Started: 1975 Smokeless Tobacco: Never Tobacco Cessation:Ready [...] on file Legal Sex Female 9:15 PM SYRUP MIXER ASSISTANT Gender Identity Not on file Sexual Orientation [...] AM CDT Pulse 60 12/10/2023 9:26 AM SYRUP MIXER ASSISTANT Temperature 36.8 C (98.2 F) 12/10/2023 9:26 AM SYRUP MIXER ASSISTANT Respiratory Rate 16 05/22/2023 8:50 AM CDT Oxygen Saturation 95% 11/21/2023 11:43 AM SYRUP MIXER ASSISTANT Inhaled Oxygen Concentration - - Weight 108.9 [...] Read Routine (OP Routine) 12/12/2023 1:05 PM SYRUP MIXER ASSISTANT Screening mammogram, encounter for HIGH RISK HPV DNA DETECTION WITH GENOTYPING Routine 11/09/2023 1:30 PM SYRUP MIXER ASSISTANT High grade squamous intraepithelial lesion (HGSIL), grade 3 NELIA, on biopsy of cervix from Last 3 Months or Most Recently Relevant to Health Maintenance Results * Screening Mammogram Bilateral [place] (12/12/2023 1:05 PM SYRUP MIXER ASSISTANT) Anatomical Region Laterality Modality Breast Bilateral Mammography Impressions 12/12/2023 1:10 PM SYRUP MIXER ASSISTANT BI-RADS ATLAS category (overall): 1 - Negative There is no mammographic evidence of malignancy. A 1 year screening mammogram is recommended. The patient has been or will be contacted. We recommend annual screening mammography for women at average risk of breast cancer beginning at age 40, based on guidelines of the [employer] (ACR Practice Parameter for the Performance of Screening and Diagnostic Mammography) and [employer]. For women with and elevated risk of breast cancer, please refer to the ACR Practice Parameter for specific screening recommendations. The patient will be entered into a reminder system with a target due date of 1 year for her next screening exam. Narrative 12/12/2023 1:10 PM SYRUP MIXER ASSISTANT Screening Mammogram Bilateral W [place]: 12/12/23 The [...] with Genotyping (Molecular component) (11/09/2023 1:30 PM SYRUP MIXER ASSISTANT) HPV HR 16 Not Detected Not Detected [facility] HPV HR 18 Not Detected Not Detected [...] this test have been verified by the [facility] Molecular Infectious Disease laboratory. Correlate with separately reported cytology results, as applicable. Interpretive data last revised 23 Endocervical 11/09/2023 1:30 PM SYRUP MIXER ASSISTANT 11/12/2023 11:56 AM SYRUP MIXER ASSISTANT Narrative [facility] - 11/12/2023 5:48 PM SYRUP MIXER ASSISTANT Clinical history and diagnosis->Hx LEEP with HSIL/CIN3 w/ +margins Testing type->Screening Last menstrual period (date if known)->unknown us Jannie Downs MD LAB BODY FLUIDS AND STOO LS ORDERABLES Final Result [facility] Department [place] [address] from Last 3 Months or Most Recently Relevant to Health Maintenance Insurance [facility] [place] Member Subscriber Plan / Payer (Ef fective 2021-Present) Name:Marah Ro Relation to Subscriber:Self Name:Marah Ro Payer ID:[id number] (NAIC) Type:MEDICARE RISK OTHER Address: [address] [facility] [place] Care Teams Employee Communications Coordinator Relationship Specialty Start Date End Date Iker Mendez MD [address] [address] PCP - General 02/21/17
--- OUTSIDE RECORDS SUMMARY | 2025-07-30 09:18 | XMS_ITS | Encounter Summary ---
Author Organization [facility] Healthcare Address [address] [place] [address] Care Team Providers Care Brand Strategy Manager Name Role Phone Iker Mendez MD Primary Care Provider [phone] Encounter Details Date Type Department Care Team ([facility] st Contact Info) Description 12/04/2022 Orders Only [facility] Health Information Management [address] [place] [address] Scanning, Provider Social History Tobacco Use Types [...] on file Legal Sex Female 9:15 PM HAT LINING PASTER Gender Identity Not on file Sexual Orientation [...] on filedocumented in this encounter Care Teams Brand Strategy Manager Relationship Specialty Start Date End Date Iker Mendez MD [address] [address] PCP - General 02/21/17 documented as of this encounter
--- OUTSIDE RECORDS SUMMARY | 2025-07-30 09:18 | XMS_ITS | Encounter Summary ---
Author Organization [facility] Address [address] [place] [address] Phone Care Team Providers Care Clothing Cutter Name Role Phone Iker Mendez MD Primary Care Provider [phone] Reason for Visit * Reason Comments Med Refill Encounter Details Date Type Department Care Team ([facility] Contact Info) Description 07/18/2021 Refill [facility] [address] [place] [address] Anshul Miranda MD [address] [phone] Social History Tobacco Use Types Packs/Day Years [...] Upcoming Encounters Date Type Department Care Team ([facility] Contact Info) Description 11/12/2025 1:20 PM PROFESSIONAL ORGANIZER Office Visit [facility] [address] [address] Alexandra Samuel NP [address] [address] documented as of this encounter Visit Diagnoses Not on filedocumented in this encounter Care Teams Clothing Cutter Relationship Specialty Start Date End Date Iker Mendez MD [address] [place] [address] PCP - General Family Medicine 03/05/19 documented as of this encounter
--- OUTSIDE RECORDS SUMMARY | 2025-07-30 09:18 | XMS_ITS | Encounter Summary ---
Author Organization [facility] Healthcare Address [address] [place] [address] Care Team Providers Care Health Plan Specialist Name Role Phone Iker Mendez MD Primary Care Provider [phone] Encounter Details Date Type Department Care Team ([facility] st Contact Info) Description 10/08/2022 Orders Only [facility] Health Information Management [address] [place] [address] Scanning, Provider Social History Tobacco Use Types [...] on file Legal Sex Female 9:15 PM BARREL RACER Gender Identity Not on file Sexual Orientation [...] on filedocumented in this encounter Care Teams Health Plan Specialist Relationship Specialty Start Date End Date Iker Mendez MD [address] [address] PCP - General 02/21/17 documented as of this encounter
--- OUTSIDE RECORDS SUMMARY | 2025-07-30 09:18 | XMS_ITS | Encounter Summary ---
Author Organization [facility] Address [address] [place] [address] Phone Care Team Providers Care Diesel Truck Mechanic Name Role Phone Iker Mendez MD Primary Care Provider [phone] Reason for Visit * Reason Comments Med Refill Encounter Details Date Type Department Care Team ([facility] Contact Info) Description 04/03/2023 Refill [facility] [address] [place] [address] Anshul Miranda MD [address] [phone] Social History Tobacco Use Types Packs/Day Years [...] Upcoming Encounters Date Type Department Care Team ([facility] Contact Info) Description 11/12/2025 1:20 PM SCHOOL CHILD CARE ATTENDANT Office Visit [facility] [address] [place] [address] Alexandra Samuel NP [address] [address] documented as of this encounter Visit Diagnoses Not on filedocumented in this encounter Care Teams Diesel Truck Mechanic Relationship Specialty Start Date End Date Iker Mendez MD [address] [place] [phone] PCP - General Family Medicine 03/05/19 documented as of this encounter
--- OUTSIDE RECORDS SUMMARY | 2025-07-30 09:18 | XMS_ITS | Encounter Summary ---
Author Organization [facility] Address [address] [place] [address] Phone Care Team Providers Care Head Teller Name Role Phone Iker Mendez MD Primary Care Provider [phone] Reason for Visit * Reason Comments Med Refill Encounter Details Date Type Department Care Team ([facility] Contact Info) Description 12/08/2020 Refill [facility] [address] [address] Anshul Miranda MD [address] [phone] Social History Tobacco Use Types Packs/Day Years [...] Upcoming Encounters Date Type Department Care Team ([facility] Contact Info) Description 11/12/2025 1:20 PM MANAGER BILINGUAL Office Visit [facility] [address] [address] Alexandra Samuel NP [address] [address] documented as of this encounter Visit Diagnoses Not on filedocumented in this encounter Care Teams Head Teller Relationship Specialty Start Date End Date Iker Mendez MD [address] [place] [phone] PCP - General Family Medicine 03/05/19 documented as of this encounter
--- OUTSIDE RECORDS SUMMARY | 2025-07-30 09:18 | XMS_ITS | Encounter Summary ---
Author Organization [facility] Address [address] [place] [address] Phone Care Team Providers Care Carding Doubler Name Role Phone Iker Mendez MD Primary Care Provider [phone] Reason for Visit * Reason Comments Med Refill Encounter Details Date Type Department Care Team ([facility] Contact Info) Description 12/23/2019 Refill [facility] [address] [place] [address] Anshul Miranda MD [address] [phone] Social History Tobacco Use Types Packs/Day Years [...] Type Department Care Team ([facility] Contact Info) Description 11/12/2025 1:20 PM HIM CODER Office Visit [facility] [address] [place] [address] Alexandra Samuel NP [address] [address] documented as of this encounter Visit Diagnoses Not on filedocumented in this encounter Care Teams Carding Doubler Relationship Specialty Start Date End Date Iker Mendez MD [address] [place] [phone] PCP - General Family Medicine 03/05/19 documented as of this encounter
--- OUTSIDE RECORDS SUMMARY | 2025-07-30 09:18 | XMS_ITS | Encounter Summary ---
Author Organization [facility] Address [address] [place] [address] Phone Care Team Providers Care Tree Planter Name Role Phone Iker Mendez MD Primary Care Provider [phone] Reason for Visit * Reason Comments Med Refill Encounter Details Date Type Department Care Team ([facility] Contact Info) Description 07/23/2019 Refill [facility] [address] [place] [address] Anshul Miranda MD [address] [phone] Social History Tobacco Use Types Packs/Day Years [...] Hospital Contact Info) Description 11/12/2025 1:20 PM LABELING STRATEGIST Office Visit [facility] [address] [address] Alexandra Samuel NP [address] [address] documented as of this encounter Visit Diagnoses Not on filedocumented in this encounter Care Teams Tree Planter Relationship Specialty Start Date End Date Iker Mendez MD [address] [place] [id number] PCP - General Family Medicine 03/05/19 documented as of this encounter
--- OUTSIDE RECORDS SUMMARY | 2025-07-30 09:18 | XMS_ITS | Encounter Summary ---
Author Organization [facility] Address [address] [place] [address] Phone Care Team Providers Care Plaster Whittler Name Role Phone Iker Mendez MD Primary Care Provider [phone] Reason for Visit * Reason Comments Med Refill Encounter Details Date Type Department Care Team ([facility] Contact Info) Description 10/19/2021 Refill [facility] [address] [address] Anshul Miranda MD [address] [phone] Social History Tobacco Use Types Packs/Day Years [...] Services Contact Info) Description 11/12/2025 1:20 PM DRAG CAR RACER Office Visit [facility] [address] [address] Alexandra Samuel NP [address] [address] documented as of this encounter Visit Diagnoses Not on filedocumented in this encounter Care Teams Plaster Whittler Relationship Specialty Start Date End Date Iker Mendez MD [address] [place] [id number] PCP - General Family Medicine 03/05/19 documented as of this encounter
--- OUTSIDE RECORDS SUMMARY | 2025-07-30 09:18 | XMS_ITS | Encounter Summary ---
Author Organization [facility] Address [address] [place] [address] Phone Care Team Providers Care Private Branch Exchange Service Advisor Name Role Phone Iker Mendez MD Primary Care Provider [phone] Reason for Visit * Reason Comments Med Refill Encounter Details Date Type Department Care Team ([facility] Contact Info) Description 04/14/2021 Refill [facility] [address] [address] Anshul Miranda MD [address] [phone] Social History Tobacco Use Types Packs/Day Years [...] Upcoming Encounters Date Type Department Care Team ([facility] Contact Info) Description 11/12/2025 1:20 PM GRIDCAP MACHINE OPERATOR Office Visit [facility] [address] [address] Alexandra Samuel NP [address] [address] documented as of this encounter Visit Diagnoses Not on filedocumented in this encounter Care Teams Private Branch Exchange Service Advisor Relationship Specialty Start Date End Date Iker Mendez MD [address] [place] [phone] PCP - General Family Medicine 03/05/19 documented as of this encounter
--- OUTSIDE RECORDS SUMMARY | 2025-07-30 09:18 | XMS_ITS | Encounter Summary ---
Author Organization [facility] Address [address] [place] [address] Phone Care Team Providers Care Motion Picture Set Grip Name Role Phone Iker Mendez MD Primary Care Provider [phone] Reason for Visit * Reason Comments Med Refill Encounter Details Date Type Department Care Team ([facility] Contact Info) Description 03/09/2020 Refill [facility] [address] [place] [address] Anshul Miranda MD [address] [phone] Social History Tobacco Use Types Packs/Day Years [...] Upcoming Encounters Date Type Department Care Team ([facility] Contact Info) Description 11/12/2025 1:20 PM BUILDING PERFORMANCE CONSULTANT Office Visit [facility] [address] [place] [address] Alexandra Samuel NP [address] [address] documented as of this encounter Visit Diagnoses Not on filedocumented in this encounter Care Teams Motion Picture Set Grip Relationship Specialty Start Date End Date Iker Mendez MD [address] [place] [phone] PCP - General Family Medicine 03/05/19 documented as of this encounter
--- OUTSIDE RECORDS SUMMARY | 2025-07-30 09:18 | XMS_ITS | Encounter Summary ---
Author Organization [facility] Address [address] [place] [address] Phone Care Team Providers Care Monkey Trainer Name Role Phone Iker Mendez MD Primary Care Provider [phone] Reason for Visit * Reason Comments Med Refill Encounter Details Date Type Department Care Team ([facility] Contact Info) Description 04/10/2020 Refill [facility] [address] [place] [address] Anshul Miranda MD [address] [phone] Social History Tobacco Use Types Packs/Day Years [...] Encounters Date Type Department Care Team ([facility] Contact Info) Description 11/12/2025 1:20 PM BUSINESS ANALYTICS FACULTY MEMBER Office Visit [facility] [address] [place] [address] Alexandra Samuel NP [address] [address] documented as of this encounter Visit Diagnoses Not on filedocumented in this encounter Care Teams Monkey Trainer Relationship Specialty Start Date End Date Iker Mendez MD [address] [place] [phone] PCP - General Family Medicine 03/05/19 documented as of this encounter
--- OUTSIDE RECORDS SUMMARY | 2025-07-30 09:18 | XMS_ITS | Encounter Summary ---
Author Organization [facility] Address [address] [place] [address] Phone Care Team Providers Care Counselor Supervisor Name Role Phone Iker Mendez MD Primary Care Provider [phone] Reason for Visit * Reason Comments Med Refill Encounter Details Date Type Department Care Team ([facility] Contact Info) Description 10/11/2020 Refill [facility] [address] [place] [address] Anshul Miranda MD [address] [phone] Social History Tobacco Use Types Packs/Day Years [...] Team ([facility] Contact Info) Description 11/12/2025 1:20 PM PATIENT MONITOR Office Visit [facility] [address] [address] Alexandra Samuel NP [address] [address] documented as of this encounter Visit Diagnoses Not on filedocumented in this encounter Care Teams Counselor Supervisor Relationship Specialty Start Date End Date Iker Mendez MD [address] [place] [phone] PCP - General Family Medicine 03/05/19 documented as of this encounter
--- OUTSIDE RECORDS SUMMARY | 2025-07-30 09:18 | XMS_ITS | Encounter Summary ---
Author [facility] Address [address] [place] [address] Phone Care Team Providers Care Network Systems Operator Name Role Phone Iker Mendez MD Primary Care Provider [phone] Reason for Visit * Reason Comments Med Refill Encounter Details Date Type Department Care Team ([facility] Contact Info) Description 04/25/2022 Refill [facility] [address] [place] [phone] Alexandra Samuel NP [address] [phone] Social History Tobacco Use Types Packs/Day Years [...] Department Care Team ([facility] Contact Info) Description 11/12/2025 1:20 PM TYPE PHOTOGRAPHY SUPERVISOR Office Visit [facility] [address] [place] [phone] Alexandra Samuel NP [address] [address] documented as of this encounter Visit Diagnoses Not on filedocumented in this encounter Care Teams Network Systems Operator Relationship Specialty Start Date End Date Iker Mendez MD [address] [place] [phone] PCP - General Family Medicine 03/05/19 documented as of this encounter
--- OUTSIDE RECORDS SUMMARY | 2025-07-30 09:18 | XMS_ITS | Encounter Summary ---
Author Organization [facility] Address [address] [place] [address] Phone Care Team Providers Care Residential Program Director Name Role Phone Iker Mendez MD Primary Care Provider [phone] Reason for Visit * Reason Comments Med Refill Encounter Details Date Type Department Care Team ([facility] Contact Info) Description 10/27/2020 Refill [facility] [address] [place] [address] Anshul Miranda MD [address] [phone] Social History Tobacco Use Types Packs/Day Years [...] Encounters Date Type Department Care Team ([facility] Contact Info) Description 11/12/2025 1:20 PM DIPLOMA PHARMACY TECHNICIAN Office Visit [facility] [address] [place] [address] Alexandra Samuel NP [address] [address] documented as of this encounter Visit Diagnoses Not on filedocumented in this encounter Care Teams Residential Program Director Relationship Specialty Start Date End Date Iker Mendez MD [address] [place] [phone] PCP - General Family Medicine 03/05/19 documented as of this encounter
--- OUTSIDE RECORDS SUMMARY | 2025-07-30 09:18 | XMS_ITS | Clinical Summary ---
Author Organization [facility] Address [address] [place] [address] Care Team Providers Care Last Greaser Name Role Phone Unavailable Primary Care Provider Unavailabl e Source Comments [facility],non-owned Affiliates and Associated Physician Practices is amultiple site organization consisting of ambulatory clinics and hospital sitesin [place], [place], [place] and [place]. This disclosure is being madepursuant to the Care Everywhere program and may not contain all information available regarding this patient. 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 Gender Identity Not on file Sexual Orientation Not on file Last Filed Vital Signs Vital Sign Reading Time Taken Comments Blood Pressure 145/88 10/12/2021 4:45 PM PIPE MACHINE OPERATOR Pulse 79 10/12/2021 4:45 PM PIPE MACHINE OPERATOR Temperature 36.6 C (97.8 F) 10/12/2021 4:45 PM PIPE MACHINE OPERATOR Respiratory Rate 16 10/12/2021 4:45 PM PIPE MACHINE OPERATOR Oxygen Saturation 98% 10/12/2021 4:45 PM PIPE MACHINE OPERATOR Inhaled Oxygen Concentration - - Weight 99.8 kg (220 lb) 10/12/2021 12:17 PM PIPE MACHINE OPERATOR Height 165.1 cm (5' 5) 10/12/2021 12:17 PM PIPE MACHINE OPERATOR Body Mass Index 36.61 10/12/2021 12:17 PM PIPE MACHINE OPERATOR Plan of Treatment Health Maintenance Due Date [...] AM CDT) Cholesterol Total 152 <200 mg/dL [facility] HDL 36(L) >40 mg/dL [facility] Comment: ATP III Classification of HDL Cholesterol: <40 mg/dL: Considered a major risk factor. >60 mg/dL: Considered a negative risk factor. LDL Calculated 81 <100 mg/dL [facility] Comment: ATP III Classification of LDL Cholesterol: <100 mg/dL: Optimal 100 - 129 mg/dL: Near Optimal/Above Optimal 130 - 159 mg/dL: Borderline High 160 - 189 mg/dL: High >190 mg/dL: Very High Triglycerides 176(H) <150 mg/dL [facility] Comment: ATP III Classification of Triglycerides: <150 mg/dL: Normal 150 - 199 mg/dL: Borderline High 200 - 400 mg/dL: High >500 mg/dL: Very High Blood specimen (specimen) BLOOD SPECIMEN / Unknown 02/19/2015 11:28 AM CDT 02/19/2015 11:32 AM CDT Anya Isaac MD LAB - CHEMISTRY ORDERABLES Radha rendon Result [address] [phone] from Last 3 Months or Most Recently Relevant to Health Maintenance Insurance [facility] [place]
--- OUTSIDE RECORDS SUMMARY | 2025-07-30 09:18 | XMS_ITS | Encounter Summary ---
Author Organization [facility] Address [address] [place] [address] Phone Care Team Providers Care Damage Adjuster Name Role Phone Iker Mendez MD Primary Care Provider [phone] Reason for Visit * Reason Comments Med Refill Encounter Details Date Type Department Care Team ([facility] Contact Info) Description 07/30/2019 Refill [facility] [address] [place] [address] Anshul Miranda MD [address] [phone] Social History Tobacco Use Types Packs/Day Years [...] Hospital Contact Info) Description 11/12/2025 1:20 PM EDUCATIONAL DIAGNOSTICIAN Office Visit [facility] [address] [place] [address] Alexandra Samuel NP [address] [address] documented as of this encounter Visit Diagnoses Not on filedocumented in this encounter Care Teams Damage Adjuster Relationship Specialty Start Date End Date Iker Mendez MD [address] [place] [phone] PCP - General Family Medicine 03/05/19 documented as of this encounter
--- OUTSIDE RECORDS SUMMARY | 2025-07-30 09:18 | XMS_ITS | Encounter Summary ---
Author Organization [facility] Address [address] [place] [address] Phone Care Team Providers Care Family Services Assistant Name Role Phone Iker Mendez MD Primary Care Provider [phone] Reason for Visit * Reason Comments Med Refill Encounter Details Date Type Department Care Team ([facility] Contact Info) Description 11/29/2019 Refill [facility] [address] [place] [address] Anshul Miranda MD [address] [phone] Social History Tobacco Use Types Packs/Day Years [...] Upcoming Encounters Date Type Department Care Team ([facility] Contact Info) Description 11/12/2025 1:20 PM ACUTE DIALYSIS NURSE Office Visit [facility] [address] [place] [address] Alexandra Samuel NP [address] [address] documented as of this encounter Visit Diagnoses Not on filedocumented in this encounter Care Teams Family Services Assistant Relationship Specialty Start Date End Date Iker Mendez MD [address] [place] [phone] PCP - General Family Medicine 03/05/19 documented as of this encounter
[2025-07-30] MEDS: IRON SUCROSE COMPLEX 300 MG in SODIUM CHLORIDE 0.9% IV 235 ML 125 MG IVPB (09:30)
[2025-07-30 11:45] VITALS: BP 126/58; PULSE 68; RESP 14
--- NOTE | 2025-07-30 12:49 | PC.NURSE ---
Patient tolerated #3 of 3 Venofer infusion well. SEE MAR/patient care notes.
== END 2025-07-30 08:57 | disposition home or self-care (01) ==
PROVIDERS: PCP Family Medicine; Visit Provider Nurse Practitioner Family
DX: D50.9 Iron deficiency anemia, unspecified (principal)
CPT/HCPCS: 96365; 96366; J1756; J7050